=== PATIENT | female | born 1985 | race Caucasian/White ===

== ENCOUNTER 2016-06-15 13:11 | Outpatient (CLI) | payer BC, MEDICAID ==
[2016-06-15 14:52] LABS: ABSOLUTE BASOPHILS # (AUTO) 0.1 10^3/uL (0.0-0.2); ABSOLUTE EOSINOPHILS # (AUTO) 0.1 10^3/uL (0.0-0.6); ABSOLUTE LYMPHOCYTES (AUTO) 2.1 10^3/uL (0.5-4.7); ABSOLUTE MONOCYTES (AUTO) 1.2 10^3/uL (0.1-1.4); ABSOLUTE NEUT (AUTO) 9.4 10^3/uL (1.7-8.2); BASOPHILS % (AUTO) 0.4 % (0-2); HEMATOCRIT 30.6 % (36.0-47.0); HEMOGLOBIN 10.4 g/dL (12.0-15.5); HGB HCT DIFFERENCE 0.6; LYMPHOCYTES % (AUTO) 16.2 % (13-45); MEAN CORPUSCULAR HEMOGLOBIN 28.7 pg (27.0-33.4); MEAN CORPUSCULAR HGB CONC 33.8 g/dL (32.0-36.0); MEAN CORPUSCULAR VOLUME 85 fl (80-97); MONOCYTES % (AUTO) 9.2 % (3-13); RED BLOOD COUNT 3.61 10^6/uL (3.72-5.28); RED CELL DISTRIBUTION WIDTH 13.5 % (11.5-14.0); SEGMENTED NEUTROPHILS % (AUTO) 73.2 % (42-78); WHITE BLOOD COUNT 12.9 10^3/uL (4.0-10.5)
[2016-06-15 15:17] LABS: ALANINE AMINOTRANSFERASE 24 U/L (9-52); ALBUMIN 2.8 g/dL (3.5-5.0); ALKALINE PHOSPHATASE 145 U/L (38-126); ANION GAP 9 (5-19); ASPARTATE AMINO TRANSFERASE 16 U/L (14-36); BILIRUBIN,TOTAL 0.2 mg/dL (0.2-1.3); BLOOD UREA NITROGEN 5 mg/dL (7-20); CALCIUM 9.4 mg/dL (8.4-10.2); CARBON DIOXIDE 23 mmol/L (22-30); CHLORIDE 105 mmol/L (98-107); CREATININE RESULT 0.49 mg/dL (0.52-1.25); GLUCOSE 77 mg/dL (75-110); LDH 356 U/L (313-618); POTASSIUM 3.7 mmol/L (3.6-5.0); SODIUM 137.4 mmol/L (137-145); TOTAL PROTEIN 5.6 g/dL (6.3-8.2); URIC ACID 3.5 mg/dL (2.5-6.2)
[2016-06-15 15:32] LABS: APPEARANCE,URINE CLOUDY; BILIRUBIN,URINE NEGATIVE (NEGATIVE); GLUCOSE, URINE NEGATIVE (NEGATIVE); KETONES,URINE NEGATIVE (NEGATIVE); LEUKOCYTE ESTERASE,URINE LARGE (NEGATIVE); NITRITE,URINE NEGATIVE (NEGATIVE); PROTEIN,URINE NEGATIVE (NEGATIVE); URINE SPECIFIC GRAVITY 1.011; UROBILINOGEN,URINE NEGATIVE mg/dL (<2.0)
[2016-06-15 15:48] LABS: URINE BARBITURATES SCREEN NEGATIVE; URINE METHADONE SCREEN NEGATIVE; URINE PHENCYCLIDINE SCREEN NEGATIVE
--- NOTE | 2016-06-15 15:49 | Non Stress Test Report ---
Non Stress Test Datetime Report Generated by CPN: 06/15/2016 15:49 DEMOGRAPHIC EGA NST: 37.0 INDICATION Indication for Study: Ordered by Provider MONITORING Monitor Explained: Monitor Explained; Test Explained; Patient Verbalized Understanding Time on Monitor: 06/15/2016 13:35 Time off Monitor: 06/15/2016 15:28 NST Duration: 113 NST INTERVENTIONS NST Interventions: None Physician Notified NST: Dr Neilsen BABY A Movement : Present Contraction Frequency : denies FHR Baseline : 135 Accelerations : 15X15 Decelerations : None Variability : Moderate 6-25bpm NST Review: Meets Criteria for Reactive NST NST Review and Verified By : Gretchen Baker RN NST Results: Reactive NST REPORT Report Trigger: Send Report
--- NOTE | 2016-06-15 16:00 | L&D Flow Sheet ---
LD Flowsheet Datetime Report Generated by CPN: 06/15/2016 16:00 Datetime: 06/15/2016 15:23 Communication Comments: Dr Neislen notified of pt lab results and orders received for d/c home, f/u in office as scheduled. (Gretchen Perry, RN) Datetime: 06/15/2016 15:21 Communication Comments: Dr Neilsen notified of pt bp while standing. (Gretchen Perry, RN) Datetime: 06/15/2016 15:19 NBP Sys/Lina/Mean (mmHg): 140 (QS system process) : 84 (QS system process) : 106 (QS system process) Pulse: 79 (QS system process) Patient Care Comments: pt wanted to have bp taken standing at bedside. (Gretchen Baker RN) LaborFlag: OB Triage (QS system process) Datetime: 06/15/2016 15:15 NBP Sys/Lina/Mean (mmHg): 109 (QS system process) : 70 (QS system process) : 84 (QS system process) Pulse: 70 (QS system process) LaborFlag: OB Triage (QS system process) Datetime: 06/15/2016 14:59 Monitor Mode: External; Palpation (Serena Baidy, RN) Frequency (min): denies (Serena Baidy, RN) Monitor Mode: External US (Serena Baidy, RN) FHR Baseline Rate : 135 (Serena Baidy, RN) Variability: Moderate 6-25 bpm (Serena Baidy, RN) Accelerations: 15X15 (Serena Baidy, RN) Decelerations: None (Serena Baidy, RN) Datetime: 06/15/2016 14:58 NBP Sys/Lina/Mean (mmHg): 120 (QS system process) : 73 (QS system process) : 89 (QS system process) Pulse: 81 (QS system process) LaborFlag: OB Triage (QS system process) Datetime: 06/15/2016 14:30 Monitor Mode: External; Palpation (Serena Baidy, RN) Frequency (min): denies (Serena Baidy, RN) Monitor Mode: External US (Serena Baidy, RN) FHR Baseline Rate : 140 (Serena Baidy, RN) Variability: Moderate 6-25 bpm (Serena Baidy, RN) Accelerations: 15X15 (Serena Baidy, RN) Decelerations: None (Serena Baidy, RN) Datetime: 06/15/2016 14:29 NBP Sys/Lina/Mean (mmHg): 122 (QS system process) : 71 (QS system process) : 91 (QS system process) Pulse: 81 (QS system process) LaborFlag: OB Triage (QS system process) Datetime: 06/15/2016 14:13 NBP Sys/Lina/Mean (mmHg): 117 (QS system process) : 69 (QS system process) : 88 (QS system process) Pulse: 83 (QS system process) LaborFlag: OB Triage (QS system process) Datetime: 06/15/2016 14:00 Monitor Mode: External; Palpation (Serena Baidy, RN) Frequency (min): denies (Serena Baidy, RN) Monitor Mode: External US (Serena Baidy, RN) FHR Baseline Rate : 140 (Serena Baidy, RN) Variability: Moderate 6-25 bpm (Serena Baidy, RN) Accelerations: 15X15 (Serena Baidy, RN) Decelerations: None (Serena Baidy, RN) Datetime: 06/15/2016 13:58 NBP Sys/Lina/Mean (mmHg): 112 (QS system process) : 65 (QS system process) : 84 (QS system process) Pulse: 75 (QS system process) LaborFlag: OB Triage (QS system process) Datetime: 06/15/2016 13:51 Patient Position/Activity: Right Lateral (Serena Pearson, RN) Datetime: 06/15/2016 13:42 Communication Comments: Dr Guajardo notified of pt complaint of elevated bp's at home while being oob, current bp reported as well as headache and heartburn. Orders received for [facility] labs. (Serena Pearson, RN) Datetime: 06/15/2016 13:38 NBP Sys/Lina/Mean (mmHg): 135 (QS system process) : 85 (QS system process) : 105 (QS system process) Pulse: 71 (QS system process) LaborFlag: OB Triage (QS system process) Datetime: 06/15/2016 13:36 Pain Scale: 4 (Serena Pearson RN) Pain Presence: Constant (Serena Pearson RN) Pain Type: Dull; Ache (Serena Pearson, ALBERT) Pain Location: Head (Serena Pearson, ALBERT) Pain Goal: 1 (Serena Pearson RN) Membrane Status: Intact (Serena Pearson RN) Vaginal Bleeding: None (Serena Pearson RN) Level of Consciousness: Fully Conscious (Serena Pearson, RN) DTR's/Clonus: DTRs 1+; No Clonus (Serena Pearson, ALBERT) Headache: Frontal (Serena Pearson, RN) Nausea/Vomiting: Denies (Serena Pearson, RN) Patient Position/Activity: Right Tilt; Semi-Fowlers (Serena Pearson, RN) Instructional Method: Verbal; Patient Instructed; Verbalized Understanding (Serena Pearson, RN) Plan of Care: Plan of Care Discussed (Serena Pearson, RN) Unit Routine: [place] to Room; [place]; Bed; Monitoring (Serena Pearson, RN) LaborFlag: OB Triage (QS system process)
--- NOTE | 2016-06-17 11:49 | Antepartum Discharge Summary ---
Antepartum DC Datetime Report Generated by CPN: 06/17/2016 11:49 Diet: Regular (06/15/2016 15:49:Serena Pearson RN) Activity: May Be Up to Bathroom; May Be Up for Meals; May Shower (06/15/2016 15:49:Serena Pearson RN) Activity Restrictions: No Exercising (06/15/2016 15:49:Serena Pearson RN) Instructions Given To: pt (06/15/2016 15:49:Serena Pearson RN) Instructions Understood: Patient Verbalized Understanding (06/15/2016 15:49:Serena Pearson RN) Referrals: None (06/15/2016 15:49:Serena Pearson RN) Educational Materials- Other: term labor care notes (06/15/2016 15:49:Serena Pearson RN) Discharged AMA: No (06/15/2016 15:49:Serena Pearson RN) Discharge Date/Time: 06/15/2016 15:40 (06/15/2016 15:49:Serena Pearson RN) Discharged To: Home (06/15/2016 15:49:Serena Pearson RN) Discharge Provider Name: Dr Nava (06/15/2016 15:49:Serena Pearson RN) Accompanied By: (06/15/2016 15:49:Serena Pearson RN) Discharge Method: Ambulatory (06/15/2016 15:49:Serena Pearson RN) Condition: Stable (06/15/2016 15:49:Serena Pearson RN) Follow Up With: [facility] (06/15/2016 15:49:Serena Pearson RN) Follow Up On: As Scheduled (06/15/2016 15:49:Serena Pearson RN) Follow Up Phone Number: [facility] - (06/15/2016 15:49:Serena Pearson RN)
--- NOTE | 2016-06-17 11:50 | L&D Current Admission ---
Current Admit Datetime Report Generated by [facility]: 06/17/2016 11:50 Chief Complaint: Headache (Annotations: pt states that she has had elevated bp at home when up and moving, when she lays down its fine.) (06/15/2016 13:36:Serena Pearson RN)
--- NOTE | 2016-06-17 11:51 | L&D General Admission ---
General Admit Datetime Report Generated by CPN: 06/17/2016 11:51 Para: 0 (06/15/2016 15:49:Serena Pearson RN) Baby, Number in Womb: 1 (06/15/2016 15:49:Serena Pearson RN) Height (in): 68 (06/15/2016 15:00:QS system process) Height (in): 68 (06/15/2016 14:49:QS system process) Height (in): 68 (06/15/2016 13:30:QS system process) Hemoglobin: 10.4 L (06/15/2016 14:37:QS system process) Hematocrit: 30.6 L (06/15/2016 14:37:QS system process) MCV: 85 (06/15/2016 14:37:QS system process)
--- NOTE | 2016-06-17 11:51 | L&D Flow Sheet ---
LD Flowsheet Datetime Report Generated by CPN: 06/17/2016 11:51 Datetime: 06/15/2016 15:23 Communication Comments: Dr Neislen notified of pt lab results and orders received for d/c home, f/u in office as scheduled. (Gretchen Duchesne, RN) Datetime: 06/15/2016 15:21 Communication Comments: Dr Neilsen notified of pt bp while standing. (Gretchen Duchesne, RN) Datetime: 06/15/2016 15:19 NBP Sys/Lina/Mean (mmHg): 140 (QS system process) : 84 (QS system process) : 106 (QS system process) Pulse: 79 (QS system process) Patient Care Comments: pt wanted to have bp taken standing at bedside. (Gretchen Baker RN) LaborFlag: OB Triage (QS system process) Datetime: 06/15/2016 15:15 NBP Sys/Lina/Mean (mmHg): 109 (QS system process) : 70 (QS system process) : 84 (QS system process) Pulse: 70 (QS system process) LaborFlag: OB Triage (QS system process) Datetime: 06/15/2016 14:59 Monitor Mode: External; Palpation (Serena Baidy, RN) Frequency (min): denies (Serena Baidy, RN) Monitor Mode: External US (Serean Baidy, RN) FHR Baseline Rate : 135 (Serena Baidy, RN) Variability: Moderate 6-25 bpm (Serena Baidy, RN) Accelerations: 15X15 (Serena Baidy, RN) Decelerations: None (Serena Baidy, RN) Datetime: 06/15/2016 14:58 NBP Sys/Lina/Mean (mmHg): 120 (QS system process) : 73 (QS system process) : 89 (QS system process) Pulse: 81 (QS system process) LaborFlag: OB Triage (QS system process) Datetime: 06/15/2016 14:30 Monitor Mode: External; Palpation (Serena Baidy, RN) Frequency (min): denies (Serena Baidy, RN) Monitor Mode: External US (Serena Baidy, RN) FHR Baseline Rate : 140 (Serena Baidy, RN) Variability: Moderate 6-25 bpm (Serena Baidy, RN) Accelerations: 15X15 (Serena Baidy, RN) Decelerations: None (Serena Baidy, RN) Datetime: 06/15/2016 14:29 NBP Sys/Lina/Mean (mmHg): 122 (QS system process) : 71 (QS system process) : 91 (QS system process) Pulse: 81 (QS system process) LaborFlag: OB Triage (QS system process) Datetime: 06/15/2016 14:13 NBP Sys/Lina/Mean (mmHg): 117 (QS system process) : 69 (QS system process) : 88 (QS system process) Pulse: 83 (QS system process) LaborFlag: OB Triage (QS system process) Datetime: 06/15/2016 14:00 Monitor Mode: External; Palpation (Serena Baidy, RN) Frequency (min): denies (Serena Baidy, RN) Monitor Mode: External US (Serena Baidy, RN) FHR Baseline Rate : 140 (Serena Baidy, RN) Variability: Moderate 6-25 bpm (Serena Baidy, RN) Accelerations: 15X15 (Serena Baidy, RN) Decelerations: None (Serena Baidy, RN) Datetime: 06/15/2016 13:58 NBP Sys/Lina/Mean (mmHg): 112 (QS system process) : 65 (QS system process) : 84 (QS system process) Pulse: 75 (QS system process) LaborFlag: OB Triage (QS system process) Datetime: 06/15/2016 13:51 Patient Position/Activity: Right Lateral (Serena Pearson, RN) Datetime: 06/15/2016 13:42 Communication Comments: Dr Guajardo notified of pt complaint of elevated bp's at home while being oob, current bp reported as well as headache and heartburn. Orders received for [facility] labs. (Serena Pearson, RN) Datetime: 06/15/2016 13:38 NBP Sys/Lina/Mean (mmHg): 135 (QS system process) : 85 (QS system process) : 105 (QS system process) Pulse: 71 (QS system process) LaborFlag: OB Triage (QS system process) Datetime: 06/15/2016 13:36 Pain Scale: 4 (Serena Pearson RN) Pain Presence: Constant (Serena Pearson RN) Pain Type: Dull; Ache (Serena Pearson, ALBERT) Pain Location: Head (Serena Pearson, ALBERT) Pain Goal: 1 (Serena Pearson RN) Membrane Status: Intact (Serena Pearson RN) Vaginal Bleeding: None (Serena Pearson RN) Level of Consciousness: Fully Conscious (Serena Pearson, RN) DTR's/Clonus: DTRs 1+; No Clonus (Serena Pearson, ALBERT) Headache: Frontal (Serena Pearson, RN) Nausea/Vomiting: Denies (Serena Pearson, RN) Patient Position/Activity: Right Tilt; Semi-Fowlers (Serena Pearson, RN) Instructional Method: Verbal; Patient Instructed; Verbalized Understanding (Serena Pearson, RN) Plan of Care: Plan of Care Discussed (Serena Pearson, RN) Unit Routine: [place] to Room; [place]; Bed; Monitoring (Serena Pearson, RN) LaborFlag: OB Triage (QS system process)
--- NOTE | 2016-06-17 11:52 | L&D Discharge Summary ---
OB Discharge Summary Datetime Report Generated by CPN: 06/17/2016 11:52 DISCHARGE DIAGNOSIS Diagnosis/Symptoms: Hypertension Evaluation Diagnoses/Symptoms Other: History of Elevated BPs in ; Normotensive with Reactive NST Treatment/Procedures Other: Serial BPs Gestation: 37.0 Number of Babies in Womb: 1 Parity: 0 DIET/ACTIVITY/RESTRICTIONS Diet: Regular Activity: May Be Up to Bathroom; May Be Up for Meals; May Shower Activity Restrictions: No Exercising TEACHING/INSTRUCTIONS/REFERRALS Instructions Given To: pt Instructions Understood: Patient Verbalized Understanding Referrals: None Educational Materials- Other: term labor care notes DISCHARGE INFORMATION Discharged AMA: No Discharge Date/Time: 06/15/2016 15:40 Discharged To: Home Discharge Provider Name: Dr Nava Accompanied By: Discharge Method: Ambulatory Condition: Stable FOLLOW UP INFORMATION Follow Up With: [facility] Follow Up On: As Scheduled Follow Up Phone Number: [facility] - Comments: Pt discharged home for wnl vs, reactive nst, + movement, pt understands instructions and when to return to evaluation and to keep scheduled appointment. Instructed to rest and given note from work.
--- NOTE | 2016-06-24 04:45 | L&D Discharge Summary ---
OB Discharge Summary Datetime Report Generated by CPN: 06/24/2016 04:45 DISCHARGE DIAGNOSIS Diagnosis/Symptoms: Hypertension Evaluation Diagnoses/Symptoms Other: History of Elevated BPs in ; Normotensive with Reactive NST Treatment/Procedures Other: Serial BPs Gestation: 38.1 Number of Babies in Womb: 1 Parity: 0 DIET/ACTIVITY/RESTRICTIONS Diet: Regular Activity: May Be Up to Bathroom; May Be Up for Meals; May Shower Activity Restrictions: No Exercising TEACHING/INSTRUCTIONS/REFERRALS Instructions Given To: pt Instructions Understood: Patient Verbalized Understanding Referrals: None Educational Materials- Other: term labor care notes DISCHARGE INFORMATION Discharged AMA: No Discharge Date/Time: 06/15/2016 15:40 Discharged To: Home Discharge Provider Name: Dr Nava Accompanied By: Discharge Method: Ambulatory Condition: Stable FOLLOW UP INFORMATION Follow Up With: [facility] Follow Up On: As Scheduled Follow Up Phone Number: [facility] [employer] - Comments: Pt discharged home for wnl vs, reactive nst, + movement, pt understands instructions and when to return to evaluation and to keep scheduled appointment. Instructed to rest and given note from work.
== END 2016-06-15 15:40 | disposition home or self-care (01) ==
LOC: LC 13:11
PROVIDERS: ATTEND Specialist
PROC: 4A1HXCZ Monitoring of Products of Conception, Cardiac Rate, External Approach (ICD-10-PCS; principal; 2016-06-15)
DX: O16.3 Unspecified maternal hypertension, third trimester (principal); Z3A.37 37 weeks gestation of pregnancy
CPT/HCPCS: 59025; 36415; 83615; 84550; 85025; 80053; 81001; G0479; 80307

== ENCOUNTER 2016-06-23 19:44 | Inpatient (IN) | payer BC, MEDICAID ==
[2016-06-23] MEDS ORDERED: RINGERS SOLUTION,LACTATED 1,000 ML IV ONE (19:48)
[2016-06-23] MEDS ORDERED: ACETAMINOPHEN 325 MG TABLET PO PRN (20:02)
[2016-06-23] MEDS ORDERED: ZOLPIDEM TARTRATE 5 MG TABLET PO PRN (20:02)
[2016-06-23] MEDS ORDERED: OXYTOCIN/NORMAL SALINE 1,000 ML IV PRN (20:02)
[2016-06-23] MEDS ORDERED: DINOPROSTONE 10 MG VAGINAL INSERT.SR PV ONE (20:02)
[2016-06-23] MEDS ORDERED: MAG HYDROX/AL HYDROX/SIMETH SUSP 30 ML UDCUP PO PRN (20:02)
[2016-06-23 20:30] LABS: ABSOLUTE EOSINOPHILS # (AUTO) 0.1 10^3/uL (0.0-0.6); ABSOLUTE LYMPHOCYTES (AUTO) 2.6 10^3/uL (0.5-4.7); ABSOLUTE MONOCYTES (AUTO) 1.3 10^3/uL (0.1-1.4); ABSOLUTE NEUT (AUTO) 9.5 10^3/uL (1.7-8.2); BASOPHILS % (AUTO) 0.3 % (0-2); HEMATOCRIT 30.4 % (36.0-47.0); HEMOGLOBIN 10.3 g/dL (12.0-15.5); HGB HCT DIFFERENCE 0.5; LYMPHOCYTES % (AUTO) 18.9 % (13-45); MEAN CORPUSCULAR HEMOGLOBIN 28.5 pg (27.0-33.4); MEAN CORPUSCULAR HGB CONC 33.9 g/dL (32.0-36.0); MEAN CORPUSCULAR VOLUME 84 fl (80-97); MONOCYTES % (AUTO) 9.4 % (3-13); RED BLOOD COUNT 3.62 10^6/uL (3.72-5.28); SEGMENTED NEUTROPHILS % (AUTO) 70.4 % (42-78); WHITE BLOOD COUNT 13.5 10^3/uL (4.0-10.5)
[2016-06-23 20:34] LABS: ALANINE AMINOTRANSFERASE 14 U/L (9-52); ALBUMIN 3.3 g/dL (3.5-5.0); ALKALINE PHOSPHATASE 157 U/L (38-126); ANION GAP 12 (5-19); ASPARTATE AMINO TRANSFERASE 16 U/L (14-36); BILIRUBIN,TOTAL 0.3 mg/dL (0.2-1.3); BLOOD UREA NITROGEN 6 mg/dL (7-20); CALCIUM 9.3 mg/dL (8.4-10.2); CARBON DIOXIDE 22 mmol/L (22-30); CHLORIDE 104 mmol/L (98-107); CREATININE RESULT 0.55 mg/dL (0.52-1.25); GLUCOSE 104 mg/dL (75-110); LDH 370 U/L (313-618); POTASSIUM 3.6 mmol/L (3.6-5.0); SODIUM 137.6 mmol/L (137-145); TOTAL PROTEIN 5.8 g/dL (6.3-8.2); URIC ACID 3.9 mg/dL (2.5-6.2)
[2016-06-23] MEDS ORDERED: DINOPROSTONE 10 MG VAGINAL INSERT.SR ONE (20:46)
[2016-06-23 20:56] LABS: APPEARANCE,URINE CLOUDY; BILIRUBIN,URINE NEGATIVE (NEGATIVE); GLUCOSE, URINE NEGATIVE (NEGATIVE); KETONES,URINE NEGATIVE (NEGATIVE); LEUKOCYTE ESTERASE,URINE MODERATE (NEGATIVE); NITRITE,URINE NEGATIVE (NEGATIVE); PROTEIN,URINE NEGATIVE (NEGATIVE); URINE SPECIFIC GRAVITY 1.013; UROBILINOGEN,URINE NEGATIVE mg/dL (<2.0)
[2016-06-23] MEDS: RINGERS SOLUTION,LACTATED 1,000 ML IV PRN (21:53)
[2016-06-24] MEDS: RINGERS SOLUTION,LACTATED 1,000 ML IV PRN (02:44)
--- NOTE | 2016-06-24 04:45 | L&D Admission Assessment ---
LD ADM ASMT Datetime Report Generated by CPN: 06/24/2016 04:45 PATIENT ASSESSMENT Assessment Type: Admission Assessment (06/23/2016 20:25:Sashara Ramírez, RN) WEIGHT Weight (lb): 189 (06/23/2016 19:59:QS system process) Weight (kg): 85.9 (06/23/2016 19:59:QS system process) BMI: 28.7 (06/23/2016 19:59:QS system process) PAIN Pain Scale: 0 (06/24/2016 03:03:Shahbaz Elmore RN) Pain Scale: 0 (06/24/2016 01:05:Shahbaz Elmore RN) Pain Scale: 0 (06/23/2016 21:06:Shahbaz Elmore RN) Pain Scale: 0 (06/23/2016 20:25:Shahbaz Elmore RN) Pain Presence: None/Denies (06/24/2016 03:03:Shahbaz Elmore RN) Pain Presence: None/Denies (06/24/2016 01:05:Shahbaz Elmore RN) Pain Presence: None/Denies (06/23/2016 21:06:Shahbaz Elmore RN) Pain Presence: None/Denies (06/23/2016 20:25:Shahbaz Elmore RN) Pain Type: N/A (06/24/2016 03:03:Shahbaz Elmore RN) Pain Type: N/A (06/24/2016 01:05:Shahbaz Elmore RN) Pain Type: N/A (06/23/2016 21:06:Shahbaz Elmore RN) Pain Type: N/A (06/23/2016 20:25:Shahbaz Elmore RN) Pain Comments: pt denies feeling ctx or cramping (06/23/2016 21:06:Shahbaz Elmore RN) CONTRACTIONS Frequency (min): none (06/24/2016 04:00:Rujose enrique Elmore, RN) Frequency (min): none (06/24/2016 03:30:Rucsandra Ramírez, RN) Frequency (min): 2-3 (06/24/2016 03:00:Rucsandra Ramírez, RN) Frequency (min): 1.5-2.5 (06/24/2016 02:30:Rucsandra Ramírez, RN) Frequency (min): 2-4 (06/24/2016 02:00:Rucsandra Elmore, RN) Frequency (min): 2.5-4 (06/24/2016 01:30:Rucsandra Ramírez, RN) Frequency (min): occasional (06/24/2016 01:00:Rucsandra Ramírez, RN) Frequency (min): occasional (06/24/2016 00:30:Rucsandra Ramírez, RN) Frequency (min): occasional (06/24/2016 00:00:Rucsandra Ramírez, RN) Frequency (min): x2 (06/23/2016 23:30:Rucsandra Elmore, RN) Frequency (min): 4.5-7 (06/23/2016 23:00:Rucsandra Ramírez, RN) Frequency (min): 3-6.5 (06/23/2016 22:30:Rucsandra Ramírez, RN) Frequency (min): 5.5-6 (06/23/2016 22:00:Shelby Whitehead RN) Frequency (min): 4.5-6.5 (06/23/2016 21:30:Rucsandra Elmore, RN) Frequency (min): 2-7 (06/23/2016 21:00:Rucsandra Elmore, RN) Frequency (min): x1 (06/23/2016 20:30:Shahbaz Elmore, RN) Duration (sec): 50-60 (06/24/2016 03:00:Shahbaz Elmore, RN) Duration (sec): 40-110 (06/24/2016 02:30:Shahbaz Elmore, RN) Duration (sec): 50-90 (06/24/2016 02:00:Shahbaz Elmore, RN) Duration (sec): 50-90 (06/24/2016 01:30:Shahbaz Elmore RN) Duration (sec): 50-60 (06/24/2016 01:00:Shahbaz Elmore, RN) Duration (sec): 40-60 (06/24/2016 00:30:Shahbaz Elmore RN) Duration (sec): 40-50 (06/24/2016 00:00:Shahbaz Elmore RN) Duration (sec): 40-50 (06/23/2016 23:30:Shahbaz Elmore RN) Duration (sec): 50-70 (06/23/2016 23:00:Shahbaz Elmore RN) Duration (sec): 50-70 (06/23/2016 22:30:Shahbaz Elmore RN) Duration (sec): 50-70 (06/23/2016 22:00:Shelby Whitehead RN) Duration (sec): 50-100 (06/23/2016 21:30:Shahbaz Elmore RN) Duration (sec): 60-120 (06/23/2016 21:00:Shahbaz Elmore RN) Duration (sec): 50 (06/23/2016 20:30:Shahbaz Elmore RN) Quality: Mild (06/24/2016 03:00:Shahbaz Elmore RN) Quality: Mild (06/24/2016 02:30:Shahbaz Elmore RN) Quality: Mild (06/24/2016 02:00:Shahbaz Elmore RN) Quality: Mild (06/24/2016 01:30:Shahbaz Elmore RN) Quality: Mild (06/24/2016 01:00:Shahbaz Elmore RN) Quality: Mild (06/24/2016 00:30:Shahbaz Elmore RN) Quality: Mild (06/24/2016 00:00:Shahbaz Elmore RN) Quality: Mild (06/23/2016 23:30:Shahbaz Elmore RN) Quality: Mild (06/23/2016 23:00:Shahbaz Elmore RN) Quality: Mild (06/23/2016 22:30:Shahbaz Elmore RN) Quality: Mild (06/23/2016 22:00:Shelby Whitehead RN) Quality: Mild (06/23/2016 21:30:Shahbaz Elmore RN) Quality: Mild (06/23/2016 21:00:Shahbaz Elmore RN) Quality: Mild (06/23/2016 20:30:Shahbaz Elmore RN) Resting Tone [place]: Relaxed (06/24/2016 04:00:Shahbaz Elmore RN) Resting Tone [place]: Relaxed (06/24/2016 03:30:Shahbaz Elmore RN) Resting Tone [place]: Relaxed (06/24/2016 03:00:Shahbaz Elmore RN) Resting Tone [place]: Relaxed (06/24/2016 02:30:Shahbaz Elmore RN) Resting Tone [place]: Relaxed (06/24/2016 02:00:Shahbaz Elmore RN) Resting Tone [place]: Relaxed (06/24/2016 01:30:Shahbaz Elmore RN) Resting Tone [place]: Relaxed (06/24/2016 01:00:Shahbaz Elmore RN) Resting Tone [place]: Relaxed (06/24/2016 00:30:Shahbaz Elmore RN) Resting Tone [place]: Relaxed (06/24/2016 00:00:Shahbaz Elmore RN) Resting Tone [place]: Relaxed (06/23/2016 23:30:Shahbaz Elmore RN) Resting Tone [place]: Relaxed (06/23/2016 23:00:Shahbaz Elmore RN) Resting Tone [place]: Relaxed (06/23/2016 22:30:Shahbaz Elmore RN) Resting Tone [place]: Relaxed (06/23/2016 22:00:Shelby Whitehead RN) Resting Tone [place]: Relaxed (06/23/2016 21:30:Shahbaz Elmore RN) Resting Tone [place]: Relaxed (06/23/2016 21:00:Shahbaz Elmore RN) Resting Tone [place]: Relaxed (06/23/2016 20:30:Shahbaz Elmore RN) Contraction Comments: abdomen palpates soft, pt denies feeling ctx. (06/24/2016 04:00:Shahbaz Elmore RN) Contraction Comments: abdomen palpates soft, pt denies feeling ctx. (06/24/2016 03:30:Shahbaz Elmore RN) Contraction Comments: pt denies ctx or cramping (06/24/2016 03:03:Shhabaz Elmore RN) Contraction Comments: pt denies feeling ctx or cramping (06/24/2016 02:30:Shahbaz Elmore RN) Contraction Comments: pt denies feeling ctx or cramping. Irritability noted. (06/23/2016 22:00:Shelby Whitehead RN) Contraction Comments: pt denies feeling ctx or cramping (06/23/2016 21:00:Shahbaz Elmore RN) VAGINAL EXAM Dilatation (cm): 1.0 (06/23/2016 20:59:Shahbaz Elmore RN) Effacement (%): 50 (06/23/2016 20:59:Shahbaz Elmore RN) Station: -2 (06/23/2016 20:59:Rucsandra Ramírez, RN) NEURO Level of Consciousness: Fully Conscious (06/23/2016 20:25:Shahbaz Elmore RN) DTR's/Clonus: DTRs 2+; No Clonus (06/23/2016 20:25:Shahbaz Elmore RN) Headache: Temporal (06/23/2016 20:25:Shahbaz Elmore RN) Dizziness: No (06/23/2016 20:25:Shahbaz Elmore RN) Blurred Vision: No (06/23/2016 20:25:Shahbaz Elmore RN) Extremity Numbness/Tingling : None (06/23/2016 20:25:Shahbaz Elmore RN) Extremity Movement: Full Range of Motion (06/23/2016 20:25:Shahbaz Elmore RN) CARDIOVASCULAR Heart Rhythm: Regular (06/23/2016 20:25:Shahbaz Elmore RN) Nailbeds: [place] (06/23/2016 20:25:Shahbaz Elmore RN) Capillary Refill: Less than 3 Seconds (06/23/2016 20:25:Shahbaz Elmore RN) Lower Extremities Edema: Bilateral Lower Extremities (06/23/2016 20:25:Shahbaz Elmore RN) Lower Extremities Edema Degree: 1+ (06/23/2016 20:25:Shahbaz Elmore RN) Upper Extremities Edema: None (06/23/2016 20:25:Shahbaz Elmore RN) Upper Extremities Edema Degree: None (06/23/2016 20:25:Shahbaz Elmore RN) Facial Edema: None (06/23/2016 20:25:Shahbaz Elmore RN) DVT RISK ASSESSMENT DVT Risk Age: Age less than 41 years (06/23/2016 20:25:Shahbaz Elmore RN) DVT Risk BMI: BMI<31 (06/23/2016 20:25:Shahbaz Elmore RN) DVT Risk Surgery: None Applicable (06/23/2016 20:25:Shahbaz Elmore RN) DVT Risk Other: Women Only- or (<1 month) (06/23/2016 20:25:Shahbaz Elmore RN) DVT Risk Total: 1 (06/23/2016 20:25:QS system process) DVT Risk Text: Low Risk (<10%) No specific measures, early ambulation (06/23/2016 20:25:QS system process) RESPIRATORY Respiratory Effort: Unlabored; Regular Rhythm; Equal Expansion (06/23/2016 20:25:Shahbaz Elmore RN) Breath Sounds, Left: Clear and Equal (06/23/2016 20:25:Shahbaz Elmore RN) Breath Sounds, Right: Clear and Equal (06/23/2016 20:25:Shahbaz Elmore RN) Cough Productivity: None (06/23/2016 20:25:Shahbaz Elmore RN) GASTROINTESTINAL Nausea/Vomiting: Denies (06/23/2016 20:25:Shahbaz Elmore RN) Bowel Sounds: Normoactive (06/23/2016 20:25:Shahbaz Elmore RN) RUQ Epigastric Pain: Denies (06/23/2016 20:25:Shahbaz Elmore RN) Bowel Patterns: Soft, Formed Stool (06/23/2016 20:25:Shahbaz Elmore RN) Hemorrhoids: None (06/23/2016 20:25:Shahbaz Elmore RN) Diet Type: Regular diet (06/23/2016 20:25:Shahbaz Elmore RN) Last Meal: 06/23/2016 18:00 (06/23/2016 20:25:Shahbaz Elmore RN) GENITOURINARY Bladder: Nondistended (Annotations: voiding) (06/23/2016 20:25:Shahbaz Elmore RN) Frequency of Urination: No (06/23/2016 20:25:Shahbaz Elmore RN) Urination Burning: No (06/23/2016 20:25:Shahbaz Elmore RN) CVA Tenderness: No (06/23/2016 20:25:Shahbaz Elmore RN) Vaginal Bleeding: None (06/23/2016 20:25:Shahbaz Elmore RN) Vaginal Discharge Amount: None (06/23/2016 20:25:Shahbaz Elmore RN) Vaginal Discharge Color: N/A (06/23/2016 20:25:Shahbaz Elmore RN) INTEGUMENTARY Skin Color: Normal for Race (06/23/2016 20:25:Shahbaz Elmore RN) Skin Temperature: Warm (06/23/2016 20:25:Shahbaz Elmore RN) Skin Moisture: Dry (06/23/2016 20:25:Shahbaz Elmore RN) Surgical Scars: none (06/23/2016 20:25:Shahbaz Elmore RN) Body Piercings/Tattoos: ears pierced. (06/23/2016 20:25:Shahbaz Elmore RN) DASIA SKIN ASSESSMENT Dasia Scale Sensory Perception: No Impairment- Responds to verbal commands. Has no sensory deficit which would limit ability to feel or voice pain or discomfort (06/23/2016 20:25:Shahbaz Elmore RN) Dasia Scale Moisture: Rarely Moist- Skin is usually dry. Linen only requires changing at routine intervals (06/23/2016 20:25:Shahbaz Elmore RN) Dasia Scale Activity: Walks Frequently- Walks outside the room at least twice a day and inside room at least every 2 hours during the day. (06/23/2016 20:25:Shahbaz Elmore RN) Dasia Scale Mobility: No Limitations- Makes major and frequent changes in position without assistance (06/23/2016 20:25:Shahbaz Elmore RN) Dasia Scale Nutrition: Excellent- Eats most of every meal. Never refuses a meal. Usually eats a total of 4 or more servings of meat and dairy products. Occasionally eats between meals. Does not require supplementation (06/23/2016 20:25:Shahbaz Elmore RN) Dasia Scale Friction and Shear: No Apparent Problem- Moves in bed and in chair independently and has sufficient muscle strength to lift up completely during move. Maintains good position in bed or chair at all times (06/23/2016 20:25:Shahbaz Elmore RN) Dasia Scale Total: 23 (06/23/2016 20:25:QS system process) Dasia Scale Risk: No Risk of Pressure Ulcer Noted at this Time (06/23/2016 20:25:QS system process) SUPPORT Family Support: Significant Other supportive, at bedside frequently (06/23/2016 20:25:Shahbaz Elmore RN) Emotional State: Calm/Relaxed (06/23/2016 20:25:Shahbaz Elmore RN) SAFETY [place] Within Reach: Yes (06/23/2016 20:25:Shahbaz Elmore RN) Side Rails Up: Yes (06/23/2016 20:25:Shahbaz Elmore RN) Bed Wheels Locked: Yes (06/23/2016 20:25:Shahbaz Elmore RN) Arm Bands Present: Yes (06/23/2016 20:25:Shahbaz Elmore RN) Isolation: [place] (06/23/2016 20:25:Shahbaz Elmore RN) RECENT TRAVEL/INFECTIOUS DISEASE Recent Exp Communicable Disease: No (06/23/2016 20:25:Shahbaz Elmore RN) Cough or Fever: No (06/23/2016 20:25:Shahbaz Elmore RN) Foreign Travel Past 10 Days: No (06/23/2016 20:25:Shahbaz Elmore RN) Open Wounds or Sores: No (06/23/2016 20:25:Shahbaz Elmore RN) Prior Antibiotic Resistance Tx: No (06/23/2016 20:25:Shahbaz Elmore RN) Cultures Obtained: Not Applicable (06/23/2016 20:25:Shahbaz Elmore RN) Isolation Initiated: No (06/23/2016 20:25:Shahbaz Elmore RN) Pt/Family Education: Handwashing Hygiene (06/23/2016 20:25:Shahbaz Elmore RN) BABY A FHR Baseline Rate (bpm) Baby A: 125 (06/24/2016 04:00:Shahbaz Elmore RN) FHR Baseline Rate (bpm) Baby A: 120 (06/24/2016 03:30:Shahbaz Elmore RN) FHR Baseline Rate (bpm) Baby A: 130 (06/24/2016 03:00:Shahbaz Elmore RN) FHR Baseline Rate (bpm) Baby A: 135 (06/24/2016 02:30:Shahbaz Elmore RN) FHR Baseline Rate (bpm) Baby A: 120 (06/24/2016 02:00:Shahbaz Elmore RN) FHR Baseline Rate (bpm) Baby A: 130 (06/24/2016 01:30:Shahbaz Elmore RN) FHR Baseline Rate (bpm) Baby A: 125 (06/24/2016 01:00:Shahbaz Elmore RN) FHR Baseline Rate (bpm) Baby A: 120 (06/24/2016 00:30:Shahbaz Elmore RN) FHR Baseline Rate (bpm) Baby A: 125 (06/24/2016 00:00:Shahbaz Elmore RN) FHR Baseline Rate (bpm) Baby A: 135 (06/23/2016 23:30:Shahbaz Elmore RN) FHR Baseline Rate (bpm) Baby A: 125 (06/23/2016 23:00:Shahbaz Elmore RN) FHR Baseline Rate (bpm) Baby A: 120 (06/23/2016 22:30:Shahbaz Elmore RN) FHR Baseline Rate (bpm) Baby A: 125 (06/23/2016 22:00:Shelby Whitehead RN) FHR Baseline Rate (bpm) Baby A: 130 (06/23/2016 21:30:Shahbaz Elmore RN) FHR Baseline Rate (bpm) Baby A: 135 (06/23/2016 21:00:Shahbaz Elmore RN) FHR Baseline Rate (bpm) Baby A: 140 (06/23/2016 20:30:Shahbaz Elmore RN) Variability Baby A: Moderate 6-25 bpm (06/24/2016 04:00:Shahbaz Elmore RN) Variability Baby A: Moderate 6-25 bpm (06/24/2016 03:30:Shahbaz Elmore RN) Variability Baby A: Moderate 6-25 bpm (06/24/2016 03:00:Shahbaz Elmore RN) Variability Baby A: Moderate 6-25 bpm (06/24/2016 02:30:Shahbaz Elmore RN) Variability Baby A: Moderate 6-25 bpm (06/24/2016 02:00:Shahbaz Elmore RN) Variability Baby A: Moderate 6-25 bpm (06/24/2016 01:30:Shahbaz Elmore RN) Variability Baby A: Moderate 6-25 bpm (06/24/2016 01:00:Shahbaz Elmore RN) Variability Baby A: Moderate 6-25 bpm (06/24/2016 00:30:Shahbaz Elmore RN) Variability Baby A: Moderate 6-25 bpm (06/24/2016 00:00:Shahbaz Elmore RN) Variability Baby A: Moderate 6-25 bpm (06/23/2016 23:30:Shahbaz Elmore RN) Variability Baby A: Moderate 6-25 bpm (06/23/2016 23:00:Shahbaz Elmore RN) Variability Baby A: Moderate 6-25 bpm (06/23/2016 22:30:Shahbaz Elmore RN) Variability Baby A: Moderate 6-25 bpm (06/23/2016 22:00:Shelby Whitehead RN) Variability Baby A: Moderate 6-25 bpm (06/23/2016 21:30:Shahbaz Elmore RN) Variability Baby A: Moderate 6-25 bpm (06/23/2016 21:00:Shahbaz Elmore RN) Variability Baby A: Moderate 6-25 bpm (06/23/2016 20:30:Shahbaz Elmore RN) Accelerations Baby A: 15X15 (06/24/2016 04:00:Shahbaz Elmore RN) Accelerations Baby A: 15X15 (06/24/2016 03:30:Shahbaz Elmore RN) Accelerations Baby A: 15X15 (06/24/2016 03:00:Shahbaz Elmore RN) Accelerations Baby A: 15X15 (06/24/2016 02:30:Shahbaz Elmore RN) Accelerations Baby A: 15X15 (06/24/2016 02:00:Shahbaz Elmore RN) Accelerations Baby A: None (06/24/2016 01:30:Shahbaz Elmore RN) Accelerations Baby A: 15X15 (06/24/2016 01:00:Shahbaz Elmore RN) Accelerations Baby A: 15X15 (06/24/2016 00:30:Shahbaz Elmore RN) Accelerations Baby A: 15X15 (06/24/2016 00:00:Shahbaz Elmore RN) Accelerations Baby A: 15X15 (06/23/2016 23:30:Shahbaz Elmore RN) Accelerations Baby A: 15X15 (06/23/2016 23:00:Shahbaz Elmore RN) Accelerations Baby A: 15X15 (06/23/2016 22:30:Shahbaz Elmore RN) Accelerations Baby A: 15X15 (06/23/2016 22:00:Shelby Whitehead RN) Accelerations Baby A: 15X15 (06/23/2016 21:30:Shahbaz Elmore RN) Accelerations Baby A: 15X15 (06/23/2016 21:00:Shahbaz Elmore RN) Accelerations Baby A: 15X15 (06/23/2016 20:30:Shahbaz Elmore RN) Decelerations Baby A: None (06/24/2016 04:00:Shahbaz Elmore RN) Decelerations Baby A: None (06/24/2016 03:30:Shahbaz Elmore RN) Decelerations Baby A: None (06/24/2016 03:00:Shahbaz Elmore RN) Decelerations Baby A: None (06/24/2016 02:30:Shahbaz Elmore RN) Decelerations Baby A: None (06/24/2016 02:00:Shahbaz Elmore RN) Decelerations Baby A: None (06/24/2016 01:30:Shahbaz Elmore RN) Decelerations Baby A: None (06/24/2016 01:00:Shahbaz Elmore RN) Decelerations Baby A: None (06/24/2016 00:30:Shahbaz Elmore RN) Decelerations Baby A: None (06/24/2016 00:00:Shahbaz Elmore RN) Decelerations Baby A: None (06/23/2016 23:30:Shahbaz Elmore RN) Decelerations Baby A: None (06/23/2016 23:00:Shahbaz Elmore RN) Decelerations Baby A: None (06/23/2016 22:30:Shahbaz Elmore RN) Decelerations Baby A: None (06/23/2016 22:00:Shelby Whitehead RN) Decelerations Baby A: None (06/23/2016 21:30:Shahbaz Elmore RN) Decelerations Baby A: None (06/23/2016 21:00:Shahbaz Elmore RN) Decelerations Baby A: None (06/23/2016 20:30:Shahbaz Elmore RN) ADDITIONAL COMMENTS Assessment Flag: Admission Assessment (06/23/2016 20:25:QS system process)
--- NOTE | 2016-06-24 04:45 | L&D Flow Sheet ---
LD Flowsheet Datetime Report Generated by CPN: 06/24/2016 04:45 Datetime: 06/24/2016 04:43 NBP Sys/Lina/Mean (mmHg): 133 (QS system process) : 83 (QS system process) : 103 (QS system process) Pulse: 65 (QS system process) LaborFlag: OB Triage (QS system process) Datetime: 06/24/2016 04:28 NBP Sys/Lina/Mean (mmHg): 147 (QS system process) : 66 (QS system process) : 95 (QS system process) Pulse: 73 (QS system process) LaborFlag: OB Triage (QS system process) Datetime: 06/24/2016 04:13 NBP Sys/Lina/Mean (mmHg): 129 (QS system process) : 61 (QS system process) : 88 (QS system process) Pulse: 76 (QS system process) LaborFlag: OB Triage (QS system process) Datetime: 06/24/2016 04:00 Monitor Mode: External; Palpation (Shahbaz Elmore RN) Frequency (min): none (Shahbaz Elmore RN) Resting Tone (Palpate): Relaxed (Shahbaz Elmore RN) Contraction Comments: abdomen palpates soft, pt denies feeling ctx. (Shahbaz Elmore RN) Monitor Mode: External US (Shahbaz Elmore RN) FHR Baseline Rate : 125 (Shahbaz Elmore RN) Variability: Moderate 6-25 bpm (Shahbaz Elmore RN) Accelerations: 15X15 (Shahbaz Elmore RN) Decelerations: None (Rubetteandra Ramírez, RN) Datetime: 06/24/2016 03:58 NBP Sys/Lina/Mean (mmHg): 122 (QS system process) : 62 (QS system process) : 85 (QS system process) Pulse: 72 (QS system process) LaborFlag: OB Triage (QS system process) Datetime: 06/24/2016 03:43 NBP Sys/Lina/Mean (mmHg): 115 (QS system process) : 60 (QS system process) : 81 (QS system process) Pulse: 78 (QS system process) LaborFlag: OB Triage (QS system process) Datetime: 06/24/2016 03:30 NBP Sys/Lina/Mean (mmHg): 111 (QS system process) : 59 (QS system process) : 80 (QS system process) Pulse: 67 (QS system process) Monitor Mode: External; Palpation (Shahbaz Elmore, RN) Frequency (min): none (Shahbaz Elmore RN) Resting Tone (Palpate): Relaxed (Shahbaz Elmore RN) Contraction Comments: abdomen palpates soft, pt denies feeling ctx. (Shahbaz Elmore, RN) Monitor Mode: External US (Shahbaz Elmore, RN) FHR Baseline Rate : 120 (Shahbaz Elmore, RN) Variability: Moderate 6-25 bpm (Shahbaz Elmore, RN) Accelerations: 15X15 (Shahbaz Elmore, RN) Decelerations: None (Shahbaz Elmore, RN) LaborFlag: OB Triage (QS system process) Datetime: 06/24/2016 03:29 Maternal Comments: pt sleeping but easily arousable (Rucsandra Ramírez, RN) Datetime: 06/24/2016 03:25 Monitor Interventions for UA: Peerless Adjusted (Rucsandra Ramírez, RN) Datetime: 06/24/2016 03:22 Patient Position/Activity: Left Lateral (Rucsandra Ramírez, RN) Datetime: 06/24/2016 03:16 Monitor Interventions for UA: Peerless Adjusted (Rucsandra Ramírez, RN) Patient Care Comments: pt sleeping but easily arousable (Rucsandra Ramírez, RN) Datetime: 06/24/2016 03:13 NBP Sys/Lina/Mean (mmHg): 126 (QS system process) : 76 (QS system process) : 97 (QS system process) Pulse: 68 (QS system process) LaborFlag: OB Triage (QS system process) Datetime: 06/24/2016 03:10 Patient Position/Activity: Right Lateral (Shahbaz Elmore, ALBERT) Datetime: 06/24/2016 03:03 Monitor Interventions for UA: Peerless Adjusted (Shahbaz Elmore RN) Contraction Comments: pt denies ctx or cramping (Shahbaz Elmore RN) Pain Scale: 0 (Shahbaz Elmore RN) Pain Presence: None/Denies (Shahbaz Elmore RN) Pain Type: N/A (Shahbaz Elmore RN) LaborFlag: OB Triage (QS system process) Datetime: 06/24/2016 03:00 Monitor Mode: External; Palpation (Rucsandra Ramírez, RN) Frequency (min): 2-3 (Rucsandra Ramírez, RN) Quality: Mild (Rucsandra Ramírez, RN) Duration (sec): 50-60 (Rucsandra Ramírez, RN) Resting Tone (Palpate): Relaxed (Rucsandra Ramírez, RN) Monitor Mode: External US (Rucsandra Ramírez, RN) FHR Baseline Rate : 130 (Rucsandra Ramírez, RN) Variability: Moderate 6-25 bpm (Rucsandra Ramírez, RN) Accelerations: 15X15 (Rucsandra Ramírez, RN) Decelerations: None (Rucsandra Ramírez, RN) Datetime: 06/24/2016 02:58 NBP Sys/Lina/Mean (mmHg): 131 (QS system process) : 84 (QS system process) : 101 (QS system process) Pulse: 89 (QS system process) LaborFlag: OB Triage (QS system process) Datetime: 06/24/2016 02:56 Maternal Comments: pt moving up in bed (Shahbaz Elmore, RN) Datetime: 06/24/2016 02:45 IV/Blood Work: IV Infusing per Order; New IV Bag Hung (Sashara Ramírez, RN) Datetime: 06/24/2016 02:43 NBP Sys/Lina/Mean (mmHg): 128 (QS system process) : 70 (QS system process) : 92 (QS system process) Pulse: 75 (QS system process) LaborFlag: OB Triage (QS system process) Datetime: 06/24/2016 02:42 Patient Position/Activity: Left Tilt; High Fowlers (Rucsandra Ramírez, RN) Datetime: 06/24/2016 02:41 Maternal Comments: pt back to bed without incident (Rucsandra Ramírez, RN) Datetime: 06/24/2016 02:38 I/O Interventions: Up to BR (Rucsandra Ramírez, RN) Datetime: 06/24/2016 02:30 Monitor Mode: External; Palpation (Shahbaz Elmore, RN) Frequency (min): 1.5-2.5 (Rucsandra Elmore, RN) Quality: Mild (Rucsandra Ramírez, RN) Duration (sec): 40-110 (Rucsandra Ramírez, RN) Resting Tone (Palpate): Relaxed (Rucsandra Ramírez, RN) Contraction Comments: pt denies feeling ctx or cramping (Rucsandra Elmore, RN) Monitor Mode: External US (Rucsandra Elmore, RN) FHR Baseline Rate : 135 (Rucsandra Ramírez, RN) Variability: Moderate 6-25 bpm (Rucsandra Ramírez, RN) Accelerations: 15X15 (Rucsandra Ramírez, RN) Decelerations: None (Rucsandra Ramírez, RN) Datetime: 06/24/2016 02:29 NBP Sys/Lina/Mean (mmHg): 126 (QS system process) : 61 (QS system process) : 85 (QS system process) Pulse: 86 (QS system process) LaborFlag: OB Triage (QS system process) Datetime: 06/24/2016 02:13 NBP Sys/Lina/Mean (mmHg): 117 (QS system process) : 57 (QS system process) : 78 (QS system process) Pulse: 70 (QS system process) LaborFlag: OB Triage (QS system process) Datetime: 06/24/2016 02:00 Monitor Mode: External; Palpation (Rucsandra Ramírez, RN) Frequency (min): 2-4 (Rucsandra Ramírez, RN) Quality: Mild (Rucsandra Ramírez, RN) Duration (sec): 50-90 (Rucsandra Ramírez, RN) Resting Tone (Palpate): Relaxed (Rucsandra Ramírez, RN) Monitor Mode: External US (Rucsandra Ramírez, RN) FHR Baseline Rate : 120 (Rucsandra Ramírez, RN) Variability: Moderate 6-25 bpm (Rucsandra Ramírez, RN) Accelerations: 15X15 (Rucsandra Ramírez, RN) Decelerations: None (Rucsandra Ramírez, RN) Datetime: 06/24/2016 01:58 NBP Sys/Lina/Mean (mmHg): 127 (QS system process) : 60 (QS system process) : 86 (QS system process) Pulse: 72 (QS system process) LaborFlag: OB Triage (QS system process) Datetime: 06/24/2016 01:43 NBP Sys/Lina/Mean (mmHg): 131 (QS system process) : 58 (QS system process) : 84 (QS system process) Pulse: 75 (QS system process) LaborFlag: OB Triage (QS system process) Datetime: 06/24/2016 01:30 NBP Sys/Lina/Mean (mmHg): 134 (QS system process) : 63 (QS system process) : 88 (QS system process) Pulse: 65 (QS system process) Monitor Mode: External; Palpation (Shahbaz Elmore RN) Frequency (min): 2.5-4 (Shahbaz Elmore RN) Quality: Mild (Shahbaz Elmore RN) Duration (sec): 50-90 (Shahbaz Elmore RN) Resting Tone (Palpate): Relaxed (Shahbaz Elmore RN) Monitor Mode: External US (Shahbaz Elmore RN) FHR Baseline Rate : 130 (Shahbaz Elmore RN) Variability: Moderate 6-25 bpm (Shahbaz Elmore RN) Accelerations: None (Shahbaz Elmore, RN) Decelerations: None (Shahbaz Elmore, RN) LaborFlag: OB Triage (QS system process) Datetime: 06/24/2016 01:15 NBP Sys/Lina/Mean (mmHg): 121 (QS system process) : 67 (QS system process) : 88 (QS system process) Pulse: 70 (QS system process) LaborFlag: OB Triage (QS system process) Datetime: 06/24/2016 01:12 Patient Position/Activity: Left Tilt (Rucsandra Ramírez, RN) Datetime: 06/24/2016 01:07 I/O Interventions: Clear Liquids Given (Rucsandra Ramírez, RN) Datetime: 06/24/2016 01:05 Monitor Interventions for UA: Peerless Adjusted (Rucsandra Ramírez, RN) Pain Scale: 0 (Rucsandra Ramírez, RN) Pain Presence: None/Denies (Rucsandra Ramírez, RN) Pain Type: N/A (Rucsandra Ramírez, RN) LaborFlag: OB Triage (QS system process) Datetime: 06/24/2016 01:03 Maternal Comments: pt back to bed without incident (Rucsandra Ramírez, RN) Datetime: 06/24/2016 01:00 Monitor Mode: External; Palpation (Rucsandra Ramírez, RN) Frequency (min): occasional (Rucsandra Ramírez, RN) Quality: Mild (Rucsandra Ramírez, RN) Duration (sec): 50-60 (Rucsandra Ramírez, RN) Resting Tone (Palpate): Relaxed (Rucsandra Ramírez, RN) Monitor Mode: External US (Rucsandra Ramírez, RN) FHR Baseline Rate : 125 (Rucsandra Ramírez, RN) Variability: Moderate 6-25 bpm (Rucsandra Ramírez, RN) Accelerations: 15X15 (Rucsandra Ramírez, RN) Decelerations: None (Rucsandra Ramírez, RN) Datetime: 06/24/2016 00:59 I/O Interventions: Up to BR (Shahbaz Varelaahan, RN) Datetime: 06/24/2016 00:58 NBP Sys/Lina/Mean (mmHg): 125 (QS system process) : 72 (QS system process) : 94 (QS system process) Pulse: 80 (QS system process) LaborFlag: OB Triage (QS system process) Datetime: 06/24/2016 00:43 NBP Sys/Lina/Mean (mmHg): 127 (QS system process) : 88 (QS system process) : 103 (QS system process) Pulse: 81 (QS system process) LaborFlag: OB Triage (QS system process) Datetime: 06/24/2016 00:30 Monitor Mode: External; Palpation (Rucsandra Ramírez, RN) Frequency (min): occasional (Rucsandra Ramírez, RN) Quality: Mild (Rucsandra Ramírez, RN) Duration (sec): 40-60 (Rucsandra Ramírez, RN) Resting Tone (Palpate): Relaxed (Rucsandra Ramírez, RN) Monitor Mode: External US (Rucsandra Ramírez, RN) FHR Baseline Rate : 120 (Rucsandra Ramírez, RN) Variability: Moderate 6-25 bpm (Rucsandra Ramírez, RN) Accelerations: 15X15 (Rucsandra Ramírez, RN) Decelerations: None (Rucsandra Ramírez, RN) Datetime: 06/24/2016 00:28 NBP Sys/Lina/Mean (mmHg): 131 (QS system process) : 78 (QS system process) : 99 (QS system process) Pulse: 78 (QS system process) LaborFlag: OB Triage (QS system process) Datetime: 06/24/2016 00:25 Temperature (F): 98.1 (Shahbaz Elmore RN) Temperature (C): 36.7 (QS system process) Monitor Interventions for UA: Peerless Adjusted (Shahbaz Elmore RN) Monitor Interventions for FHR: Ultrasound Adjusted (Shahbaz Elmore RN) LaborFlag: OB Triage (QS system process) Datetime: 06/24/2016 00:13 NBP Sys/Lina/Mean (mmHg): 138 (QS system process) : 85 (QS system process) : 107 (QS system process) Pulse: 77 (QS system process) LaborFlag: OB Triage (QS system process) Datetime: 06/24/2016 00:01 Maternal Comments: pt watching TV and resting in bed. Support person remains at bedside. Pt denies any needs at this time. (Shahbaz Elmore, RN) Datetime: 06/24/2016 00:00 Monitor Mode: External; Palpation (Shahbaz Elmore RN) Monitor Interventions for UA: Peerless Adjusted (Shahbaz Elmore, RN) Frequency (min): occasional (Shahbaz Elmore, RN) Quality: Mild (Shahbaz Elmore, RN) Duration (sec): 40-50 (Niravandra Elmore, RN) Resting Tone (Palpate): Relaxed (Shahbaz Elmore, RN) Monitor Mode: External US (Shahbaz Elmore, RN) FHR Baseline Rate : 125 (Shahbaz Elmore, RN) Variability: Moderate 6-25 bpm (Rucsandra Ramírez, RN) Accelerations: 15X15 (Rucsandra Ramírez, RN) Decelerations: None (Rucsandra Elmore, RN) Datetime: 06/23/2016 23:58 NBP Sys/Lina/Mean (mmHg): 134 (QS system process) : 84 (QS system process) : 102 (QS system process) Pulse: 75 (QS system process) LaborFlag: OB Triage (QS system process) Datetime: 06/23/2016 23:45 NBP Sys/Lina/Mean (mmHg): 134 (QS system process) : 81 (QS system process) : 103 (QS system process) Pulse: 73 (QS system process) LaborFlag: OB Triage (QS system process) Datetime: 06/23/2016 23:37 I/O Interventions: Clear Liquids Given (Rucsandra Ramírez, RN) Datetime: 06/23/2016 23:34 Patient Care Comments: additional pillows provided. (Rucsandra Ramírez, RN) Datetime: 06/23/2016 23:30 Monitor Mode: External; Palpation (Rucsandra Ramírez, RN) Frequency (min): x2 (Rucsandra Ramírez, RN) Quality: Mild (Rucsandra Ramírez, RN) Duration (sec): 40-50 (Rucsandra Ramírez, RN) Resting Tone (Palpate): Relaxed (Rucsandra Ramírez, RN) Monitor Mode: External US (Rucsandra Ramírez, RN) FHR Baseline Rate : 135 (Rucsandra Ramírez, RN) Variability: Moderate 6-25 bpm (Rucsandra Ramírez, RN) Accelerations: 15X15 (Rucsandra Ramírez, RN) Decelerations: None (Rucsandra Ramírez, RN) Datetime: 06/23/2016 23:28 NBP Sys/Lina/Mean (mmHg): 147 (QS system process) : 86 (QS system process) : 110 (QS system process) Pulse: 86 (QS system process) LaborFlag: OB Triage (QS system process) Datetime: 06/23/2016 23:23 Patient Position/Activity: Right Lateral (Rucsandra Ramírez, RN) Datetime: 06/23/2016 23:13 NBP Sys/Lina/Mean (mmHg): 123 (QS system process) : 81 (QS system process) : 97 (QS system process) Pulse: 75 (QS system process) LaborFlag: OB Triage (QS system process) Datetime: 06/23/2016 23:09 Maternal Comments: pt back to bed without incident (Rucsandra Ramírez, RN) Datetime: 06/23/2016 23:03 I/O Interventions: Up to BR (Rucsandra Ramírez, RN) Datetime: 06/23/2016 23:00 Monitor Mode: External; Palpation (Niravandra Elmore, RN) Frequency (min): 4.5-7 (Rucsandra Ramírez, RN) Quality: Mild (Rucsandra Ramírez, RN) Duration (sec): 50-70 (Rucsandra Elmore, RN) Resting Tone (Palpate): Relaxed (Rucsandra Ramírez, RN) Monitor Mode: External US (Niravandra Elmore, RN) FHR Baseline Rate : 125 (Rucsandra Ramírez, RN) Variability: Moderate 6-25 bpm (Rucsandra Ramírez, RN) Accelerations: 15X15 (Rucsandra Ramírez, RN) Decelerations: None (Rucsandra Ramírez, RN) Datetime: 06/23/2016 22:59 NBP Sys/Lina/Mean (mmHg): 119 (QS system process) : 78 (QS system process) : 94 (QS system process) Pulse: 81 (QS system process) LaborFlag: OB Triage (QS system process) Datetime: 06/23/2016 22:43 NBP Sys/Lina/Mean (mmHg): 125 (QS system process) : 69 (QS system process) : 91 (QS system process) Pulse: 78 (QS system process) LaborFlag: OB Triage (QS system process) Datetime: 06/23/2016 22:30 Monitor Mode: External; Palpation (Rucsandra Ramírez, RN) Frequency (min): 3-6.5 (Rucsandra Ramírez, RN) Quality: Mild (Rucsandra Ramírez, RN) Duration (sec): 50-70 (Rucsandra Ramírez, RN) Resting Tone (Palpate): Relaxed (Rucsandra Ramírez, RN) Monitor Mode: External US (Rucsandra Ramírez, RN) FHR Baseline Rate : 120 (Rucsandra Ramírez, RN) Variability: Moderate 6-25 bpm (Rucsandra Ramírez, RN) Accelerations: 15X15 (Rucsandra Ramírez, RN) Decelerations: None (Rucsandra Ramírez, RN) Datetime: 06/23/2016 22:28 NBP Sys/Lina/Mean (mmHg): 127 (QS system process) : 69 (QS system process) : 91 (QS system process) Pulse: 80 (QS system process) LaborFlag: OB Triage (QS system process) Datetime: 06/23/2016 22:14 NBP Sys/Lina/Mean (mmHg): 133 (QS system process) : 75 (QS system process) : 99 (QS system process) Pulse: 82 (QS system process) LaborFlag: OB Triage (QS system process) Datetime: 06/23/2016 22:00 Monitor Mode: External; Palpation (Shelby Lattibeaudeir, RN) Frequency (min): 5.5-6 (Shelby Lattibeaudeir, RN) Quality: Mild (Shelby Lattibeaudeir, RN) Duration (sec): 50-70 (Shelby Lattibeaudeir, RN) Resting Tone (Palpate): Relaxed (Shelby Lattibeaudeir, RN) Contraction Comments: pt denies feeling ctx or cramping. Irritability noted. (Shelby Lattibeaudeir, RN) Monitor Mode: External US (Shelby Lattibeaudeir, RN) FHR Baseline Rate : 125 (Shelby Lattibeaudeir, RN) Variability: Moderate 6-25 bpm (Shelby Lattibeaudeir, RN) Accelerations: 15X15 (Shelby Lattibeaudeir, RN) Decelerations: None (Shelby Lattibeaudeir, RN) Datetime: 06/23/2016 21:59 Maternal Comments: pt resting in bed, watching TV. Support person at bedside. Denies any needs. (Shelby Lattibeaudeir, RN) Datetime: 06/23/2016 21:58 NBP Sys/Lina/Mean (mmHg): 130 (QS system process) : 81 (QS system process) : 101 (QS system process) Pulse: 82 (QS system process) LaborFlag: OB Triage (QS system process) Datetime: 06/23/2016 21:48 Patient Position/Activity: Right Lateral (Rucsandra Ramírez, RN) Datetime: 06/23/2016 21:43 NBP Sys/Lina/Mean (mmHg): 127 (QS system process) : 77 (QS system process) : 96 (QS system process) Pulse: 71 (QS system process) LaborFlag: OB Triage (QS system process) Datetime: 06/23/2016 21:30 NBP Sys/Lina/Mean (mmHg): 134 (QS system process) : 83 (QS system process) : 104 (QS system process) Pulse: 88 (QS system process) Monitor Mode: External; Palpation (Shahbaz Elmore RN) Frequency (min): 4.5-6.5 (Shahbaz Elmore RN) Quality: Mild (Shahbaz Elmore RN) Duration (sec): 50-100 (Shahbaz Elmore RN) Resting Tone (Palpate): Relaxed (Shahbaz Elmore RN) Monitor Mode: External US (Shahbaz Elmore RN) FHR Baseline Rate : 130 (Shahbaz Elmore RN) Variability: Moderate 6-25 bpm (Shahbaz Elmore RN) Accelerations: 15X15 (Shahbaz Elmore RN) Decelerations: None (Shahbaz Elmore RN) LaborFlag: OB Triage (QS system process) Datetime: 06/23/2016 21:12 NBP Sys/Lina/Mean (mmHg): 138 (QS system process) : 86 (QS system process) : 108 (QS system process) Pulse: 76 (QS system process) LaborFlag: OB Triage (QS system process) Datetime: 06/23/2016 21:06 Pain Scale: 0 (Shahbaz Elmore RN) Pain Presence: None/Denies (Shahbaz Elmore RN) Pain Type: N/A (Shahbaz Elmore RN) Pain Assessment Comments: pt denies feeling ctx or cramping (Shahbaz Elmore RN) Maternal Comments: pt resting in bed watching TV, denies any needs. (Shahbaz Elmore RN) LaborFlag: OB Triage (QS system process) Datetime: 06/23/2016 21:00 Monitor Mode: External; Palpation (Shahbaz Elmore RN) Frequency (min): 2-7 (Shahbaz Elmore RN) Quality: Mild (Shahbaz Elmore RN) Duration (sec): 60-120 (Shahbaz Elmore RN) Resting Tone (Palpate): Relaxed (Shahbaz Elmore RN) Contraction Comments: pt denies feeling ctx or cramping (Shahbaz Elmore RN) Monitor Mode: External US (Shahbaz Elmore RN) FHR Baseline Rate : 135 (Shahbaz Elmore RN) Variability: Moderate 6-25 bpm (Shahbaz Elmore RN) Accelerations: 15X15 (Shahbaz Elmore RN) Decelerations: None (Shahbaz Elmore RN) Patient Position/Activity: Left Tilt (Shahbaz Elmore RN) Datetime: 06/23/2016 20:59 Dilatation (cm): 1.0 (Shahbaz Elmore RN) Effacement (%): 50 (Shahbaz Elmore RN) Station: -2 (Shahbaz Elmore RN) Exam by: Candida Elmore RN (Shahbaz Elmore RN) Cervical Ripening Agents: Cervidil (Rucsandra Ramírez, RN) Medication Comments: Intended effects and possible side effects explained to pt. Pt agrees and V/U. (Rucsandra Ramírez, RN) Datetime: 06/23/2016 20:51 Maternal Comments: pt back to bed without incident. (Rucsandra Ramírez, RN) Datetime: 06/23/2016 20:47 I/O Interventions: Up to BR (Rucsandra Ramírez, RN) Datetime: 06/23/2016 20:30 Monitor Mode: External; Palpation (Rucsandra Ramírez, RN) Frequency (min): x1 (Shahbaz Elmore RN) Quality: Mild (Shahbaz Elmore RN) Duration (sec): 50 (Shahbaz Elmore RN) Resting Tone (Palpate): Relaxed (Shahbaz Elmore RN) Monitor Mode: External US (Shahbaz Elmore RN) FHR Baseline Rate : 140 (Shahbaz Elmore RN) Variability: Moderate 6-25 bpm (Shahbaz Elmore RN) Accelerations: 15X15 (Shahbaz Elmore RN) Decelerations: None (Shahbaz Elmore RN) IV/Blood Work: IV Started; IV Infusing per Order; New IV Bag Hung (Shahbaz Elmore RN) Patient Care Comments: 18G IV started on left FA x1 attempt, pt tolerated well. (Shahbaz Elmore RN) Datetime: 06/23/2016 20:25 Pain Scale: 0 (Shahbaz Elmore RN) Pain Presence: None/Denies (Shahbaz Elmore RN) Pain Type: N/A (Shahbaz Elmore RN) Vaginal Bleeding: None (Shahbaz Elmore RN) Level of Consciousness: Fully Conscious (Shahbaz Elmore RN) DTR's/Clonus: DTRs 2+; No Clonus (Shahbaz Elmore RN) Headache: Temporal (Shahbaz Elmore RN) Breath Sounds, Left: Clear and Equal (Shahbaz Elmore RN) Breath Sounds, Right: Clear and Equal (Shahbaz Elmore RN) Nausea/Vomiting: Denies (Shahbaz Elmore RN) RUQ Epigastric Pain: Denies (Shahbaz Elmore RN) LaborFlag: OB Triage (QS system process) Datetime: 06/23/2016 20:21 Maternal Comments: lab at bedside for admission lab draw. (Shahbaz Elmore RN) Maternal Comments: Consent forms signed. (Shahbaz Elmore RN) Unit Routine: Consents Signed (Shahbaz Elmore RN) Datetime: 06/23/2016 20:18 NBP Sys/Lina/Mean (mmHg): 143 (QS system process) : 93 (QS system process) : 114 (QS system process) Pulse: 86 (QS system process) Temperature (F): 98.1 (Shahbaz Elmore RN) Temperature (C): 36.7 (QS system process) LaborFlag: OB Triage (QS system process) Datetime: 06/23/2016 20:16 Maternal Comments: External monitors applied. (Shahbaz Elmore RN) Instructional Method: Verbal; Patient Instructed; Family/Support Person Instructed; Verbalized Understanding (Shahbaz Elmore RN) Plan of Care: Plan of Care Discussed; Induction (Shahbaz Elmore RN) Unit Routine: [place] to Room; [place]; Bed; Visiting Policy; Infant Security; Phone/Cell Phone Use; Photography; Unit Personnel; Handwashing; Monitoring; IV Pumps; Bathroom Privileges (Shahbaz Elmore RN) Datetime: 06/23/2016 20:15 Maternal Comments: Verbal consent for treatment obtained. (Shahbaz Elmore RN)
--- NOTE | 2016-06-24 04:45 | L&D Current Admission ---
Current Admit Datetime Report Generated by CPN: 06/24/2016 04:45 ADMISSION INFORMATION Person(s) Allowed during Admit: family (06/23/2016 20:25:Shahbaz Elmore RN) Current Admit Date/Time: 06/23/2016 20:25 (06/23/2016 20:25:Shahbaz Elmore RN) Reason for Admission: Induction of Labor (06/23/2016 20:25:Shahbaz Elmore RN) Chief Complaint: Scheduled Induction of Labor (06/23/2016 20:25:Shahbaz Elmore RN) Medications During : Vitamin; Rantidine (Zantac) (06/23/2016 20:25:Shahbaz Elmore RN) EGA per Dates: 38.1 (06/23/2016 20:25:QS system process) Method of Arrival: Ambulatory (06/23/2016 20:25:Shahbaz Elmore RN) Admitted From: Home (06/23/2016 20:25:Shahbaz Elmore RN) Admitted From: Home (06/15/2016 13:36:Shahbaz Elmore RN) Reason for Induction: Gestational Hypertension (06/23/2016 20:25:Shahbaz Elmore RN) Records Available: Yes (06/23/2016 20:25:Shahbaz Elmore RN) General Admission Information: Reviewed (06/23/2016 20:25:Shahbaz Elmore RN) General Admission Reviewed By: Candida Elmore RN (06/23/2016 20:25:Shahbaz Elmore RN) BELONGINGS/ADVANCED DIRECTIVES Disposition of Belongings: Kept with Patient (06/23/2016 20:25:Shahbaz Elmore RN) Comments Regarding Disposition: see valuables consent form (06/23/2016 20:25:Shahbaz Elmore RN) Advance Direct for Healthcare: No, and Wants No Information (06/23/2016 20:25:hSahbaz Elmore RN) Durable Power of Auction Clerk: No (06/23/2016 20:25:Shahbaz Elmore RN) Living Will: No (06/23/2016 20:25:Shahbaz Elmore RN) Organ Donor: Yes (06/23/2016 20:25:Shahbaz Elmore RN) Pt Rights Information Given: Yes (06/23/2016 20:25:Shahbaz Elmore RN) Pt Understands Pt Rights: Yes (06/23/2016 20:25:Shahbaz Elmore RN) LEARNING ASSESSMENT Knowledge Level: Understands L_D Process; Understands Care Activities; Had Pre-Hospital Education; Understands Diagnosis (06/23/2016 20:25:Shahbaz Elmore RN) Barriers to Learning: None (06/23/2016 20:25:Shahbaz Elmore RN) Learning Readiness: Motivated (06/23/2016 20:25:Shahbaz Elmore RN) Learns Best By: 1 to 1 Instruction; Reading; Videos; Group Discussion; Demonstration (06/23/2016 20:25:Shahbaz Elmore RN) Learning Needs: Labor and Delivery Process; Pain Management; Symptoms to Report; Treatment Plan; Medication; Diagnosis; Nutrition; Equipment; Care; Community Resources (06/23/2016 20:25:Shahbaz Elmore RN) DOMESTIC VIOLANCE SCREENING Dom Viol Threatened/Hurt: No (06/23/2016 20:25:Shahbaz Elmore RN) Hx of Abuse/Neglect past 2yrs: No (06/23/2016 20:25:Shahbaz Elmore RN) Feel Unsafe Going Home: No (06/23/2016 20:25:Shahbaz Elmore RN) Addt'l Observ Indicating Abuse: No (06/23/2016 20:25:Shahbaz Elmore RN) Reason Unable to Complete Screen: N/A, Screen Completed (06/23/2016 20:25:Shahbaz Elmore RN) Considered Personal Harm/Suicide: No (06/23/2016 20:25:Shahbaz Elmore RN) NUTRITIONAL/FUNCTIONAL SCREENING Problem with Appetite >5 Days: No (06/23/2016 20:25:Shahbaz Elmore RN) Chew/Swallow Difficulties: No (06/23/2016 20:25:Shahbaz Elmore RN) Inappropriate Wt Gain/Loss: No (06/23/2016 20:25:Shahbaz Elmore RN) Presence Skin Breakdown/Ulcer: No (06/23/2016 20:25:Shahbaz Elmore RN) Special Diet: No (06/23/2016 20:25:Shahbaz Elmore RN) Pt Requests Recreational Sports Director Visit: No (06/23/2016 20:25:Shahbaz Elmore RN) Hx of Any of the Following?: N/A (06/23/2016 20:25:Shahbaz Elmore RN) New Diagnosis of: N/A (06/23/2016 20:25:Shahbaz Elmore RN) Requires Assist w/Ambulation: No (06/23/2016 20:25:Shahbaz Elmore RN) Uses Assist Device to Ambulate: No (06/23/2016 20:25:Shahbaz Elmore RN) Pt Requires Help w/ADL's: No (06/23/2016 20:25:Shahbaz Elmore RN)
--- NOTE | 2016-06-24 04:45 | L&D General Admission ---
General Admit Datetime Report Generated by CPN: 06/24/2016 04:45 INFORMATION Para: 0 (06/15/2016 15:49:Serena Pearson, RN) Baby, Number in Womb: 1 (06/15/2016 15:49:Serena Lili, RN) CARE Height (in): 68 (06/23/2016 19:59:QS system process) Height (in): 68 (06/15/2016 15:00:QS system process) Height (in): 68 (06/15/2016 14:49:QS system process) Height (in): 68 (06/15/2016 13:30:QS system process) LABS Hemoglobin: 10.3 L (06/23/2016 20:11:QS system process) Hemoglobin: 10.4 L (06/15/2016 14:37:QS system process) Hematocrit: 30.4 L (06/23/2016 20:11:QS system process) Hematocrit: 30.6 L (06/15/2016 14:37:QS system process) MCV: 84 (06/23/2016 20:11:QS system process) MCV: 85 (06/15/2016 14:37:QS system process)
--- NOTE | 2016-06-24 06:23 | L&D Current Admission ---
Current Admit Datetime Report Generated by CPN: 06/24/2016 06:00 ADMISSION INFORMATION Person(s) Allowed during Admit: family (06/23/2016 20:25:Shahbaz Elmore RN) Current Admit Date/Time: 06/23/2016 20:25 (06/23/2016 20:25:Shahbaz Elmore RN) Reason for Admission: Induction of Labor (06/23/2016 20:25:Shahbaz Elmore RN) Chief Complaint: Scheduled Induction of Labor (06/23/2016 20:25:Shahbaz Elmore RN) Medications During : Vitamin; Rantidine (Zantac) (06/23/2016 20:25:Shahbaz Elmore RN) EGA per Dates: 38.1 (06/23/2016 20:25:QS system process) Method of Arrival: Ambulatory (06/23/2016 20:25:Shahbaz Elmore RN) Admitted From: Home (06/23/2016 20:25:Shahbaz Elmore RN) Reason for Induction: Gestational Hypertension (06/23/2016 20:25:Shahbaz Elmore RN) Records Available: Yes (06/23/2016 20:25:Shahbaz Elmore RN) General Admission Information: Reviewed (06/23/2016 20:25:Shahbaz Elmore RN) General Admission Reviewed By: Candida Elmore RN (06/23/2016 20:25:Shahbaz Elmore RN) BELONGINGS/ADVANCED DIRECTIVES Disposition of Belongings: Kept with Patient (06/23/2016 20:25:Shahbaz Elmore RN) Comments Regarding Disposition: see valuables consent form (06/23/2016 20:25:Shahbaz Elmore RN) Advance Direct for Healthcare: No, and Wants No Information (06/23/2016 20:25:Shahbaz Elmore RN) Durable Power of Glass Mould Cleaner: No (06/23/2016 20:25:Shahbaz Elmore RN) Living Will: No (06/23/2016 20:25:Shahbaz Elmore RN) Organ Donor: Yes (06/23/2016 20:25:Shahbaz Elmore RN) Pt Rights Information Given: Yes (06/23/2016 20:25:Shahbaz Elmore RN) Pt Understands Pt Rights: Yes (06/23/2016 20:25:Shahbaz Elmore RN) LEARNING ASSESSMENT Knowledge Level: Understands L_D Process; Understands Care Activities; Had Pre-Hospital Education; Understands Diagnosis (06/23/2016 20:25:Shahbaz Elmore RN) Barriers to Learning: None (06/23/2016 20:25:Shahbaz Elmore RN) Learning Readiness: Motivated (06/23/2016 20:25:Shahbaz Elmore RN) Learns Best By: 1 to 1 Instruction; Reading; Videos; Group Discussion; Demonstration (06/23/2016 20:25:Shahbaz Elmore RN) Learning Needs: Labor and Delivery Process; Pain Management; Symptoms to Report; Treatment Plan; Medication; Diagnosis; Nutrition; Equipment; Infant Care; Community Resources (06/23/2016 20:25:Shahbaz Elmore RN) DOMESTIC VIOLANCE SCREENING Dom Viol Threatened/Hurt: No (06/23/2016 20:25:Shahbaz Elmore RN) Hx of Abuse/Neglect past 2yrs: No (06/23/2016 20:25:Shahbaz Elmore RN) Feel Unsafe Going Home: No (06/23/2016 20:25:Shahbaz Elmore RN) Addt'l Observ Indicating Abuse: No (06/23/2016 20:25:Shahbaz Elmore RN) Reason Unable to Complete Screen: N/A, Screen Completed (06/23/2016 20:25:Shahbaz Elmore RN) Considered Personal Harm/Suicide: No (06/23/2016 20:25:Shahbaz Elmore RN) NUTRITIONAL/FUNCTIONAL SCREENING Problem with Appetite >5 Days: No (06/23/2016 20:25:Shahbaz Elmore RN) Chew/Swallow Difficulties: No (06/23/2016 20:25:Shahbaz Elmore RN) Inappropriate Wt Gain/Loss: No (06/23/2016 20:25:Shahbaz Elmore RN) Presence Skin Breakdown/Ulcer: No (06/23/2016 20:25:Shahbaz Elmore RN) Special Diet: No (06/23/2016 20:25:Shahbaz Elmore RN) Pt Requests Trucksmith Visit: No (06/23/2016 20:25:Shahbaz Elmore RN) Hx of Any of the Following?: N/A (06/23/2016 20:25:Shahbaz Elmore RN) New Diagnosis of: N/A (06/23/2016 20:25:Shahbaz Elmore RN) Requires Assist w/Ambulation: No (06/23/2016 20:25:Shahbaz Elmore RN) Uses Assist Device to Ambulate: No (06/23/2016 20:25:Shahbaz Elmore RN) Pt Requires Help w/ADL's: No (06/23/2016 20:25:Shahbaz Elmore RN)
--- NOTE | 2016-06-24 06:23 | L&D General Admission ---
General Admit Datetime Report Generated by CPN: 06/24/2016 06:00 INFORMATION Patient Age: 31 (04/20/2016 02:55:QS system process) EDC: 07/06/2016 00:00 (04/20/2016 01:48:Janae Page RN) : 2 (04/20/2016 01:48:EN Marroquin) Para: 0 (06/15/2016 15:49:Serena Pearson RN) Term: 0 (04/20/2016 01:48:EN Marroquin) : 0 (04/20/2016 01:48:EN Marroquin) Spontaneous Abortions: 1 (04/20/2016 01:48:EN Marroquin) Induced Abortions: 0 (04/20/2016 01:48:EN Marroquin) Livin (04/20/2016 01:48:EN Marroquin) Cesareans: 0 (04/20/2016 01:48:EN Marroquin) VBACs: 0 (04/20/2016 01:48:EN Marroquin) Ectopic: 0 (04/20/2016 01:48:EN Marroquin) Multiple Births: 0 (04/20/2016 01:48:EN Marroquin) Baby, Number in Womb: 1 (06/15/2016 15:49:Serena Pearson RN) CARE Primary Post Doctoral Fellow: [facility] (04/20/2016 01:48:Janae Page RN) Month of 1st Visit: 6 weeks (04/20/2016 01:48:Janae Page RN) Adequate Care: Yes (04/20/2016 01:48:Janae Page RN) Height (in): 68 (06/23/2016 19:59:QS system process) ALLERGIES Medication Allergy: Yes (04/20/2016 01:48:Janae Page RN) Medication Allergies: neomycin (06/10/2016); bacitracin (06/10/2016); metronidazole (06/10/2016); polymyxin B (06/10/2016) (06/10/2016 18:06:QS system process) Latex Allergy: No Latex Allergies (04/20/2016 01:48:Janae Page RN) COMMUNICATION Primary Language: Chilean (04/20/2016 01:48:Janae Page RN) Medical Tx Preferred Language: Chilean (04/20/2016 01:48:Janae Page RN) Communication Barrier(s): None (04/20/2016 01:48:Shahbaz Elmore RN) DEMOGRAPHICS Address: [address] [place] [id number] (04/20/2016 02:55:QS system process) Zipcode: [id number] (04/20/2016 02:55:QS system process) Home (04/20/2016 02:55:QS system process) Work (04/20/2016 02:55:QS system process) SSN: [id number] (04/20/2016 02:55:QS system process) Next of Kin Name: DIVINA CHAUDHRY (05/05/2016 11:35:QS system process) Next of Kin (05/05/2016 11:35:QS system process) Next of Kin Relationship: OR (05/05/2016 11:35:QS system process) Date of : 1985 (04/20/2016 02:55:QS system process) Marital Status: Single (04/20/2016 02:55:QS system process) Sex: Female (04/20/2016 02:55:QS system process) Race: (04/20/2016 02:55:QS system process) Ethnicity: Non- or (04/20/2016 02:55:QS system process) Taoist: None (04/20/2016 02:55:QS system process) DRUG AND ALCOHOL USE Alcohol: No (04/20/2016 01:48:Janae Page RN) Cigarettes: Current Everyday Smoker. [id number] (04/20/2016 01:48:Janae Page RN) Average Cigarettes Smoked: 5 - 10 per day (04/20/2016 01:48:Janae Page RN) Advised to Stop Smoking: Yes (04/20/2016 01:48:Janae Page RN) Marijuana: No (04/20/2016 01:48:Janae Page RN) Cocaine: No (04/20/2016 01:48:Janae Page RN) Other Illicit Drugs: No (04/20/2016 01:48:Janae Page RN) VACCINE HISTORY Influenza Vaccine: No (04/20/2016 01:48:Janae Page RN) Pneumococcal Vaccine: No (04/20/2016 01:48:Janae Page RN) Tetanus Vaccine: Yes (04/20/2016 01:48:Janae Page RN) Tetanus Date: 03/2016 (04/20/2016 01:48:EN Mehta) Tdap Vaccine: Yes (04/20/2016 01:48:EN Mehta) Tdap Date: 03/2016 (04/20/2016 01:48:EN Mehta) Hepatitis B Vaccine: Yes (04/20/2016 01:48:Janae Page RN) Technology Recruiter: [facility] (04/20/2016 01:48:Janae Page RN) Feeding Preference: Both (04/20/2016 01:48:Shahbaz Elmore RN) Benefit of Breast Feed Discussed: Yes (04/20/2016 01:48:Shahbaz Elmore RN) Circumcision: Yes (04/20/2016 01:48:Janae Page RN) Classes Attended: No (04/20/2016 01:48:Janae Page RN) Tubal Ligation: No (04/20/2016 01:48:Janae Page RN) Tubal Authorization Signed: N/A (04/20/2016 01:48:Janae Page RN) Consent: N/A (04/20/2016 01:48:Janae Page RN) Consent Signed: N/A (04/20/2016 01:48:Janae Page RN) Pain Management Plans: Medications; Epidural (04/20/2016 01:48:Janae Page RN) Plans for Labor and Delivery: None (04/20/2016 01:48:Janae Page RN) Support Person: Jignesh Chaudhry (04/20/2016 01:48:Janae Page RN) Support Person Relationship: Significant Other (04/20/2016 01:48:Janae Page RN) Cultural/Spritual Practice: No (04/20/2016 01:48:Janae Page RN) Spir/Cult Dietary Needs: No (04/20/2016 01:48:Janae Page RN) LIVING SITUATION/DISCHARGE PLAN Living Arrangements: House (04/20/2016 01:48:Janae Page RN) Adequate Access to:: Electric; Heat; Refrigeration; Plumbing/Running water; Phone; Transportation (04/20/2016 01:48:Janae Page RN) WIC Program: No (04/20/2016 01:48:Janae Page RN) Discharge Support Director Person: Jignesh (04/20/2016 01:48:Janae Page RN) Person to Help after Discharge: Jignesh (04/20/2016 01:48:Janae Page RN) Currently Using Commun Resources: Yes (04/20/2016 01:48:Shahbaz Elmore RN) Specify Current Resource Used: Medicaid (04/20/2016 01:48:Janae Page RN) Outside Agency/Level Glass Vial Filler: No (04/20/2016 01:48:Janae Page RN) Car Seat for Discharge: Yes (04/20/2016 01:48:Janae Page RN) Adoption Requested: No (04/20/2016 01:48:Janae Page RN) Pt Contact w/ Post : N/A (04/20/2016 01:48:Janae Page RN) LABS Blood Type: O Positive (04/20/2016 01:48:Janae Page RN) Rho(G) this : Not Applicable (04/20/2016 01:48:Shahbaz Elmore RN) Hemoglobin: 10.3 L (06/23/2016 20:11:QS system process) Hematocrit: 30.4 L (06/23/2016 20:11:QS system process) MCV: 84 (06/23/2016 20:11:QS system process) Group Beta Strep: negative (04/20/2016 01:48:Shahbaz Elmore RN) Gonorrhea: Negative (04/20/2016 01:48:Shahbaz Elmore RN) Chlamydia: Negative (04/20/2016 01:48:Shahbaz Elmore RN) RPR/VDRL: Nonreactive (04/20/2016 01:48:Janae Page RN) HIV Exposure Test: Negative (04/20/2016 01:48:Janae Page RN) Hepatitis B: Negative (04/20/2016 01:48:Janae Page RN) Rubella: Immune (04/20/2016 01:48:Janae Page RN) OB/PREVIOUS HISTORY Previous Procedures: Ultrasound (04/20/2016 01:48:EN Mehta) Current Procedures: Ultrasound; NST (04/20/2016 01:48:EN Mehta) History of Previous : No (04/20/2016 01:48:Janae Page RN) History of Gestational Diabetes: No (04/20/2016 01:48:Janae Paeg RN) History of PIH: No (04/20/2016 01:48:Janae Page RN) History of Incompetent Cervix: No (04/20/2016 01:48:Janae Page RN) History of Placenta Previa/Abrup: No (04/20/2016 01:48:Janae Page RN) History of Macrosomia: No (04/20/2016 01:48:Janae Page RN) History of IUGR: No (04/20/2016 01:48:Janae Page RN) History of Hemorrhage: No (04/20/2016 01:48:Janae Page RN) History of Loss/Stillborn: No (04/20/2016 01:48:Janae Page RN) History of : No (04/20/2016 01:48:Janae Page RN) History of D (Rh) Sensitization: No (04/20/2016 01:48:Janae Page RN) History Recurrent Loss/Stillborn: No (04/20/2016 01:48:Janae Page RN) History Depression/PP Depression: No (04/20/2016 01:48:Janae Page RN) History of Uterine Anomaly/KEVIN: No (04/20/2016 01:48:Janae Page RN) History of Infertility: No (04/20/2016 01:48:Janae Page RN) History of ART Treatment: No (04/20/2016 01:48:Janae Page RN) History of KEVIN: No (04/20/2016 01:48:Janae Page RN) Comments Obstetrical History: G1- 2010 5 week SAB G2- current - first trimester spotting, sob and severe GERD (04/20/2016 01:48:EN Mehta) MEDICAL HISTORY Med Hx Diabetes: No (04/20/2016 01:48:Janae Page RN) Med Hx Hypertension: No (04/20/2016 01:48:Janae Page RN) Med Hx Heart Disease: No (04/20/2016 01:48:Jaane Page RN) Med Hx Autoimmune Disorder: No (04/20/2016 01:48:Janae Page RN) Med Hx Kidney Disease/UTI: No (04/20/2016 01:48:Janae Page RN) Med Hx Neurologic/Epilepsy: No (04/20/2016 01:48:Janae Page RN) Med Hx Psychiatric Disorders: No (04/20/2016 01:48:Janae Page RN) Med Hx Hepatitis/Liver Disease: No (04/20/2016 01:48:Janae Page RN) Med Hx Varicosities/Phlebitis: No (04/20/2016 01:48:Janae Page RN) Med Hx Thyroid Dysfunction: No (04/20/2016 01:48:Janae Page RN) Med Hx Trauma/Violence: No (04/20/2016 01:48:Janae Page RN) Med Hx Blood Transfusion: No (04/20/2016 01:48:Janae Page RN) Med Hx Pulmonary (Asthma,TB): No (04/20/2016 01:48:Janae Page RN) Med Hx Breast: No (04/20/2016 01:48:Janae Page RN) Med Hx WINDMILL MECHANIC Surgery: No (04/20/2016 01:48:Janae Page RN) Med Hx Hospitalization/Surgery: No (04/20/2016 01:48:Janae Page RN) Med Hx Anesthetic Complications: No (04/20/2016 01:48:Janae Page RN) Med Hx Abnormal Pap Smear: Yes (04/20/2016 01:48:Janae Page RN) Other Medical Diseases: No (04/20/2016 01:48:Janae Page RN) Med Hx Significant Family Hx: No (04/20/2016 01:48:Janae Page RN) Details of Med/Surg Hx: Abnormal pap 10 years ago with colposcopy (04/20/2016 01:48:Janae Page RN) INFECTIOUS HISTORY Inf Hx Gonorrhea: No (04/20/2016 01:48:Janae Page RN) Inf Hx Chlamydia: No (04/20/2016 01:48:Janae Page RN) Inf Hx Syphilis: No (04/20/2016 01:48:Janae Page RN) Inf Hx HIV/AIDS: No (04/20/2016 01:48:Janae Page RN) Inf Hx Human Papilloma Virus: No (04/20/2016 01:48:Janae Page RN) Inf Hx Pt/Partner Genital Herpes: No (04/20/2016 01:48:Janae Page RN) Inf Hx Tuberculosis/Exposure: No (04/20/2016 01:48:Janae Page RN) Inf Hx Hepatitis B,C: No (04/20/2016 01:48:Janae Page RN) Inf Hx Rash or Viral Illness: No (04/20/2016 01:48:Janae Page RN) GENETIC HISTORY Gen Hx Age >=35 at DEEP: Yes (04/20/2016 01:48:Janae Page RN) Gen Hx Thalassemia: No (04/20/2016 01:48:Janae Page RN) Gen Hx Congenital Heart Defect: No (04/20/2016 01:48:Janae Page RN) Gen Hx Neural Tube Defect: No (04/20/2016 01:48:Janae Page RN) Gen Hx Down's Syndrome: No (04/20/2016 01:48:Janae Page RN) Gen Hx Barney-Sachs: No (04/20/2016 01:48:Janae Page RN) Gen Hx Trupti: No (04/20/2016 01:48:Janae Page RN) Gen Hx Familial Dysautonomia: No (04/20/2016 01:48:Janae Page RN) Gen Hx Sickle Cell Disease/Trait: No (04/20/2016 01:48:Janae Page RN) Gen Hx Hemophilia/Blood Disorder: No (04/20/2016 01:48:Janae Page RN) Gen Hx Muscular Dystrophy: No (04/20/2016 01:48:Janae Page RN) Gen Hx Cystic Fibrosis: No (04/20/2016 01:48:Janae Page RN) Gen Hx Huntingtons Chorea: No (04/20/2016 01:48:Janae Page RN) Gen Hx Mental Retardation/Autism: No (04/20/2016 01:48:Janae Page RN) Gen Hx Tested for Fragile X: No (04/20/2016 01:48:Janae Page RN) Gen Hx Other Inher/Chromosomal: No (04/20/2016 01:48:Janae Page RN) Gen Hx Maternal Metabolic DO: No (04/20/2016 01:48:Janae Page RN) Gen Hx Pt Father or FOB Defect: No (04/20/2016 01:48:Janae Page RN) Gen Hx Other Genetic History: No (04/20/2016 01:48:Janae Page RN) Gen Hx Drugs/Meds since LMP: Yes (04/20/2016 01:48:Janae Page RN) Gen Hx Medications: PNV, and zantac PRN (04/20/2016 01:48:Janae Page RN)
--- NOTE | 2016-06-24 08:00 | L&D Flow Sheet ---
LD Flowsheet Datetime Report Generated by CPN: 06/24/2016 08:00 Datetime: 06/24/2016 07:59 NBP Sys/Lina/Mean (mmHg): 135 (QS system process) : 74 (QS system process) : 100 (QS system process) Pulse: 71 (QS system process) LaborFlag: OB Triage (QS system process) Datetime: 06/24/2016 07:44 NBP Sys/Lina/Mean (mmHg): 144 (QS system process) : 88 (QS system process) : 111 (QS system process) Pulse: 67 (QS system process) LaborFlag: OB Triage (QS system process) Datetime: 06/24/2016 07:30 Patient Care Comments: Sitting up in bed with family at bedside, denies needs (Adelaida Gomez RN) Datetime: 06/24/2016 07:29 NBP Sys/Lina/Mean (mmHg): 137 (QS system process) : 76 (QS system process) : 101 (QS system process) Pulse: 68 (QS system process) Respirations: 15 (Adelaida Patricia, RN) Temperature (F): 97.6 (Adelaida Patricia, RN) Temperature (C): 36.4 (QS system process) Temperature Route: Oral (Adelaidakirk Gomez, RN) Pain Scale: 0 (Adelaidakirk Gomez RN) Pain Presence: None/Denies (Adelaidakirk Gomez, RN) Pain Type: N/A (Adelaidakirk Gomez, RN) Level of Consciousness: Fully Conscious (Adelaidakirk Gomez RN) DTR's/Clonus: DTRs 1+; No Clonus (Adelaida Vitrano, RN) Headache: Denies (Adelaida Vitrano, RN) Breath Sounds, Left: Clear and Equal (Adelaida Vitrano, RN) Breath Sounds, Right: Clear and Equal (Adelaida Vitrano, RN) Nausea/Vomiting: Denies (Adelaida Vitrano, RN) RUQ Epigastric Pain: Denies (Adelaida Vitrano, RN) LaborFlag: OB Triage (QS system process) Datetime: 06/24/2016 07:15 NBP Sys/Lina/Mean (mmHg): 135 (QS system process) : 76 (QS system process) : 101 (QS system process) Pulse: 62 (QS system process) LaborFlag: OB Triage (QS system process) Datetime: 06/24/2016 07:10 Communication: Report Given to @ RAshu Vitrano RN, care relinquished. (Shahbaz Elmore RN) Datetime: 06/24/2016 07:06 Provider Reviewed Strip: Yes (Shahbaz Elmore RN) Strip Reviewed by: Dr Benjamin (Shahbaz Elmore RN) Communication: Provider at Bedside (Shahbaz Elmore RN) Communication Comments: Dr Benjamin at bedside, strip reviewed, POC discussed with pt and family, all agree and V/U. (Shahbaz Elmore RN) Datetime: 06/24/2016 07:00 Monitor Mode: External; Palpation (Shahbaz Elmore, RN) Frequency (min): none (Shahbaz Elmore, RN) Resting Tone (Palpate): Relaxed (Shahbaz Elmore, RN) Monitor Mode: External US (Shahbaz Elmore, RN) FHR Baseline Rate : 130 (Shahbaz Elmore, RN) Variability: Moderate 6-25 bpm (Shahbaz Elmore, RN) Accelerations: 15X15 (Shahbaz Elmore, RN) Decelerations: None (Shahbaz Elmore, RN) Datetime: 06/24/2016 06:58 Patient Position/Activity: Right Tilt; High Fowlers (Shahbaz Elmore, RN) Patient Care Comments: pt back to bed without incident. (Niravandra Elmore, RN) Datetime: 06/24/2016 06:54 I/O Interventions: Up to BR (Shahbaz Elmore, RN) Datetime: 06/24/2016 06:43 NBP Sys/Lina/Mean (mmHg): 112 (QS system process) : 70 (QS system process) : 86 (QS system process) Pulse: 67 (QS system process) LaborFlag: OB Triage (QS system process) Datetime: 06/24/2016 06:30 Monitor Mode: External; Palpation (Rucsandra Ramírez, RN) Frequency (min): none (Rucsandra Ramírez, RN) Resting Tone (Palpate): Relaxed (Rucsandra Ramírez, RN) Monitor Mode: External US (Rucsandra Ramírez, RN) FHR Baseline Rate : 125 (Rucsandra Ramírez, RN) Variability: Moderate 6-25 bpm (Rucsandra Ramírez, RN) Accelerations: 15X15 (Rucsandra Ramírez, RN) Decelerations: None (Rucsandra Ramírez, RN) Datetime: 06/24/2016 06:29 NBP Sys/Lina/Mean (mmHg): 163 (QS system process) : 67 (QS system process) : 94 (QS system process) Pulse: 62 (QS system process) Maternal Comments: pt asleep on BP cuff, will continue to monitor. (Rucsandra Ramírez, RN) LaborFlag: OB Triage (QS system process) Datetime: 06/24/2016 06:13 NBP Sys/Lina/Mean (mmHg): 114 (QS system process) : 58 (QS system process) : 81 (QS system process) Pulse: 68 (QS system process) LaborFlag: OB Triage (QS system process) Datetime: 06/24/2016 06:00 Monitor Mode: External; Palpation (Rucsandra Ramírez, RN) Frequency (min): 2-11 (Rucsandra Ramírez, RN) Quality: Mild (Rucsandra Ramírez, RN) Duration (sec): 40-50 (Rucsandra Ramírez, RN) Resting Tone (Palpate): Relaxed (Rucsandra Ramírez, RN) Monitor Mode: External US (Rucsandra Ramírez, RN) FHR Baseline Rate : 120 (Rucsandra Ramírez, RN) Variability: Moderate 6-25 bpm (Rucsandra Ramírez, RN) Accelerations: 15X15 (Rucsandra Ramírez, RN) Decelerations: None (Rucsandra Ramírez, RN) Datetime: 06/24/2016 05:58 NBP Sys/Lina/Mean (mmHg): 114 (QS system process) : 58 (QS system process) : 81 (QS system process) Pulse: 71 (QS system process) LaborFlag: OB Triage (QS system process) Datetime: 06/24/2016 05:43 NBP Sys/Lina/Mean (mmHg): 108 (QS system process) : 58 (QS system process) : 79 (QS system process) Pulse: 64 (QS system process) LaborFlag: OB Triage (QS system process) Datetime: 06/24/2016 05:32 Patient Position/Activity: Left Lateral (Rucsandra Ramírez, RN) Datetime: 06/24/2016 05:30 Monitor Mode: External; Palpation (Rucsandra Ramírez, RN) Frequency (min): 115 (Rucsandra Ramírez, RN) Frequency (min): 1.5-4.5 (Rucsandra Ramírez, RN) Quality: Mild (Rucsandra Ramírez, RN) Duration (sec): 50-90 (Rucsandra Ramírez, RN) Resting Tone (Palpate): Relaxed (Rucsandra Ramírez, RN) Monitor Mode: External US (Rucsandra Ramírez, RN) FHR Baseline Rate : 120 (Rucsandra Ramírez, RN) Variability: Moderate 6-25 bpm (Rucsandra Ramírez, RN) Accelerations: 15X15 (Rucsandra Ramírez, RN) Decelerations: None (Rucsandra Ramírez, RN) Maternal Comments: pt denies feeling ctx (Rucsandra Ramírez, RN) Datetime: 06/24/2016 05:29 NBP Sys/Lina/Mean (mmHg): 141 (QS system process) : 84 (QS system process) : 107 (QS system process) Pulse: 68 (QS system process) LaborFlag: OB Triage (QS system process) Datetime: 06/24/2016 05:14 NBP Sys/Lina/Mean (mmHg): 142 (QS system process) : 81 (QS system process) : 104 (QS system process) Pulse: 70 (QS system process) LaborFlag: OB Triage (QS system process) Datetime: 06/24/2016 05:00 Monitor Mode: External; Palpation (Shahbaz Elmore RN) Frequency (min): x2 (Shahbaz Elmore RN) Quality: Mild (Shahabz Elmore RN) Duration (sec): 50-80 (Shahbaz Elmore RN) Resting Tone (Palpate): Relaxed (Shahbaz Elmore RN) Monitor Mode: External US (Shahbaz Elmore RN) FHR Baseline Rate : 125 (Shahbaz Elmore RN) Variability: Moderate 6-25 bpm (Shahbaz Elmore RN) Accelerations: 15X15 (Shahbaz Elmore RN) Decelerations: None (Shahbaz Elmore RN) Datetime: 06/24/2016 04:58 NBP Sys/Lina/Mean (mmHg): 138 (QS system process) : 87 (QS system process) : 108 (QS system process) Pulse: 67 (QS system process) LaborFlag: OB Triage (QS system process) Datetime: 06/24/2016 04:49 Temperature (F): 98.1 (Shahbaz Elmore RN) Temperature (C): 36.7 (QS system process) Pain Scale: 0 (Shahbaz Elmore RN) Pain Presence: None/Denies (Shahbaz Elmore RN) Pain Type: N/A (Shahbaz Elmore RN) Patient Position/Activity: Right Lateral (Shahbaz Elmore RN) Patient Care Comments: pt back to bed without incident (Shahbaz Elmore RN) LaborFlag: OB Triage (QS system process) Datetime: 06/24/2016 04:45 I/O Interventions: Up to BR (Rucsandra Ramírez, RN) Datetime: 06/24/2016 04:43 NBP Sys/Lina/Mean (mmHg): 133 (QS system process) : 83 (QS system process) : 103 (QS system process) Pulse: 65 (QS system process) LaborFlag: OB Triage (QS system process) Datetime: 06/24/2016 04:42 Patient Position/Activity: Right Lateral (Rucsandra Ramírez, RN) Datetime: 06/24/2016 04:30 Monitor Mode: External; Palpation (Rucsandra Ramírez, RN) Frequency (min): none (Rucsandra Ramírez, RN) Resting Tone (Palpate): Relaxed (Rucsandra Ramírez, RN) Monitor Mode: External US (Rucsandra Ramírez, RN) FHR Baseline Rate : 125 (Rucsandra Ramírez, RN) Variability: Moderate 6-25 bpm (Rucsandra Ramírez, RN) Accelerations: 15X15 (Rucsandra Ramírez, RN) Decelerations: None (Rucsandra Ramírez, RN) Datetime: 06/24/2016 04:28 NBP Sys/Lina/Mean (mmHg): 147 (QS system process) : 66 (QS system process) : 95 (QS system process) Pulse: 73 (QS system process) LaborFlag: OB Triage (QS system process) Datetime: 06/24/2016 04:13 NBP Sys/Lina/Mean (mmHg): 129 (QS system process) : 61 (QS system process) : 88 (QS system process) Pulse: 76 (QS system process) LaborFlag: OB Triage (QS system process) Datetime: 06/24/2016 04:00 Monitor Mode: External; Palpation (Rucsandra Ramírez, RN) Frequency (min): none (Rucsandra Ramírez, RN) Resting Tone (Palpate): Relaxed (Rucsandra Ramírez, RN) Contraction Comments: abdomen palpates soft, pt denies feeling ctx. (Rucsandra Ramírez, RN) Monitor Mode: External US (Rucsandra Ramírez, RN) FHR Baseline Rate : 125 (Rucsandra Ramírez, RN) Variability: Moderate 6-25 bpm (Rucsandra Ramírez, RN) Accelerations: 15X15 (Rucsandra Ramírez, RN) Decelerations: None (Rucsandra Ramírez, RN) Datetime: 06/24/2016 03:58 NBP Sys/Lina/Mean (mmHg): 122 (QS system process) : 62 (QS system process) : 85 (QS system process) Pulse: 72 (QS system process) LaborFlag: OB Triage (QS system process) Datetime: 06/24/2016 03:43 NBP Sys/Lina/Mean (mmHg): 115 (QS system process) : 60 (QS system process) : 81 (QS system process) Pulse: 78 (QS system process) LaborFlag: OB Triage (QS system process) Datetime: 06/24/2016 03:30 NBP Sys/Lina/Mean (mmHg): 111 (QS system process) : 59 (QS system process) : 80 (QS system process) Pulse: 67 (QS system process) Monitor Mode: External; Palpation (Shahbaz Elmore, ALBERT) Frequency (min): none (Shahbaz Elmore, RN) Resting Tone (Palpate): Relaxed (Shahbaz Elmore, RN) Contraction Comments: abdomen palpates soft, pt denies feeling ctx. (Shahbaz Elmore, RN) Monitor Mode: External US (Shahbaz Elmore, ALBERT) FHR Baseline Rate : 120 (Shahbaz Elmore, RN) Variability: Moderate 6-25 bpm (Shahbaz Elmore, RN) Accelerations: 15X15 (Shahbaz Elmore, RN) Decelerations: None (Shahbaz Elmore, RN) LaborFlag: OB Triage (QS system process) Datetime: 06/24/2016 03:29 Maternal Comments: pt sleeping but easily arousable (Shahbaz Elmore, RN) Datetime: 06/24/2016 03:25 Monitor Interventions for UA: [place] Adjusted (Niravandra Elmore, RN) Datetime: 06/24/2016 03:22 Patient Position/Activity: Left Lateral (Rucsandra Ramírez, RN) Datetime: 06/24/2016 03:16 Monitor Interventions for UA: [place] Adjusted (Rucsandra Ramírez, RN) Patient Care Comments: pt sleeping but easily arousable (Rucsandra Ramírez, RN) Datetime: 06/24/2016 03:13 NBP Sys/Lina/Mean (mmHg): 126 (QS system process) : 76 (QS system process) : 97 (QS system process) Pulse: 68 (QS system process) LaborFlag: OB Triage (QS system process) Datetime: 06/24/2016 03:10 Patient Position/Activity: Right Lateral (Shahbaz Elmore, ALBERT) Datetime: 06/24/2016 03:03 Monitor Interventions for UA: [place] Adjusted (Shahbaz Elmore RN) Contraction Comments: pt denies ctx or cramping (Shahbaz Elmore RN) Pain Scale: 0 (Shahbaz Elmore RN) Pain Presence: None/Denies (Shahbaz Elmore RN) Pain Type: N/A (Shahbaz Elmore RN) LaborFlag: OB Triage (QS system process) Datetime: 06/24/2016 03:00 Monitor Mode: External; Palpation (Rucsandra Ramírez, RN) Frequency (min): 2-3 (Rucsandra Ramírez, RN) Quality: Mild (Rucsandra Ramírez, RN) Duration (sec): 50-60 (Rucsandra Ramírez, RN) Resting Tone (Palpate): Relaxed (Rucsandra Ramírez, RN) Monitor Mode: External US (Rucsandra Ramírez, RN) FHR Baseline Rate : 130 (Rucsandra Ramírez, RN) Variability: Moderate 6-25 bpm (Rucsandra Ramírez, RN) Accelerations: 15X15 (Rucsandra Ramírez, RN) Decelerations: None (Rucsandra Ramírez, RN) Datetime: 06/24/2016 02:58 NBP Sys/Lina/Mean (mmHg): 131 (QS system process) : 84 (QS system process) : 101 (QS system process) Pulse: 89 (QS system process) LaborFlag: OB Triage (QS system process) Datetime: 06/24/2016 02:56 Maternal Comments: pt moving up in bed (Shahbaz Elmore, RN) Datetime: 06/24/2016 02:45 IV/Blood Work: IV Infusing per Order; New IV Bag Hung (Shahbaz Elmore, RN) Datetime: 06/24/2016 02:43 NBP Sys/Lina/Mean (mmHg): 128 (QS system process) : 70 (QS system process) : 92 (QS system process) Pulse: 75 (QS system process) LaborFlag: OB Triage (QS system process) Datetime: 06/24/2016 02:42 Patient Position/Activity: Left Tilt; High Fowlers (Rucsandra Ramírez, RN) Datetime: 06/24/2016 02:41 Maternal Comments: pt back to bed without incident (Rucsandra Ramírez, RN) Datetime: 06/24/2016 02:38 I/O Interventions: Up to BR (Rucsandra Ramírez, RN) Datetime: 06/24/2016 02:30 Monitor Mode: External; Palpation (Rucsandra Ramírez, RN) Frequency (min): 1.5-2.5 (Rucsandra Ramírez, RN) Quality: Mild (Rucsandra Ramírez, RN) Duration (sec): 40-110 (Rucsandra Ramírez, RN) Resting Tone (Palpate): Relaxed (Rucsandra Ramírez, RN) Contraction Comments: pt denies feeling ctx or cramping (Rucsandra Ramírez, RN) Monitor Mode: External US (Rucsandra Ramírez, RN) FHR Baseline Rate : 135 (Rucsandra Ramírez, RN) Variability: Moderate 6-25 bpm (Rucsandra Ramírez, RN) Accelerations: 15X15 (Rucsandra Ramírez, RN) Decelerations: None (Rucsandra Ramírez, RN) Datetime: 06/24/2016 02:29 NBP Sys/Lina/Mean (mmHg): 126 (QS system process) : 61 (QS system process) : 85 (QS system process) Pulse: 86 (QS system process) LaborFlag: OB Triage (QS system process) Datetime: 06/24/2016 02:13 NBP Sys/Lina/Mean (mmHg): 117 (QS system process) : 57 (QS system process) : 78 (QS system process) Pulse: 70 (QS system process) LaborFlag: OB Triage (QS system process) Datetime: 06/24/2016 02:00 Monitor Mode: External; Palpation (Rucsandra Ramírez, RN) Frequency (min): 2-4 (Rucsandra Ramírez, RN) Quality: Mild (Rucsandra Ramírez, RN) Duration (sec): 50-90 (Rucsandra Ramírez, RN) Resting Tone (Palpate): Relaxed (Rucsandra Ramírez, RN) Monitor Mode: External US (Rucsandra Ramírez, RN) FHR Baseline Rate : 120 (Rucsandra Ramírez, RN) Variability: Moderate 6-25 bpm (Rucsandra Ramírez, RN) Accelerations: 15X15 (Rucsandra Ramírez, RN) Decelerations: None (Rucsandra Ramírez, RN) Datetime: 06/24/2016 01:58 NBP Sys/Lina/Mean (mmHg): 127 (QS system process) : 60 (QS system process) : 86 (QS system process) Pulse: 72 (QS system process) LaborFlag: OB Triage (QS system process) Datetime: 06/24/2016 01:43 NBP Sys/Lina/Mean (mmHg): 131 (QS system process) : 58 (QS system process) : 84 (QS system process) Pulse: 75 (QS system process) LaborFlag: OB Triage (QS system process) Datetime: 06/24/2016 01:30 NBP Sys/Lina/Mean (mmHg): 134 (QS system process) : 63 (QS system process) : 88 (QS system process) Pulse: 65 (QS system process) Monitor Mode: External; Palpation (Rucsandra Ramírez, RN) Frequency (min): 2.5-4 (Shahbaz Elmore, RN) Quality: Mild (Rucsandra Elmore, RN) Duration (sec): 50-90 (Rujose enrique Elmore, RN) Resting Tone (Palpate): Relaxed (Shahbaz Elmore, RN) Monitor Mode: External US (Shahbaz Elmore, RN) FHR Baseline Rate : 130 (Shahbaz Elmore, RN) Variability: Moderate 6-25 bpm (Rucsandra Elmore, RN) Accelerations: None (Rucsandra Elmore, RN) Decelerations: None (Rubetteandra Elmore, RN) LaborFlag: OB Triage (QS system process) Datetime: 06/24/2016 01:15 NBP Sys/Lina/Mean (mmHg): 121 (QS system process) : 67 (QS system process) : 88 (QS system process) Pulse: 70 (QS system process) LaborFlag: OB Triage (QS system process) Datetime: 06/24/2016 01:12 Patient Position/Activity: Left Tilt (Rucsandra Ramírez, RN) Datetime: 06/24/2016 01:07 I/O Interventions: Clear Liquids Given (Rucsandra Ramírez, RN) Datetime: 06/24/2016 01:05 Monitor Interventions for UA: [place] Adjusted (Niravandra Elmore, RN) Pain Scale: 0 (Shahbaz Elmore, RN) Pain Presence: None/Denies (Shahbaz Elmore, RN) Pain Type: N/A (Jeffreycsandra Ramírez, RN) LaborFlag: OB Triage (QS system process) Datetime: 06/24/2016 01:03 Maternal Comments: pt back to bed without incident (Rucsandra Ramírez, RN) Datetime: 06/24/2016 01:00 Monitor Mode: External; Palpation (Rucsandra Ramírez, RN) Frequency (min): occasional (Rucsandra Ramírez, RN) Quality: Mild (Rucsandra Ramírez, RN) Duration (sec): 50-60 (Rucsandra Ramírez, RN) Resting Tone (Palpate): Relaxed (Rucsandra Ramírez, RN) Monitor Mode: External US (Rucsandra Ramírez, RN) FHR Baseline Rate : 125 (Rucsandra Ramírez, RN) Variability: Moderate 6-25 bpm (Rucsandra Ramírez, RN) Accelerations: 15X15 (Rucsandra Ramírez, RN) Decelerations: None (Rucsandra Ramírez, RN) Datetime: 06/24/2016 00:59 I/O Interventions: Up to BR (Rucsandra Ramírez, RN) Datetime: 06/24/2016 00:58 NBP Sys/Lina/Mean (mmHg): 125 (QS system process) : 72 (QS system process) : 94 (QS system process) Pulse: 80 (QS system process) LaborFlag: OB Triage (QS system process) Datetime: 06/24/2016 00:43 NBP Sys/Lina/Mean (mmHg): 127 (QS system process) : 88 (QS system process) : 103 (QS system process) Pulse: 81 (QS system process) LaborFlag: OB Triage (QS system process) Datetime: 06/24/2016 00:30 Monitor Mode: External; Palpation (Rucsandra Ramírez, RN) Frequency (min): occasional (Rucsandra Ramírez, RN) Quality: Mild (Rucsandra Ramírez, RN) Duration (sec): 40-60 (Rucsandra Ramírez, RN) Resting Tone (Palpate): Relaxed (Rucsandra Ramírez, RN) Monitor Mode: External US (Rucsandra Ramírez, RN) FHR Baseline Rate : 120 (Rucsandra Ramírez, RN) Variability: Moderate 6-25 bpm (Rucsandra Ramírez, RN) Accelerations: 15X15 (Rucsandra Ramírez, RN) Decelerations: None (Rucsandra Ramírez, RN) Datetime: 06/24/2016 00:28 NBP Sys/Lina/Mean (mmHg): 131 (QS system process) : 78 (QS system process) : 99 (QS system process) Pulse: 78 (QS system process) LaborFlag: OB Triage (QS system process) Datetime: 06/24/2016 00:25 Temperature (F): 98.1 (Shahbaz Elmore RN) Temperature (C): 36.7 (QS system process) Monitor Interventions for UA: [place] Adjusted (Shahbaz Elmore RN) Monitor Interventions for FHR: Ultrasound Adjusted (Shahbaz Elmore RN) LaborFlag: OB Triage (QS system process) Datetime: 06/24/2016 00:13 NBP Sys/Lina/Mean (mmHg): 138 (QS system process) : 85 (QS system process) : 107 (QS system process) Pulse: 77 (QS system process) LaborFlag: OB Triage (QS system process) Datetime: 06/24/2016 00:01 Maternal Comments: pt watching TV and resting in bed. Support person remains at bedside. Pt denies any needs at this time. (Shahbaz Elmore RN) Datetime: 06/24/2016 00:00 Monitor Mode: External; Palpation (Niravandra Elmore, RN) Monitor Interventions for UA: [place] Adjusted (Rucsandra Ramírez, RN) Frequency (min): occasional (Rucsandra Ramírez, RN) Quality: Mild (Rucsandra Ramírez, RN) Duration (sec): 40-50 (Rucsandra Ramírez, RN) Resting Tone (Palpate): Relaxed (Rucsandra Ramírez, RN) Monitor Mode: External US (Rucsandra Ramírez, RN) FHR Baseline Rate : 125 (Rucsandra Ramírez, RN) Variability: Moderate 6-25 bpm (Rucsandra Ramírez, RN) Accelerations: 15X15 (Rucsandra Ramírez, RN) Decelerations: None (Rucsandra Ramírez, RN) Datetime: 06/23/2016 23:58 NBP Sys/Lina/Mean (mmHg): 134 (QS system process) : 84 (QS system process) : 102 (QS system process) Pulse: 75 (QS system process) LaborFlag: OB Triage (QS system process) Datetime: 06/23/2016 23:45 NBP Sys/Lina/Mean (mmHg): 134 (QS system process) : 81 (QS system process) : 103 (QS system process) Pulse: 73 (QS system process) LaborFlag: OB Triage (QS system process) Datetime: 06/23/2016 23:37 I/O Interventions: Clear Liquids Given (Rucsandra Ramírez, RN) Datetime: 06/23/2016 23:34 Patient Care Comments: additional pillows provided. (Rucsandra Ramírez, RN) Datetime: 06/23/2016 23:30 Monitor Mode: External; Palpation (Rucsandra Ramírez, RN) Frequency (min): x2 (Rucsandra Ramírez, RN) Quality: Mild (Rucsandra Ramírez, RN) Duration (sec): 40-50 (Rucsandra Ramírez, RN) Resting Tone (Palpate): Relaxed (Rucsandra Ramírez, RN) Monitor Mode: External US (Rucsandra Ramírez, RN) FHR Baseline Rate : 135 (Rucsandra Ramírez, RN) Variability: Moderate 6-25 bpm (Rucsandra Ramírez, RN) Accelerations: 15X15 (Rucsandra Ramírez, RN) Decelerations: None (Rucsandra Ramírez, RN) Datetime: 06/23/2016 23:28 NBP Sys/Lina/Mean (mmHg): 147 (QS system process) : 86 (QS system process) : 110 (QS system process) Pulse: 86 (QS system process) LaborFlag: OB Triage (QS system process) Datetime: 06/23/2016 23:23 Patient Position/Activity: Right Lateral (Rucsandra Ramírez, RN) Datetime: 06/23/2016 23:13 NBP Sys/Lina/Mean (mmHg): 123 (QS system process) : 81 (QS system process) : 97 (QS system process) Pulse: 75 (QS system process) LaborFlag: OB Triage (QS system process) Datetime: 06/23/2016 23:09 Maternal Comments: pt back to bed without incident (Rucsandra Ramírez, RN) Datetime: 06/23/2016 23:03 I/O Interventions: Up to BR (Rucsandra Ramírez, RN) Datetime: 06/23/2016 23:00 Monitor Mode: External; Palpation (Rucsandra Ramírez, RN) Frequency (min): 4.5-7 (Rucsandra Ramírez, RN) Quality: Mild (Rucsandra Ramírez, RN) Duration (sec): 50-70 (Rucsandra Ramírez, RN) Resting Tone (Palpate): Relaxed (Rucsandra Ramírez, RN) Monitor Mode: External US (Rucsandra Ramírez, RN) FHR Baseline Rate : 125 (Rucsandra Ramírez, RN) Variability: Moderate 6-25 bpm (Rucsandra Ramírez, RN) Accelerations: 15X15 (Rucsandra Ramírez, RN) Decelerations: None (Rucsandra Ramírez, RN) Datetime: 06/23/2016 22:59 NBP Sys/Lina/Mean (mmHg): 119 (QS system process) : 78 (QS system process) : 94 (QS system process) Pulse: 81 (QS system process) LaborFlag: OB Triage (QS system process) Datetime: 06/23/2016 22:43 NBP Sys/Lina/Mean (mmHg): 125 (QS system process) : 69 (QS system process) : 91 (QS system process) Pulse: 78 (QS system process) LaborFlag: OB Triage (QS system process) Datetime: 06/23/2016 22:30 Monitor Mode: External; Palpation (Shahbaz Elmore RN) Frequency (min): 3-6.5 (Rucsandra Ramírez, RN) Quality: Mild (Rucsandra Ramírez, RN) Duration (sec): 50-70 (Rucsandra Ramírez, RN) Resting Tone (Palpate): Relaxed (Rucsandra Ramírez, RN) Monitor Mode: External US (Shahbaz Elmore, RN) FHR Baseline Rate : 120 (Rucsandra Ramírez, RN) Variability: Moderate 6-25 bpm (Rucsandra Ramírez, RN) Accelerations: 15X15 (Rucsandra Ramírez, RN) Decelerations: None (Rucsandra Ramírez, RN) Datetime: 06/23/2016 22:28 NBP Sys/Lina/Mean (mmHg): 127 (QS system process) : 69 (QS system process) : 91 (QS system process) Pulse: 80 (QS system process) LaborFlag: OB Triage (QS system process) Datetime: 06/23/2016 22:14 NBP Sys/Lina/Mean (mmHg): 133 (QS system process) : 75 (QS system process) : 99 (QS system process) Pulse: 82 (QS system process) LaborFlag: OB Triage (QS system process) Datetime: 06/23/2016 22:00 Monitor Mode: External; Palpation (Shelby Lattibeaudeir, RN) Frequency (min): 5.5-6 (Shelby Lattibeaudeir, RN) Quality: Mild (Shelby Lattibeaudeir, RN) Duration (sec): 50-70 (Shelby Lattibeaudeir, RN) Resting Tone (Palpate): Relaxed (Shelby Lattibeaudeir, RN) Contraction Comments: pt denies feeling ctx or cramping. Irritability noted. (Shelby Lattibeaudeir, RN) Monitor Mode: External US (Shelby Lattibeaudeir, RN) FHR Baseline Rate : 125 (Shelby Lattibeaudeir, RN) Variability: Moderate 6-25 bpm (Shelby Lattibeaudeir, RN) Accelerations: 15X15 (Shelby Lattibeaudeir, RN) Decelerations: None (Shelby Lattibeaudeir, RN) Datetime: 06/23/2016 21:59 Maternal Comments: pt resting in bed, watching TV. Support person at bedside. Denies any needs. (Shelby Emmetttibgaryir, RN) Datetime: 06/23/2016 21:58 NBP Sys/Lina/Mean (mmHg): 130 (QS system process) : 81 (QS system process) : 101 (QS system process) Pulse: 82 (QS system process) LaborFlag: OB Triage (QS system process) Datetime: 06/23/2016 21:48 Patient Position/Activity: Right Lateral (Rucsandra Ramírez, RN) Datetime: 06/23/2016 21:43 NBP Sys/Lina/Mean (mmHg): 127 (QS system process) : 77 (QS system process) : 96 (QS system process) Pulse: 71 (QS system process) LaborFlag: OB Triage (QS system process) Datetime: 06/23/2016 21:30 NBP Sys/Lina/Mean (mmHg): 134 (QS system process) : 83 (QS system process) : 104 (QS system process) Pulse: 88 (QS system process) Monitor Mode: External; Palpation (Shahbaz Elmore, RN) Frequency (min): 4.5-6.5 (Shahbaz Elmore, RN) Quality: Mild (Shahbaz Elmore, RN) Duration (sec): 50-100 (Rucsandra Elmore, RN) Resting Tone (Palpate): Relaxed (Shahbaz Elmore, RN) Monitor Mode: External US (Shahbaz Elmore, RN) FHR Baseline Rate : 130 (Shahbaz Elmore, RN) Variability: Moderate 6-25 bpm (Rucsandra Elmore, RN) Accelerations: 15X15 (Rucsandra Elmore, RN) Decelerations: None (Rucsandra Elmore, RN) LaborFlag: OB Triage (QS system process) Datetime: 06/23/2016 21:12 NBP Sys/Lina/Mean (mmHg): 138 (QS system process) : 86 (QS system process) : 108 (QS system process) Pulse: 76 (QS system process) LaborFlag: OB Triage (QS system process) Datetime: 06/23/2016 21:06 Pain Scale: 0 (Shahbaz Elmore RN) Pain Presence: None/Denies (Shahbaz Elmore RN) Pain Type: N/A (Shahbaz Elmore RN) Pain Assessment Comments: pt denies feeling ctx or cramping (Shahbaz Elmore RN) Maternal Comments: pt resting in bed watching TV, denies any needs. (Shahbaz Elmore RN) LaborFlag: OB Triage (QS system process) Datetime: 06/23/2016 21:00 Monitor Mode: External; Palpation (Shahbaz Elmore RN) Frequency (min): 2-7 (Shahbaz Elmore RN) Quality: Mild (Shahbaz Elmore RN) Duration (sec): 60-120 (Shahbaz Elmore RN) Resting Tone (Palpate): Relaxed (Shahbaz Elmore RN) Contraction Comments: pt denies feeling ctx or cramping (Shahbaz Elmore RN) Monitor Mode: External US (Shahbaz Elmore RN) FHR Baseline Rate : 135 (Shahbaz Elmore RN) Variability: Moderate 6-25 bpm (Shahbaz Elmore RN) Accelerations: 15X15 (Shahbaz Elmore RN) Decelerations: None (Shahbaz Elmore RN) Patient Position/Activity: Left Tilt (Shahbaz Elmore RN) Datetime: 06/23/2016 20:59 Dilatation (cm): 1.0 (Shahbaz Elmore RN) Effacement (%): 50 (Shahbaz Elmore RN) Station: -2 (Shahbaz Elmore RN) Exam by: Candida Elmore RN (Shahbaz Elmore, ALBERT) Cervical Ripening Agents: Cervidil (Shahbaz Elmore RN) Medication Comments: Intended effects and possible side effects explained to pt. Pt agrees and V/U. (Shahbaz Elmore RN) Datetime: 06/23/2016 20:51 Maternal Comments: pt back to bed without incident. (Rucsandra Ramírez, RN) Datetime: 06/23/2016 20:47 I/O Interventions: Up to BR (Rucsandra Ramírez, RN) Datetime: 06/23/2016 20:30 Monitor Mode: External; Palpation (Rucsandra Ramírez, RN) Frequency (min): x1 (Rucsandra Ramírez, RN) Quality: Mild (Rucsandra Ramírez, RN) Duration (sec): 50 (Rucsandra Ramírez, RN) Resting Tone (Palpate): Relaxed (Rucsandra Ramírez, RN) Monitor Mode: External US (Shahbaz Elmore RN) FHR Baseline Rate : 140 (Shahbaz Elmore RN) Variability: Moderate 6-25 bpm (Shahbaz Elmore RN) Accelerations: 15X15 (Shahbaz Elmore RN) Decelerations: None (Shahbaz Elmore RN) IV/Blood Work: IV Started; IV Infusing per Order; New IV Bag Hung (Shahbaz Elmore RN) Patient Care Comments: 18G IV started on left FA x1 attempt, pt tolerated well. (Shahbaz Elmore RN) Datetime: 06/23/2016 20:25 Pain Scale: 0 (Shahbaz Elmore RN) Pain Presence: None/Denies (Shahbaz Elmore RN) Pain Type: N/A (Shahbaz Elmore RN) Vaginal Bleeding: None (Shahbaz Elmore RN) Level of Consciousness: Fully Conscious (Shahbaz Elmore RN) DTR's/Clonus: DTRs 2+; No Clonus (Shahbaz Elmore RN) Headache: Temporal (Shahbaz Elmore RN) Breath Sounds, Left: Clear and Equal (Shahbaz Elmore RN) Breath Sounds, Right: Clear and Equal (Shahbaz Elmore RN) Nausea/Vomiting: Denies (Shahbaz Elmore RN) RUQ Epigastric Pain: Denies (Shahbaz Elmore RN) LaborFlag: OB Triage (QS system process) Datetime: 06/23/2016 20:21 Maternal Comments: lab at bedside for admission lab draw. (Shahbaz Elmore RN) Maternal Comments: Consent forms signed. (Shahbaz Elmore RN) Unit Routine: Consents Signed (Shahbaz Elmore RN) Datetime: 06/23/2016 20:18 NBP Sys/Lina/Mean (mmHg): 143 (QS system process) : 93 (QS system process) : 114 (QS system process) Pulse: 86 (QS system process) Temperature (F): 98.1 (Shahbaz Elmore RN) Temperature (C): 36.7 (QS system process) LaborFlag: OB Triage (QS system process) Datetime: 06/23/2016 20:16 Maternal Comments: External monitors applied. (Shahbaz Elmore RN) Instructional Method: Verbal; Patient Instructed; Family/Support Person Instructed; Verbalized Understanding (Shahbaz Elmore RN) Plan of Care: Plan of Care Discussed; Induction (Shahbaz Elmore RN) Unit Routine: [place] to Room; Call [place]; Bed; Visiting Policy; Security; Phone/Cell Phone Use; Photography; Unit Personnel; Handwashing; Monitoring; IV Pumps; Bathroom Privileges (Shahbaz Elmore RN) Datetime: 06/23/2016 20:15 Maternal Comments: Verbal consent for treatment obtained. (Shahbaz Elmore RN)
--- NOTE | 2016-06-24 09:11 | L&D Progress Notes ---
PROGRESS NOTES Datetime Report Generated by CPN: 06/24/2016 09:10 PROGRESS NOTE Impression: Gest. HTN/PreEclampsia/Eclampsia Plan: Continue Present Management; Induction; Cervical Ripening Informed Consent Obtained: Vaginal Delivery; Induction of Labor; Risks, Benefits and Alternatives Discussed Vital Signs : Reviewed Comment: 31 yo admitted for iol gestational hypertension unremarkable care reports headache, denies visual disturbances abdomen nontender FHTs 120s reactive cat 1 gestational hypertension dtrs +1 no clonus cervidil to be removed at 1000 anticipate vaginal delivery r/b/a plan of care reviewed VAGINAL EXAM Dilatation: 1 Effacement: 60 Station: -2 MEMBRANES Pooling: Negative Membranes: Intact FETUS A FHR - Baseline: 120 Monitoring: External US Accelerations: 15X15 Decelerations: None FHR Category: Category I : 38.2 : 38.0 SIGNATURE SIGNATURE: [id number] SIGNATURE: [id number] SIGNATURE: [id number] SIGNATURE: [id number] SIGNATURE: [id number] Assignment: Gabriela Nava MD Signature: with User ID: [email or web address] : with User ID: [email or web address]
[2016-06-24] MEDS ORDERED: OXYTOCIN/NORMAL SALINE 20 UNIT/1,000 ML RTUINJ ONE ×2 (10:54→20:59)
--- NOTE | 2016-06-24 11:11 | L&D Progress Notes ---
PROGRESS NOTES Datetime Report Generated by CPN: 06/24/2016 11:11 PROGRESS NOTE Impression: Normal Progression of Labor; Gest. HTN/PreEclampsia/Eclampsia Procedures: Artificial ROM Plan: Continue Present Management; Augmentation Informed Consent Obtained: Vaginal Delivery; Risks, Benefits and Alternatives Discussed Vital Signs : Reviewed Vital Signs Comments: elevated no visual disturbances no ruq pain dtrs+1 no clonus Comment: r/b/a discussed with pt proceed with induction plan rom - clear pt tolerated very well 2-3/80/-2 start pitocin per protocol questions answered anticipate vaginal delivery VAGINAL EXAM Dilatation: 3 Effacement: 80 Station: -2 MEMBRANES Membranes: Ruptured Amniotic Fluid Color: Clear FETUS A FHR - Baseline: 130 Monitoring: External US Variability: Moderate 6-25bpm Accelerations: 15X15 Decelerations: None FHR Category: Category I : 38.0 Estimated Weight (gm): 3600 FETUS C SIGNATURE: [id number] Assignment: Gabriela Nava MD Signature: with User ID: [email or web address] : with User ID: [email or web address]
--- NOTE | 2016-06-24 12:00 | L&D Flow Sheet ---
LD Flowsheet Datetime Report Generated by CPN: 06/24/2016 12:00 Datetime: 06/24/2016 11:45 Monitor Mode: External (Adelaida Vitrano, RN) Frequency (min): 2-4 (Adelaida Vitrano, RN) Quality: Mild (Adelaida Vitrano, RN) Duration (sec): 60-80 (Adelaida Vitrano, RN) Duration Criteria: Less than Two 120 Second Contractions (Adelaida Vitrano, RN) Pattern: Normal: <= 5 Contractions in 10 Minutes (Adelaida Vitrano, RN) Resting Tone (Palpate): Relaxed (Adelaida Vitrano, RN) Monitor Mode: External US (Adelaida Vitrano, RN) Monitor Interventions for FHR: Ultrasound Adjusted (Adelaida Vitrano, RN) FHR Baseline Rate : 135 (Adelaida Vitrano, RN) Variability: Moderate 6-25 bpm (Aedlaida Vitrano, RN) Accelerations: 10X10 (Adelaida Vitrano, RN) Decelerations: None (Adelaida Vitrano, RN) Pitocin (milliunit): Pitocin Increased to (milliunits) @ 6 (Adelaida Vitrano, RN) Datetime: 06/24/2016 11:42 Monitor Interventions for FHR: Ultrasound Adjusted (Adelaida Vitrano, RN) Datetime: 06/24/2016 11:41 NBP Sys/Lina/Mean (mmHg): 157 (QS system process) : 88 (QS system process) : 115 (QS system process) Pulse: 71 (QS system process) Respirations: 16 (Adelaida Vitrano, RN) LaborFlag: OB Triage (QS system process) Datetime: 06/24/2016 11:40 Hygiene: Underpad Changed; Peripad Changed; Linens Changed (Adelaida Patricia, RN) Patient Care Comments: Up to rocking chair (Adelaida Vitrano, RN) Datetime: 06/24/2016 11:32 I/O Interventions: Up to BR (Adelaida Vitrano, RN) Datetime: 06/24/2016 11:30 Monitor Mode: External (Adelaida Vitrano, RN) Frequency (min): 2-5 (Adelaida Vitrano, RN) Quality: Mild (Adelaida Vitrano, RN) Duration (sec): 40-80 (Adelaida Vitrano, RN) Duration Criteria: Less than Two 120 Second Contractions (Adelaida Vitrano, RN) Pattern: Normal: <= 5 Contractions in 10 Minutes (Adelaida Vitrano, RN) Resting Tone (Palpate): Relaxed (Adelaida Vitrano, RN) Monitor Mode: External US (Adelaida Vitrano, RN) FHR Baseline Rate : 135 (Adelaida Vitrano, RN) Variability: Moderate 6-25 bpm (Adelaida Vitrano, RN) Accelerations: 15X15 (Adelaida Vitrano, RN) Decelerations: None (Adelaida Vitrano, RN) Pitocin (milliunit): Pitocin Increased to (milliunits) @ 4 (Adelaida Vitrano, RN) Datetime: 06/24/2016 11:15 Monitor Mode: External (Adelaida Vitrano, RN) Frequency (min): 2-7 (Adelaida Vitrano, RN) Quality: Mild (Adelaida Vitrano, RN) Duration (sec): 60-80 (Adelaida Vitrano, RN) Duration Criteria: Less than Two 120 Second Contractions (Adelaida Vitrano, RN) Pattern: Normal: <= 5 Contractions in 10 Minutes (Adelaida Vitrano, RN) Resting Tone (Palpate): Relaxed (Adelaida Vitrano, RN) Monitor Mode: External US (Adelaida Vitrano, RN) FHR Baseline Rate : 135 (Adelaida Vitrano, RN) Variability: Moderate 6-25 bpm (Adelaida Vitrano, RN) Accelerations: 15X15 (Adelaida Vitrano, RN) Decelerations: None (Adelaida Vitrano, RN) Pitocin (milliunit): Pitocin Remains (milliunits) @ 2 (Adelaida Vitrano, RN) Datetime: 06/24/2016 11:09 NBP Sys/Lina/Mean (mmHg): 136 (QS system process) : 91 (QS system process) : 110 (QS system process) Pulse: 76 (QS system process) Respirations: 16 (Adelaida Vitrano, RN) LaborFlag: OB Triage (QS system process) Datetime: 06/24/2016 11:05 Pitocin (milliunit): Pitocin Started (milliunits) @ 2; Pitocin 20 Units in 1000ml NS (Adelaida Vitrano, RN) Datetime: 06/24/2016 11:00 Monitor Mode: External; Palpation (Adelaida Vitrano, RN) Frequency (min): 2-4 (Adelaida Vitrano, RN) Quality: Mild (Adelaida Vitrano, RN) Duration (sec): 50-90 (Adelaida Vitrano, RN) Duration Criteria: Less than Two 120 Second Contractions (Adelaida Vitrano, RN) Pattern: Normal: <= 5 Contractions in 10 Minutes (Adelaida Vitrano, RN) Resting Tone (Palpate): Relaxed (Adelaida Vitrano, RN) Monitor Mode: External US (Adelaida Vitrano, RN) FHR Baseline Rate : 135 (Adelaida Vitrano, RN) Variability: Moderate 6-25 bpm (Adelaida Vitrano, RN) Accelerations: 15X15 (Adelaida Vitrano, RN) Decelerations: None (Adelaida Vitrano, RN) Datetime: 06/24/2016 10:55 Communication Comments: Orders to start Pitocin 20 units in 1000 mL NS at 2 mU/min increasing q 15 by 2 mU/min to a max of 20 mU/min or until an adequate pattern of labor is established. (Adleaida Vitrano, RN) Datetime: 06/24/2016 10:52 Temperature (F): 98.1 (Adelaida Vitrano, RN) Temperature (C): 36.7 (QS system process) Temperature Route: Oral (Adelaida Vitrano, RN) LaborFlag: OB Triage (QS system process) Datetime: 06/24/2016 10:50 Monitor Interventions for FHR: Ultrasound Adjusted (Adelaida Vitrano, RN) Patient Position/Activity: Tailors (Adelaida Vitrano, RN) Hygiene: Underpad Changed (Adelaida Vitrano, RN) Datetime: 06/24/2016 10:46 Dilatation (cm): 2.5 (Adelaida Vitrano, RN) Exam by: Matthieu Shea CNM (Adelaida Vitrano, RN) Datetime: 06/24/2016 10:45 Membrane Status: Ruptured (Adelaida Vitrano, RN) Membranes Rupture Method: Artificial (Adelaida Vitrano, RN) Amniotic Fluid Color: Clear (Adelaida Vitrano, RN) Amniotic Fluid Amount: Moderate (Adelaida Vitrano, RN) Datetime: 06/24/2016 10:43 Dilatation (cm): 1.5 (Adelaida Vitrano, RN) Effacement (%): 70 (Adelaida Vitrano, RN) Station: -1 (Adelaida Patricia, RN) Exam by: Matthieu Shea CNM (Adelaida Vitrano, RN) Datetime: 06/24/2016 10:42 Provider Reviewed Strip: Yes (Adelaida Patricia, RN) Communication: RN at Bedside; RN Reviewed Strip; Provider at Bedside (Adelaida Gomez RN) Datetime: 06/24/2016 10:41 Monitor Interventions for FHR: Ultrasound Adjusted (Adelaida Vitrano, RN) Datetime: 06/24/2016 10:40 NBP Sys/Lina/Mean (mmHg): 154 (QS system process) : 90 (QS system process) : 116 (QS system process) Pulse: 77 (QS system process) Respirations: 16 (Adelaida Vitrano, RN) LaborFlag: OB Triage (QS system process) Datetime: 06/24/2016 10:31 I/O Interventions: Up to BR (Adelaida Vitrano, RN) Datetime: 06/24/2016 10:30 Monitor Mode: External; Palpation (Adelaida Vitrano, RN) Frequency (min): 2-4 (Adelaida Vitrano, RN) Quality: Mild (Adelaida Vitrano, RN) Duration (sec): 50-80 (Adelaida Vitrano, RN) Duration Criteria: Less than Two 120 Second Contractions (Adelaida Vitrano, RN) Pattern: Normal: <= 5 Contractions in 10 Minutes (Adelaida Vitrano, RN) Resting Tone (Palpate): Relaxed (Adelaida Vitrano, RN) Monitor Mode: External US (Adelaida Vitrano, RN) FHR Baseline Rate : 125 (Adelaida Vitrano, RN) Variability: Moderate 6-25 bpm (Adelaida Vitrano, RN) Accelerations: 15X15 (Adelaida Vitrano, RN) Decelerations: None (Adelaida Vitrano, RN) Datetime: 06/24/2016 10:10 Patient Care Comments: Pt denies needs (Adelaida Vitrano, RN) Datetime: 06/24/2016 10:09 NBP Sys/Lina/Mean (mmHg): 137 (QS system process) : 89 (QS system process) : 109 (QS system process) Pulse: 76 (QS system process) Respirations: 16 (Adelaida Vitrano, RN) LaborFlag: OB Triage (QS system process) Datetime: 06/24/2016 10:08 Monitor Interventions for FHR: Ultrasound Adjusted (Adelaida Vitrano, RN) Datetime: 06/24/2016 10:07 Communication Comments: A. Emmel, CNM notified pt showered, breakfast finished. Provider wishes to complete SVE, will be to pt bedside soon. (Adelaida Gomez, RN) Datetime: 06/24/2016 10:06 IV/Blood Work: IV Infusing per Order (Adelaida Gomez, RN) Patient Position/Activity: Left Tilt; Semi-Fowlers (Adelaida Patricia, RN) Datetime: 06/24/2016 09:04 Medication Comments: Cervidil d/c (Adelaidakirk Gomez, RN) Patient Care Comments: Pt up to shower, eat breakfast; may d/c monitors per Matthieu Shea CNM (Adelaida Patricia, RN) Datetime: 06/24/2016 09:03 I/O Interventions: Up to BR (Adelaida Vitrano, RN) Datetime: 06/24/2016 09:01 Patient Care Comments: IV saline locked; breakfast provided (Adelaida Vitrano, RN) Datetime: 06/24/2016 09:00 NBP Sys/Lina/Mean (mmHg): 143 (QS system process) : 88 (QS system process) : 111 (QS system process) Pulse: 71 (QS system process) Respirations: 16 (Adelaida Vitrano, RN) Monitor Mode: External; Palpation (Adelaida Vitrano, RN) Frequency (min): 1-4 (Adelaida Vitrano, RN) Quality: Mild (Adelaida Vitrano, RN) Duration (sec): 50-80 (Adelaida Vitrano, RN) Duration Criteria: Less than Two 120 Second Contractions (Adelaida Vitrano, RN) Pattern: Normal: <= 5 Contractions in 10 Minutes (Adelaida Vitrano, RN) Resting Tone (Palpate): Relaxed (Adelaida Vitrano, RN) Monitor Mode: External US (Adelaida Vitrano, RN) FHR Baseline Rate : 125 (Adelaida Vitrano, RN) Variability: Moderate 6-25 bpm (Adelaida Vitrano, RN) Accelerations: 15X15 (Adelaida Vitrano, RN) Decelerations: None (Adelaida Vitrano, RN) LaborFlag: OB Triage (QS system process) Datetime: 06/24/2016 08:44 NBP Sys/Lina/Mean (mmHg): 148 (QS system process) : 96 (QS system process) : 115 (QS system process) Pulse: 80 (QS system process) Respirations: 16 (Adelaida Vitrano, RN) LaborFlag: OB Triage (QS system process) Datetime: 06/24/2016 08:43 Communication Comments: Matthieu Shea CNM at bedside, reviewed strip, reviewing POC with pt and answering pt questions. (Adelaida Vitrano, RN) Datetime: 06/24/2016 08:42 Monitor Interventions for FHR: Ultrasound Adjusted (Adelaida Vitrano, RN) Comments: Tracing maternal HR d/t pt movement, US adjusted (Adelaida Vitrano, RN) Datetime: 06/24/2016 08:30 Monitor Mode: External (Adelaida Vitrano, RN) Frequency (min): 1.5-4 (Adelaida Vitrano, RN) Quality: Mild (Adelaida Vitrano, RN) Duration (sec): 60-90 (Adelaida Vitrano, RN) Duration Criteria: Less than Two 120 Second Contractions (Adelaida Vitrano, RN) Pattern: Normal: <= 5 Contractions in 10 Minutes (Adelaida Vitrano, RN) Resting Tone (Palpate): Relaxed (Adelaida Vitrano, RN) Monitor Mode: External US (Adelaida Vitrano, RN) FHR Baseline Rate : 125 (Adelaida Vitrano, RN) Variability: Moderate 6-25 bpm (Adelaida Vitrano, RN) Accelerations: 15X15 (Adelaida Vitrano, RN) Decelerations: None (Adelaida Vitrano, RN) Datetime: 06/24/2016 08:27 I/O Interventions: Up to BR (Adelaida Vitrano, RN) Datetime: 06/24/2016 08:23 Pain Coping: Sleeping (Adelaida Vitrano, RN) Datetime: 06/24/2016 08:22 Communication Comments: Pt may have breakfast (Adelaida Vitrano, RN) Datetime: 06/24/2016 08:14 NBP Sys/Lina/Mean (mmHg): 133 (QS system process) : 72 (QS system process) : 96 (QS system process) Pulse: 67 (QS system process) Respirations: 16 (Adelaida Vitrano, RN) LaborFlag: OB Triage (QS system process) Datetime: 06/24/2016 08:00 Monitor Mode: External (Adelaida Vitrano, RN) Frequency (min): 1.5-4 (Adelaida Vitrano, RN) Quality: Mild (Adelaida Vitrano, RN) Duration (sec): 60-80 (Adelaida Vitrano, RN) Duration Criteria: Less than Two 120 Second Contractions (Adelaida Vitrano, RN) Pattern: Normal: <= 5 Contractions in 10 Minutes (Adelaida Vitrano, RN) Resting Tone (Palpate): Relaxed (Adelaida Vitrano, RN) Monitor Mode: External US (Adelaida Vitrano, RN) FHR Baseline Rate : 125 (Adelaida Vitrano, RN) Variability: Moderate 6-25 bpm (Adelaida Vitrano, RN) Accelerations: 15X15 (Adelaida Vitrano, RN) Decelerations: None (Adelaida Gomez RN)
[2016-06-24] MEDS ORDERED: FENTANYL CITRATE INJ/PF 100 MCG/2 ML AMPUL ONE (15:56)
--- NOTE | 2016-06-24 15:56 | L&D Progress Notes ---
PROGRESS NOTES Datetime Report Generated by CPN: 06/24/2016 15:56 PROGRESS NOTE Comment: iol at 38 weeks 2 days for ghtn EDC // vss- no complaints no abdominal tenderness pitocin increased to 14 milliunits/min pt breathing through contractions desires epidural now r/b/a reviewed questions answered family members at bedside anticipate VAGINAL EXAM Dilatation: 3 Effacement: 80 Station: -1 Contractions: 3- 5 minutes apart FETUS A FHR - Baseline: 130 Monitoring: External US Accelerations: 15X15 Decelerations: None FHR Category: Category I FETUS C SIGNATURE: [id number] Assignment: Gabriela Nava MD Signature: with User ID: Sulma : with User ID: Sulma
[2016-06-24] MEDS ORDERED: PHENYLEPHRINE HCL INJ/PF 10 MG/1 ML SDV ONE (15:57)
[2016-06-24] MEDS ORDERED: BUPIVACAINE HCL 0.25 % INJ/PF (2.5 MG/1 ML) 30 ML VIAL ONE (15:57)
[2016-06-24] MEDS ORDERED: FENTANYL/BUPIVACAINE/NS/PF 200 MCG/100 ML RTUINJ EPI ONE (15:57)
[2016-06-24] MEDS ORDERED: EPHEDRINE SULFATE INJ 50 MG/1 ML AMPULE ONE (15:57)
--- NOTE | 2016-06-24 16:00 | L&D Flow Sheet ---
LD Flowsheet Datetime Report Generated by CPN: 06/24/2016 16:00 Datetime: 06/24/2016 15:51 IV/Blood Work: New IV Bag Hung (Adelaida Vitrano, RN) Datetime: 06/24/2016 15:49 IV/Blood Work: IV Bolus Started (Adelaida Vitrano, RN) Datetime: 06/24/2016 15:48 Temperature (F): 97.6 (Adelaida Gomez RN) Temperature (C): 36.4 (QS system process) Temperature Route: Oral (Adelaida Gomez RN) LaborFlag: OB Triage (QS system process) Datetime: 06/24/2016 15:47 Dilatation (cm): 3.0 (Adelaida Gomez RN) Effacement (%): 80 (Adelaida Gomez RN) Station: -1 (Adelaida Gomez RN) Exam by: Matthieu Shea CNM (Adelaida Gomez RN) Patient Position/Activity: Left Tilt; Semi-Fowlers (Adelaida Gomez RN) Procedure Verify: Correct Patient Identity; Correct Side and Site are Marked; Accurate Procedure Consent Form; Agreement on Procedure to be Done; Relevant Images and Results are Properly Labeled and Displayed; Addressed Need to Administer Antibiotics or Fluids for Irrigation; Safety Precautions Based on Patient History or Medication Use (Adelaida Gomez RN) Anesthesia Plans: Epidural (Adelaida Gomez RN) Communication Comments: Orders from Matthieu Shea CNM to bolus pt for epidural (Adelaida Gomez RN) Datetime: 06/24/2016 15:46 Pain Coping: Breathing Through Contractions; Requesting Pain Medication or Epidural (Adelaida Gomez RN) Provider Reviewed Strip: Yes (Adelaida Gomez RN) Communication: RN at Bedside; RN Reviewed Strip; Provider at Bedside (Adelaida Gomez RN) Communication Comments: Matthieu Shea CNM at bedside to assess pt (Adelaida Patricia, ALBERT) Datetime: 06/24/2016 15:41 I/O Interventions: Up to BR (Adelaida Vitrano, RN) Datetime: 06/24/2016 15:39 NBP Sys/Lina/Mean (mmHg): 145 (QS system process) : 89 (QS system process) : 112 (QS system process) Pulse: 71 (QS system process) Respirations: 15 (Adelaida Vitrano, RN) LaborFlag: OB Triage (QS system process) Datetime: 06/24/2016 15:30 Monitor Mode: External (Adelaida Vitrano, RN) Frequency (min): 1.5-3 (Adelaida Vitrano, RN) Quality: Moderate (Adelaida Vitrano, RN) Duration (sec): 50-80 (Adelaida Vitrano, RN) Duration Criteria: Less than Two 120 Second Contractions (Adelaida Vitrano, RN) Pattern: Normal: <= 5 Contractions in 10 Minutes (Adelaida Vitrano, RN) Resting Tone (Palpate): Relaxed (Adelaida Vitrano, RN) Monitor Mode: External US (Adelaida Vitrano, RN) FHR Baseline Rate : 130 (Adelaida Vitrano, RN) Variability: Moderate 6-25 bpm (Adelaida Vitrano, RN) Accelerations: 15X15 (Adelaida Vitrano, RN) Decelerations: None (Adelaida Vitrano, RN) Pitocin (milliunit): Pitocin Remains (milliunits) @ 14 (Adelaida Vitrano, RN) Datetime: 06/24/2016 15:15 Monitor Mode: External; Palpation (Adelaida Vitrano, RN) Frequency (min): 2-3 (Adelaida Vitrano, RN) Quality: Moderate (Adelaida Vitrano, RN) Duration (sec): 50-80 (Adelaida Vitrano, RN) Duration Criteria: Less than Two 120 Second Contractions (Adelaida Vitrano, RN) Pattern: Normal: <= 5 Contractions in 10 Minutes (Adelaida Vitrano, RN) Resting Tone (Palpate): Relaxed (Adelaida Vitrano, RN) Monitor Mode: External US (Adelaida Vitrano, RN) FHR Baseline Rate : 130 (Adelaida Vitrano, RN) Variability: Moderate 6-25 bpm (Adelaida Vitrano, RN) Accelerations: None (Adelaida Vitrano, RN) Decelerations: None (Adelaida Vitrano, RN) Pitocin (milliunit): Pitocin Remains (milliunits) @ 14 (Adelaida Vitrano, RN) Datetime: 06/24/2016 15:09 NBP Sys/Lina/Mean (mmHg): 143 (QS system process) : 87 (QS system process) : 111 (QS system process) Pulse: 71 (QS system process) Respirations: 15 (Adelaida Vitrano, RN) LaborFlag: OB Triage (QS system process) Datetime: 06/24/2016 15:01 Monitor Interventions for FHR: Ultrasound Adjusted (Adelaida Vitrano, RN) Datetime: 06/24/2016 15:00 Monitor Mode: External; Palpation (Adelaida Vitrano, RN) Frequency (min): 2-3 (Adelaida Vitrano, RN) Quality: Mild/Moderate (Adelaida Vitrano, RN) Duration (sec): 50-70 (Adelaida Vitrano, RN) Duration Criteria: Less than Two 120 Second Contractions (Adelaida Vitrano, RN) Pattern: Normal: <= 5 Contractions in 10 Minutes (Adelaida Vitrano, RN) Resting Tone (Palpate): Relaxed (Adelaida Vitrano, RN) Monitor Mode: External US (Adelaida Vitrano, RN) FHR Baseline Rate : 130 (Adelaida Vitrano, RN) Variability: Moderate 6-25 bpm (Adelaida Vitrano, RN) Accelerations: 15X15 (Adelaida Vitrano, RN) Decelerations: None (Adelaida Vitrano, RN) Pitocin (milliunit): Pitocin Remains (milliunits) @ 14 (Adelaida Gomez RN) Datetime: 06/24/2016 14:59 Pain Assessment Comments: Pt complaining of back pain; warm pack provided for back (Adelaida Gomez RN) Comfort Measures: Hot/Cold Pack; Rocking Chair; Family Support (Adelaida Gomez RN) Patient Care Comments: Up to rocking chair (Adelaida Gomez RN) LaborFlag: OB Triage (QS system process) Datetime: 06/24/2016 14:45 Monitor Mode: External (Adelaida Gomez RN) Monitor Interventions for UA: [place] Adjusted (Adelaida Gomez, ALBERT) Frequency (min): 2-4 (Adelaida Gomez RN) Quality: Mild/Moderate (Adelaida Gomez RN) Duration (sec): 60-80 (Adelaida Gomez, RN) Duration Criteria: Less than Two 120 Second Contractions (Adelaida Gomez, RN) Pattern: Normal: <= 5 Contractions in 10 Minutes (Adelaida Gomez RN) Resting Tone (Palpate): Relaxed (Adelaida Vitrano, RN) Monitor Mode: External US (Adelaida Vitrano, RN) FHR Baseline Rate : 125 (Adelaida Vitrano, RN) Variability: Moderate 6-25 bpm (Adelaida Vitrano, RN) Accelerations: 15X15 (Adelaida Vitrano, RN) Decelerations: None (Adelaida Vitrano, RN) Pitocin (milliunit): Pitocin Remains (milliunits) @ 14 (Adelaida Vitrano, RN) Datetime: 06/24/2016 14:40 NBP Sys/Lina/Mean (mmHg): 143 (QS system process) : 92 (QS system process) : 113 (QS system process) Pulse: 71 (QS system process) Respirations: 15 (Adelaida Vitrano, RN) LaborFlag: OB Triage (QS system process) Datetime: 06/24/2016 14:30 Monitor Mode: External (Adelaida Vitrano, RN) Frequency (min): 2-3 (Adelaida Vitrano, RN) Quality: Mild/Moderate (Adelaida Vitrano, RN) Duration (sec): 50-80 (Adelaida Vitrano, RN) Duration Criteria: Less than Two 120 Second Contractions (Adelaida Vitrano, RN) Pattern: Normal: <= 5 Contractions in 10 Minutes (Adelaida Vitrano, RN) Resting Tone (Palpate): Relaxed (Adelaida Vitrano, RN) Monitor Mode: External US (Adelaida Vitrano, RN) FHR Baseline Rate : 130 (Adelaida Vitrano, RN) Variability: Moderate 6-25 bpm (Adelaida Vitrano, RN) Accelerations: None (Adelaida Vitrano, RN) Decelerations: None (Adelaida Vitrano, RN) Pitocin (milliunit): Pitocin Remains (milliunits) @ 14 (Adelaida Vitrano, RN) Datetime: 06/24/2016 14:21 I/O Interventions: Clear Liquids Given (Adelaida Vitrano, RN) Datetime: 06/24/2016 14:18 Patient Position/Activity: Right Tilt; Tailors (Adelaida Vitrano, RN) Datetime: 06/24/2016 14:15 Monitor Mode: External (Adelaida Vitrano, RN) Frequency (min): 2-6 (Adelaida Vitrano, RN) Quality: Mild/Moderate (Adelaida Vitrano, RN) Duration (sec): 50-70 (Adelaida Vitrano, RN) Duration Criteria: Less than Two 120 Second Contractions (Adelaida Vitrano, RN) Pattern: Normal: <= 5 Contractions in 10 Minutes (Adelaida Vitrano, RN) Resting Tone (Palpate): Relaxed (Adelaida Vitrano, RN) Monitor Mode: External US (Adelaida Vitrano, RN) FHR Baseline Rate : 130 (Adelaida Vitrano, RN) Variability: Moderate 6-25 bpm (Adelaida Vitrano, RN) Accelerations: None (Adelaida Vitrano, RN) Decelerations: None (Adelaida Vitrano, RN) Pitocin (milliunit): Pitocin Increased to (milliunits) @ 14 (Adelaida Vitrano, RN) Datetime: 06/24/2016 14:14 I/O Interventions: Up to BR (Adelaida Vitrano, RN) Datetime: 06/24/2016 14:10 NBP Sys/Lina/Mean (mmHg): 149 (QS system process) : 84 (QS system process) : 111 (QS system process) Pulse: 70 (QS system process) Respirations: 15 (Adelaida Vitrano, RN) LaborFlag: OB Triage (QS system process) Datetime: 06/24/2016 14:00 Monitor Mode: External; Palpation (Adelaida Vitrano, RN) Frequency (min): 2-4 (Adelaida Vitrano, RN) Quality: Mild/Moderate (Adelaida Vitrano, RN) Duration (sec): 60-80 (Adelaida Vitrano, RN) Duration Criteria: Less than Two 120 Second Contractions (Adelaida Vitrano, RN) Pattern: Normal: <= 5 Contractions in 10 Minutes (Adelaida Vitrano, RN) Resting Tone (Palpate): Relaxed (Adelaida Vitrano, RN) Monitor Mode: External US (Adelaida Vitrano, RN) FHR Baseline Rate : 135 (Adelaida Vitrano, RN) Variability: Moderate 6-25 bpm (Adelaida Vitrano, RN) Accelerations: 15X15 (Adelaida Vitrano, RN) Decelerations: None (Adelaida Vitrano, RN) Pitocin (milliunit): Pitocin Increased to (milliunits) @ 12 (Adelaida Vitrano, RN) Patient Care Comments: Pt denies needs, wishes to remain in bed at this time. Call penaloza w/in reach (Adelaida Vitrano, RN) Datetime: 06/24/2016 13:45 Monitor Mode: External (Adelaida Vitrano, RN) Frequency (min): 2-4 (Adelaida Vitrano, RN) Quality: Mild/Moderate (Adelaida Vitrano, RN) Duration (sec): 50-80 (Adelaida Vitrano, RN) Duration Criteria: Less than Two 120 Second Contractions (Adelaida Vitrano, RN) Pattern: Normal: <= 5 Contractions in 10 Minutes (Adelaida Vitrano, RN) Resting Tone (Palpate): Relaxed (Adelaida Vitrano, RN) Monitor Mode: External US (Adelaida Vitrano, RN) FHR Baseline Rate : 135 (Adelaida Vitrano, RN) Variability: Moderate 6-25 bpm (Adelaida Vitrano, RN) Accelerations: 15X15 (Adelaida Vitrano, RN) Decelerations: None (Adelaida Vitrano, RN) Pitocin (milliunit): Pitocin Remains (milliunits) @ 10 (Adelaida Vitrano, RN) Datetime: 06/24/2016 13:39 NBP Sys/Lina/Mean (mmHg): 142 (QS system process) : 88 (QS system process) : 110 (QS system process) Pulse: 68 (QS system process) Respirations: 16 (Adelaida Vitrano, RN) LaborFlag: OB Triage (QS system process) Datetime: 06/24/2016 13:30 Monitor Mode: External (Adelaida Vitrano, RN) Frequency (min): 2-3.5 (Adelaida Vitrano, RN) Quality: Mild/Moderate (Adelaida Vitrano, RN) Duration (sec): 50-70 (Adelaida Vitrano, RN) Duration Criteria: Less than Two 120 Second Contractions (Adelaida Vitrano, RN) Pattern: Normal: <= 5 Contractions in 10 Minutes (Adelaida Vitrano, RN) Resting Tone (Palpate): Relaxed (Adelaida Vitrano, RN) Monitor Mode: External US (Adelaida Vitrano, RN) FHR Baseline Rate : 125 (Adelaida Vitrano, RN) Variability: Moderate 6-25 bpm (Adelaida Vitrano, RN) Accelerations: 15X15 (Adelaida Vitrano, RN) Decelerations: None (Adelaida Vitrano, RN) Pain Presence: Intermittent (Adelaida Gomez RN) Pain Type: Cramping (Adelaida Gomez RN) Pain Coping: Declines Medication or Epidural (Adelaida Gomez RN) Pitocin (milliunit): Pitocin Increased to (milliunits) @ 10 (Adelaida Gomez RN) LaborFlag: OB Triage (QS system process) Datetime: 06/24/2016 13:18 NBP Sys/Lina/Mean (mmHg): 162 (QS system process) : 99 (QS system process) : 124 (QS system process) Pulse: 65 (QS system process) Respirations: 16 (Adelaida Gomez RN) LaborFlag: OB Triage (QS system process) Datetime: 06/24/2016 13:17 Monitor Interventions for UA: [place] Adjusted (Adelaida Gomez RN) Monitor Interventions for FHR: Ultrasound Adjusted (Adelaida Gomez RN) Patient Position/Activity: Right Tilt; Semi-Fowlers (Adelaida Gomez RN) Patient Care Comments: Pt returned to bed (Adelaida Vitrano, RN) Datetime: 06/24/2016 13:13 Temperature (F): 97.9 (Adelaida Vitrano, RN) Temperature (C): 36.6 (QS system process) Temperature Route: Oral (Adelaida Vitrano, RN) LaborFlag: OB Triage (QS system process) Datetime: 06/24/2016 13:12 I/O Interventions: Up to BR (Adelaida Vitrano, RN) Datetime: 06/24/2016 13:09 NBP Sys/Lina/Mean (mmHg): 165 (QS system process) : 99 (QS system process) : 124 (QS system process) Pulse: 74 (QS system process) Respirations: 16 (Adelaida Vitrano, RN) LaborFlag: OB Triage (QS system process) Datetime: 06/24/2016 13:00 Monitor Mode: External; Palpation (Adelaida Vitrano, RN) Frequency (min): 2-3 (Adelaida Vitrano, RN) Quality: Mild/Moderate (Adelaida Vitrano, RN) Duration (sec): 60-80 (Adelaida Vitrano, RN) Duration Criteria: Less than Two 120 Second Contractions (Adelaida Vitrano, RN) Pattern: Normal: <= 5 Contractions in 10 Minutes (Adelaida Vitrano, RN) Resting Tone (Palpate): Relaxed (Adelaida Vitrano, RN) Monitor Mode: External US (Adelaida Vitrano, RN) FHR Baseline Rate : 130 (Adelaida Vitrano, RN) Variability: Moderate 6-25 bpm (Adelaida Vitrano, RN) Accelerations: None (Adelaida Vitrano, RN) Decelerations: None (Adelaida Vitrano, RN) Pitocin (milliunit): Pitocin Remains (milliunits) @ 8 (Adelaida Vitrano, RN) Datetime: 06/24/2016 12:45 Monitor Mode: External (Adelaida Vitrano, RN) Frequency (min): 3-3.5 (Adelaida Vitrano, RN) Quality: Mild/Moderate (Adelaida Vitrano, RN) Duration (sec): 50-70 (Adelaida Vitrano, RN) Duration Criteria: Less than Two 120 Second Contractions (Adelaida Vitrano, RN) Pattern: Normal: <= 5 Contractions in 10 Minutes (Adelaida Vitrano, RN) Resting Tone (Palpate): Relaxed (Adelaida Vitrano, RN) Monitor Mode: External US (Adelaida Vitrano, RN) FHR Baseline Rate : 130 (Adelaida Vitrano, RN) Variability: Moderate 6-25 bpm (Adelaida Vitrano, RN) Accelerations: 15X15 (Adelaida Vitrano, RN) Decelerations: None (Adelaida Vitrano, RN) Pitocin (milliunit): Pitocin Remains (milliunits) @ 8 (Adelaida Vitrano, RN) Datetime: 06/24/2016 12:44 Communication Comments: Matthieu Shea CNM on unit, reviewed strip. No new orders; continue current POC. (Adelaida Vitrano, RN) Datetime: 06/24/2016 12:40 NBP Sys/Lina/Mean (mmHg): 129 (QS system process) : 74 (QS system process) : 93 (QS system process) Pulse: 73 (QS system process) Respirations: 16 (Adelaida Vitrano, RN) LaborFlag: OB Triage (QS system process) Datetime: 06/24/2016 12:38 Patient Care Comments: Up to birthing ball (Adelaida Vitrano, RN) Datetime: 06/24/2016 12:36 Hygiene: Underpad Changed (Adelaida Vitrano, RN) Datetime: 06/24/2016 12:33 I/O Interventions: Up to BR (Adelaida Vitrano, RN) Datetime: 06/24/2016 12:30 Monitor Mode: External (Adelaida Vitrano, RN) Frequency (min): 2-3 (Adelaida Vitrano, RN) Quality: Mild/Moderate (Adelaida Vitrano, RN) Duration (sec): 50-70 (Adelaida Vitrano, RN) Duration Criteria: Less than Two 120 Second Contractions (Adelaida Vitrano, RN) Pattern: Normal: <= 5 Contractions in 10 Minutes (Adelaida Vitrano, RN) Resting Tone (Palpate): Relaxed (Adelaida Vitrano, RN) Monitor Mode: External US (Adelaida Vitrano, RN) FHR Baseline Rate : 130 (Adelaida Vitrano, RN) Variability: Moderate 6-25 bpm (Adelaida Vitrano, RN) Accelerations: 15X15 (Adelaida Vitrano, RN) Decelerations: None (Adelaida Vitrano, RN) Pitocin (milliunit): Pitocin Remains (milliunits) @ 8 (Adelaida Vitrano, RN) Datetime: 06/24/2016 12:21 Monitor Interventions for FHR: Ultrasound Adjusted (Adelaida Vitrano, RN) Datetime: 06/24/2016 12:15 Monitor Mode: External; Palpation (Adelaida Vitrano, RN) Frequency (min): 2-3 (Adelaida Vitrano, RN) Quality: Mild/Moderate (Adelaida Vitrano, RN) Duration (sec): 60-80 (Adelaida Vitrano, RN) Duration Criteria: Less than Two 120 Second Contractions (Adelaida Vitrano, RN) Pattern: Normal: <= 5 Contractions in 10 Minutes (Adelaida Vitrano, RN) Resting Tone (Palpate): Relaxed (Adelaida Vitrano, RN) Monitor Mode: External US (Adelaida Vitrano, RN) FHR Baseline Rate : 130 (Adelaida Vitrano, RN) Variability: Moderate 6-25 bpm (Adelaida Vitrano, RN) Pitocin (milliunit): Pitocin Remains (milliunits) @ 8 (Adelaida Vitrano, RN) Datetime: 06/24/2016 12:10 NBP Sys/Lina/Mean (mmHg): 154 (QS system process) : 91 (QS system process) : 116 (QS system process) Pulse: 64 (QS system process) Respirations: 16 (Adelaida Vitrano, RN) Monitor Interventions for UA: [place] Adjusted (Adelaida Vitrano, RN) Monitor Interventions for FHR: Ultrasound Adjusted (Adelaida Vitrano, RN) LaborFlag: OB Triage (QS system process) Datetime: 06/24/2016 12:08 Monitor Interventions for FHR: Ultrasound Adjusted (Adelaida Vitrano, RN) Datetime: 06/24/2016 12:00 Monitor Mode: External; Palpation (Adelaida Gomez RN) Frequency (min): 2-5 (Adelaida Gomez RN) Quality: Mild/Moderate (Adelaida Gomez, RN) Duration (sec): 50-70 (Adelaida Gomez, RN) Duration Criteria: Less than Two 120 Second Contractions (Adelaida Gomez RN) Pattern: Normal: <= 5 Contractions in 10 Minutes (Adelaida Gomez RN) Resting Tone (Palpate): Relaxed (Adelaida Gomez RN) Monitor Mode: External US (Adelaida Gomez RN) FHR Baseline Rate : 135 (Adelaida Gomez RN) Variability: Moderate 6-25 bpm (Adelaida Gomez, RN) Accelerations: None (Adelaida Gomez, RN) Decelerations: None (Adelaida Gomez RN) Pain Presence: Intermittent (Adelaida Gomez RN) Pain Type: Cramping (Adelaida Gomez RN) Pain Coping: Declines Medication or Epidural (Adelaida Gomez RN) Pitocin (milliunit): Pitocin Increased to (milliunits) @ 8 (Adelaida Gomez RN) Comfort Measures: Rocking Chair; Family Support (Adelaida Gomez RN) LaborFlag: OB Triage (QS system process)
[2016-06-24 17:04] LABS: URINE BARBITURATES SCREEN NEGATIVE; URINE METHADONE SCREEN NEGATIVE; URINE PHENCYCLIDINE SCREEN NEGATIVE
--- NOTE | 2016-06-24 18:52 | L&D Progress Notes ---
PROGRESS NOTES Datetime Report Generated by CPN: 06/24/2016 18:52 PROGRESS NOTE Impression: Gest. HTN/PreEclampsia/Eclampsia Procedures: Intrauterine Pressure Catheter Plan: Induction Comment: some ,molding noted...iupc placed-will monitor mvus and adjust pit as needed ...recheck preeclampsia labs VAGINAL EXAM Dilatation: 4 Effacement: 90 Station: 0 FETUS C SIGNATURE: [id number] Signature: with User ID: [email or web address] Signature: with User ID: [email or web address] : with User ID: [email or web address]
[2016-06-24 19:41] LABS: ABSOLUTE LYMPHOCYTES (AUTO) 1.9 10^3/uL (0.5-4.7); ABSOLUTE MONOCYTES (AUTO) 1.5 10^3/uL (0.1-1.4); ABSOLUTE NEUT (AUTO) 15.4 10^3/uL (1.7-8.2); BASOPHILS % (AUTO) 0.2 % (0-2); EOSINOPHILS % (AUTO) 0.2 % (0-6); HEMATOCRIT 29.3 % (36.0-47.0); HEMOGLOBIN 9.7 g/dL (12.0-15.5); HGB HCT DIFFERENCE -0.2; LYMPHOCYTES % (AUTO) 9.9 % (13-45); MEAN CORPUSCULAR HEMOGLOBIN 27.9 pg (27.0-33.4); MEAN CORPUSCULAR VOLUME 85 fl (80-97); MONOCYTES % (AUTO) 7.8 % (3-13); RED BLOOD COUNT 3.47 10^6/uL (3.72-5.28); RED CELL DISTRIBUTION WIDTH 14.1 % (11.5-14.0); SEGMENTED NEUTROPHILS % (AUTO) 81.9 % (42-78); WHITE BLOOD COUNT 18.8 10^3/uL (4.0-10.5)
[2016-06-24 19:59] LABS: ALANINE AMINOTRANSFERASE 12 U/L (9-52); ALBUMIN 2.6 g/dL (3.5-5.0); ALKALINE PHOSPHATASE 141 U/L (38-126); ANION GAP 10 (5-19); ASPARTATE AMINO TRANSFERASE 18 U/L (14-36); BILIRUBIN,TOTAL 0.2 mg/dL (0.2-1.3); BLOOD UREA NITROGEN 5 mg/dL (7-20); CALCIUM 9.3 mg/dL (8.4-10.2); CARBON DIOXIDE 23 mmol/L (22-30); CHLORIDE 103 mmol/L (98-107); CREATININE RESULT 0.51 mg/dL (0.52-1.25); GLUCOSE 106 mg/dL (75-110); POTASSIUM 3.8 mmol/L (3.6-5.0); SODIUM 135.5 mmol/L (137-145); TOTAL PROTEIN 5.1 g/dL (6.3-8.2)
--- NOTE | 2016-06-24 20:00 | L&D Flow Sheet ---
LD Flowsheet Datetime Report Generated by CPN: 06/24/2016 20:00 Datetime: 06/24/2016 19:50 NBP Sys/Lina/Mean (mmHg): 148 (QS system process) : 87 (QS system process) : 110 (QS system process) Pulse: 82 (QS system process) LaborFlag: OB Triage (QS system process) Datetime: 06/24/2016 19:45 Monitor Mode: External; Palpation (Maria A Amrita RN) Frequency (min): 2-2.5 (Maria A Ledgerwood, RN) Quality: Mild (Maria A Ledgerwood, RN) Duration (sec): 60-70 (Maria A Ledgerwood, RN) Duration Criteria: Less than Two 120 Second Contractions (Maria A Ledgerwood, RN) Pattern: Normal: <= 5 Contractions in 10 Minutes (Maria A Ledgerwood, RN) Resting Tone (Palpate): Relaxed (Maria A Ledgerwood, RN) Monitor Mode: External US (Maria A Ledgerwood, RN) FHR Baseline Rate : 130 (Maria A Ledgerwood, RN) FHR Baseline Changes: No Baseline Change (Maria A Ledgerwood, RN) Variability: Moderate 6-25 bpm (Maria A Ledgerwood, RN) Accelerations: 15X15 (Maria A Ledgerwood, RN) Decelerations: None (Maria A Ledgerwood, RN) Pitocin (milliunit): Pitocin Remains (milliunits) @ 18 (Maira A Ledgerwood, RN) Datetime: 06/24/2016 19:33 NBP Sys/Lina/Mean (mmHg): 144 (QS system process) : 86 (QS system process) : 111 (QS system process) Pulse: 82 (QS system process) Respirations: 14 (Maria A Ledgerwood, RN) LaborFlag: OB Triage (QS system process) Datetime: 06/24/2016 19:30 Monitor Mode: Internal (Maria A Ledgerwood, RN) Frequency (min): 2.5-3.5 (Maria A Ledgerwood, RN) Quality: Mild (Maria A Ledgerwood, RN) Duration (sec): 60-70 (Maria A Ledgerwood, RN) Duration Criteria: Less than Two 120 Second Contractions (Maria A Ledgerwood, RN) Pattern: Normal: <= 5 Contractions in 10 Minutes (Maria A Ledgerwood, RN) Resting Tone (Palpate): Relaxed (Marai A Ledgerwood, RN) Monitor Mode: External US (Maria A Ledgerwood, RN) FHR Baseline Rate : 130 (Maria A Ledgerwood, RN) FHR Baseline Changes: No Baseline Change (Maria A Ledgerwood, RN) Variability: Moderate 6-25 bpm (Maria A Ledgerwood, RN) Accelerations: 15X15 (Maria A Ledgerwood, RN) Decelerations: None (Maria A Ledgerwood, RN) Pitocin (milliunit): Pitocin Remains (milliunits) @ 18 (Maria A Ledgerwood, RN) Datetime: 06/24/2016 19:17 Pain Scale: 1 (Maria A Ledgerwood, RN) Pain Presence: Intermittent (Maria A Ledgerwood, RN) Pain Type: Dull (Maria A Ledgerwood, RN) Pain Location: Perineum (Maria A Ledgerwood, RN) Pain Relief Measures: Comfort Measures (Maria A Ledgerwood, RN) Pain Coping: Other (Maria A Crowe RN) Level of Consciousness: Fully Conscious (Maria A Crowe RN) DTR's/Clonus: DTRs 2+; No Clonus (Maria A Crowe RN) Headache: Frontal (Maria A Crowe RN) Breath Sounds, Left: Clear and Equal (Maria A Crowe RN) Breath Sounds, Right: Clear and Equal (Maria A Crowe RN) Nausea/Vomiting: pt has feeling of nausea at the moment (Maria A Crowe RN) RUQ Epigastric Pain: Denies (Maria A Crowe RN) Instructional Method: Demo; Verbal; Patient Instructed (Maria A Crowe RN) Plan of Care: Plan of Care Discussed; Induction (Maria A Crowe RN) Unit Routine: Handwashing; Monitoring; Safety/Fall Risk Prevention (Maria A Crowe RN) LaborFlag: OB Triage (QS system process) Datetime: 06/24/2016 19:15 Monitor Mode: Internal (Maria A Crowe RN) Frequency (min): 2-4.5 (Maria A Crowe RN) Quality: Mild (Maria A Crowe RN) Duration (sec): 50-70 (Maria A Crowe RN) Duration Criteria: Less than Two 120 Second Contractions (Maria A Crowe RN) Pattern: Normal: <= 5 Contractions in 10 Minutes (Maria A Crowe RN) Resting Tone (Palpate): Relaxed (Maria A Crowe RN) Monitor Mode: External US (Maria A Crowe RN) FHR Baseline Rate : 130 (Maria A Crowe RN) FHR Baseline Changes: No Baseline Change (Maria A Crowe RN) Variability: Moderate 6-25 bpm (Maria A Crwoe RN) Accelerations: None (Maria A Crowe RN) Decelerations: None (Maria A Crowe RN) Pitocin (milliunit): Pitocin Remains (milliunits) @ 18 (Maria A Crowe RN) Communication Comments: Report received from Ez Gomez RN at bedside. (Maria A Crowe RN) Datetime: 06/24/2016 19:10 Communication Comments: Report to Yuliet Crowe RN, care relinquished (Adelaida Gomez RN) Datetime: 06/24/2016 19:04 NBP Sys/Lina/Mean (mmHg): 127 (QS system process) : 84 (QS system process) : 102 (QS system process) Pulse: 78 (QS system process) Respirations: 16 (Adelaida Gomez RN) LaborFlag: OB Triage (QS system process) Datetime: 06/24/2016 19:00 Monitor Mode: External; Palpation (Adelaida Vitrano, RN) Frequency (min): 2-3.5 (Adelaida Vitrano, RN) Quality: Moderate to Strong (Adelaida Vitrano, RN) Duration (sec): 60-80 (Adelaida Vitrano, RN) Duration Criteria: Less than Two 120 Second Contractions (Adelaida Vitrano, RN) Pattern: Normal: <= 5 Contractions in 10 Minutes (Adelaida Vitrano, RN) Resting Tone (Palpate): Relaxed (Adelaida Vitrano, RN) Contraction Comments: Intensity 60-80 mmHg, Resting Tone 5-15 mmHg, 240 MVUs (Adelaida Vitrano, RN) Monitor Mode: External US (Adelaida Vitrano, RN) FHR Baseline Rate : 130 (Adelaida Vitrano, RN) Variability: Moderate 6-25 bpm (Adelaida Vitrano, RN) Accelerations: 15X15 (Adelaida Vitrano, RN) Decelerations: None (Adelaida Vitrano, RN) Pitocin (milliunit): Pitocin Remains (milliunits) @ 18 (Adelaida Vitrano, RN) Datetime: 06/24/2016 18:50 Monitor Interventions for FHR: Ultrasound Adjusted (Adelaida Vitrano, RN) Datetime: 06/24/2016 18:49 NBP Sys/Lina/Mean (mmHg): 144 (QS system process) : 100 (QS system process) : 117 (QS system process) Pulse: 90 (QS system process) Respirations: 16 (Adelaida Vitrano, RN) LaborFlag: OB Triage (QS system process) Datetime: 06/24/2016 18:48 Communication Comments: Orders from DrAshu Nava for repeat CMP and CBC (Adelaida Vitrano, RN) Datetime: 06/24/2016 18:47 Patient Position/Activity: Right Lateral; Peanut Ball (Adelaida Vitrano, RN) Datetime: 06/24/2016 18:46 Monitor Interventions for UA: IUPC Inserted (Adelaida Vitrano, RN) Datetime: 06/24/2016 18:45 Monitor Mode: External (Adelaida Vitrano, RN) Frequency (min): 2-4 (Adelaida Vitrano, RN) Quality: Moderate (Adelaida Vitrano, RN) Duration (sec): 60-80 (Adelaida Vitrano, RN) Duration Criteria: Less than Two 120 Second Contractions (Adelaida Vitrano, RN) Pattern: Normal: <= 5 Contractions in 10 Minutes (Adelaida Vitrano, RN) Resting Tone (Palpate): Relaxed (Adelaida Vitrano, RN) Monitor Mode: External US (Adelaida Vitrano, RN) FHR Baseline Rate : 135 (Adelaida Vitrano, RN) Variability: Moderate 6-25 bpm (Adelaida Vitrano, RN) Accelerations: 15X15 (Adelaida Vitrano, RN) Decelerations: None (Adealida Vitrano, RN) Pitocin (milliunit): Pitocin Remains (milliunits) @ 18 (Adelaida Vitrano, RN) Datetime: 06/24/2016 18:44 Dilatation (cm): 4.0 (Adelaida Vitrano, RN) Effacement (%): 90 (Adelaida Vitrano, RN) Station: 0 (Adelaida Vitrano, RN) Exam by: Dr. Nava (Adelaida Vitrano, RN) Communication Comments: Dr. Nava at bedside to assess pt (Adelaida Vitrano, RN) Datetime: 06/24/2016 18:36 Patient Position/Activity: Right Lateral; Peanut Ball (Adelaida Vitrano, RN) Datetime: 06/24/2016 18:34 I/O Interventions: Popsicle (Adelaida Vitrano, RN) Patient Care Comments: States shortness of breath is relieved with position change (Adelaida Vitrano, RN) Datetime: 06/24/2016 18:33 NBP Sys/Lina/Mean (mmHg): 147 (QS system process) : 87 (QS system process) : 110 (QS system process) Pulse: 81 (QS system process) Respirations: 16 (Adelaida Vitrano, RN) Monitor Interventions for UA: [place] Adjusted (Adelaida Vitrano, RN) LaborFlag: OB Triage (QS system process) Datetime: 06/24/2016 18:32 Monitor Interventions for FHR: Ultrasound Adjusted (Adelaida Vitrano, RN) Datetime: 06/24/2016 18:30 Monitor Mode: External (Adelaida Vitrano, RN) Frequency (min): 1.5-2.5 (Adelaida Vitrano, RN) Quality: Moderate (Adelaida Vitrano, RN) Duration (sec): 50-70 (Adelaida Vitrano, RN) Duration Criteria: Less than Two 120 Second Contractions (Adelaida Vitrano, RN) Pattern: Normal: <= 5 Contractions in 10 Minutes (Adelaida Vitrano, RN) Resting Tone (Palpate): Relaxed (Adelaida Vitrano, RN) Monitor Mode: External US (Adelaida Vitrano, RN) FHR Baseline Rate : 130 (Adelaida Vitrano, RN) Variability: Moderate 6-25 bpm (Adelaida Vitrano, RN) Accelerations: None (Adelaida Vitrano, RN) Decelerations: None (Adelaida Vitrano, RN) Pitocin (milliunit): Pitocin Remains (milliunits) @ 18 (Adelaida Vitrano, RN) Patient Position/Activity: Right Lateral (Adelaida Vitrano, RN) Patient Care Comments: Pt complaining of light headedness and mild shortness of breath (Adelaida Vitrano, RN) Datetime: 06/24/2016 18:29 NBP Sys/Lina/Mean (mmHg): 143 (QS system process) : 86 (QS system process) : 110 (QS system process) Pulse: 78 (QS system process) Pulse: 69 (QS system process) Pulse: 83 (QS system process) Respirations: 16 (Adelaida Vitrano, RN) SpO2 (%): 97 (QS system process) SpO2 (%): 91 (QS system process) LaborFlag: OB Triage (QS system process) Datetime: 06/24/2016 18:20 NBP Sys/Lina/Mean (mmHg): 141 (QS system process) : 82 (QS system process) : 106 (QS system process) Pulse: 76 (QS system process) Respirations: 16 (Adelaida Vitrano, RN) LaborFlag: OB Triage (QS system process) Datetime: 06/24/2016 18:15 Monitor Mode: External (Adelaida Vitrano, RN) Frequency (min): 2-3 (Adelaida Vitrano, RN) Quality: Moderate (Adelaida Vitrano, RN) Duration (sec): 60-100 (Adelaida Vitrano, RN) Duration Criteria: Less than Two 120 Second Contractions (Adelaida Vitrano, RN) Pattern: Normal: <= 5 Contractions in 10 Minutes (Adelaida Vitrano, RN) Resting Tone (Palpate): Relaxed (Adelaida Vitrano, RN) Monitor Mode: External US (Adelaida Vitrano, RN) FHR Baseline Rate : 130 (Adelaida Vitrano, RN) Variability: Moderate 6-25 bpm (Adelaida Vitrano, RN) Accelerations: 10X10 (Adelaida Vitrano, RN) Decelerations: None (Adelaida Vitrano, RN) Pitocin (milliunit): Pitocin Remains (milliunits) @ 18 (Adelaida Vitrano, RN) Datetime: 06/24/2016 18:06 Monitor Interventions for UA: [place] Adjusted (Adelaida Vitrano, RN) Monitor Interventions for FHR: Ultrasound Adjusted (Adelaida Vitrano, RN) Patient Position/Activity: Left Tilt; Semi-Fowlers (Adelaida Vitrano, RN) Patient Care Comments: Pt reporting nausea w position change, pt moved to semi fowlers (Adelaida Vitrano, RN) Datetime: 06/24/2016 18:04 NBP Sys/Lina/Mean (mmHg): 157 (QS system process) : 83 (QS system process) : 109 (QS system process) Pulse: 90 (QS system process) Respirations: 16 (Adelaida Vitrano, RN) LaborFlag: OB Triage (QS system process) Datetime: 06/24/2016 18:03 Patient Position/Activity: Tailors (Adelaida Vitrano, RN) Datetime: 06/24/2016 18:00 Monitor Mode: External; Palpation (Adelaida Vitrano, RN) Frequency (min): 2-3 (Adelaida Vitrano, RN) Quality: Moderate (Adelaida Vitrano, RN) Duration (sec): 60-80 (Adelaida Vitrano, RN) Duration Criteria: Less than Two 120 Second Contractions (Adelaida Vitrano, RN) Pattern: Normal: <= 5 Contractions in 10 Minutes (Adelaida Vitrano, RN) Resting Tone (Palpate): Relaxed (Adelaida Vitrano, RN) Monitor Mode: External US (Adelaida Vitrano, RN) FHR Baseline Rate : 125 (Adelaida Vitrano, RN) Variability: Moderate 6-25 bpm (Adelaida Vitrano, RN) Accelerations: 15X15 (Adelaida Vitrano, RN) Decelerations: None (Adelaida Vitrano, RN) Pitocin (milliunit): Pitocin Remains (milliunits) @ 18 (Adelaida Vitrano, RN) Datetime: 06/24/2016 17:49 NBP Sys/Lina/Mean (mmHg): 135 (QS system process) : 72 (QS system process) : 98 (QS system process) Pulse: 85 (QS system process) Respirations: 16 (Adelaida Vitrano, RN) LaborFlag: OB Triage (QS system process) Datetime: 06/24/2016 17:45 Monitor Mode: External; Palpation (Adelaida Vitrano, RN) Frequency (min): 2-3 (Adelaida Vitrano, RN) Quality: Moderate (Adelaida Vitrano, RN) Duration (sec): 60-90 (Adelaida Vitrano, RN) Duration Criteria: Less than Two 120 Second Contractions (Adelaida Vitrano, RN) Pattern: Normal: <= 5 Contractions in 10 Minutes (Adelaida Vitrano, RN) Resting Tone (Palpate): Relaxed (Adelaida Vitrano, RN) Monitor Mode: External US (Adelaida Vitrano, RN) FHR Baseline Rate : 125 (Adelaida Vitrano, RN) Variability: Moderate 6-25 bpm (Adelaida Vitrano, RN) Accelerations: 15X15 (Adelaida Vitrano, RN) Decelerations: None (Adelaida Vitrano, RN) Pitocin (milliunit): Pitocin Remains (milliunits) @ 18 (Adelaida Vitrano, RN) Datetime: 06/24/2016 17:33 NBP Sys/Lina/Mean (mmHg): 138 (QS system process) : 78 (QS system process) : 101 (QS system process) Pulse: 83 (QS system process) Respirations: 16 (Adelaida Vitrano, RN) LaborFlag: OB Triage (QS system process) Datetime: 06/24/2016 17:30 Monitor Mode: External; Palpation (Adelaida Vitrano, RN) Frequency (min): 1-5 (Adelaida Vitrano, RN) Quality: Mild/Moderate (Adelaida Vitrano, RN) Duration (sec): 60-90 (Adelaida Vitrano, RN) Duration Criteria: Less than Two 120 Second Contractions (Adelaida Vitrano, RN) Pattern: Normal: <= 5 Contractions in 10 Minutes (Adelaida Vitrano, RN) Resting Tone (Palpate): Relaxed (Adelaida Vitrano, RN) Monitor Mode: External US (Adelaida Vitrano, RN) FHR Baseline Rate : 130 (Adelaida Vitrano, RN) Variability: Moderate 6-25 bpm (Adelaida Vitrano, RN) Accelerations: 15X15 (Adelaida Vitrano, RN) Decelerations: None (Adelaida Vitrano, RN) Pitocin (milliunit): Pitocin Increased to (milliunits) @ 18 (Adelaida Vitrano, RN) Datetime: 06/24/2016 17:20 NBP Sys/Lina/Mean (mmHg): 127 (QS system process) : 74 (QS system process) : 96 (QS system process) Pulse: 86 (QS system process) Respirations: 16 (Adelaida Vitrano, RN) LaborFlag: OB Triage (QS system process) Datetime: 06/24/2016 17:15 Monitor Mode: External; Palpation (Adelaida Gomez, RN) Frequency (min): 1.5-4 (Adelaida Patricia, RN) Quality: Moderate (Adelaida Vitrano, RN) Duration (sec): 50-90 (Adelaida Trinidadano, RN) Duration Criteria: Less than Two 120 Second Contractions (Adelaida Trinidadano, RN) Pattern: Normal: <= 5 Contractions in 10 Minutes (Adelaida Vitrano, RN) Resting Tone (Palpate): Relaxed (Adelaida Trinidadano, RN) Monitor Mode: External US (Adelaida Patricia, RN) FHR Baseline Rate : 130 (Adelaida Vitrano, RN) Variability: Moderate 6-25 bpm (Adelaida Vitrano, RN) Accelerations: 15X15 (Adelaida Vitrano, RN) Decelerations: None (Adelaida Trinidadano, RN) Pitocin (milliunit): Pitocin Increased to (milliunits) @ 16 (Adelaidakirk Gomez, RN) Patient Care Comments: Denies needs, call penaloza w/in reach, family at bedside (Adelaida Gomez, RN) Datetime: 06/24/2016 17:05 Monitor Interventions for UA: [place] Adjusted (Adelaida Vitrano, RN) Monitor Interventions for FHR: Ultrasound Adjusted (Adelaida Vitrano, RN) IV/Blood Work: IV Infusing per Order (Adelaida Vitrano, RN) Patient Care Comments: 125 mL/hour (Adelaida Vitrano, RN) Datetime: 06/24/2016 17:04 Monitor Interventions for FHR: Ultrasound Adjusted (Adelaida Vitrano, RN) Patient Position/Activity: Left Lateral (Adelaida Vitrano, RN) Datetime: 06/24/2016 17:03 NBP Sys/Lina/Mean (mmHg): 141 (QS system process) : 83 (QS system process) : 107 (QS system process) Pulse: 78 (QS system process) Respirations: 16 (Adelaida Vitrano, RN) LaborFlag: OB Triage (QS system process) Datetime: 06/24/2016 17:02 NBP Sys/Lina/Mean (mmHg): 151 (QS system process) : 91 (QS system process) : 116 (QS system process) Pulse: 80 (QS system process) Respirations: 16 (Adelaidakirk Gomez RN) Anesthesia Level Check: T9 (Adelaida Gomez RN) LaborFlag: OB Triage (QS system process) Datetime: 06/24/2016 17:01 Pain Presence: None/Denies (Adelaida Gomez RN) Pain Type: N/A (Adelaida Gomez, RN) I/O Interventions: Edwards Cath Inserted (Adelaida Gomez, RN) Patient Care Comments: Clear urine draining (Adelaida Gomez RN) LaborFlag: OB Triage (QS system process) Datetime: 06/24/2016 17:00 NBP Sys/Lina/Mean (mmHg): 152 (QS system process) : 94 (QS system process) : 117 (QS system process) Pulse: 83 (QS system process) Respirations: 16 (Adelaida Vitrano, RN) Monitor Mode: External; Palpation (Adelaida Vitrano, RN) Monitor Interventions for UA: [place] Adjusted (Adelaida Vitrano, RN) Frequency (min): 3-4 (Adelaida Vitrano, RN) Quality: Mild/Moderate (Adelaida Vitrano, RN) Duration (sec): 50-70 (Adelaida Vitrano, RN) Duration Criteria: Less than Two 120 Second Contractions (Adelaida Vitrano, RN) Pattern: Normal: <= 5 Contractions in 10 Minutes (Adelaida Vitrano, RN) Resting Tone (Palpate): Relaxed (Adelaida Vitrano, RN) Monitor Mode: External US (Adelaida Vitrano, RN) FHR Baseline Rate : 130 (Adelaida Vitrano, RN) Variability: Moderate 6-25 bpm (Adelaida Vitrano, RN) Accelerations: 15X15 (Adelaida Vitrano, RN) Decelerations: None (Adelaida Vitrano, RN) Pitocin (milliunit): Pitocin Remains (milliunits) @ 14 (Adelaida Vitrano, RN) LaborFlag: OB Triage (QS system process) Datetime: 06/24/2016 16:59 NBP Sys/Lina/Mean (mmHg): 149 (QS system process) NBP Sys/Lina/Mean (mmHg): 143 (QS system process) : 91 (QS system process) : 82 (QS system process) : 114 (QS system process) : 106 (QS system process) Pulse: 83 (QS system process) Pulse: 78 (QS system process) Temperature (F): 98.5 (Adelaida Vitrano, RN) Temperature (C): 36.9 (QS system process) Temperature Route: Oral (Adelaida Vitrano, RN) LaborFlag: OB Triage (QS system process) Datetime: 06/24/2016 16:58 NBP Sys/Lina/Mean (mmHg): 152 (QS system process) : 88 (QS system process) : 114 (QS system process) Pulse: 77 (QS system process) LaborFlag: OB Triage (QS system process) Datetime: 06/24/2016 16:57 NBP Sys/Lina/Mean (mmHg): 159 (QS system process) : 95 (QS system process) : 121 (QS system process) Pulse: 73 (QS system process) LaborFlag: OB Triage (QS system process) Datetime: 06/24/2016 16:56 NBP Sys/Lina/Mean (mmHg): 156 (QS system process) : 87 (QS system process) : 113 (QS system process) Pulse: 85 (QS system process) Anesthesia Plans: Epidural (Adelaida Vitrano RN) Epidural Procedure Other: Pump Started (Adelaida Vitrano RN) LaborFlag: OB Triage (QS system process) Datetime: 06/24/2016 16:55 NBP Sys/Lina/Mean (mmHg): 152 (QS system process) : 83 (QS system process) : 111 (QS system process) Pulse: 83 (QS system process) LaborFlag: OB Triage (QS system process) Datetime: 06/24/2016 16:54 NBP Sys/Lina/Mean (mmHg): 147 (QS system process) : 81 (QS system process) : 108 (QS system process) Pulse: 78 (QS system process) LaborFlag: OB Triage (QS system process) Datetime: 06/24/2016 16:53 NBP Sys/Lina/Mean (mmHg): 156 (QS system process) : 83 (QS system process) : 114 (QS system process) Pulse: 82 (QS system process) IV/Blood Work: IV Infusing per Order; New IV Bag Hung (Adelaida Gomez RN) Patient Care Comments: LR continues to bolus for epidural procedure (Adelaida Gomez RN) Anesthesia Plans: Epidural (Adelaida Gomez RN) Epidural Procedure: Loading Dose (Adelaida Gomez RN) LaborFlag: OB Triage (QS system process) Datetime: 06/24/2016 16:52 NBP Sys/Lina/Mean (mmHg): 169 (QS system process) : 84 (QS system process) : 122 (QS system process) Pulse: 84 (QS system process) Pulse: 76 (QS system process) SpO2 (%): 100 (QS system process) Anesthesia Plans: Epidural (Adelaida Vitrano, RN) Epidural Procedure: Cath Placed (Adelaida Vitrano, RN) LaborFlag: OB Triage (QS system process) Datetime: 06/24/2016 16:51 Anesthesia Plans: Epidural (Adelaida Vitrano, RN) Epidural Procedure: Test Dose (Adelaida Vitrano, RN) Datetime: 06/24/2016 16:49 NBP Sys/Lina/Mean (mmHg): 173 (QS system process) : 88 (QS system process) : 121 (QS system process) Pulse: 88 (QS system process) LaborFlag: OB Triage (QS system process) Datetime: 06/24/2016 16:47 Pulse: 88 (QS system process) SpO2 (%): 100 (QS system process) LaborFlag: OB Triage (QS system process) Datetime: 06/24/2016 16:45 Monitor Mode: External (Adelaida Vitrano, RN) Frequency (min): 2-4 (Adelaida Vitrano, RN) Quality: Mild/Moderate (Adelaida Vitrano, RN) Duration (sec): 60-70 (Adelaida Vitrano, RN) Duration Criteria: Less than Two 120 Second Contractions (Adelaida Vitrano, RN) Pattern: Normal: <= 5 Contractions in 10 Minutes (Adelaida Vitrano, RN) Resting Tone (Palpate): Relaxed (Adelaida Vitrano, RN) Monitor Mode: External US (Adelaida Vitrano, RN) FHR Baseline Rate : 125 (Adelaida Vitrano, RN) Variability: Moderate 6-25 bpm (Adelaida Vitrano, RN) Accelerations: 15X15 (Adelaida Vitrano, RN) Decelerations: None (Adelaida Vitrano, RN) Pitocin (milliunit): Pitocin Remains (milliunits) @ 14 (Adelaida Gomez RN) Procedure Verify: Correct Patient Identity; Correct Side and Site are Marked; Accurate Procedure Consent Form; Agreement on Procedure to be Done; Correct Patient Position; Relevant Images and Results are Properly Labeled and Displayed; Addressed Need to Administer Antibiotics or Fluids for Irrigation; Safety Precautions Based on Patient History or Medication Use (Adelaida Gomez RN) Anesthesia Plans: Epidural (Adelaida Gomez RN) Anesthesia Comments: Dr. Flower at bedside for epidural (Adelaida Patricia, RN) Datetime: 06/24/2016 16:43 Comments: Tracing maternal HR d/t pt position for epidural, RN remains at bedside (Adelaida Patricia, RN) Datetime: 06/24/2016 16:42 Pulse: 61 (QS system process) SpO2 (%): 100 (QS system process) Anesthesia Plans: Epidural (Adelaida Gomez RN) Epidural Positioning: Sitting (Adelaida Gomez RN) LaborFlag: OB Triage (QS system process) Datetime: 06/24/2016 16:37 Procedure Verify: Correct Patient Identity; Correct Side and Site are Marked; Accurate Procedure Consent Form; Agreement on Procedure to be Done; Relevant Images and Results are Properly Labeled and Displayed; Addressed Need to Administer Antibiotics or Fluids for Irrigation; Safety Precautions Based on Patient History or Medication Use (Adelaida Patricia, RN) Anesthesia Plans: Epidural (Adelaida Patricia, RN) Anesthesia Comments: Dr. Flower coming for epidural (Adelaida Vitrano, RN) Datetime: 06/24/2016 16:30 Monitor Mode: External (Adelaida Vitrano, RN) Frequency (min): 1.5-3 (Adelaida Vitrano, RN) Quality: Mild/Moderate (Adelaida Vitrano, RN) Duration (sec): 50-90 (Adelaida Vitrano, RN) Duration Criteria: Less than Two 120 Second Contractions (Adelaida Vitrano, RN) Pattern: Normal: <= 5 Contractions in 10 Minutes (Adelaida Vitrano, RN) Resting Tone (Palpate): Relaxed (Adelaida Vitrano, RN) Monitor Mode: External US (Adelaida Vitrano, RN) FHR Baseline Rate : 135 (Adelaida Vitrano, RN) Variability: Moderate 6-25 bpm (Adelaida Vitrano, RN) Accelerations: 15X15 (Adelaida Vitrano, RN) Decelerations: None (Adelaida Vitrano, RN) Pitocin (milliunit): Pitocin Remains (milliunits) @ 14 (Adelaida Vitrano, RN) Datetime: 06/24/2016 16:29 Hygiene: Underpad Changed (Adelaida Vitrano, RN) Datetime: 06/24/2016 16:28 I/O Interventions: Up to BR (Adelaida Vitrano, RN) Datetime: 06/24/2016 16:27 Pain Coping: Talking Through Contractions (Adelaida Gomez RN) Pain Assessment Comments: Pt notified of anesthesiologist unavailable at this time, pt verbalizes understanding. Coping with pain appropriately. Talking through contractions, warm pack available, family at bedside. (Adelaida Gomez RN) Comfort Measures: Hot/Cold Pack (Adelaida Gomez RN) Anesthesia Comments: Dr. Flower called for epidural; provider states she is unable to come at this time but will return call when available. (Adelaida Gomez RN) LaborFlag: OB Triage (QS system process) Datetime: 06/24/2016 16:15 Monitor Mode: External (Adelaida Gomez, RN) Frequency (min): 2-3 (Adelaida Gomez, RN) Quality: Mild/Moderate (Adelaida Gomez, RN) Duration (sec): 50-70 (Adelaida Gomez, RN) Duration Criteria: Less than Two 120 Second Contractions (Adelaida Gomez, RN) Pattern: Normal: <= 5 Contractions in 10 Minutes (Adelaida Gomez, RN) Resting Tone (Palpate): Relaxed (Adelaida Gomez, RN) Monitor Mode: External US (Adelaida Gomez RN) FHR Baseline Rate : 130 (Adelaida Gomez, RN) Variability: Moderate 6-25 bpm (Adelaida Gomez, RN) Accelerations: None (Adelaida Gomez, RN) Decelerations: None (Adelaida Gomez RN) Pain Assessment Comments: New warm pack provided (Adelaida Vitrano, RN) Pitocin (milliunit): Pitocin Remains (milliunits) @ 14 (Adelaida Vitrano, RN) LaborFlag: OB Triage (QS system process) Datetime: 06/24/2016 16:09 NBP Sys/Lina/Mean (mmHg): 161 (QS system process) : 93 (QS system process) : 120 (QS system process) Pulse: 77 (QS system process) Respirations: 16 (Adelaida Vitrano, RN) LaborFlag: OB Triage (QS system process) Datetime: 06/24/2016 16:00 Monitor Mode: External; Palpation (Adelaida Vitrano, RN) Frequency (min): 2-3 (Adelaida Vitrano, RN) Quality: Mild/Moderate (Adelaida Vitrano, RN) Duration (sec): 50-70 (Adelaida Vitrano, RN) Duration Criteria: Less than Two 120 Second Contractions (Adelaida Vitrano, RN) Pattern: Normal: <= 5 Contractions in 10 Minutes (Adelaida Vitrano, RN) Resting Tone (Palpate): Relaxed (Adelaida Vitrano, RN) Monitor Mode: External US (Adelaida Gomez RN) FHR Baseline Rate : 135 (Adelaida Gomez RN) Variability: Moderate 6-25 bpm (Adelaida Gomez RN) Accelerations: 15X15 (Adelaida Gomez RN) Decelerations: None (Adelaida Gomez RN) Pitocin (milliunit): Pitocin Remains (milliunits) @ 14 (Adelaida Gomez RN)
[2016-06-24] MEDS ORDERED: LIDOCAINE 1% INJ-PF (10 MG/ML) 30 ML SDV ONE (20:59)
[2016-06-24] MEDS ORDERED: MISOPROSTOL 0.2 MG TABLET ONE (20:59)
[2016-06-24] MEDS ORDERED: DIBUCAINE 1% OINTMENT 28 GM TP PRN (23:49)
[2016-06-24] MEDS ORDERED: MEASLES,MUMPS&RUBELLA VACC/PF 0.5 ML VIAL SUBCUT PRN (23:49)
[2016-06-24] MEDS ORDERED: DIPH/PERTUSS(ACELL)/TETANUS VAC/PF 0.5 ML SYR (>=10YO) IM PRN (23:49)
[2016-06-24] MEDS ORDERED: ACETAMINOPHEN WITH CODEINE #3 TABLET PO PRN ×2 (23:49)
[2016-06-24] MEDS ORDERED: ZOLPIDEM TARTRATE 5 MG TABLET PO PRN (23:49)
[2016-06-24] MEDS ORDERED: BENZOCAINE/MENTHOL AEROSOL SPRAY 56 ML TOP PRN (23:49)
[2016-06-24] MEDS ORDERED: OXYTOCIN/NORMAL SALINE 1,000 ML IV PRN (23:49)
--- NOTE | 2016-06-25 02:03 | Admission Physical ---
Datetime Report Generated by CPN: 06/25/2016 02:03 CURRENT ADMISSION Chief Complaint: Scheduled Induction of Labor Indication for Induction: Gest. HTN/PreEclampsia/Eclampsia Admit Plan: Admit to Unit; Initiate Labor Induction Protocol ALLERGIES Medication Allergies: Yes Medication Allergies: neomycin (06/10/2016); bacitracin (06/10/2016); metronidazole (06/10/2016); polymyxin B (06/10/2016) Latex: No Latex Allergies OBSTETRICAL HISTORY EDC: 07/06/2016 00:00 : 2 Para: 0 Term: 0 : 0 SAB: 1 IAB: 0 Ectopic: 0 Livin Cesareans: 0 VBACs: 0 Multiple Births: 0 Gestational Diabetes: No Rh Sensitization: No Incompetent Cervix: No KEVIN: No Infertility: No ART Treatment: No Uterine Anomaly: No IUGR: No Hx Previous C/S: No Macrosomia: No Hx Loss/Stillborn: No PIH: No Hx : No Placenta Previa/Abruption: No Depression/PP Depression: No PTL/PROM: No Post Hemorrhage: No Current Procedures: Ultrasound; NST Obstetrical History Comments: - 2009 5 week SAB G2- current - first trimester spotting, sob and severe GERD SEE RECORDS Alcohol: No Marijuana : No Cocaine: No Other Illicit Drugs: No Cigarettes: Current Everyday Smoker. [id number] Cigarette Frequency: 5 - 10 per day Advised to Stop: Yes MEDICAL HISTORY Diabetes: No Blood Transfusion: No Pulmonary Disease (Asthma, TB): No Breast Disease: No Hypertension: No Uke Operator Surgery: No Heart Disease: No Hosp/Surgery: No Autoimmune Disorder: No Anesthetic Complications: No Kidney Disease: No Abnormal Pap Smear: Yes Neuro/Epilepsy: No Psychiatric Disorders: No Other Medical Diseases: No Hepatitis/Liver Disease: No Significant Family History: No Varicosities/Phlebitis: No Trauma/Violence : No Thyroid Dysfunction: No Medical History Comments: Abnormal pap 10 years ago with colposcopy INFECTIOUS HISTORY Gonorrhea: No Genital Herpes: No Chlamydia: No Tuberculosis: No Syphilis: No Hepatitis: No HIV/AIDS Exposure: No Rash or Viral Illness: No HPV: No PHYSICAL EXAM General: Normal HEENT: Normal Neurologic: Normal Thyroid: Normal Heart: Normal Lungs: Normal Breast: Deferred Back: Normal Abdomen: Normal Genitourinary Exam: Normal Extremities: Normal DTRs: Normal Pelvic Type: Adequate Vital Signs: Reviewed VAGINAL EXAM Dilatation: 4 Effacement: 90 Station: 0 Contraction Comments: 3- 5 minutes apart MEMBRANES Pooling: Negative Membranes: Ruptured Amniotic Fluid Color: Clear FETUS A EGA: 38.2 Monitoring: External US FHR- Baseline: 120 Variability: Moderate 6-25bpm Accelerations: 10X10 Decelerations: None FHR Category: Category I Estimated Weight (gm): 3600 Admit Comment: efw 7-8 lbs PLANS FOR LABOR AND DELIVERY Labor and Delivery: None Pain Management: Medications; Epidural Feeding Preference: Breast Benefit of Breast Feed Discussed: Yes Circumcision: Yes INFORMED CONSENT Informed Consent Obtained: Vaginal Delivery; Risks, Benefits and Alternatives Discussed Signature: with User ID: [email or web address]
[2016-06-25] MEDS ORDERED: IBUPROFEN 800 MG TABLET ONE (02:20)
--- NOTE | 2016-06-25 02:33 | Delivery Summary ---
Del Sum A-C Datetime Report Generated by CPN: 06/25/2016 02:32 ADMISSION DATA Chief Complaint: Scheduled Induction of Labor Indication for Induction: Gest. HTN/PreEclampsia/Eclampsia Admission Impression: Term, Intrauterine ; Active Labor; Induction of Labor Admit Provider Comments: efw 7-8 lbs DELIVERY PERSONNEL Delivery Doctor:: Gabriela Nava MD Labor and Delivery Nurse:: Maria A Crowe RNcut out stitcher Nurse:: Sofia Costa RN Drilling Field Specialist/CREATIVE DESIGNER: Amanda Green, ST MATERNAL INFORMATION Delivery Anesthesia: Epidural Medications After Delivery: Pitocin Drip 20 Units/1000ml NSS Estimated Blood Loss (ml): 150 Maternal Complications: None Provider Comments: When pt complete and pushing with bony vtx at +2, rising baseline with intermittent lates noted refractory to oxygen and positioning. Kiwi offered and applied to vtx. Pulled over 2 ctxs with no pop offs and max pressure of 550. Head delivered MICHAEL. Shoulders and body delivered easily thereafter. COrd clamped and cut. Male with apgars 8 and 9. Placenta spont and intact. LABOR SUMMARY EDC: 07/06/2016 00:00 No. Babies in Womb: 1 Attempted: No Labor Anesthesia: Epidural LABOR INFORMATION Reason for Induction: Chronic Hypertension; Gestational Hypertension Onset of Labor: 06/24/2016 18:44 Complete Dilatation: 06/24/2016 22:11 Cervical Ripening Agents: Cervidil Oxytocin: Induction Group B Beta Strep: negative Antibiotics # of Doses: N/A Antibiotics Time of Last Dose: N/A Name of Antibiotic Given: N/A Steroids Given: None Reason Steroids Not Administered: Not Applicable MEMBRANES Membranes Rupture Method: Artificial Rupture of Membranes: 06/24/2016 10:45 Length of Rupture (hr): 12.67 Amniotic Fluid Color: Clear Amniotic Fluid Amount: Moderate Amniotic Fluid Odor: Normal STAGES OF LABOR Stage 1 hr: 3 Stage 1 min: 27 Stage 2 hr: 1 Stage 2 min: 14 Stage 3 hr: 0 Stage 3 min: 5 Total Time in Labor hr: 4 Total Time in Labor min: 46 VAGINAL DELIVERY Episiotomy: None Laceration Type: None Sponge Count Correct: N/A Sharps Count Correct: Yes CSECTION DELIVERY Primary Indication: N/A Secondary Indication: N/A CSection Incidence: N/A Labor: N/A Elective: N/A CSection Incision: N/A BABY A INFORMATION Infant Delivery Date/Time: 06/24/2016 23:25 Method of Delivery: Vaginal Born in Route : No : N/A Forceps: N/A Vacuum Extraction: N/A Shoulder Dystocia : No PRESENTATION/POSITION BABY A Presentation: Cephalic Cephalic Presentation: Vertex Vertex Position: Right Occipital Anterior Breech Presentation: N/A PLACENTA INFORMATION BABY A Placenta Delivery Time : 06/24/2016 23:30 Placenta Method of Delivery: Spontaneous Placenta Status: Delivered SCORES BABY A Heart Rate 1 min: >100 bpm Resp Effort 1 min: Good Cry Reflex Irritability 1 min: Cough or Sneeze or Pulls Away Muscle Tone 1 min: Active Motion Color 1 min: Blue/Pale Resuscitation Effort 1 min: Tactile Stimulation SCORE 1 MIN: 8 Heart Rate 5 min: >100 bpm Resp Effort 5 min: Good Cry Reflex Irritability 5 min: Cough or Sneeze or Pulls Away Muscle Tone 5 min: Active Motion Color 5 min: Body [place], Extremities Blue Resuscitation Effort 5 min: Tactile Stimulation SCORE 5 MIN: 9 INFORMATION BABY A Gestational Age at Delivery: 38.2 Gestational Status: Early Term- 37- 38.6 Weeks Infant Outcome : Liveborn Infant Condition : Stable Sex: Male IDENTIFICATION BABY A Infant Verification Date/Time: 06/24/2016 23:35 ID Band Number: [id number] Mother's Name Verified: Yes Infant RN Verifying Infant: Serena mendoza rn/ r grzegorz rnc WEIGHT/LENGTH BABY A Infant Birthweight (gm): 3380 Infant Weight (lb): 7 Infant Weight (oz): 7 Infant Length (in): 20.00 Infant Length (cm): 50.80 CORD INFORMATION BABY A No. Cord Vessels: 3 Nuchal Cord : N/A Cord Blood Taken: Yes-For Storage (Mom's Blood type +) Infant Suction: None ASSESSMENT BABY A Complications: Extended Tachycardia Physical Findings at Delivery: Within Normal Limits Respirations: Appears Normal Skin to Skin: Yes Skin to Skin Time (min): 60 SIGNATURES Signature: with User ID: [email or web address]
[2016-06-25] MEDS: IBUPROFEN 800 MG TABLET PO SCH ×3 (06:00→21:05)
--- NOTE | 2016-06-25 06:06 | L&D General Admission ---
General Admit Datetime Report Generated by [facility]: 06/25/2016 04:45 Height (in): 68 (06/25/2016 02:03:QS system process) Hemoglobin: 9.7 L (06/24/2016 19:20:QS system process) Hematocrit: 29.3 L (06/24/2016 19:20:QS system process) MCV: 85 (06/24/2016 19:20:QS system process)
--- NOTE | 2016-06-25 06:06 | L&D Current Admission ---
Current Admit Datetime Report Generated by [facility]: 06/25/2016 04:45 Chief Complaint: Scheduled Induction of Labor (06/24/2016 19:17:Maria A Crowe RN)
--- NOTE | 2016-06-25 06:06 | L&D Admission Assessment ---
LD ADM ASMT Datetime Report Generated by CPN: 06/25/2016 04:45 Assessment Type: Ongoing Assessment (06/24/2016 19:17:Maria A Crowe RN) Assessment Type: Ongoing Assessment (06/24/2016 07:29:Adelaida Gomez RN) Weight (lb): 189 (06/25/2016 02:03:QS system process) Weight (kg): 85.9 (06/25/2016 02:03:QS system process) BMI: 28.7 (06/25/2016 02:03:QS system process) Pain Scale: 2 (06/24/2016 23:40:Maria A Crowe RN) Pain Scale: 1 (06/24/2016 19:17:Maria A Crowe RN) Pain Scale: 0 (06/24/2016 07:29:Adelaida Gomez RN) Pain Scale: 0 (06/24/2016 04:49:Shahbaz Elmore RN) Pain Presence: Constant (06/24/2016 23:40:Maria A Crowe RN) Pain Presence: Intermittent (06/24/2016 19:17:Maria A Crowe RN) Pain Presence: None/Denies (06/24/2016 17:01:Adelaida Gomez RN) Pain Presence: Intermittent (06/24/2016 13:30:Adelaida Gomez RN) Pain Presence: Intermittent (06/24/2016 12:00:Adelaiad Gomez RN) Pain Presence: None/Denies (06/24/2016 07:29:Adelaida Gomez RN) Pain Presence: None/Denies (06/24/2016 04:49:Shahbaz Elmore RN) Pain Type: Burning (06/24/2016 23:40:Maria A Crowe RN) Pain Type: Dull (06/24/2016 19:17:Maria A Crowe RN) Pain Type: N/A (06/24/2016 17:01:Adelaida Gomez RN) Pain Type: Cramping (06/24/2016 13:30:Adelaida Gomez RN) Pain Type: Cramping (06/24/2016 12:00:Adelaida Gomez RN) Pain Type: N/A (06/24/2016 07:29:Adelaida Gomez RN) Pain Type: N/A (06/24/2016 04:49:Shahbaz Elmore RN) Pain Location: Perineum (06/24/2016 23:40:Maria A Crowe RN) Pain Location: Perineum (06/24/2016 19:17:Maria A Crowe RN) Pain Related to Contraction: No (06/24/2016 19:17:Maria A Crowe RN) Pain Comments: Pt notified of anesthesiologist unavailable at this time, pt verbalizes understanding. Coping with pain appropriately. Talking through contractions, warm pack available, family at bedside. (06/24/2016 16:27:Adelaida Gomez RN) Pain Comments: New warm pack provided (06/24/2016 16:15:Adelaida Gomez RN) Pain Comments: Pt complaining of back pain; warm pack provided for back (06/24/2016 14:59:Adelaida Gomez RN) Frequency (min): 1.5-3.5 (06/24/2016 23:15:Maria A Crowe RN) Frequency (min): 1.5-3 (06/24/2016 23:00:Maria A Crowe RN) Frequency (min): 2-3.5 (06/24/2016 22:45:Maria A Crowe RN) Frequency (min): 2-3 (06/24/2016 22:30:Maria A Crowe RN) Frequency (min): 1.5-3.5 (06/24/2016 22:15:Maria A Crowe RN) Frequency (min): 2.5-3.5 (06/24/2016 22:00:Maria A Ledgerwood, RN) Frequency (min): 1.5-3.5 (06/24/2016 21:45:Maria A Ledgerwood, RN) Frequency (min): 1.5-3.5 (06/24/2016 21:30:Maria A Ledgerwood, RN) Frequency (min): 1.5-3.5 (06/24/2016 21:15:Maria A Ledgerwood, RN) Frequency (min): 2-4 (06/24/2016 21:00:Maria A Ledgerwood, RN) Frequency (min): 1.5-3.5 (06/24/2016 20:45:Maria A Ledgerwood, RN) Frequency (min): 2.5-3.5 (06/24/2016 20:30:Maria A Ledgerwood, RN) Frequency (min): 1.5-3.5 (06/24/2016 20:15:Maria A Ledgerwood, RN) Frequency (min): 2.5-3 (06/24/2016 20:00:Maria A Ledgerwood, RN) Frequency (min): 2-2.5 (06/24/2016 19:45:Maria A Ledgerwood, RN) Frequency (min): 2.5-3.5 (06/24/2016 19:30:Maria A Ledgerwood, RN) Frequency (min): 2-4.5 (06/24/2016 19:15:Maria A Ledgerwood, RN) Frequency (min): 2-3.5 (06/24/2016 19:00:Adelaida Vitrano, RN) Frequency (min): 2-4 (06/24/2016 18:45:Adelaida Vitrano, RN) Frequency (min): 1.5-2.5 (06/24/2016 18:30:Adelaida Vitrano, RN) Frequency (min): 2-3 (06/24/2016 18:15:Adelaida Vitrano, RN) Frequency (min): 2-3 (06/24/2016 18:00:Adelaida Vitrano, RN) Frequency (min): 2-3 (06/24/2016 17:45:Adelaida Vitrano, RN) Frequency (min): 1-5 (06/24/2016 17:30:Adelaida Vitrano, RN) Frequency (min): 1.5-4 (06/24/2016 17:15:Adelaida Vitrano, RN) Frequency (min): 3-4 (06/24/2016 17:00:Adelaida Vitrano, RN) Frequency (min): 2-4 (06/24/2016 16:45:Adelaida Vitrano, RN) Frequency (min): 1.5-3 (06/24/2016 16:30:Adelaida Vitrano, RN) Frequency (min): 2-3 (06/24/2016 16:15:Adelaida Vitrano, RN) Frequency (min): 2-3 (06/24/2016 16:00:Adelaida Vitrano, RN) Frequency (min): 2-3 (06/24/2016 15:45:Adelaida Vitrano, RN) Frequency (min): 1.5-3 (06/24/2016 15:30:Adelaida Vitrano, RN) Frequency (min): 2-3 (06/24/2016 15:15:Adelaida Vitrano, RN) Frequency (min): 2-3 (06/24/2016 15:00:Adelaida Vitrano, RN) Frequency (min): 2-4 (06/24/2016 14:45:Adelaida Vitrano, RN) Frequency (min): 2-3 (06/24/2016 14:30:Adelaida Vitrano, RN) Frequency (min): 2-6 (06/24/2016 14:15:Adelaida Vitrano, RN) Frequency (min): 2-4 (06/24/2016 14:00:Adelaida Vitrano, RN) Frequency (min): 2-4 (06/24/2016 13:45:Adelaida Vitrano, RN) Frequency (min): 2-3.5 (06/24/2016 13:30:Adelaida Vitrano, RN) Frequency (min): 2-3 (06/24/2016 13:00:Adelaida Vitrano, RN) Frequency (min): 3-3.5 (06/24/2016 12:45:Adelaida Vitrano, RN) Frequency (min): 2-3 (06/24/2016 12:30:Adelaida Vitrano, RN) Frequency (min): 2-3 (06/24/2016 12:15:Adelaida Vitrano, RN) Frequency (min): 2-5 (06/24/2016 12:00:Adelaida Vitrano, RN) Frequency (min): 2-4 (06/24/2016 11:45:Adelaida Vitrano, RN) Frequency (min): 2-5 (06/24/2016 11:30:Adelaida Vitrano, RN) Frequency (min): 2-7 (06/24/2016 11:15:Adelaida Vitrano, RN) Frequency (min): 2-4 (06/24/2016 11:00:Adelaida Vitrano, RN) Frequency (min): 2-4 (06/24/2016 10:30:Adelaida Vitrano, RN) Frequency (min): 1-4 (06/24/2016 09:00:Adelaida Vitrano, RN) Frequency (min): 1.5-4 (06/24/2016 08:30:Adelaida Vitrano, RN) Frequency (min): 1.5-4 (06/24/2016 08:00:Adelaida Vitrano, RN) Frequency (min): 2-4 (06/24/2016 07:30:Adelaida Vitrano, RN) Frequency (min): none (06/24/2016 07:00:Rucsandra Ramírez, RN) Frequency (min): none (06/24/2016 06:30:Rucsandra Ramírez, RN) Frequency (min): 2-11 (06/24/2016 06:00:Rucsandra Ramírez, RN) Frequency (min): 115 (06/24/2016 05:30:Rucsandra Ramírez, RN) Frequency (min): 1.5-4.5 (06/24/2016 05:30:Rucsandra Ramírez, RN) Frequency (min): x2 (06/24/2016 05:00:Rucsandra Ramírez, RN) Duration (sec): 60-70 (06/24/2016 23:15:Maria A Ledgerwood, RN) Duration (sec): 60-70 (06/24/2016 23:00:Maria A Ledgerwood, RN) Duration (sec): 60-70 (06/24/2016 22:45:Maria A Ledgerwood, RN) Duration (sec): 50-60 (06/24/2016 22:30:Maria A Ledgerwood, RN) Duration (sec): 60-70 (06/24/2016 22:15:Maria A Ledgerwood, RN) Duration (sec): 6-70 (06/24/2016 22:00:Maria A Ledgerwood, RN) Duration (sec): 60-70 (06/24/2016 21:45:Maria A Ledgerwood, RN) Duration (sec): 60-70 (06/24/2016 21:30:Maria A Ledgerwood, RN) Duration (sec): 60-70 (06/24/2016 21:15:Maria A Ledgerwood, RN) Duration (sec): 60-70 (06/24/2016 21:00:Maria A Ledgerwood, RN) Duration (sec): 60-70 (06/24/2016 20:45:Maria A Ledgerwood, RN) Duration (sec): 50-70 (06/24/2016 20:30:Maria A Ledgerwood, RN) Duration (sec): 60-70 (06/24/2016 20:15:Maria A Ledgerwood, RN) Duration (sec): 60-70 (06/24/2016 20:00:Maria A Ledgerwood, RN) Duration (sec): 60-70 (06/24/2016 19:45:Maria A Ledgerwood, RN) Duration (sec): 60-70 (06/24/2016 19:30:Maria A Ledgerwood, RN) Duration (sec): 50-70 (06/24/2016 19:15:Maria A Ledgerwood, RN) Duration (sec): 60-80 (06/24/2016 19:00:Adelaida Vitrano, RN) Duration (sec): 60-80 (06/24/2016 18:45:Adelaida Vitrano, RN) Duration (sec): 50-70 (06/24/2016 18:30:Adelaida Vitrano, RN) Duration (sec): 60-100 (06/24/2016 18:15:Adelaida Vitrano, RN) Duration (sec): 60-80 (06/24/2016 18:00:Adelaida Vitrano, RN) Duration (sec): 60-90 (06/24/2016 17:45:Adelaida Vitrano, RN) Duration (sec): 60-90 (06/24/2016 17:30:Adelaida Vitrano, RN) Duration (sec): 50-90 (06/24/2016 17:15:Adelaida Vitrano, RN) Duration (sec): 50-70 (06/24/2016 17:00:Adelaida Vitrano, RN) Duration (sec): 60-70 (06/24/2016 16:45:Adelaida Vitrano, RN) Duration (sec): 50-90 (06/24/2016 16:30:Adelaida Vitrano, RN) Duration (sec): 50-70 (06/24/2016 16:15:Adelaida Vitrano, RN) Duration (sec): 50-70 (06/24/2016 16:00:Adelaida Vitrano, RN) Duration (sec): 60-70 (06/24/2016 15:45:Adelaida Vitrano, RN) Duration (sec): 50-80 (06/24/2016 15:30:Adelaida Vitrano, RN) Duration (sec): 50-80 (06/24/2016 15:15:Adelaida Vitrano, RN) Duration (sec): 50-70 (06/24/2016 15:00:Adelaida Vitrano, RN) Duration (sec): 60-80 (06/24/2016 14:45:Adelaida Vitrano, RN) Duration (sec): 50-80 (06/24/2016 14:30:Adelaida Vitrano, RN) Duration (sec): 50-70 (06/24/2016 14:15:Adelaida Vitrano, RN) Duration (sec): 60-80 (06/24/2016 14:00:Adelaida Vitrano, RN) Duration (sec): 50-80 (06/24/2016 13:45:Adelaida Vitrano, RN) Duration (sec): 50-70 (06/24/2016 13:30:Adelaida Vitrano, RN) Duration (sec): 60-80 (06/24/2016 13:00:Adelaida Vitrano, RN) Duration (sec): 50-70 (06/24/2016 12:45:Adelaida Vitrano, RN) Duration (sec): 50-70 (06/24/2016 12:30:Adelaida Vitrano, RN) Duration (sec): 60-80 (06/24/2016 12:15:Adelaida Vitrano, RN) Duration (sec): 50-70 (06/24/2016 12:00:Adelaida Vitrano, RN) Duration (sec): 60-80 (06/24/2016 11:45:Adelaida Vitrano, RN) Duration (sec): 40-80 (06/24/2016 11:30:Adelaida Vitrano, RN) Duration (sec): 60-80 (06/24/2016 11:15:Adelaida Vitrano, RN) Duration (sec): 50-90 (06/24/2016 11:00:Adelaida Vitrano, RN) Duration (sec): 50-80 (06/24/2016 10:30:Adelaida Vitrano, RN) Duration (sec): 50-80 (06/24/2016 09:00:Adelaida Vitrano, RN) Duration (sec): 60-90 (06/24/2016 08:30:Adelaida Vitrano, RN) Duration (sec): 60-80 (06/24/2016 08:00:Adelaida Vitrano, RN) Duration (sec): 50-80 (06/24/2016 07:30:Adelaida Vitrano, RN) Duration (sec): 40-50 (06/24/2016 06:00:Shahbaz Elmore RN) Duration (sec): 50-90 (06/24/2016 05:30:Shahbaz Elmore RN) Duration (sec): 50-80 (06/24/2016 05:00:Shahbaz Elmore RN) Quality: Moderate to Strong (06/24/2016 23:15:Maria A Crowe RN) Quality: Moderate to Strong (06/24/2016 23:00:Maria A Ledgerwood, RN) Quality: Moderate to Strong (06/24/2016 22:45:Maria A Ledgerwood, RN) Quality: Moderate to Strong (06/24/2016 22:30:Maria A Ledgerwood, RN) Quality: Moderate to Strong (06/24/2016 22:15:Maria A Ledgerwood, RN) Quality: Moderate (06/24/2016 22:00:Maria A Ledgerwood, RN) Quality: Moderate (06/24/2016 21:45:Maria A Ledgerwood, RN) Quality: Moderate (06/24/2016 21:30:Maria A Ledgerwood, RN) Quality: Moderate (06/24/2016 21:15:Maria A Ledgerwood, RN) Quality: Mild/Moderate (06/24/2016 21:00:Maria A Ledgerwood, RN) Quality: Mild/Moderate (06/24/2016 20:45:Maria A Ledgerwood, RN) Quality: Mild/Moderate (06/24/2016 20:30:Maria A Ledgerwood, RN) Quality: Mild/Moderate (06/24/2016 20:15:Maria A Ledgerwood, RN) Quality: Mild/Moderate (06/24/2016 20:00:Maria A Ledgerwood, RN) Quality: Mild (06/24/2016 19:45:Maria A Ledgerwood, RN) Quality: Mild (06/24/2016 19:30:Maria A Ledgerwood, RN) Quality: Mild (06/24/2016 19:15:Maria A Ledgerwood, RN) Quality: Moderate to Strong (06/24/2016 19:00:Adelaida Vitrano, RN) Quality: Moderate (06/24/2016 18:45:Adelaida Vitrano, RN) Quality: Moderate (06/24/2016 18:30:Adelaida Vitrano, RN) Quality: Moderate (06/24/2016 18:15:Adelaida Vitrano, RN) Quality: Moderate (06/24/2016 18:00:Adelaida Vitrano, RN) Quality: Moderate (06/24/2016 17:45:Adelaida Vitrano, RN) Quality: Mild/Moderate (06/24/2016 17:30:Adelaida Vitrano, RN) Quality: Moderate (06/24/2016 17:15:Adelaida Vitrano, RN) Quality: Mild/Moderate (06/24/2016 17:00:Adelaida Vitrano, RN) Quality: Mild/Moderate (06/24/2016 16:45:Adelaida Vitrano, RN) Quality: Mild/Moderate (06/24/2016 16:30:Adelaida Vitrano, RN) Quality: Mild/Moderate (06/24/2016 16:15:Adelaida Vitrano, RN) Quality: Mild/Moderate (06/24/2016 16:00:Adelaida Vitrano, RN) Quality: Mild/Moderate (06/24/2016 15:45:Adelaida Vitrano, RN) Quality: Moderate (06/24/2016 15:30:Adelaida Vitrano, RN) Quality: Moderate (06/24/2016 15:15:Adelaida Vitrano, RN) Quality: Mild/Moderate (06/24/2016 15:00:Adelaida Vitrano, RN) Quality: Mild/Moderate (06/24/2016 14:45:Adelaida Vitrano, RN) Quality: Mild/Moderate (06/24/2016 14:30:Adelaida Vitrano, RN) Quality: Mild/Moderate (06/24/2016 14:15:Adelaida Vitrano, RN) Quality: Mild/Moderate (06/24/2016 14:00:Adelaida Vitrano, RN) Quality: Mild/Moderate (06/24/2016 13:45:Adelaida Vitrano, RN) Quality: Mild/Moderate (06/24/2016 13:30:Adelaida Vitrano, RN) Quality: Mild/Moderate (06/24/2016 13:00:Adelaida Vitrano, RN) Quality: Mild/Moderate (06/24/2016 12:45:Adelaida Vitrano, RN) Quality: Mild/Moderate (06/24/2016 12:30:Daelaida Vitrano, RN) Quality: Mild/Moderate (06/24/2016 12:15:Adelaida Vitrano, RN) Quality: Mild/Moderate (06/24/2016 12:00:Adelaida Vitrano, RN) Quality: Mild (06/24/2016 11:45:Adelaida Vitrano, RN) Quality: Mild (06/24/2016 11:30:Adelaida Vitrano, RN) Quality: Mild (06/24/2016 11:15:Adelaida Vitrano, RN) Quality: Mild (06/24/2016 11:00:Adelaida Vitrano, RN) Quality: Mild (06/24/2016 10:30:Adelaida Trinidadano, RN) Quality: Mild (06/24/2016 09:00:Adelaida Trinidadano, RN) Quality: Mild (06/24/2016 08:30:Adelaida Vitrano, RN) Quality: Mild (06/24/2016 08:00:Adelaida Trinidadano, RN) Quality: Mild (06/24/2016 07:30:Adelaida Vitrano, RN) Quality: Mild (06/24/2016 06:00:Shahbaz Elmore RN) Quality: Mild (06/24/2016 05:30:Shahbaz Elmore RN) Quality: Mild (06/24/2016 05:00:Shahbaz Elmore RN) Pattern: Normal: <= 5 Contractions in 10 Minutes (06/24/2016 23:15:Maria A Amrita, RN) Pattern: Normal: <= 5 Contractions in 10 Minutes (06/24/2016 23:00:Maria A Leddonna, RN) Pattern: Normal: <= 5 Contractions in 10 Minutes (06/24/2016 22:45:Maria A Amrita, RN) Pattern: Normal: <= 5 Contractions in 10 Minutes (06/24/2016 22:30:Maria A Leddonna, RN) Pattern: Normal: <= 5 Contractions in 10 Minutes (06/24/2016 22:15:Maria A Ledgerwood, RN) Pattern: Normal: <= 5 Contractions in 10 Minutes (06/24/2016 22:00:Maria A Ledgerwood, RN) Pattern: Normal: <= 5 Contractions in 10 Minutes (06/24/2016 21:45:Maria A Ledgerwood, RN) Pattern: Normal: <= 5 Contractions in 10 Minutes (06/24/2016 21:30:Maria A Ledgerwood, RN) Pattern: Normal: <= 5 Contractions in 10 Minutes (06/24/2016 21:15:Maria A Ledgerwood, RN) Pattern: Normal: <= 5 Contractions in 10 Minutes (06/24/2016 21:00:Maria A Ledgerwood, RN) Pattern: Normal: <= 5 Contractions in 10 Minutes (06/24/2016 20:45:Marai A Ledgerwood, RN) Pattern: Normal: <= 5 Contractions in 10 Minutes (06/24/2016 20:30:Maria A Ledgerwood, RN) Pattern: Normal: <= 5 Contractions in 10 Minutes (06/24/2016 20:15:Maria A Ledgerwood, RN) Pattern: Normal: <= 5 Contractions in 10 Minutes (06/24/2016 20:00:Maria A Ledgerwood, RN) Pattern: Normal: <= 5 Contractions in 10 Minutes (06/24/2016 19:45:Maria A Ledgerwood, RN) Pattern: Normal: <= 5 Contractions in 10 Minutes (06/24/2016 19:30:Maria A Ledgerwood, RN) Pattern: Normal: <= 5 Contractions in 10 Minutes (06/24/2016 19:15:Maria A Ledgerwood, RN) Pattern: Normal: <= 5 Contractions in 10 Minutes (06/24/2016 19:00:Adelaida Vitrano, RN) Pattern: Normal: <= 5 Contractions in 10 Minutes (06/24/2016 18:45:Adelaida Vitrano, RN) Pattern: Normal: <= 5 Contractions in 10 Minutes (06/24/2016 18:30:Adelaida Vitrano, RN) Pattern: Normal: <= 5 Contractions in 10 Minutes (06/24/2016 18:15:Adelaida Vitrano, RN) Pattern: Normal: <= 5 Contractions in 10 Minutes (06/24/2016 18:00:Adelaida Vitrano, RN) Pattern: Normal: <= 5 Contractions in 10 Minutes (06/24/2016 17:45:Adelaida Vitrano, RN) Pattern: Normal: <= 5 Contractions in 10 Minutes (06/24/2016 17:30:Adelaida Vitrano, RN) Pattern: Normal: <= 5 Contractions in 10 Minutes (06/24/2016 17:15:Adelaida Vitrano, RN) Pattern: Normal: <= 5 Contractions in 10 Minutes (06/24/2016 17:00:Adelaida Vitrano, RN) Pattern: Normal: <= 5 Contractions in 10 Minutes (06/24/2016 16:45:Adelaida Vitrano, RN) Pattern: Normal: <= 5 Contractions in 10 Minutes (06/24/2016 16:30:Adelaida Vitrano, RN) Pattern: Normal: <= 5 Contractions in 10 Minutes (06/24/2016 16:15:Adelaida Vitrano, RN) Pattern: Normal: <= 5 Contractions in 10 Minutes (06/24/2016 16:00:Adelaida Vitrano, RN) Pattern: Normal: <= 5 Contractions in 10 Minutes (06/24/2016 15:45:Adelaida Vitrano, RN) Pattern: Normal: <= 5 Contractions in 10 Minutes (06/24/2016 15:30:Adelaida Vitrano, RN) Pattern: Normal: <= 5 Contractions in 10 Minutes (06/24/2016 15:15:Adelaida Vitrano, RN) Pattern: Normal: <= 5 Contractions in 10 Minutes (06/24/2016 15:00:Adelaida Vitrano, RN) Pattern: Normal: <= 5 Contractions in 10 Minutes (06/24/2016 14:45:Adelaida Vitrano, RN) Pattern: Normal: <= 5 Contractions in 10 Minutes (06/24/2016 14:30:Adelaida Vitrano, RN) Pattern: Normal: <= 5 Contractions in 10 Minutes (06/24/2016 14:15:Adelaida Vitrano, RN) Pattern: Normal: <= 5 Contractions in 10 Minutes (06/24/2016 14:00:Adelaida Vitrano, RN) Pattern: Normal: <= 5 Contractions in 10 Minutes (06/24/2016 13:45:Adelaida Vitrano, RN) Pattern: Normal: <= 5 Contractions in 10 Minutes (06/24/2016 13:30:Adelaida Vitrano, RN) Pattern: Normal: <= 5 Contractions in 10 Minutes (06/24/2016 13:00:Adelaida Vitrano, RN) Pattern: Normal: <= 5 Contractions in 10 Minutes (06/24/2016 12:45:Adelaida Vitrano, RN) Pattern: Normal: <= 5 Contractions in 10 Minutes (06/24/2016 12:30:Adelaida Vitrano, RN) Pattern: Normal: <= 5 Contractions in 10 Minutes (06/24/2016 12:15:Adelaida Vitrano, RN) Pattern: Normal: <= 5 Contractions in 10 Minutes (06/24/2016 12:00:Adelaida Vitrano, RN) Pattern: Normal: <= 5 Contractions in 10 Minutes (06/24/2016 11:45:Adelaida Vitrano, RN) Pattern: Normal: <= 5 Contractions in 10 Minutes (06/24/2016 11:30:Adelaida Vitrano, RN) Pattern: Normal: <= 5 Contractions in 10 Minutes (06/24/2016 11:15:Adelaida Vitrano, RN) Pattern: Normal: <= 5 Contractions in 10 Minutes (06/24/2016 11:00:Adelaida Vitrano, RN) Pattern: Normal: <= 5 Contractions in 10 Minutes (06/24/2016 10:30:Adelaida Vitrano, RN) Pattern: Normal: <= 5 Contractions in 10 Minutes (06/24/2016 09:00:Adelaida Vitrano, RN) Pattern: Normal: <= 5 Contractions in 10 Minutes (06/24/2016 08:30:Adelaida Vitrano, RN) Pattern: Normal: <= 5 Contractions in 10 Minutes (06/24/2016 08:00:Adelaida Vitrano, RN) Pattern: Normal: <= 5 Contractions in 10 Minutes (06/24/2016 07:30:Adelaida Vitrano, RN) Resting Tone [place]: Relaxed (06/24/2016 23:15:Maria A Amrita, RN) Resting Tone [place]: Relaxed (06/24/2016 23:00:Maria A Amrita, RN) Resting Tone [place]: Relaxed (06/24/2016 22:45:Maria A Amrita, RN) Resting Tone [place]: Relaxed (06/24/2016 22:30:Maria A Amrita, RN) Resting Tone [place]: Relaxed (06/24/2016 22:15:Maria A Amrita, RN) Resting Tone [place]: Relaxed (06/24/2016 22:00:Maria A Amrita, RN) Resting Tone [place]: Relaxed (06/24/2016 21:45:Maria A Amrita, RN) Resting Tone [place]: Relaxed (06/24/2016 21:30:Maria A Amrita, RN) Resting Tone [place]: Relaxed (06/24/2016 21:15:Maria A Amrita, RN) Resting Tone [place]: Relaxed (06/24/2016 21:00:Maria A Amrita, RN) Resting Tone [place]: Relaxed (06/24/2016 20:45:Maria A Amrita, RN) Resting Tone [place]: Relaxed (06/24/2016 20:30:Maria A Darlenewood, RN) Resting Tone [place]: Relaxed (06/24/2016 20:15:Maria A Amrita, RN) Resting Tone [place]: Relaxed (06/24/2016 20:00:Maria A Darlenewood, RN) Resting Tone [place]: Relaxed (06/24/2016 19:45:Maria A Amrita, RN) Resting Tone [place]: Relaxed (06/24/2016 19:30:Maria A Crowe, RN) Resting Tone [place]: Relaxed (06/24/2016 19:15:Maria A Crowe, RN) Resting Tone [place]: Relaxed (06/24/2016 19:00:Adelaidasouth Gomez RN) Resting Tone [place]: Relaxed (06/24/2016 18:45:Adelaidasouth Gomez RN) Resting Tone [place]: Relaxed (06/24/2016 18:30:Adelaida Patricia, RN) Resting Tone [place]: Relaxed (06/24/2016 18:15:Adelaidasouth Gomez, RN) Resting Tone [place]: Relaxed (06/24/2016 18:00:Adelaidasouth Gomez, RN) Resting Tone [place]: Relaxed (06/24/2016 17:45:Adelaidasouth Gomez RN) Resting Tone [place]: Relaxed (06/24/2016 17:30:Adelaida Patricia, RN) Resting Tone [place]: Relaxed (06/24/2016 17:15:Adelaida Patricia, RN) Resting Tone [place]: Relaxed (06/24/2016 17:00:Adelaidasouth Gomez, RN) Resting Tone [place]: Relaxed (06/24/2016 16:45:Adelaida Patricia, RN) Resting Tone [place]: Relaxed (06/24/2016 16:30:Adelaida Patricia, RN) Resting Tone [place]: Relaxed (06/24/2016 16:15:Adelaidasouth Gomez RN) Resting Tone [place]: Relaxed (06/24/2016 16:00:Adelaida Vitrano, RN) Resting Tone [place]: Relaxed (06/24/2016 15:45:Adelaida Vitrano, RN) Resting Tone [place]: Relaxed (06/24/2016 15:30:Adelaida Vitrano, RN) Resting Tone [place]: Relaxed (06/24/2016 15:15:Adelaida Vitrano, RN) Resting Tone [place]: Relaxed (06/24/2016 15:00:Adelaida Vitrano, RN) Resting Tone [place]: Relaxed (06/24/2016 14:45:Adelaida Vitrano, RN) Resting Tone [place]: Relaxed (06/24/2016 14:30:Adelaida Vitrano, RN) Resting Tone [place]: Relaxed (06/24/2016 14:15:Adelaida Vitrano, RN) Resting Tone [place]: Relaxed (06/24/2016 14:00:Adelaida Vitrano, RN) Resting Tone [place]: Relaxed (06/24/2016 13:45:Adelaida Vitrano, RN) Resting Tone [place]: Relaxed (06/24/2016 13:30:Adelaida Vitrano, RN) Resting Tone [place]: Relaxed (06/24/2016 13:00:Adelaida Vitrano, RN) Resting Tone [place]: Relaxed (06/24/2016 12:45:Adelaida Vitrano, RN) Resting Tone [place]: Relaxed (06/24/2016 12:30:Adelaida Vitrano, RN) Resting Tone [place]: Relaxed (06/24/2016 12:15:Adelaida Vitrano, RN) Resting Tone [place]: Relaxed (06/24/2016 12:00:Adelaida Vitrano, RN) Resting Tone [place]: Relaxed (06/24/2016 11:45:Adelaida Vitrano, RN) Resting Tone [place]: Relaxed (06/24/2016 11:30:Adelaida Vitrano, RN) Resting Tone [place]: Relaxed (06/24/2016 11:15:Adelaida Vitrano, RN) Resting Tone [place]: Relaxed (06/24/2016 11:00:Adelaida Vitrano, RN) Resting Tone [place]: Relaxed (06/24/2016 10:30:Adelaida Vitrano, RN) Resting Tone [place]: Relaxed (06/24/2016 09:00:Adelaida Gomez RN) Resting Tone [place]: Relaxed (06/24/2016 08:30:Adelaida Gomez RN) Resting Tone [place]: Relaxed (06/24/2016 08:00:Adelaida Gomez RN) Resting Tone [place]: Relaxed (06/24/2016 07:30:Adelaida Gomez RN) Resting Tone [place]: Relaxed (06/24/2016 07:00:Shahbaz Elmore RN) Resting Tone [place]: Relaxed (06/24/2016 06:30:Shahbaz Elmore RN) Resting Tone [place]: Relaxed (06/24/2016 06:00:Shahbaz Elmore RN) Resting Tone [place]: Relaxed (06/24/2016 05:30:Shahbaz Elmore RN) Resting Tone [place]: Relaxed (06/24/2016 05:00:Shahbaz Elmore RN) Contraction Comments: pt is pushing (06/24/2016 22:30:Maria A Crowe RN) Contraction Comments: MVUs 220 (06/24/2016 22:00:Maria A Crowe RN) Contraction Comments: MVUs 230 (06/24/2016 21:00:Maria A Crowe RN) Contraction Comments: MVU 250 (06/24/2016 20:00:Maria A Crowe RN) Contraction Comments: Intensity 60-80 mmHg, Resting Tone 5-15 mmHg, 240 MVUs (06/24/2016 19:00:Adelaida Gomez RN) Dilatation (cm): 10.0 (06/24/2016 22:11:Maria A Crowe RN) Dilatation (cm): 9.0 (06/24/2016 21:08:Maria A Crowe RN) Dilatation (cm): 4.0 (06/24/2016 18:44:Adelaida Gomez RN) Dilatation (cm): 3.0 (06/24/2016 15:47:Adelaida Gomez RN) Dilatation (cm): 2.5 (06/24/2016 10:46:Adelaida Gomez RN) Dilatation (cm): 1.5 (06/24/2016 10:43:Adelaida Gomez RN) Effacement (%): 100 (06/24/2016 22:11:Maria A Crowe RN) Effacement (%): 90 (06/24/2016 21:08:Maria A Crowe RN) Effacement (%): 90 (06/24/2016 18:44:Adelaida Gomez RN) Effacement (%): 80 (06/24/2016 15:47:Adelaida Gomez RN) Effacement (%): 70 (06/24/2016 10:43:Adelaida Gomez RN) Station: 1 (06/24/2016 22:11:Maria A Crowe RN) Station: 1 (06/24/2016 21:08:Maria A Crowe RN) Station: 0 (06/24/2016 18:44:Adelaida Gomez RN) Station: -1 (06/24/2016 15:47:Adelaida Gomez RN) Station: -1 (06/24/2016 10:43:Adelaida Gomez RN) Membranes Status: Ruptured (06/24/2016 10:45:Adelaida Gomez RN) ROM Method: Artificial (06/24/2016 10:45:Adelaida Gomez RN) Amniotic Fluid Color: Clear (06/24/2016 10:45:Adelaida Gomez RN) Amniotic Fluid Amount: Moderate (06/24/2016 10:45:Adelaida Gomez RN) Level of Consciousness: Fully Conscious (06/24/2016 19:17:Maria A Crowe RN) Level of Consciousness: Fully Conscious (06/24/2016 07:29:Adelaida Gomez RN) DTR's/Clonus: DTRs 2+; No Clonus (06/24/2016 19:17:Maria A Crowe RN) DTR's/Clonus: DTRs 1+; No Clonus (06/24/2016 07:29:Adelaida Gmoez RN) Headache: Frontal (06/24/2016 19:17:Maria A Crowe RN) Headache: Denies (06/24/2016 07:29:Adelaida Gomez RN) Dizziness: No (06/24/2016 19:17:Maria A Crowe RN) Dizziness: No (06/24/2016 07:29:Adelaida Gomez RN) Blurred Vision: No (06/24/2016 19:17:Maria A Crowe RN) Blurred Vision: No (06/24/2016 07:29:Adelaida Gomez RN) Extremity Numbness/Tingling : None (06/24/2016 19:17:Maria A Crowe RN) Extremity Numbness/Tingling : None (06/24/2016 07:29:Adelaida Gomez RN) Extremity Movement: Full Range of Motion (06/24/2016 19:17:Maria A Crowe RN) Extremity Movement: Full Range of Motion (06/24/2016 07:29:Adelaida Gomez RN) Heart Rhythm: Regular (06/24/2016 07:29:Adelaida Gomez RN) Nailbeds: Peggs (06/24/2016 19:17:Maria A Crowe RN) Nailbeds: Peggs (06/24/2016 07:29:Adelaida Gomez RN) Capillary Refill: Less than 3 Seconds (06/24/2016 19:17:Maria A Crowe RN) Capillary Refill: Less than 3 Seconds (06/24/2016 07:29:Adelaida Gomez RN) Lower Extremities Edema: Bilateral Lower Extremities (06/24/2016 07:29:Adelaida Gomez RN) Lower Extremities Edema Degree: 1+ (06/24/2016 07:29:Adelaida Gomez RN) Upper Extremities Edema: None (06/24/2016 07:29:Adelaida Gomez RN) Upper Extremities Edema Degree: None (06/24/2016 07:29:Adelaida Gomez RN) Facial Edema: None (06/24/2016 19:17:Maria A Crowe RN) Facial Edema: None (06/24/2016 07:29:Adelaida Gomez RN) Hakeem's Sign Left Leg: Negative (06/24/2016 19:17:Maria A Crowe RN) Hakeem's Sign Left Leg: Negative (06/24/2016 07:29:Adelaida Gomez RN) Hakeem's Sign Right Leg: Negative (06/24/2016 19:17:Maria A Crowe RN) Hakeem's Sign Right Leg: Negative (06/24/2016 07:29:Adelaida Gomez RN) DVT Risk Age: Age less than 41 years (06/24/2016 07:29:Adelaida Gomez RN) DVT Risk BMI: BMI<31 (06/24/2016 07:29:Aedlaida Gomez RN) DVT Risk Surgery: None Applicable (06/24/2016 07:29:Adelaida Gomez RN) DVT Risk Other: Women Only- or (<1 month) (06/24/2016 07:29:Adelaida Gomez RN) DVT Risk Total: 1 (06/24/2016 07:29:QS system process) DVT Risk Text: Low Risk (<10%) No specific measures, early ambulation (06/24/2016 07:29:QS system process) Respiratory Effort: Unlabored; Regular Rhythm; Equal Expansion (06/24/2016 19:17:Maria A Crowe RN) Respiratory Effort: Unlabored; Regular Rhythm; Equal Expansion (06/24/2016 07:29:Adelaida Gomez RN) Breath Sounds, Left: Clear and Equal (06/24/2016 19:17:Maria A Crowe RN) Breath Sounds, Left: Clear and Equal (06/24/2016 07:29:Adelaida Gomez RN) Breath Sounds, Right: Clear and Equal (06/24/2016 19:17:Maria A Crowe RN) Breath Sounds, Right: Clear and Equal (06/24/2016 07:29:Adelaida Gomez RN) Cough Productivity: None (06/24/2016 19:17:Maria A Crowe RN) Cough Productivity: None (06/24/2016 07:29:Adelaida Gomez RN) Nausea/Vomiting: pt has feeling of nausea at the moment (06/24/2016 19:17:Maria A Crowe RN) Nausea/Vomiting: Denies (06/24/2016 07:29:Adelaida Gomez RN) Bowel Sounds: Normoactive; All Quadrants (06/24/2016 19:17:Maria A Crowe RN) Bowel Sounds: Normoactive (06/24/2016 07:29:Adelaida Gomez RN) RUQ Epigastric Pain: Denies (06/24/2016 19:17:Maria A Crowe RN) RUQ Epigastric Pain: Denies (06/24/2016 07:29:Adelaida Gomez RN) Bowel Patterns: Soft, Formed Stool (06/24/2016 07:29:Adelaida Gomez RN) Hemorrhoids: None (06/24/2016 07:29:Adelaida Gomez RN) Diet Type: Regular diet (06/24/2016 19:17:Maria A Crowe RN) Diet Type: Regular diet (06/24/2016 07:29:Adelaida Gomez RN) Last Meal: 06/24/2016 08:15 (06/24/2016 19:17:Maria A Crowe RN) Bladder: Nondistended (06/24/2016 19:17:Maria A Crowe RN) Bladder: Nondistended (06/24/2016 07:29:Adelaida Gomez RN) Frequency of Urination: No (06/24/2016 19:17:Maria A Crowe RN) Frequency of Urination: No (06/24/2016 07:29:Adelaida Gomez RN) Urination Burning: No (06/24/2016 19:17:Maria A Crowe RN) Urination Burning: No (06/24/2016 07:29:Adelaida Gomez RN) CVA Tenderness: No (06/24/2016 19:17:Maria A Crowe RN) CVA Tenderness: No (06/24/2016 07:29:Adelaida Gomez RN) Vaginal Bleeding: None (06/24/2016 19:17:Maria A Crowe RN) Vaginal Discharge Amount: None (06/24/2016 07:29:Adelaida Gomez RN) Vaginal Discharge Color: N/A (06/24/2016 19:17:Maria A Crowe RN) Vaginal Discharge Color: N/A (06/24/2016 07:29:Adelaida Gomez RN) Vaginal Discharge Character: None (06/24/2016 07:29:Adelaida Gomez RN) Skin Color: Normal for Race (06/24/2016 19:17:Maria A Crowe RN) Skin Color: Normal for Race (06/24/2016 07:29:Adelaida Gomez RN) Skin Temperature: Warm (06/24/2016 19:17:Maria A Crowe RN) Skin Temperature: Warm (06/24/2016 07:29:Adelaida Gomez RN) Skin Moisture: Dry (06/24/2016 19:17:Maria A Crowe RN) Skin Moisture: Dry (06/24/2016 07:29:Adelaida Gomez RN) Surgical Scars: N/A (06/24/2016 07:29:Adelaida Gomez RN) Body Piercings/Tattoos: Bilateral ear piercings (06/24/2016 07:29:Adelaida Gomez RN) Lei Scale Sensory Perception: No Impairment- Responds to verbal commands. Has no sensory deficit which would limit ability to feel or voice pain or discomfort (06/24/2016 19:17:Maria A Crowe RN) Lei Scale Sensory Perception: No Impairment- Responds to verbal commands. Has no sensory deficit which would limit ability to feel or voice pain or discomfort (06/24/2016 07:29:Adelaida Gomez RN) Lei Scale Moisture: Rarely Moist- Skin is usually dry. Linen only requires changing at routine intervals (06/24/2016 19:17:Maria A Crowe RN) Lei Scale Moisture: Rarely Moist- Skin is usually dry. Linen only requires changing at routine intervals (06/24/2016 07:29:Adelaida Gomez RN) Lei Scale Activity: Walks Frequently- Walks outside the room at least twice a day and inside room at least every 2 hours during the day. (06/24/2016 19:17:Maria A Crowe RN) Lei Scale Activity: Walks Frequently- Walks outside the room at least twice a day and inside room at least every 2 hours during the day. (06/24/2016 07:29:Adelaida Gomez RN) Lei Scale Mobility: No Limitations- Makes major and frequent changes in position without assistance (06/24/2016 19:17:Maria A Crowe RN) Lei Scale Mobility: No Limitations- Makes major and frequent changes in position without assistance (06/24/2016 07:29:Adelaida Gomez RN) Lei Scale Nutrition: Excellent- Eats most of every meal. Never refuses a meal. Usually eats a total of 4 or more servings of meat and dairy products. Occasionally eats between meals. Does not require supplementation (06/24/2016 19:17:Maria A Crowe RN) Lei Scale Nutrition: Excellent- Eats most of every meal. Never refuses a meal. Usually eats a total of 4 or more servings of meat and dairy products. Occasionally eats between meals. Does not require supplementation (06/24/2016 07:29:Adelaida Gomez RN) Lei Scale Friction and Shear: No Apparent Problem- Moves in bed and in chair independently and has sufficient muscle strength to lift up completely during move. Maintains good position in bed or chair at all times (06/24/2016 19:17:Maria A Crowe RN) Lei Scale Friction and Shear: No Apparent Problem- Moves in bed and in chair independently and has sufficient muscle strength to lift up completely during move. Maintains good position in bed or chair at all times (06/24/2016 07:29:Adelaida Gomez RN) Lei Scale Total: 23 (06/24/2016 19:17:QS system process) Lei Scale Total: 23 (06/24/2016 07:29:QS system process) Lei Scale Risk: No Risk of Pressure Ulcer Noted at this Time (06/24/2016 19:17:QS system process) Lei Scale Risk: No Risk of Pressure Ulcer Noted at this Time (06/24/2016 07:29:QS system process) Family Support: Family supportive (06/24/2016 19:17:Maria A Crowe RN) Family Support: Family supportive (06/24/2016 07:29:Adelaida Gomez RN) Emotional State: Calm/Relaxed (06/24/2016 19:17:Maria A Crowe RN) Emotional State: Calm/Relaxed (06/24/2016 07:29:Adelaida Gomez RN) Call Fiore Within Reach: Yes (06/24/2016 19:17:Maria A Crowe RN) Call Fiore Within Reach: Yes (06/24/2016 07:29:Adelaida Gomez RN) Side Rails Up: Yes (06/24/2016 19:17:Maria A Crowe RN) Side Rails Up: Yes (06/24/2016 07:29:Adelaida Gomez RN) Bed Wheels Locked: Yes (06/24/2016 19:17:Maria A Crowe RN) Bed Wheels Locked: Yes (06/24/2016 07:29:Adelaida Gomez RN) Arm Bands Present: Yes (06/24/2016 19:17:Maria A Crowe RN) Arm Bands Present: Yes (06/24/2016 07:29:Adelaida Gomez RN) Isolation: [place] (06/24/2016 07:29:Adelaida Gomez RN) Fall Risk History of Falling: (0) No (06/24/2016 19:17:Maria A Crowe RN) Fall Risk Secondary Diagnosis: (0) No (06/24/2016 19:17:Maria A Crowe RN) Fall Risk Ambulatory Aid: (0) None/Bedrest/Wheelchair/Nurse Assist (06/24/2016 19:17:Maria A Crowe RN) Fall Risk IV Therapy: (0) No (06/24/2016 19:17:Maria A Crowe RN) Fall Risk Gait: (0) Normal/Bedrest/Immobile (06/24/2016 19:17:Maria A Corwe RN) Fall Risk Mental Status: (0) Oriented to Own Ability (06/24/2016 19:17:Maria A Crowe RN) Fall Risk Score: 0 (06/24/2016 19:17:QS system process) Fall Risk Score Definition: No Risk: No action required (06/24/2016 19:17:QS system process) Pt/Family Education: Handwashing Hygiene (06/24/2016 19:17:aMria A Crowe RN) FHR Baseline Rate (bpm) Baby A: 155 (06/24/2016 23:15:Maria A Crowe RN) FHR Baseline Rate (bpm) Baby A: 140 (06/24/2016 23:00:Maria A Crowe RN) FHR Baseline Rate (bpm) Baby A: 130 (06/24/2016 22:45:Maria A Crowe RN) FHR Baseline Rate (bpm) Baby A: 120 (06/24/2016 22:30:Maria A Crowe RN) FHR Baseline Rate (bpm) Baby A: 135 (06/24/2016 22:15:Maria A Crowe RN) FHR Baseline Rate (bpm) Baby A: 140 (06/24/2016 22:00:Maria A Crowe RN) FHR Baseline Rate (bpm) Baby A: 135 (06/24/2016 21:45:Maria A Crowe RN) FHR Baseline Rate (bpm) Baby A: 130 (06/24/2016 21:30:Maria A Crowe RN) FHR Baseline Rate (bpm) Baby A: 135 (06/24/2016 21:15:Maria A Crowe RN) FHR Baseline Rate (bpm) Baby A: 135 (06/24/2016 21:00:Maria A Crowe RN) FHR Baseline Rate (bpm) Baby A: 135 (06/24/2016 20:45:Maria A Crowe RN) FHR Baseline Rate (bpm) Baby A: 130 (06/24/2016 20:30:Maria A Crowe RN) FHR Baseline Rate (bpm) Baby A: 135 (06/24/2016 20:15:Maria A Crowe RN) FHR Baseline Rate (bpm) Baby A: 135 (06/24/2016 20:00:Maria A Crowe RN) FHR Baseline Rate (bpm) Baby A: 130 (06/24/2016 19:45:Maria A Crowe RN) FHR Baseline Rate (bpm) Baby A: 130 (06/24/2016 19:30:Maria A Crowe RN) FHR Baseline Rate (bpm) Baby A: 130 (06/24/2016 19:15:Maria A Crowe RN) FHR Baseline Rate (bpm) Baby A: 130 (06/24/2016 19:00:Adelaida Gomez RN) FHR Baseline Rate (bpm) Baby A: 135 (06/24/2016 18:45:Adelaida Gomez RN) FHR Baseline Rate (bpm) Baby A: 130 (06/24/2016 18:30:Adelaida Gomez RN) FHR Baseline Rate (bpm) Baby A: 130 (06/24/2016 18:15:Adelaida Gomez RN) FHR Baseline Rate (bpm) Baby A: 125 (06/24/2016 18:00:Adelaida Gomez RN) FHR Baseline Rate (bpm) Baby A: 125 (06/24/2016 17:45:Adelaida Gomez RN) FHR Baseline Rate (bpm) Baby A: 130 (06/24/2016 17:30:Adelaida Gomez RN) FHR Baseline Rate (bpm) Baby A: 130 (06/24/2016 17:15:Adelaida Gomez RN) FHR Baseline Rate (bpm) Baby A: 130 (06/24/2016 17:00:Adelaida Gomez RN) FHR Baseline Rate (bpm) Baby A: 125 (06/24/2016 16:45:Adelaida Gomez RN) FHR Baseline Rate (bpm) Baby A: 135 (06/24/2016 16:30:Adelaida Gomez RN) FHR Baseline Rate (bpm) Baby A: 130 (06/24/2016 16:15:Adelaida Gomez RN) FHR Baseline Rate (bpm) Baby A: 135 (06/24/2016 16:00:Adelaida Gomez RN) FHR Baseline Rate (bpm) Baby A: 130 (06/24/2016 15:45:Adelaida Gomez RN) FHR Baseline Rate (bpm) Baby A: 130 (06/24/2016 15:30:Adelaida Gomez RN) FHR Baseline Rate (bpm) Baby A: 130 (06/24/2016 15:15:Adelaida Gomez RN) FHR Baseline Rate (bpm) Baby A: 130 (06/24/2016 15:00:Adelaida Gomez RN) FHR Baseline Rate (bpm) Baby A: 125 (06/24/2016 14:45:Adelaida Gomez RN) FHR Baseline Rate (bpm) Baby A: 130 (06/24/2016 14:30:Adelaida Gomez RN) FHR Baseline Rate (bpm) Baby A: 130 (06/24/2016 14:15:Adelaida Gomez RN) FHR Baseline Rate (bpm) Baby A: 135 (06/24/2016 14:00:Adelaida Gomez RN) FHR Baseline Rate (bpm) Baby A: 135 (06/24/2016 13:45:Adelaida Gomez RN) FHR Baseline Rate (bpm) Baby A: 125 (06/24/2016 13:30:Adelaida Gomez RN) FHR Baseline Rate (bpm) Baby A: 130 (06/24/2016 13:00:Adelaida Gomez RN) FHR Baseline Rate (bpm) Baby A: 130 (06/24/2016 12:45:Adelaida Gomez RN) FHR Baseline Rate (bpm) Baby A: 130 (06/24/2016 12:30:Adelaida Gomez RN) FHR Baseline Rate (bpm) Baby A: 130 (06/24/2016 12:15:Adelaida Gomez RN) FHR Baseline Rate (bpm) Baby A: 135 (06/24/2016 12:00:Adelaida Gomez RN) FHR Baseline Rate (bpm) Baby A: 135 (06/24/2016 11:45:Adelaida Gomez RN) FHR Baseline Rate (bpm) Baby A: 135 (06/24/2016 11:30:Adelaida Gomez RN) FHR Baseline Rate (bpm) Baby A: 135 (06/24/2016 11:15:Adelaida Gomez RN) FHR Baseline Rate (bpm) Baby A: 135 (06/24/2016 11:00:Adelaida Gomez RN) FHR Baseline Rate (bpm) Baby A: 125 (06/24/2016 10:30:Adelaida Gomez RN) FHR Baseline Rate (bpm) Baby A: 125 (06/24/2016 09:00:Adelaida Gomez RN) FHR Baseline Rate (bpm) Baby A: 125 (06/24/2016 08:30:Adelaida Gomez RN) FHR Baseline Rate (bpm) Baby A: 125 (06/24/2016 08:00:Adelaida Gomez RN) FHR Baseline Rate (bpm) Baby A: 120 (06/24/2016 07:30:Adelaida Gomez RN) FHR Baseline Rate (bpm) Baby A: 130 (06/24/2016 07:00:Shahbaz Elmore RN) FHR Baseline Rate (bpm) Baby A: 125 (06/24/2016 06:30:Shahbaz Elmore RN) FHR Baseline Rate (bpm) Baby A: 120 (06/24/2016 06:00:Shahbaz Elmore RN) FHR Baseline Rate (bpm) Baby A: 120 (06/24/2016 05:30:Shahbaz Elmore RN) FHR Baseline Rate (bpm) Baby A: 125 (06/24/2016 05:00:Shahbaz Elmore RN) Variability Baby A: Moderate 6-25 bpm (06/24/2016 23:15:Maria A Crowe RN) Variability Baby A: Moderate 6-25 bpm (06/24/2016 23:00:Maria A Crowe RN) Variability Baby A: Moderate 6-25 bpm (06/24/2016 22:45:Maria A Crowe RN) Variability Baby A: Moderate 6-25 bpm (06/24/2016 22:30:Maria A Crowe RN) Variability Baby A: Moderate 6-25 bpm (06/24/2016 22:15:Maria A Crowe RN) Variability Baby A: Moderate 6-25 bpm (06/24/2016 22:00:Maria A Crowe RN) Variability Baby A: Moderate 6-25 bpm (06/24/2016 21:45:Maria A Crowe RN) Variability Baby A: Moderate 6-25 bpm (06/24/2016 21:30:Maria A Crowe RN) Variability Baby A: Moderate 6-25 bpm (06/24/2016 21:15:Maria A Crowe RN) Variability Baby A: Moderate 6-25 bpm (06/24/2016 21:00:Maria A Crowe RN) Variability Baby A: Moderate 6-25 bpm (06/24/2016 20:45:Maria A Crowe RN) Variability Baby A: Moderate 6-25 bpm (06/24/2016 20:30:Maria A Crowe RN) Variability Baby A: Moderate 6-25 bpm (06/24/2016 20:15:Maria A Ledgerwood, RN) Variability Baby A: Moderate 6-25 bpm (06/24/2016 20:00:Maria A Crowe RN) Variability Baby A: Moderate 6-25 bpm (06/24/2016 19:45:Maria A Crowe RN) Variability Baby A: Moderate 6-25 bpm (06/24/2016 19:30:Maria A Crowe, RN) Variability Baby A: Moderate 6-25 bpm (06/24/2016 19:15:Maria A Crowe RN) Variability Baby A: Moderate 6-25 bpm (06/24/2016 19:00:Adelaida Patricia RN) Variability Baby A: Moderate 6-25 bpm (06/24/2016 18:45:Adelaida Patricia RN) Variability Baby A: Moderate 6-25 bpm (06/24/2016 18:30:Adelaida Patricia, RN) Variability Baby A: Moderate 6-25 bpm (06/24/2016 18:15:Adelaida Patricia RN) Variability Baby A: Moderate 6-25 bpm (06/24/2016 18:00:Adelaida Patricia, RN) Variability Baby A: Moderate 6-25 bpm (06/24/2016 17:45:Adelaida Patricia, RN) Variability Baby A: Moderate 6-25 bpm (06/24/2016 17:30:Adelaida Patricia, RN) Variability Baby A: Moderate 6-25 bpm (06/24/2016 17:15:Adelaida Patricia, RN) Variability Baby A: Moderate 6-25 bpm (06/24/2016 17:00:Adelaida Patricia, RN) Variability Baby A: Moderate 6-25 bpm (06/24/2016 16:45:Adelaida Vitrfermin, RN) Variability Baby A: Moderate 6-25 bpm (06/24/2016 16:30:Adelaida Patricia, RN) Variability Baby A: Moderate 6-25 bpm (06/24/2016 16:15:Adelaida Patricia, RN) Variability Baby A: Moderate 6-25 bpm (06/24/2016 16:00:Adelaida Patricia, RN) Variability Baby A: Moderate 6-25 bpm (06/24/2016 15:45:Adelaida Patricia, RN) Variability Baby A: Moderate 6-25 bpm (06/24/2016 15:30:Adelaida Vitrano, RN) Variability Baby A: Moderate 6-25 bpm (06/24/2016 15:15:Adelaida Vitrano, RN) Variability Baby A: Moderate 6-25 bpm (06/24/2016 15:00:Adelaida Vitrano, RN) Variability Baby A: Moderate 6-25 bpm (06/24/2016 14:45:Adelaida Vitrano, RN) Variability Baby A: Moderate 6-25 bpm (06/24/2016 14:30:Adelaida Vitrano, RN) Variability Baby A: Moderate 6-25 bpm (06/24/2016 14:15:Adelaida Vitrano, RN) Variability Baby A: Moderate 6-25 bpm (06/24/2016 14:00:Adelaida Vitrano, RN) Variability Baby A: Moderate 6-25 bpm (06/24/2016 13:45:Adelaida Vitrano, RN) Variability Baby A: Moderate 6-25 bpm (06/24/2016 13:30:Adelaida Vitrano, RN) Variability Baby A: Moderate 6-25 bpm (06/24/2016 13:00:Adelaida Vitrano, RN) Variability Baby A: Moderate 6-25 bpm (06/24/2016 12:45:Adelaida Vitrano, RN) Variability Baby A: Moderate 6-25 bpm (06/24/2016 12:30:Adelaida Vitrano, RN) Variability Baby A: Moderate 6-25 bpm (06/24/2016 12:15:Adelaida Vitrano, RN) Variability Baby A: Moderate 6-25 bpm (06/24/2016 12:00:Adelaida Vitrano, RN) Variability Baby A: Moderate 6-25 bpm (06/24/2016 11:45:Adelaida Vitrano, RN) Variability Baby A: Moderate 6-25 bpm (06/24/2016 11:30:Adelaida Vitrano, RN) Variability Baby A: Moderate 6-25 bpm (06/24/2016 11:15:Adelaida Vitrano, RN) Variability Baby A: Moderate 6-25 bpm (06/24/2016 11:00:Adelaida Vitrano, RN) Variability Baby A: Moderate 6-25 bpm (06/24/2016 10:30:Adelaida Vitrano, RN) Variability Baby A: Moderate 6-25 bpm (06/24/2016 09:00:Adelaida Gomez RN) Variability Baby A: Moderate 6-25 bpm (06/24/2016 08:30:Adelaida Gomez RN) Variability Baby A: Moderate 6-25 bpm (06/24/2016 08:00:Adelaida Gomez RN) Variability Baby A: Moderate 6-25 bpm (06/24/2016 07:30:Adelaida Gomez RN) Variability Baby A: Moderate 6-25 bpm (06/24/2016 07:00:Shahbaz Elmore RN) Variability Baby A: Moderate 6-25 bpm (06/24/2016 06:30:Shahbaz Elmore RN) Variability Baby A: Moderate 6-25 bpm (06/24/2016 06:00:Shahbaz Elmore RN) Variability Baby A: Moderate 6-25 bpm (06/24/2016 05:30:Shahbaz Elmore RN) Variability Baby A: Moderate 6-25 bpm (06/24/2016 05:00:Shahbaz Elmore RN) Accelerations Baby A: 10X10 (06/24/2016 23:15:Maria A Crowe RN) Accelerations Baby A: 15X15 (06/24/2016 23:00:Maria A Crowe RN) Accelerations Baby A: 10X10 (06/24/2016 22:45:Maria A Crowe RN) Accelerations Baby A: 15X15 (06/24/2016 22:30:Maria A Crowe RN) Accelerations Baby A: 15X15 (06/24/2016 22:15:Maria A Crowe RN) Accelerations Baby A: 10X10 (06/24/2016 22:00:Maria A Crowe RN) Accelerations Baby A: 15X15 (06/24/2016 21:45:Maria A rCowe RN) Accelerations Baby A: 15X15 (06/24/2016 21:30:Maria A Crowe RN) Accelerations Baby A: 15X15 (06/24/2016 21:15:Maria A Crowe RN) Accelerations Baby A: 10X10 (06/24/2016 21:00:Maria A Crowe RN) Accelerations Baby A: 15X15 (06/24/2016 20:45:Maria A Crowe RN) Accelerations Baby A: 15X15 (06/24/2016 20:30:Maria A Crowe RN) Accelerations Baby A: 10X10 (06/24/2016 20:15:Maria A Crowe RN) Accelerations Baby A: 10X10 (06/24/2016 20:00:Maria A Crowe RN) Accelerations Baby A: 15X15 (06/24/2016 19:45:Maria A Crowe RN) Accelerations Baby A: 15X15 (06/24/2016 19:30:Maria A Crowe RN) Accelerations Baby A: None (06/24/2016 19:15:Maria A Crowe RN) Accelerations Baby A: 15X15 (06/24/2016 19:00:Adelaida Gomez RN) Accelerations Baby A: 15X15 (06/24/2016 18:45:Adelaida Gomez RN) Accelerations Baby A: None (06/24/2016 18:30:Adelaidasouth Gomez RN) Accelerations Baby A: 10X10 (06/24/2016 18:15:Adelaida Gomez RN) Accelerations Baby A: 15X15 (06/24/2016 18:00:Adelaida Gomez RN) Accelerations Baby A: 15X15 (06/24/2016 17:45:Adelaidasouth Gomez RN) Accelerations Baby A: 15X15 (06/24/2016 17:30:Adelaidasouth Gomez RN) Accelerations Baby A: 15X15 (06/24/2016 17:15:Adelaidasouth Gomez RN) Accelerations Baby A: 15X15 (06/24/2016 17:00:Adelaidasouth Gomez RN) Accelerations Baby A: 15X15 (06/24/2016 16:45:Adelaidasouth Gomez RN) Accelerations Baby A: 15X15 (06/24/2016 16:30:Adelaidakirk Gomez RN) Accelerations Baby A: None (06/24/2016 16:15:Adelaidasouth Gomez RN) Accelerations Baby A: 15X15 (06/24/2016 16:00:Adelaida Vitrano, RN) Accelerations Baby A: 15X15 (06/24/2016 15:45:Adelaida Vitrano, RN) Accelerations Baby A: 15X15 (06/24/2016 15:30:Adelaida Vitrano, RN) Accelerations Baby A: None (06/24/2016 15:15:Adelaida Vitrano, RN) Accelerations Baby A: 15X15 (06/24/2016 15:00:Adelaida Vitrano, RN) Accelerations Baby A: 15X15 (06/24/2016 14:45:Adelaida Vitrano, RN) Accelerations Baby A: None (06/24/2016 14:30:Adelaida Vitrano, RN) Accelerations Baby A: None (06/24/2016 14:15:Adelaida Vitrano, RN) Accelerations Baby A: 15X15 (06/24/2016 14:00:Adelaida Vitrano, RN) Accelerations Baby A: 15X15 (06/24/2016 13:45:Adelaida Vitrano, RN) Accelerations Baby A: 15X15 (06/24/2016 13:30:Adelaida Vitrano, RN) Accelerations Baby A: None (06/24/2016 13:00:Adelaida Vitrano, RN) Accelerations Baby A: 15X15 (06/24/2016 12:45:Adelaida Vitrano, RN) Accelerations Baby A: 15X15 (06/24/2016 12:30:Adelaida Vitrano, RN) Accelerations Baby A: None (06/24/2016 12:00:Adelaida Vitrano, RN) Accelerations Baby A: 10X10 (06/24/2016 11:45:Adelaida Vitrano, RN) Accelerations Baby A: 15X15 (06/24/2016 11:30:Adelaida Vitrano, RN) Accelerations Baby A: 15X15 (06/24/2016 11:15:Adelaida Vitrano, RN) Accelerations Baby A: 15X15 (06/24/2016 11:00:Adelaida Vitrano, RN) Accelerations Baby A: 15X15 (06/24/2016 10:30:Adelaida Vitrano, RN) Accelerations Baby A: 15X15 (06/24/2016 09:00:Adelaida Gomez RN) Accelerations Baby A: 15X15 (06/24/2016 08:30:Adelaida Gomez RN) Accelerations Baby A: 15X15 (06/24/2016 08:00:Adelaida Gomez RN) Accelerations Baby A: 15X15 (06/24/2016 07:30:Adelaida Gomez RN) Accelerations Baby A: 15X15 (06/24/2016 07:00:Shahbaz Elmore RN) Accelerations Baby A: 15X15 (06/24/2016 06:30:Shahbaz Elmore RN) Accelerations Baby A: 15X15 (06/24/2016 06:00:Shahbaz Elmore RN) Accelerations Baby A: 15X15 (06/24/2016 05:30:Shahbaz Elmore RN) Accelerations Baby A: 15X15 (06/24/2016 05:00:Shahbaz Elmore RN) Decelerations Baby A: Early (06/24/2016 23:15:Maria A Crowe RN) Decelerations Baby A: Early (06/24/2016 23:00:Maria A Crowe RN) Decelerations Baby A: Early (06/24/2016 22:45:Maria A Crowe RN) Decelerations Baby A: Early (06/24/2016 22:15:Maria A Crowe RN) Decelerations Baby A: Early (06/24/2016 22:00:Maria A Crowe RN) Decelerations Baby A: Early (06/24/2016 21:45:Maria A Crowe RN) Decelerations Baby A: Early (06/24/2016 21:30:Maria A Crowe RN) Decelerations Baby A: Early (06/24/2016 21:15:Maria A Crowe RN) Decelerations Baby A: Early (06/24/2016 21:00:Maria A Crowe RN) Decelerations Baby A: Early (06/24/2016 20:45:Maria A Crowe RN) Decelerations Baby A: None (06/24/2016 20:30:Maria A Crowe RN) Decelerations Baby A: None (06/24/2016 20:15:Maria A Crowe RN) Decelerations Baby A: None (06/24/2016 20:00:Maria A Crowe RN) Decelerations Baby A: None (06/24/2016 19:45:Maria A Crowe RN) Decelerations Baby A: None (06/24/2016 19:30:Maria A Crowe RN) Decelerations Baby A: None (06/24/2016 19:15:Maria A Crowe RN) Decelerations Baby A: None (06/24/2016 19:00:Adelaida Gomez RN) Decelerations Baby A: None (06/24/2016 18:45:Adelaida Gomez RN) Decelerations Baby A: None (06/24/2016 18:30:Adelaida Gomez RN) Decelerations Baby A: None (06/24/2016 18:15:Adelaida Gomez RN) Decelerations Baby A: None (06/24/2016 18:00:Adelaida Gomez RN) Decelerations Baby A: None (06/24/2016 17:45:Adelaida Gomez RN) Decelerations Baby A: None (06/24/2016 17:30:Adelaida Gomez RN) Decelerations Baby A: None (06/24/2016 17:15:Adelaida Gomez RN) Decelerations Baby A: None (06/24/2016 17:00:Adelaida Gomez RN) Decelerations Baby A: None (06/24/2016 16:45:Adelaida Gomez RN) Decelerations Baby A: None (06/24/2016 16:30:Adelaida Gomez RN) Decelerations Baby A: None (06/24/2016 16:15:Adelaida Gomez RN) Decelerations Baby A: None (06/24/2016 16:00:Adelaida Gomez RN) Decelerations Baby A: None (06/24/2016 15:45:Adelaida Gomez RN) Decelerations Baby A: None (06/24/2016 15:30:Adelaida Patricia, RN) Decelerations Baby A: None (06/24/2016 15:15:Adelaida Patricia, RN) Decelerations Baby A: None (06/24/2016 15:00:Adelaida Patricia, RN) Decelerations Baby A: None (06/24/2016 14:45:Adelaida Patricia, RN) Decelerations Baby A: None (06/24/2016 14:30:Adelaida Patricia, RN) Decelerations Baby A: None (06/24/2016 14:15:Adelaida Patricia, RN) Decelerations Baby A: None (06/24/2016 14:00:Adelaida Patricia RN) Decelerations Baby A: None (06/24/2016 13:45:Adelaida Patricia RN) Decelerations Baby A: None (06/24/2016 13:30:Adelaida Patricia RN) Decelerations Baby A: None (06/24/2016 13:00:Adelaida Patricia RN) Decelerations Baby A: None (06/24/2016 12:45:Adelaida Patricia RN) Decelerations Baby A: None (06/24/2016 12:30:Adelaida Patricia RN) Decelerations Baby A: None (06/24/2016 12:00:Adelaida Patricia RN) Decelerations Baby A: None (06/24/2016 11:45:Adelaida Patricia RN) Decelerations Baby A: None (06/24/2016 11:30:Adelaida Patricia RN) Decelerations Baby A: None (06/24/2016 11:15:Adelaida Patricia RN) Decelerations Baby A: None (06/24/2016 11:00:Adelaida Patricia RN) Decelerations Baby A: None (06/24/2016 10:30:Adelaida Patricia RN) Decelerations Baby A: None (06/24/2016 09:00:Adelaida Patricia RN) Decelerations Baby A: None (06/24/2016 08:30:Adelaida Patricia RN) Decelerations Baby A: None (06/24/2016 08:00:Adelaida Gomez RN) Decelerations Baby A: None (06/24/2016 07:30:Adelaida Gomez RN) Decelerations Baby A: None (06/24/2016 07:00:Shahbaz Elmore RN) Decelerations Baby A: None (06/24/2016 06:30:Shahbaz Elmore RN) Decelerations Baby A: None (06/24/2016 06:00:Shahbaz Elmore RN) Decelerations Baby A: None (06/24/2016 05:30:Shahbaz Elmore RN) Decelerations Baby A: None (06/24/2016 05:00:Shahbaz Elmore RN)
--- NOTE | 2016-06-25 06:06 | L&D Flow Sheet ---
LD Flowsheet Datetime Report Generated by CPN: 06/25/2016 04:45 Datetime: 06/25/2016 01:33 NBP Sys/Lina/Mean (mmHg): 136 (QS system process) : 78 (QS system process) : 100 (QS system process) Pulse: 79 (QS system process) Datetime: 06/25/2016 01:18 NBP Sys/Lina/Mean (mmHg): 144 (QS system process) : 81 (QS system process) : 107 (QS system process) Pulse: 82 (QS system process) Datetime: 06/25/2016 01:03 NBP Sys/Lina/Mean (mmHg): 120 (QS system process) : 69 (QS system process) : 90 (QS system process) Pulse: 86 (QS system process) Datetime: 06/25/2016 00:48 NBP Sys/Lina/Mean (mmHg): 140 (QS system process) : 74 (QS system process) : 101 (QS system process) Pulse: 82 (QS system process) Datetime: 06/25/2016 00:33 NBP Sys/Lina/Mean (mmHg): 143 (QS system process) : 74 (QS system process) : 102 (QS system process) Pulse: 85 (QS system process) Datetime: 06/25/2016 00:18 NBP Sys/Lina/Mean (mmHg): 134 (QS system process) : 72 (QS system process) : 96 (QS system process) Pulse: 82 (QS system process) Datetime: 06/25/2016 00:03 NBP Sys/Lina/Mean (mmHg): 132 (QS system process) : 63 (QS system process) : 90 (QS system process) Pulse: 90 (QS system process) Datetime: 06/24/2016 23:48 NBP Sys/Lina/Mean (mmHg): 131 (QS system process) : 61 (QS system process) : 88 (QS system process) Pulse: 95 (QS system process) Respirations: 14 (Maria A Ledgerwood, RN) Datetime: 06/24/2016 23:40 Stage of : Recovery [facility] Temperature (F): 98.1 (Maria A Ledgerwood, RN) Temperature (C): 36.7 (QS system process) Temperature Route: Oral ([facility]) Pain Scale: 2 (Maria A Ledgerwood, RN) Pain Presence: Constant (Maria A Ledgerwood, RN) Pain Type: Burning (Maria A Ledgerwood, RN) Pain Location: Perineum (Maria A Ledgerwood, RN) Datetime: 06/24/2016 23:33 NBP Sys/Lina/Mean (mmHg): 138 (QS system process) : 59 (QS system process) : 85 (QS system process) Pulse: 102 (QS system process) LaborFlag: Labor (QS system process) Datetime: 06/24/2016 23:25 Stage 2 Comments: of vital male baby. (Maria A Ledgerwood, RN) Datetime: 06/24/2016 23:24 Communication Comments: head out (Sofia Igor, RN) Datetime: 06/24/2016 23:21 Preparation for Delivery: IUPC Removed Intact (Maria A Ledgerwood, RN) Communication Comments: kiwi applied (Sofia Costa, RN) Datetime: 06/24/2016 23:15 Monitor Mode: Internal (Maria A Ledgerwood, RN) Frequency (min): 1.5-3.5 (Maria A Ledgerwood, RN) Quality: Moderate to Strong (Maria A Ledgerwood, RN) Duration (sec): 60-70 (Maria A Ledgerwood, RN) Duration Criteria: Less than Two 120 Second Contractions (Maria A Ledgerwood, RN) Pattern: Normal: <= 5 Contractions in 10 Minutes (Maria A Ledgerwood, RN) Resting Tone (Palpate): Relaxed (Maria A Ledgerwood, RN) Monitor Mode: External US (Maria A Ledgerwood, RN) FHR Baseline Rate : 155 (Maria A Ledgerwood, RN) FHR Baseline Changes: No Baseline Change (Maria A Ledgerwood, RN) Variability: Moderate 6-25 bpm (Maria A Ledgerwood, RN) Accelerations: 10X10 (Maria A Ledgerwood, RN) Decelerations: Early (Maria A Ledgerwood, RN) Pitocin (milliunit): Pitocin Remains (milliunits) @ 18 (Maria A Ledgerwood, RN) Datetime: 06/24/2016 23:13 Pushing Progress: Pushing Effectively with Contractions (Maria A Ledgerwood, RN) Datetime: 06/24/2016 23:04 Pushing Position: Pushing Lithotomy (Maria A Ledgerwood, RN) Pushing Progress: Caput Noted; Pushing Effectively with Contractions (Maria A Ledgerwood, RN) Datetime: 06/24/2016 23:03 NBP Sys/Lina/Mean (mmHg): 138 (QS system process) : 65 (QS system process) : 94 (QS system process) Pulse: 73 (QS system process) LaborFlag: Labor (QS system process) Datetime: 06/24/2016 23:00 Monitor Mode: Internal (Maria A Ledgerwood, RN) Frequency (min): 1.5-3 (Maria A Ledgerwood, RN) Quality: Moderate to Strong (Maria A Ledgerwood, RN) Duration (sec): 60-70 (Maria A Ledgerwood, RN) Duration Criteria: Less than Two 120 Second Contractions (Amria A Ledgerwood, RN) Pattern: Normal: <= 5 Contractions in 10 Minutes (Maria A Ledgerwood, RN) Resting Tone (Palpate): Relaxed (Maria A Ledgerwood, RN) Monitor Mode: External US (Maria A Ledgerwood, RN) FHR Baseline Rate : 140 (Maria A Ledgerwood, RN) FHR Baseline Changes: No Baseline Change (Maria A Ledgerwood, RN) Variability: Moderate 6-25 bpm (Maria A Ledgerwood, RN) Accelerations: 15X15 (Maria A Ledgerwood, RN) Decelerations: Early (Maria A Ledgerwood, RN) Pitocin (milliunit): Pitocin Remains (milliunits) @ 18 (Maria A Ledgerwood, RN) Datetime: 06/24/2016 22:57 Temperature (F): 99.0 (Maria A Ledgerwood, RN) Temperature (C): 37.2 (QS system process) Pushing Position: Pushing with Contractions (Maria A Ledgerwood, RN) Pushing Progress: Pushing Effectively with Contractions (Maria A Crowe RN) Stage 2 Comments: RN and provider at bedside continuously assessing FHRs while pt. pushing with contractions. (Maria A Crowe RN) LaborFlag: Labor (QS system process) Datetime: 06/24/2016 22:50 NBP Sys/Lina/Mean (mmHg): 109 (QS system process) : 59 (QS system process) : 81 (QS system process) Pulse: 81 (QS system process) LaborFlag: Labor (QS system process) Datetime: 06/24/2016 22:49 NBP Sys/Lina/Mean (mmHg): 180 (QS system process) : 112 (QS system process) : 138 (QS system process) Pulse: 133 (QS system process) LaborFlag: Labor (QS system process) Datetime: 06/24/2016 22:45 Monitor Mode: Internal (Maria A Ledgerwood, RN) Frequency (min): 2-3.5 (Maria A Ledgerwood, RN) Quality: Moderate to Strong (Maria A Ledgerwood, RN) Duration (sec): 60-70 (Maria A Ledgerwood, RN) Duration Criteria: Less than Two 120 Second Contractions (Maria A Ledgerwood, RN) Pattern: Normal: <= 5 Contractions in 10 Minutes (Maria A Ledgerwood, RN) Resting Tone (Palpate): Relaxed (Maria A Ledgerwood, RN) Monitor Mode: External US (Maria A Ledgerwood, RN) FHR Baseline Rate : 130 (Maria A Ledgerwood, RN) FHR Baseline Changes: No Baseline Change (Maria A Ledgerwood, RN) Variability: Moderate 6-25 bpm (Maria A Ledgerwood, RN) Accelerations: 10X10 (Maria A Ledgerwood, RN) Decelerations: Early (Maria A Ledgerwood, RN) Pitocin (milliunit): Pitocin Remains (milliunits) @ 18 (Maria A Ledgerwood, RN) Datetime: 06/24/2016 22:44 Patient Care Comments: Oxygen mask on (Maria A Ledgerwood, RN) Datetime: 06/24/2016 22:33 NBP Sys/Lina/Mean (mmHg): 145 (QS system process) : 68 (QS system process) : 98 (QS system process) Pulse: 74 (QS system process) LaborFlag: Labor (QS system process) Datetime: 06/24/2016 22:30 Monitor Mode: Internal (Maria A Crowe, RN) Frequency (min): 2-3 (Maria A Leddonna, RN) Quality: Moderate to Strong (Maria A Ledgerwood, RN) Duration (sec): 50-60 (Maria A Ledgerwood, RN) Duration Criteria: Less than Two 120 Second Contractions (Maria A Ledgerwood, RN) Pattern: Normal: <= 5 Contractions in 10 Minutes (Maria A Ledgerwood, RN) Resting Tone (Palpate): Relaxed (Maria A Ledgerwood, RN) Contraction Comments: pt is pushing (Maria A Crowe, RN) Monitor Mode: External US (Maria A Crowe, RN) FHR Baseline Rate : 120 (Maria A Ashleygernathalie, RN) FHR Baseline Changes: No Baseline Change (Maria A Ledgerwood, RN) Variability: Moderate 6-25 bpm (Maria A Ledgerwood, RN) Accelerations: 15X15 (Maria A Ashleygerwood, RN) Pitocin (milliunit): Pitocin Remains (milliunits) @ 18 (Maria A Ashleygerwood, RN) Datetime: 06/24/2016 22:23 Pushing: Urge to Push (Maria A Colonwood, RN) Pushing Position: Pushing with Contractions (Maria A Colonwood, RN) Datetime: 06/24/2016 22:18 NBP Sys/Lina/Mean (mmHg): 144 (QS system process) : 89 (QS system process) : 111 (QS system process) Pulse: 85 (QS system process) LaborFlag: Labor (QS system process) Datetime: 06/24/2016 22:16 Pushing: Coached on Pushing; Urge to Push (Maria A Crowe, RN) Datetime: 06/24/2016 22:15 Monitor Mode: External; Palpation (Maria A Crowe, ALBERT) Frequency (min): 1.5-3.5 (Maria A Crowe, RN) Quality: Moderate to Strong (Maria A Crowe, RN) Duration (sec): 60-70 (Maria A Crowe, RN) Duration Criteria: Less than Two 120 Second Contractions (Maria A Crowe, RN) Pattern: Normal: <= 5 Contractions in 10 Minutes (Maria A Crowe, RN) Resting Tone (Palpate): Relaxed (Maria A Crowe, RN) Monitor Mode: External US (Maria A Crowe, RN) FHR Baseline Rate : 135 (Maria A Crowe, RN) FHR Baseline Changes: No Baseline Change (Maria A Ramirezgernathalie, RN) Variability: Moderate 6-25 bpm (Maria A Ramirezgernathalie, RN) Accelerations: 15X15 (Maria A Ramirezgernathalie, RN) Decelerations: Early (Maria A Crowe, RN) Pitocin (milliunit): Pitocin Remains (milliunits) @ 18 (Maria A Crowe, RN) Communication: Provider at Bedside (Maria A Crowe, RN) Communication Comments: Dr Nava at bedside (Maria A Crowe, ALBERT) Datetime: 06/24/2016 22:11 Dilatation (cm): 10.0 (Maria A Ledgerwood, RN) Effacement (%): 100 (Maria A Ledgerwood, RN) Station: 1 (Maria A Ledgerwood, RN) Exam by: O Ledgerwood RN (Maria A Ledgerwood, RN) Datetime: 06/24/2016 22:03 NBP Sys/Lina/Mean (mmHg): 139 (QS system process) : 79 (QS system process) : 102 (QS system process) Pulse: 82 (QS system process) LaborFlag: Labor (QS system process) Datetime: 06/24/2016 22:00 Monitor Mode: Internal (Maria A Ledgerwood, RN) Frequency (min): 2.5-3.5 (Maria A Ledgerwood, RN) Quality: Moderate (Maria A Ledgerwood, RN) Duration (sec): 6-70 (Maria A Ledgerwood, RN) Duration Criteria: Less than Two 120 Second Contractions (Maria A Ledgerwood, RN) Pattern: Normal: <= 5 Contractions in 10 Minutes (Maria A Ledgerwood, RN) Resting Tone (Palpate): Relaxed (Maria A Ledgerwood, RN) Resting Tone IUP (mmHg): 25 (Maria A Ledgerwood, RN) Intensity IUP (mmHg): 80 (Maria A Ledgerwood, RN) Contraction Comments: MVUs 220 (Maria A Ledgerwood, RN) Monitor Mode: External US (Maria A Ledgerwood, RN) FHR Baseline Rate : 140 (Maria A Ledgerwood, RN) FHR Baseline Changes: No Baseline Change (Maria A Ledgerwood, RN) Variability: Moderate 6-25 bpm (Maria A Ledgerwood, RN) Accelerations: 10X10 (Maria A Ledgerwood, RN) Decelerations: Early (Maria A Ledgerwood, RN) Pitocin (milliunit): Pitocin Remains (milliunits) @ 18 (Maria A Ledgerwood, RN) Datetime: 06/24/2016 21:48 NBP Sys/Lina/Mean (mmHg): 139 (QS system process) : 77 (QS system process) : 102 (QS system process) Pulse: 86 (QS system process) LaborFlag: Labor (QS system process) Datetime: 06/24/2016 21:45 Monitor Mode: Internal (Maria A Ledgerwood, RN) Frequency (min): 1.5-3.5 (Maria A Ledgerwood, RN) Quality: Moderate (Maria A Ledgerwood, RN) Duration (sec): 60-70 (Maria A Ledgerwood, RN) Duration Criteria: Less than Two 120 Second Contractions (Maria A Ledgerwood, RN) Pattern: Normal: <= 5 Contractions in 10 Minutes (Maria A Ledgerwood, RN) Resting Tone (Palpate): Relaxed (Maria A Ledgerwood, RN) Monitor Mode: External US (Maria A Ledgerwood, RN) FHR Baseline Rate : 135 (Maria A Ledgerwood, RN) FHR Baseline Changes: No Baseline Change (Maria A Ledgerwood, RN) Variability: Moderate 6-25 bpm (Maria A Ledgerwood, RN) Accelerations: 15X15 (Maria A Ledgerwood, RN) Decelerations: Early (Maria A Ledgerwood, RN) Pitocin (milliunit): Pitocin Remains (milliunits) @ 18 (Maria A Ledgerwood, RN) Datetime: 06/24/2016 21:33 NBP Sys/Lina/Mean (mmHg): 131 (QS system process) : 76 (QS system process) : 100 (QS system process) Pulse: 81 (QS system process) LaborFlag: Labor (QS system process) Datetime: 06/24/2016 21:30 Monitor Mode: Internal (Maria A Ledgerwood, RN) Frequency (min): 1.5-3.5 (Maria A Ledgerwood, RN) Quality: Moderate (Maria A Ledgerwood, RN) Duration (sec): 60-70 (Maria A Ledgerwood, RN) Duration Criteria: Less than Two 120 Second Contractions (Maria A Ledgerwood, RN) Pattern: Normal: <= 5 Contractions in 10 Minutes (Maria A Ledgerwood, RN) Resting Tone (Palpate): Relaxed (Maria A Ledgerwood, RN) Monitor Mode: External US (Maria A Ledgerwood, RN) FHR Baseline Rate : 130 (Maria A Ledgerwood, RN) FHR Baseline Changes: No Baseline Change (Maria A Ledgerwood, RN) Variability: Moderate 6-25 bpm (Maria A Ledgerwood, RN) Accelerations: 15X15 (Maria A Ledgerwood, RN) Decelerations: Early (Maria A Ledgerwood, RN) Pitocin (milliunit): Pitocin Remains (milliunits) @ 18 (Maria A Ledgerwood, RN) Datetime: 06/24/2016 21:18 NBP Sys/Lina/Mean (mmHg): 146 (QS system process) : 84 (QS system process) : 110 (QS system process) Pulse: 80 (QS system process) Respirations: 15 (Maria A Ledgerwood, RN) LaborFlag: Labor (QS system process) Datetime: 06/24/2016 21:15 Monitor Mode: Internal (Maria A Ledgerwood, RN) Frequency (min): 1.5-3.5 (Maria A Ledgerwood, RN) Quality: Moderate (Maria A Ledgerwood, RN) Duration (sec): 60-70 (Maria A Ledgerwood, RN) Duration Criteria: Less than Two 120 Second Contractions (Maria A Ledgerwood, RN) Pattern: Normal: <= 5 Contractions in 10 Minutes (Maria A Ledgerwood, RN) Resting Tone (Palpate): Relaxed (Maria A Ledgerwood, RN) Monitor Mode: External US (Maria A Ledgerwood, RN) FHR Baseline Rate : 135 (Maria A Ledgerwood, RN) FHR Baseline Changes: No Baseline Change (Maria A Ledgerwood, RN) Variability: Moderate 6-25 bpm (Maria A Ledgerwood, RN) Accelerations: 15X15 (Maria A Ledgerwood, RN) Decelerations: Early (Maria A Ledgerwood, RN) Pitocin (milliunit): Pitocin Remains (milliunits) @ 18 (Maria A Ramirezgerwood, RN) Datetime: 06/24/2016 21:08 Dilatation (cm): 9.0 (Maria A Ramirezgerwood, RN) Effacement (%): 90 (Maria A Crowe, RN) Station: 1 (Maria A Crowe, RN) Exam by: Dante Crowe RN (Maria A Colonwood, RN) Datetime: 06/24/2016 21:05 Patient Care Comments: pt notified nurse of some pressure and bleeding. (Maria A Ramirezgerwood, RN) Datetime: 06/24/2016 21:03 NBP Sys/Lina/Mean (mmHg): 142 (QS system process) : 76 (QS system process) : 103 (QS system process) Pulse: 75 (QS system process) LaborFlag: Labor (QS system process) Datetime: 06/24/2016 21:00 Monitor Mode: Internal (Maria A Ashleygernathalie, RN) Frequency (min): 2-4 (Maria A Ledgerwood, RN) Quality: Mild/Moderate (Maria A Ledgerwood, RN) Duration (sec): 60-70 (Maria A Ledgerwood, RN) Duration Criteria: Less than Two 120 Second Contractions (Maria A Ledgerwood, RN) Pattern: Normal: <= 5 Contractions in 10 Minutes (Maria A Ledgerwood, RN) Resting Tone (Palpate): Relaxed (Maria A Ledgerwood, RN) Resting Tone IUP (mmHg): 30 (Maria A Ledgerwood, RN) Intensity IUP (mmHg): 90 (Maria A Ledgerwood, RN) Contraction Comments: MVUs 230 (Maria A Ledgerwood, RN) Monitor Mode: External US (Maria A Ledgerwood, RN) FHR Baseline Rate : 135 (Maria A Ledgerwood, RN) FHR Baseline Changes: No Baseline Change (Maria A Ledgerwood, RN) Variability: Moderate 6-25 bpm (Maria A Ledgerwood, RN) Accelerations: 10X10 (Maria A Ledgerwood, RN) Decelerations: Early (Maria A Ledgerwood, RN) Pitocin (milliunit): Pitocin Remains (milliunits) @ 18 (Maria A Ledgerwood, RN) Datetime: 06/24/2016 20:48 NBP Sys/Lina/Mean (mmHg): 133 (QS system process) : 79 (QS system process) : 101 (QS system process) Pulse: 81 (QS system process) LaborFlag: Labor (QS system process) Datetime: 06/24/2016 20:45 Monitor Mode: Internal (Maria A Crowe, RN) Frequency (min): 1.5-3.5 (Maria A Ledgernathalie, RN) Quality: Mild/Moderate (Maria A Ledgerwood, RN) Duration (sec): 60-70 (Maria A Ledgerwood, RN) Duration Criteria: Less than Two 120 Second Contractions (Maria A Ledgerwood, RN) Pattern: Normal: <= 5 Contractions in 10 Minutes (Maria A Ledgerwood, RN) Resting Tone (Palpate): Relaxed (Maria A Ashleygerwood, RN) Monitor Mode: External US (Maria A Crowe, RN) FHR Baseline Rate : 135 (Maria A Crowe, RN) FHR Baseline Changes: No Baseline Change (Maria A Ledgerwood, RN) Variability: Moderate 6-25 bpm (Maria A Ledgerwood, RN) Accelerations: 15X15 (Maria A Ledgerwood, RN) Decelerations: Early (Maria A Ledgerwood, RN) Pitocin (milliunit): Pitocin Remains (milliunits) @ 18 (Maria A Ledgerwood, RN) Datetime: 06/24/2016 20:34 NBP Sys/Lina/Mean (mmHg): 132 (QS system process) : 70 (QS system process) : 94 (QS system process) Pulse: 77 (QS system process) LaborFlag: Labor (QS system process) Datetime: 06/24/2016 20:30 Monitor Mode: Internal (Maria A Ledgerwood, RN) Frequency (min): 2.5-3.5 (Maria A Ledgerwood, RN) Quality: Mild/Moderate (Maria A Ledgerwood, RN) Duration (sec): 50-70 (Maria A Ledgerwood, RN) Duration Criteria: Less than Two 120 Second Contractions (Maria A Ledgerwood, RN) Pattern: Normal: <= 5 Contractions in 10 Minutes (Maria A Ledgerwood, RN) Resting Tone (Palpate): Relaxed (Maria A Ledgerwood, RN) Monitor Mode: External US (Maria A Ledgerwood, RN) FHR Baseline Rate : 130 (Maria A Ledgerwood, RN) FHR Baseline Changes: No Baseline Change (Maria A Ledgerwood, RN) Variability: Moderate 6-25 bpm (Maria A Ledgerwood, RN) Accelerations: 15X15 (Maria A Ledgerwood, RN) Decelerations: None (Maria A Ledgerwood, RN) Pitocin (milliunit): Pitocin Remains (milliunits) @ 18 (Maria A Ledgerwood, RN) Datetime: 06/24/2016 20:18 NBP Sys/Lina/Mean (mmHg): 134 (QS system process) : 73 (QS system process) : 98 (QS system process) Pulse: 82 (QS system process) LaborFlag: Labor (QS system process) Datetime: 06/24/2016 20:15 Monitor Mode: External; Palpation (Maria A Ledgerwood, RN) Frequency (min): 1.5-3.5 (Maria A Ledgerwood, RN) Quality: Mild/Moderate (Maria A Ledgerwood, RN) Duration (sec): 60-70 (Maria A Ledgerwood, RN) Duration Criteria: Less than Two 120 Second Contractions (Maria A Ledgerwood, RN) Pattern: Normal: <= 5 Contractions in 10 Minutes (Maria A Ledgerwood, RN) Resting Tone (Palpate): Relaxed (Maria A Ledgerwood, RN) Monitor Mode: External US (Maria A Ledgerwood, RN) FHR Baseline Rate : 135 (Maria A Ledgerwood, RN) FHR Baseline Changes: No Baseline Change (Maria A Ledgerwood, RN) Variability: Moderate 6-25 bpm (Maria A Ledgerwood, RN) Accelerations: 10X10 (Maria A Ledgerwood, RN) Decelerations: None (Maria A Ledgerwood, RN) Pitocin (milliunit): Pitocin Remains (milliunits) @ 18 (Maria A Ledgerwood, RN) Datetime: 06/24/2016 20:12 Patient Position/Activity: Left Extreme (Maria A Ledgerwood, RN) Datetime: 06/24/2016 20:03 NBP Sys/Lina/Mean (mmHg): 132 (QS system process) : 84 (QS system process) : 102 (QS system process) Pulse: 74 (QS system process) LaborFlag: Labor (QS system process) Datetime: 06/24/2016 20:00 Monitor Mode: Internal (Maria A Ledgerwood, RN) Frequency (min): 2.5-3 (Maria A Ledgerwood, RN) Quality: Mild/Moderate (Maria A Ledgerwood, RN) Duration (sec): 60-70 (Maria A Ledgerwood, RN) Duration Criteria: Less than Two 120 Second Contractions (Maria A Ledgerwood, RN) Pattern: Normal: <= 5 Contractions in 10 Minutes (Maria A Ledgerwood, RN) Resting Tone (Palpate): Relaxed (Maria A Ledgerwood, RN) Resting Tone IUP (mmHg): 20 (Maria A Ledgerwood, RN) Intensity IUP (mmHg): 75 (Maria A Ledgerwood, RN) Contraction Comments: MVU 250 (Maria A Ledgerwood, RN) Monitor Mode: External US (Maria A Ledgerwood, RN) FHR Baseline Rate : 135 (Maria A Ledgerwood, RN) FHR Baseline Changes: No Baseline Change (Maria A Ledgerwood, RN) Variability: Moderate 6-25 bpm (Maria A Ledgerwood, RN) Accelerations: 10X10 (Maria A Ledgerwood, RN) Decelerations: None (Maria A Ledgerwood, RN) Datetime: 06/24/2016 19:50 NBP Sys/Lina/Mean (mmHg): 148 (QS system process) : 87 (QS system process) : 110 (QS system process) Pulse: 82 (QS system process) LaborFlag: Labor (QS system process) Datetime: 06/24/2016 19:45 Monitor Mode: External; Palpation (Maria A Ledgerwood, RN) Frequency (min): 2-2.5 (Maria A Ledgerwood, RN) Quality: Mild (Maria A Ledgerwood, RN) Duration (sec): 60-70 (Maria A Ledgerwood, RN) Duration Criteria: Less than Two 120 Second Contractions (Maria A Ledgerwood, RN) Pattern: Normal: <= 5 Contractions in 10 Minutes (Maria A Ledgerwood, RN) Resting Tone (Palpate): Relaxed (Maria A Ledgerwood, RN) Monitor Mode: External US (Maria A Ledgerwood, RN) FHR Baseline Rate : 130 (Maria A Ledgerwood, RN) FHR Baseline Changes: No Baseline Change (Maria A Ledgerwood, RN) Variability: Moderate 6-25 bpm (Maria A Ledgerwood, RN) Accelerations: 15X15 (Maria A Ledgerwood, RN) Decelerations: None (Maria Aimani Ramirezgerwood, RN) Pitocin (milliunit): Pitocin Remains (milliunits) @ 18 (Maria A Ledgerwood, RN) Datetime: 06/24/2016 19:33 NBP Sys/Lina/Mean (mmHg): 144 (QS system process) : 86 (QS system process) : 111 (QS system process) Pulse: 82 (QS system process) Respirations: 14 (Maria A Crowe, RN) LaborFlag: Labor (QS system process) Datetime: 06/24/2016 19:30 Monitor Mode: Internal (Maria Aimani Ramirezgerwood, RN) Frequency (min): 2.5-3.5 (Maria A Ledgerwood, RN) Quality: Mild (Maria A Ledgerwood, RN) Duration (sec): 60-70 (Maria A Ledgerwood, RN) Duration Criteria: Less than Two 120 Second Contractions (Maria A Ledgerwood, RN) Pattern: Normal: <= 5 Contractions in 10 Minutes (Maria A Ashleygerwood, RN) Resting Tone (Palpate): Relaxed (Maria A Ledgerwood, ALBERT) Monitor Mode: External US (Maria A Crowe, ALBERT) FHR Baseline Rate : 130 (Maria A Crowe, ALBERT) FHR Baseline Changes: No Baseline Change (Maria A Crowe RN) Variability: Moderate 6-25 bpm (Maria A Crowe, RN) Accelerations: 15X15 (Maria A Crowe, RN) Decelerations: None (Maria A Crowe, ALBERT) Pitocin (milliunit): Pitocin Remains (milliunits) @ 18 (Maria A Crowe, ALBERT) Datetime: 06/24/2016 19:17 Pain Scale: 1 (Maria A Crowe RN) Pain Presence: Intermittent (Maria A Crowe RN) Pain Type: Dull (Maria A Crowe RN) Pain Location: Perineum (Maria A Crowe RN) Pain Relief Measures: Comfort Measures (Maria A Crowe RN) Pain Coping: Other (Maria A Crowe RN) Level of Consciousness: Fully Conscious (Maria A Crowe RN) DTR's/Clonus: DTRs 2+; No Clonus (Maria A Crowe, ALBERT) Headache: Frontal (Maria A Crowe RN) Breath Sounds, Left: Clear and Equal (Maria A Crowe RN) Breath Sounds, Right: Clear and Equal (Maria A Crowe RN) Nausea/Vomiting: pt has feeling of nausea at the moment (Maria A Crowe RN) RUQ Epigastric Pain: Denies (Maria A Crowe RN) Instructional Method: Demo; Verbal; Patient Instructed (Maria A Crowe RN) Plan of Care: Plan of Care Discussed; Induction (Maria A Crowe RN) Unit Routine: Handwashing; Monitoring; Safety/Fall Risk Prevention (Maria A Crowe RN) LaborFlag: Labor (QS system process) Datetime: 06/24/2016 19:15 Monitor Mode: Internal (Maria A Crowe RN) Frequency (min): 2-4.5 (Maria A Crowe, ALBERT) Quality: Mild (Maria A Crowe RN) Duration (sec): 50-70 (Maria A Crowe, RN) Duration Criteria: Less than Two 120 Second Contractions (Maria A Crowe, RN) Pattern: Normal: <= 5 Contractions in 10 Minutes (Maria A Crowe, RN) Resting Tone (Palpate): Relaxed (Maria A Crowe, RN) Monitor Mode: External US (Maria A Crowe, RN) FHR Baseline Rate : 130 (Maria A Crowe, RN) FHR Baseline Changes: No Baseline Change (Maria A Crowe, RN) Variability: Moderate 6-25 bpm (Maria A Crowe, RN) Accelerations: None (Maria A Crowe, RN) Decelerations: None (Maria A Crowe, RN) Pitocin (milliunit): Pitocin Remains (milliunits) @ 18 (Maria A Crowe, ALBERT) Communication Comments: Report received from Ez Gomez RN at bedside. (Maria A Crowe RN) Datetime: 06/24/2016 19:10 Communication Comments: [facility], care relinquished (Adelaida Vitrano, RN) Datetime: 06/24/2016 19:04 NBP Sys/Lina/Mean (mmHg): 127 (QS system process) : 84 (QS system process) : 102 (QS system process) Pulse: 78 (QS system process) Respirations: 16 (Adelaida Vitrano, RN) LaborFlag: Labor (QS system process) Datetime: 06/24/2016 19:00 Monitor Mode: External; Palpation (Adelaida Vitrano, RN) Frequency (min): 2-3.5 (Adelaida Vitrano, RN) Quality: Moderate to Strong (Adelaida Vitrano, RN) Duration (sec): 60-80 (Adelaida Vitrano, RN) Duration Criteria: Less than Two 120 Second Contractions (Adelaida Vitrano, RN) Pattern: Normal: <= 5 Contractions in 10 Minutes (Adelaida Vitrano, RN) Resting Tone (Palpate): Relaxed (Adelaida Vitrano, RN) Contraction Comments: Intensity 60-80 mmHg, Resting Tone 5-15 mmHg, 240 MVUs (Adelaida Vitrano, RN) Monitor Mode: External US (Adelaida Vitrano, RN) FHR Baseline Rate : 130 (Adelaida Vitrano, RN) Variability: Moderate 6-25 bpm (Adelaida Vitrano, RN) Accelerations: 15X15 (Adelaida Vitrano, RN) Decelerations: None (Adelaida Vitrano, RN) Pitocin (milliunit): Pitocin Remains (milliunits) @ 18 (Adelaida Vitrano, RN) Datetime: 06/24/2016 18:50 Monitor Interventions for FHR: Ultrasound Adjusted (Adelaida Vitrano, RN) Datetime: 06/24/2016 18:49 NBP Sys/Lina/Mean (mmHg): 144 (QS system process) : 100 (QS system process) : 117 (QS system process) Pulse: 90 (QS system process) Respirations: 16 (Adelaida Vitrano, RN) LaborFlag: Labor (QS system process) Datetime: 06/24/2016 18:48 Communication Comments: Orders from DrAshu Nava for repeat CMP and CBC (Adelaida Vitrano, RN) Datetime: 06/24/2016 18:47 Patient Position/Activity: Right Lateral; Peanut Ball (Adelaida Vitrano, RN) Datetime: 06/24/2016 18:46 Monitor Interventions for UA: IUPC Inserted (Adelaida Vitrano, RN) Datetime: 06/24/2016 18:45 Monitor Mode: External (Adelaida Vitrano, RN) Frequency (min): 2-4 (Adelaida Vitrano, RN) Quality: Moderate (Adelaida Vitrano, RN) Duration (sec): 60-80 (Adelaida Vitrano, RN) Duration Criteria: Less than Two 120 Second Contractions (Adelaida Vitrano, RN) Pattern: Normal: <= 5 Contractions in 10 Minutes (Adelaida Vitrano, RN) Resting Tone (Palpate): Relaxed (Adelaida Vitrano, RN) Monitor Mode: External US (Adelaida Vitrano, RN) FHR Baseline Rate : 135 (Adelaida Vitrano, RN) Variability: Moderate 6-25 bpm (Adeladia Vitrano, RN) Accelerations: 15X15 (Adelaida Vitrano, RN) Decelerations: None (Adelaida Vitrano, RN) Pitocin (milliunit): Pitocin Remains (milliunits) @ 18 (Adelaida Vitrano, RN) Datetime: 06/24/2016 18:44 Dilatation (cm): 4.0 (Adelaida Vitrano, RN) Effacement (%): 90 (Adelaida Vitrano, RN) Station: 0 (Adelaida Vitrano, RN) Exam by: Dr. Nava (Adelaida Vitrano, RN) Communication Comments: Dr. Nava at bedside to assess pt (Adelaida Vitrano, RN) Datetime: 06/24/2016 18:36 Patient Position/Activity: Right Lateral; Peanut Ball (Adelaida Vitrano, RN) Datetime: 06/24/2016 18:34 I/O Interventions: Popsicle (Adelaida Vitrano, RN) Patient Care Comments: States shortness of breath is relieved with position change (Adelaida Vitrano, RN) Datetime: 06/24/2016 18:33 NBP Sys/Lina/Mean (mmHg): 147 (QS system process) : 87 (QS system process) : 110 (QS system process) Pulse: 81 (QS system process) Respirations: 16 (Adelaida Vitrano, RN) Monitor Interventions for UA: [place] Adjusted (Adelaida Vitrano, RN) LaborFlag: Labor (QS system process) Datetime: 06/24/2016 18:32 Monitor Interventions for FHR: Ultrasound Adjusted (Adelaida Vitrano, RN) Datetime: 06/24/2016 18:30 Monitor Mode: External (Adelaida Vitrano, RN) Frequency (min): 1.5-2.5 (Adelaida Vitrano, RN) Quality: Moderate (Adelaida Vitrano, RN) Duration (sec): 50-70 (Adelaida Vitrano, RN) Duration Criteria: Less than Two 120 Second Contractions (Adelaida Vitrano, RN) Pattern: Normal: <= 5 Contractions in 10 Minutes (Adelaida Vitrano, RN) Resting Tone (Palpate): Relaxed (Adelaida Vitrano, RN) Monitor Mode: External US (Adelaida Vitrano, RN) FHR Baseline Rate : 130 (Adelaida Vitrano, RN) Variability: Moderate 6-25 bpm (Adelaida Vitrano, RN) Accelerations: None (Adelaida Vitrano, RN) Decelerations: None (Adelaida Vitrano, RN) Pitocin (milliunit): Pitocin Remains (milliunits) @ 18 (Adelaida Vitrano, RN) Patient Position/Activity: Right Lateral (Adelaida Vitrano, RN) Patient Care Comments: Pt complaining of light headedness and mild shortness of breath (Adelaida Vitrano, RN) Datetime: 06/24/2016 18:29 NBP Sys/Lina/Mean (mmHg): 143 (QS system process) : 86 (QS system process) : 110 (QS system process) Pulse: 78 (QS system process) Pulse: 69 (QS system process) Pulse: 83 (QS system process) Respirations: 16 (Adelaida Vitrano, RN) SpO2 (%): 97 (QS system process) SpO2 (%): 91 (QS system process) LaborFlag: Labor (QS system process) Datetime: 06/24/2016 18:20 NBP Sys/Lina/Mean (mmHg): 141 (QS system process) : 82 (QS system process) : 106 (QS system process) Pulse: 76 (QS system process) Respirations: 16 (Adelaida Vitrano, RN) LaborFlag: Labor (QS system process) Datetime: 06/24/2016 18:15 Monitor Mode: External (Adelaida Vitrano, RN) Frequency (min): 2-3 (Adelaida Vitrano, RN) Quality: Moderate (Adelaida Vitrano, RN) Duration (sec): 60-100 (Adelaida Vitrano, RN) Duration Criteria: Less than Two 120 Second Contractions (Adelaida Vitrano, RN) Pattern: Normal: <= 5 Contractions in 10 Minutes (Adelaida Vitrano, RN) Resting Tone (Palpate): Relaxed (Adelaida Vitrano, RN) Monitor Mode: External US (Adelaida Vitrano, RN) FHR Baseline Rate : 130 (Adelaida Vitrano, RN) Variability: Moderate 6-25 bpm (Adelaida Vitrano, RN) Accelerations: 10X10 (Adelaida Vitrano, RN) Decelerations: None (Adelaida Vitrano, RN) Pitocin (milliunit): Pitocin Remains (milliunits) @ 18 (Adelaida Vitrano, RN) Datetime: 06/24/2016 18:06 Monitor Interventions for UA: [place] Adjusted (Adelaida Gomez RN) Monitor Interventions for FHR: Ultrasound Adjusted (Adeliada Gomez RN) Patient Position/Activity: Left Tilt; Semi-Fowlers (Adelaida Gomez, RN) Patient Care Comments: Pt reporting nausea w position change, pt moved to semi fowlers (Adelaida Gomez, RN) Datetime: 06/24/2016 18:04 NBP Sys/Lina/Mean (mmHg): 157 (QS system process) : 83 (QS system process) : 109 (QS system process) Pulse: 90 (QS system process) Respirations: 16 (Adelaida Patricia, RN) LaborFlag: Labor (QS system process) Datetime: 06/24/2016 18:03 Patient Position/Activity: Tailors (Adelaida Vitrano, RN) Datetime: 06/24/2016 18:00 Monitor Mode: External; Palpation (Adelaida Vitrano, RN) Frequency (min): 2-3 (Adelaida Vitrano, RN) Quality: Moderate (Adelaida Vitrano, RN) Duration (sec): 60-80 (Adelaida Vitrano, RN) Duration Criteria: Less than Two 120 Second Contractions (Adelaida Vitrano, RN) Pattern: Normal: <= 5 Contractions in 10 Minutes (Adelaida Vitrano, RN) Resting Tone (Palpate): Relaxed (Adelaida Vitrano, RN) Monitor Mode: External US (Adelaida Vitrano, RN) FHR Baseline Rate : 125 (Adelaida Vitrano, RN) Variability: Moderate 6-25 bpm (Adelaida Vitrano, RN) Accelerations: 15X15 (Adelaida Vitrano, RN) Decelerations: None (Adelaida Vitrano, RN) Pitocin (milliunit): Pitocin Remains (milliunits) @ 18 (Adelaida Vitrano, RN) Datetime: 06/24/2016 17:49 NBP Sys/Lina/Mean (mmHg): 135 (QS system process) : 72 (QS system process) : 98 (QS system process) Pulse: 85 (QS system process) Respirations: 16 (Adelaida Vitrano, RN) LaborFlag: Labor (QS system process) Datetime: 06/24/2016 17:45 Monitor Mode: External; Palpation (Adelaida Vitrano, RN) Frequency (min): 2-3 (Adelaida Vitrano, RN) Quality: Moderate (Adelaida Vitrano, RN) Duration (sec): 60-90 (Adelaida Vitrano, RN) Duration Criteria: Less than Two 120 Second Contractions (Adelaida Vitrano, RN) Pattern: Normal: <= 5 Contractions in 10 Minutes (Adelaida Vitrano, RN) Resting Tone (Palpate): Relaxed (Adelaida Vitrano, RN) Monitor Mode: External US (Adelaida Vitrano, RN) FHR Baseline Rate : 125 (Adelaida Vitrano, RN) Variability: Moderate 6-25 bpm (Adelaida Vitrano, RN) Accelerations: 15X15 (Adelaida Vitrano, RN) Decelerations: None (Adelaida Vitrano, RN) Pitocin (milliunit): Pitocin Remains (milliunits) @ 18 (Adelaida Vitrano, RN) Datetime: 06/24/2016 17:33 NBP Sys/Lina/Mean (mmHg): 138 (QS system process) : 78 (QS system process) : 101 (QS system process) Pulse: 83 (QS system process) Respirations: 16 (Adelaida Vitrano, RN) LaborFlag: Labor (QS system process) Datetime: 06/24/2016 17:30 Monitor Mode: External; Palpation (Adelaida Vitrano, RN) Frequency (min): 1-5 (Adelaida Vitrano, RN) Quality: Mild/Moderate (Adelaida Vitrano, RN) Duration (sec): 60-90 (Adelaida Vitrano, RN) Duration Criteria: Less than Two 120 Second Contractions (Adelaida Vitrano, RN) Pattern: Normal: <= 5 Contractions in 10 Minutes (Adelaida Vitrano, RN) Resting Tone (Palpate): Relaxed (Adelaida Vitrano, RN) Monitor Mode: External US (Adelaida Vitrano, RN) FHR Baseline Rate : 130 (Adelaida Vitrano, RN) Variability: Moderate 6-25 bpm (Adelaida Vitrano, RN) Accelerations: 15X15 (Adelaida Vitrano, RN) Decelerations: None (Adelaida Vitrano, RN) Pitocin (milliunit): Pitocin Increased to (milliunits) @ 18 (Adelaida Vitrano, RN) Datetime: 06/24/2016 17:20 NBP Sys/Lina/Mean (mmHg): 127 (QS system process) : 74 (QS system process) : 96 (QS system process) Pulse: 86 (QS system process) Respirations: 16 (Adelaida Vitrano, RN) LaborFlag: Labor (QS system process) Datetime: 06/24/2016 17:15 Monitor Mode: External; Palpation (Adelaida Vitrano, RN) Frequency (min): 1.5-4 (Adelaidakirk Gomez, RN) Quality: Moderate (Adelaidakirk Gomez, RN) Duration (sec): 50-90 (Adelaida Patricia, RN) Duration Criteria: Less than Two 120 Second Contractions (Adelaidakirk Gomez, RN) Pattern: Normal: <= 5 Contractions in 10 Minutes (Adelaida Patricia, RN) Resting Tone (Palpate): Relaxed (Adelaida Gomez, RN) Monitor Mode: External US (Adelaida Gomez, RN) FHR Baseline Rate : 130 (Adelaidakirk Gomez, RN) Variability: Moderate 6-25 bpm (Adelaida Patricia, RN) Accelerations: 15X15 (Adelaida Patricia, RN) Decelerations: None (Adelaidakirk Gomez, RN) Pitocin (milliunit): Pitocin Increased to (milliunits) @ 16 (Adelaida Gomez, RN) Patient Care Comments: Denies needs, call penaloza w/in reach, family at bedside (Adelaida Gomez, ALBERT) Datetime: 06/24/2016 17:05 Monitor Interventions for UA: [place] Adjusted (Adelaida Gomez, RN) Monitor Interventions for FHR: Ultrasound Adjusted (Adelaida Gomez, RN) IV/Blood Work: IV Infusing per Order (Adelaida Gomez, RN) Patient Care Comments: 125 mL/hour (Adelaida Gomez, RN) Datetime: 06/24/2016 17:04 Monitor Interventions for FHR: Ultrasound Adjusted (Adelaida Vitrano, RN) Patient Position/Activity: Left Lateral (Adelaida Vitrano, RN) Datetime: 06/24/2016 17:03 NBP Sys/Lina/Mean (mmHg): 141 (QS system process) : 83 (QS system process) : 107 (QS system process) Pulse: 78 (QS system process) Respirations: 16 (Adelaida Vitrano, RN) LaborFlag: Labor (QS system process) Datetime: 06/24/2016 17:02 NBP Sys/Lina/Mean (mmHg): 151 (QS system process) : 91 (QS system process) : 116 (QS system process) Pulse: 80 (QS system process) Respirations: 16 (Adelaida Vitrano, RN) Anesthesia Level Check: T9 (Adelaida Gomez RN) LaborFlag: Labor (QS system process) Datetime: 06/24/2016 17:01 Pain Presence: None/Denies (Adelaida Gomez RN) Pain Type: N/A (Adelaida Gomez RN) I/O Interventions: Edwards Cath Inserted (Adelaida Gomez RN) Patient Care Comments: Clear urine draining (Adelaida Gomez RN) LaborFlag: Labor (QS system process) Datetime: 06/24/2016 17:00 NBP Sys/Lina/Mean (mmHg): 152 (QS system process) : 94 (QS system process) : 117 (QS system process) Pulse: 83 (QS system process) Respirations: 16 (Adelaida Gomez, RN) Monitor Mode: External; Palpation (Adelaida Gomez RN) Monitor Interventions for UA: [place] Adjusted (Adelaida Gomez, RN) Frequency (min): 3-4 (Adelaida Gomez RN) Quality: Mild/Moderate (Adelaida Vitrano, RN) Duration (sec): 50-70 (Adelaida Vitrano, RN) Duration Criteria: Less than Two 120 Second Contractions (Adelaida Vitrano, RN) Pattern: Normal: <= 5 Contractions in 10 Minutes (Adelaida Vitrano, RN) Resting Tone (Palpate): Relaxed (Adelaida Vitrano, RN) Monitor Mode: External US (Adelaida Vitrano, RN) FHR Baseline Rate : 130 (Adelaida Vitrano, RN) Variability: Moderate 6-25 bpm (Adelaida Vitrano, RN) Accelerations: 15X15 (Adelaida Vitrano, RN) Decelerations: None (Adelaida Vitrano, RN) Pitocin (milliunit): Pitocin Remains (milliunits) @ 14 (Adelaida Vitrano, RN) LaborFlag: Labor (QS system process) Datetime: 06/24/2016 16:59 NBP Sys/Lina/Mean (mmHg): 149 (QS system process) NBP Sys/Lina/Mean (mmHg): 143 (QS system process) : 91 (QS system process) : 82 (QS system process) : 114 (QS system process) : 106 (QS system process) Pulse: 83 (QS system process) Pulse: 78 (QS system process) Temperature (F): 98.5 (Adelaida Vitrano, RN) Temperature (C): 36.9 (QS system process) Temperature Route: Oral (Adelaida Vitrano, RN) LaborFlag: Labor (QS system process) Datetime: 06/24/2016 16:58 NBP Sys/Lina/Mean (mmHg): 152 (QS system process) : 88 (QS system process) : 114 (QS system process) Pulse: 77 (QS system process) LaborFlag: Labor (QS system process) Datetime: 06/24/2016 16:57 NBP Sys/Lina/Mean (mmHg): 159 (QS system process) : 95 (QS system process) : 121 (QS system process) Pulse: 73 (QS system process) LaborFlag: Labor (QS system process) Datetime: 06/24/2016 16:56 NBP Sys/Lina/Mean (mmHg): 156 (QS system process) : 87 (QS system process) : 113 (QS system process) Pulse: 85 (QS system process) Anesthesia Plans: Epidural (Adelaida Vitrano, RN) Epidural Procedure Other: Pump Started (Adelaida Vitrano, RN) LaborFlag: Labor (QS system process) Datetime: 06/24/2016 16:55 NBP Sys/Lina/Mean (mmHg): 152 (QS system process) : 83 (QS system process) : 111 (QS system process) Pulse: 83 (QS system process) LaborFlag: Labor (QS system process) Datetime: 06/24/2016 16:54 NBP Sys/Lina/Mean (mmHg): 147 (QS system process) : 81 (QS system process) : 108 (QS system process) Pulse: 78 (QS system process) LaborFlag: Labor (QS system process) Datetime: 06/24/2016 16:53 NBP Sys/Lina/Mean (mmHg): 156 (QS system process) : 83 (QS system process) : 114 (QS system process) Pulse: 82 (QS system process) IV/Blood Work: IV Infusing per Order; New IV Bag Hung (Adelaidakirk Gomez RN) Patient Care Comments: LR continues to bolus for epidural procedure (Adelaida Patricia, RN) Anesthesia Plans: Epidural (Adelaida Vitrano, RN) Epidural Procedure: Loading Dose (Adelaida Vitrano, RN) LaborFlag: Labor (QS system process) Datetime: 06/24/2016 16:52 NBP Sys/Lina/Mean (mmHg): 169 (QS system process) : 84 (QS system process) : 122 (QS system process) Pulse: 84 (QS system process) Pulse: 76 (QS system process) SpO2 (%): 100 (QS system process) Anesthesia Plans: Epidural (Adelaida Vitrano, RN) Epidural Procedure: Cath Placed (Adelaida Vitrano, RN) LaborFlag: Labor (QS system process) Datetime: 06/24/2016 16:51 Anesthesia Plans: Epidural (Adelaida Vitrano, RN) Epidural Procedure: Test Dose (Adelaida Vitrano, RN) Datetime: 06/24/2016 16:49 NBP Sys/Lina/Mean (mmHg): 173 (QS system process) : 88 (QS system process) : 121 (QS system process) Pulse: 88 (QS system process) LaborFlag: Labor (QS system process) Datetime: 06/24/2016 16:47 Pulse: 88 (QS system process) SpO2 (%): 100 (QS system process) LaborFlag: Labor (QS system process) Datetime: 06/24/2016 16:45 Monitor Mode: External (Adelaida Patricia, RN) Frequency (min): 2-4 (Adelaida Trinidadano, RN) Quality: Mild/Moderate (Adelaida Vitrano, RN) Duration (sec): 60-70 (Adelaida Vitrano, RN) Duration Criteria: Less than Two 120 Second Contractions (Adelaida Vitrano, RN) Pattern: Normal: <= 5 Contractions in 10 Minutes (Adelaida Vitrano, RN) Resting Tone (Palpate): Relaxed (Adelaida Trinidadano, RN) Monitor Mode: External US (Adelaida Patricia, RN) FHR Baseline Rate : 125 (Adelaida Vitrano, RN) Variability: Moderate 6-25 bpm (Adelaida Vitrano, RN) Accelerations: 15X15 (Adelaida Vitrano, RN) Decelerations: None (Adelaida Vitrano, RN) Pitocin (milliunit): Pitocin Remains (milliunits) @ 14 (Adelaidakirk Gomez, RN) Procedure Verify: Correct Patient Identity; Correct Side and Site are Marked; Accurate Procedure Consent Form; Agreement on Procedure to be Done; Correct Patient Position; Relevant Images and Results are Properly Labeled and Displayed; Addressed Need to Administer Antibiotics or Fluids for Irrigation; Safety Precautions Based on Patient History or Medication Use (Adelaida Gomez RN) Anesthesia Plans: Epidural (Adelaida Gomez RN) Anesthesia Comments: Dr. Flower at bedside for epidural (Adelaida Gomez RN)
--- NOTE | 2016-06-25 06:06 | L&D Discharge Summary ---
OB Discharge Summary Datetime Report Generated by CPN: 06/25/2016 04:45 DISCHARGE DIAGNOSIS Diagnosis/Symptoms: Hypertension Evaluation Diagnoses/Symptoms Other: History of Elevated BPs in ; Normotensive with Reactive NST Treatment/Procedures Other: Serial BPs Gestation: 38.2 Number of Babies in Womb: 1 Parity: 0 DIET/ACTIVITY/RESTRICTIONS Diet: Regular Activity: May Be Up to Bathroom; May Be Up for Meals; May Shower Activity Restrictions: No Exercising TEACHING/INSTRUCTIONS/REFERRALS Instructions Given To: pt Instructions Understood: Patient Verbalized Understanding Referrals: None Educational Materials- Other: term labor care notes DISCHARGE INFORMATION Discharged AMA: No Discharge Date/Time: 06/15/2016 15:40 Discharged To: Home Discharge Provider Name: Dr Nava Accompanied By: Discharge Method: Ambulatory Condition: Stable FOLLOW UP INFORMATION Follow Up With: [facility] Follow Up On: As Scheduled Follow Up Phone Number: [facility] - Comments: Pt discharged home for wnl vs, reactive nst, + movement, pt understands instructions and when to return to evaluation and to keep scheduled appointment. Instructed to rest and given note from work.
--- NOTE | 2016-06-25 06:24 | L&D Current Admission ---
Current Admit Datetime Report Generated by CPN: 06/25/2016 06:00 ADMISSION INFORMATION Person(s) Allowed during Admit: family (06/23/2016 20:25:Shahbaz Elmore RN) Current Admit Date/Time: 06/23/2016 20:25 (06/23/2016 20:25:Shahbaz Elmore RN) Reason for Admission: Induction of Labor (06/23/2016 20:25:Shahbaz Elmore RN) Chief Complaint: Scheduled Induction of Labor (06/24/2016 19:17:Maria A Crowe RN) Medications During : Vitamin; Rantidine (Zantac) (06/23/2016 20:25:Shahbaz Elmore RN) EGA per Dates: 38.1 (06/23/2016 20:25:QS system process) Method of Arrival: Ambulatory (06/23/2016 20:25:Shahbaz Elmore RN) Admitted From: Home (06/23/2016 20:25:Shahbaz Elmore RN) Reason for Induction: Gestational Hypertension (06/23/2016 20:25:Shahbaz Elmore RN) Records Available: Yes (06/23/2016 20:25:Shahbaz Elmore RN) General Admission Information: Reviewed (06/23/2016 20:25:Shahbaz Elmore RN) General Admission Reviewed By: Candida Elmore RN (06/23/2016 20:25:Shahbaz Elmore RN) BELONGINGS/ADVANCED DIRECTIVES Disposition of Belongings: Kept with Patient (06/23/2016 20:25:Shahbaz Elmore RN) Comments Regarding Disposition: see valuables consent form (06/23/2016 20:25:Shahbaz Elmore RN) Advance Direct for Healthcare: No, and Wants No Information (06/23/2016 20:25:Shahbaz Elmore RN) Durable Power of Front Office Director: No (06/23/2016 20:25:Shahbaz Elmore RN) Living Will: No (06/23/2016 20:25:Shahbaz Elmore RN) Organ Donor: Yes (06/23/2016 20:25:Shahbaz Elmore RN) Pt Rights Information Given: Yes (06/23/2016 20:25:Shahbaz Elmore RN) Pt Understands Pt Rights: Yes (06/23/2016 20:25:Shahbaz Elmore RN) LEARNING ASSESSMENT Knowledge Level: Understands L_D Process; Understands Care Activities; Had Pre-Hospital Education; Understands Diagnosis (06/23/2016 20:25:Shahbaz Elmore RN) Barriers to Learning: None (06/23/2016 20:25:Shahbaz Elmore RN) Learning Readiness: Motivated (06/23/2016 20:25:Shahbaz Elmore RN) Learns Best By: 1 to 1 Instruction; Reading; Videos; Group Discussion; Demonstration (06/23/2016 20:25:Shahbaz Elmore RN) Learning Needs: Labor and Delivery Process; Pain Management; Symptoms to Report; Treatment Plan; Medication; Diagnosis; Nutrition; Equipment; Care; Community Resources (06/23/2016 20:25:Shahbaz Elmore RN) DOMESTIC VIOLANCE SCREENING Dom Viol Threatened/Hurt: No (06/23/2016 20:25:Shahbaz Elmore RN) Hx of Abuse/Neglect past 2yrs: No (06/23/2016 20:25:Shahbaz Elmore RN) Feel Unsafe Going Home: No (06/23/2016 20:25:Shahbaz Elmore RN) Addt'l Observ Indicating Abuse: No (06/23/2016 20:25:Shahbaz Elomre RN) Reason Unable to Complete Screen: N/A, Screen Completed (06/23/2016 20:25:Shahbaz Elmore RN) Considered Personal Harm/Suicide: No (06/23/2016 20:25:Shahbaz Elmore RN) NUTRITIONAL/FUNCTIONAL SCREENING Problem with Appetite >5 Days: No (06/23/2016 20:25:Shahbaz Elmore RN) Chew/Swallow Difficulties: No (06/23/2016 20:25:Shahbaz Elmore RN) Inappropriate Wt Gain/Loss: No (06/23/2016 20:25:Shahbaz Elmore RN) Presence Skin Breakdown/Ulcer: No (06/23/2016 20:25:Shahbaz Elmore RN) Special Diet: No (06/23/2016 20:25:Shahbaz Elmore RN) Pt Requests Epic [facility] Visit: No (06/23/2016 20:25:Shahbaz Elmore RN) Hx of Any of the Following?: N/A (06/23/2016 20:25:Shahbaz Elmore RN) New Diagnosis of: N/A (06/23/2016 20:25:Shahbaz Elmore RN) Requires Assist w/Ambulation: No (06/23/2016 20:25:Shahbaz Elmore RN) Uses Assist Device to Ambulate: No (06/23/2016 20:25:Shahbaz Elmore RN) Pt Requires Help w/ADL's: No (06/23/2016 20:25:Shahbaz Elmore RN)
--- NOTE | 2016-06-25 06:24 | L&D General Admission ---
General Admit Datetime Report Generated by CPN: 06/25/2016 06:00 INFORMATION Patient Age: 31 (04/20/2016 02:55:QS system process) EDC: 07/06/2016 00:00 (04/20/2016 01:48:Janae Page RN) : 2 (04/20/2016 01:48:EN Marroquin) Para: 0 (06/15/2016 15:49:Serena Pearson RN) Term: 0 (04/20/2016 01:48:EN Marroquin) : 0 (04/20/2016 01:48:EN Marroquin) Spontaneous Abortions: 1 (04/20/2016 01:48:EN Marroquin) Induced Abortions: 0 (04/20/2016 01:48:EN Marroquin) Livin (04/20/2016 01:48:EN Marroquin) Cesareans: 0 (04/20/2016 01:48:EN Marroquin) VBACs: 0 (04/20/2016 01:48:EN Marroquin) Ectopic: 0 (04/20/2016 01:48:EN Marroquin) Multiple Births: 0 (04/20/2016 01:48:EN Marroquin) Baby, Number in Womb: 1 (06/15/2016 15:49:Serena Pearson RN) CARE Primary Aws Developer: [facility] (04/20/2016 01:48:Janae Page RN) Month of 1st Visit: 6 weeks (04/20/2016 01:48:Janae Page RN) Adequate Care: Yes (04/20/2016 01:48:Janae Page RN) Height (in): 68 (06/25/2016 02:03:QS system process) ALLERGIES Medication Allergy: Yes (04/20/2016 01:48:Janae Page RN) Medication Allergies: neomycin (06/10/2016); bacitracin (06/10/2016); metronidazole (06/10/2016); polymyxin B (06/10/2016) (06/10/2016 18:06:QS system process) Latex Allergy: No Latex Allergies (04/20/2016 01:48:Janae Page RN) COMMUNICATION Primary Language: Faroese (04/20/2016 01:48:Janae Page RN) Medical Tx Preferred Language: Faroese (04/20/2016 01:48:Janae Page RN) Communication Barrier(s): None (04/20/2016 01:48:Shahbaz Elmore RN) DEMOGRAPHICS Address: [address] [place] [id number] (04/20/2016 02:55:QS system process) Zipcode: [address] (04/20/2016 02:55:QS system process) Home (04/20/2016 02:55:QS system process) Work (04/20/2016 02:55:QS system process) SSN: [id number] (04/20/2016 02:55:QS system process) Next of Kin Name: DIVINA CHAUDHRY (05/05/2016 11:35:QS system process) Next of Kin (05/05/2016 11:35:QS system process) Next of Kin Relationship: OR (05/05/2016 11:35:QS system process) Date of : 1985 (04/20/2016 02:55:QS system process) Marital Status: Single (04/20/2016 02:55:QS system process) Sex: Female (04/20/2016 02:55:QS system process) Race: (04/20/2016 02:55:QS system process) Ethnicity: Non- or (04/20/2016 02:55:QS system process) Yazidism: None (04/20/2016 02:55:QS system process) DRUG AND ALCOHOL USE Alcohol: No (04/20/2016 01:48:Janae Page RN) Cigarettes: Current Everyday Smoker. [id number] (04/20/2016 01:48:Janae Page RN) Average Cigarettes Smoked: 5 - 10 per day (04/20/2016 01:48:Janae Page RN) Advised to Stop Smoking: Yes (04/20/2016 01:48:Janae Page RN) Marijuana: No (04/20/2016 01:48:Janae Page RN) Cocaine: No (04/20/2016 01:48:Janae Page RN) Other Illicit Drugs: No (04/20/2016 01:48:Janae Page RN) VACCINE HISTORY Influenza Vaccine: No (04/20/2016 01:48:Janae Page RN) Pneumococcal Vaccine: No (04/20/2016 01:48:Janae Page RN) Tetanus Vaccine: Yes (04/20/2016 01:48:Janae Page RN) Tetanus Date: 03/2016 (04/20/2016 01:48:EN Mehta) Tdap Vaccine: Yes (04/20/2016 01:48:EN Mehta) Tdap Date: 03/2016 (04/20/2016 01:48:EN Mehta) Hepatitis B Vaccine: Yes (04/20/2016 01:48:Janae Page RN) Director Health: [facility] (04/20/2016 01:48:Janae Page RN) Feeding Preference: Breast (04/20/2016 01:48:Maria A Crowe RN) Benefit of Breast Feed Discussed: Yes (04/20/2016 01:48:Shahbaz Elmore RN) Circumcision: Yes (04/20/2016 01:48:Janae Page RN) Classes Attended: No (04/20/2016 01:48:Janae Page RN) Tubal Ligation: No (04/20/2016 01:48:Janae Page RN) Tubal Authorization Signed: N/A (04/20/2016 01:48:Janae Page RN) Consent: N/A (04/20/2016 01:48:Janae Page RN) Consent Signed: N/A (04/20/2016 01:48:Janae Page RN) Pain Management Plans: Medications; Epidural (04/20/2016 01:48:Janae Page RN) Plans for Labor and Delivery: None (04/20/2016 01:48:Janae Page RN) Support Person: Jignesh Chaudhry (04/20/2016 01:48:Janae Page RN) Support Person Relationship: Significant Other (04/20/2016 01:48:Janae Page RN) Cultural/Spritual Practice: No (04/20/2016 01:48:Janae Page RN) Spir/Cult Dietary Needs: No (04/20/2016 01:48:Janae Page RN) LIVING SITUATION/DISCHARGE PLAN Living Arrangements: House (04/20/2016 01:48:Janae Page RN) Adequate Access to:: Electric; Heat; Refrigeration; Plumbing/Running water; Phone; Transportation (04/20/2016 01:48:Janae Page RN) WIC Program: No (04/20/2016 01:48:Janae Page RN) Discharge Photographic Laboratory Supervisor Person: Jignesh (04/20/2016 01:48:Janae Page RN) Person to Help after Discharge: Jignesh (04/20/2016 01:48:Janae Page RN) Currently Using Commun Resources: Yes (04/20/2016 01:48:Shahbaz Elmore RN) Specify Current Resource Used: Medicaid (04/20/2016 01:48:Janae Page RN) Outside Agency/Loading Unit Tool Setter: No (04/20/2016 01:48:Janae Page RN) Car Seat for Discharge: Yes (04/20/2016 01:48:Janae Page RN) Adoption Requested: No (04/20/2016 01:48:Janae Page RN) Pt Contact w/infant Post : N/A (04/20/2016 01:48:Janae Page RN) LABS Blood Type: O Positive (04/20/2016 01:48:Janae Page RN) Rho(G) this : Not Applicable (04/20/2016 01:48:Shahbaz Elmore RN) Hemoglobin: 9.7 L (06/24/2016 19:20:QS system process) Hematocrit: 29.3 L (06/24/2016 19:20:QS system process) MCV: 85 (06/24/2016 19:20:QS system process) Group Beta Strep: negative (04/20/2016 01:48:Shahbaz Elmore RN) Gonorrhea: Negative (04/20/2016 01:48:Shahbaz Elmore RN) Chlamydia: Negative (04/20/2016 01:48:Shahbaz Elmore RN) RPR/VDRL: Nonreactive (04/20/2016 01:48:Janae Page RN) HIV Exposure Test: Negative (04/20/2016 01:48:Janae Page RN) Hepatitis B: Negative (04/20/2016 01:48:Janae Page RN) Rubella: Immune (04/20/2016 01:48:Janae Page RN) OB/PREVIOUS HISTORY Previous Procedures: Ultrasound (04/20/2016 01:48:EN Mehta) Current Procedures: Ultrasound; NST (04/20/2016 01:48:EN Mehta) History of Previous : No (04/20/2016 01:48:Janae Page RN) History of Gestational Diabetes: No (04/20/2016 01:48:Janae Page RN) History of PIH: No (04/20/2016 01:48:Janae Page RN) History of Incompetent Cervix: No (04/20/2016 01:48:Janae Page RN) History of Placenta Previa/Abrup: No (04/20/2016 01:48:Janae Page RN) History of Macrosomia: No (04/20/2016 01:48:Janae Page RN) History of IUGR: No (04/20/2016 01:48:Janae Page RN) History of Hemorrhage: No (04/20/2016 01:48:Janae Page RN) History of Loss/Stillborn: No (04/20/2016 01:48:Janae Page RN) History of : No (04/20/2016 01:48:Janae Page RN) History of D (Rh) Sensitization: No (04/20/2016 01:48:Janae Page RN) History Recurrent Loss/Stillborn: No (04/20/2016 01:48:Janae Page RN) History Depression/PP Depression: No (04/20/2016 01:48:Janae Page RN) History of Uterine Anomaly/KEVIN: No (04/20/2016 01:48:Janae Page RN) History of Infertility: No (04/20/2016 01:48:Janae Page RN) History of ART Treatment: No (04/20/2016 01:48:Janae Page RN) History of KEVIN: No (04/20/2016 01:48:Janae Page RN) Comments Obstetrical History: G1- 2010 5 week SAB G2- current - first trimester spotting, sob and severe GERD (04/20/2016 01:48:EN Mehta) MEDICAL HISTORY Med Hx Diabetes: No (04/20/2016 01:48:Janae Page RN) Med Hx Hypertension: No (04/20/2016 01:48:Janae Page RN) Med Hx Heart Disease: No (04/20/2016 01:48:Janae Page RN) Med Hx Autoimmune Disorder: No (04/20/2016 01:48:Janae Page RN) Med Hx Kidney Disease/UTI: No (04/20/2016 01:48:Janae Page RN) Med Hx Neurologic/Epilepsy: No (04/20/2016 01:48:Janae aPge RN) Med Hx Psychiatric Disorders: No (04/20/2016 01:48:Janae Page RN) Med Hx Hepatitis/Liver Disease: No (04/20/2016 01:48:Janae Page RN) Med Hx Varicosities/Phlebitis: No (04/20/2016 01:48:Janae Page RN) Med Hx Thyroid Dysfunction: No (04/20/2016 01:48:Janae Page RN) Med Hx Trauma/Violence: No (04/20/2016 01:48:Janae Page RN) Med Hx Blood Transfusion: No (04/20/2016 01:48:Janae Page RN) Med Hx Pulmonary (Asthma,TB): No (04/20/2016 01:48:Janae Page RN) Med Hx Breast: No (04/20/2016 01:48:Janae Page RN) Med Hx BACKUP SAWYER Surgery: No (04/20/2016 01:48:Janae Page RN) Med Hx Hospitalization/Surgery: No (04/20/2016 01:48:Janae Page RN) Med Hx Anesthetic Complications: No (04/20/2016 01:48:Janae Page RN) Med Hx Abnormal Pap Smear: Yes (04/20/2016 01:48:Janae Page RN) Other Medical Diseases: No (04/20/2016 01:48:Janae Page RN) Med Hx Significant Family Hx: No (04/20/2016 01:48:Janae Page RN) Details of Med/Surg Hx: Abnormal pap 10 years ago with colposcopy (04/20/2016 01:48:Janae Page RN) INFECTIOUS HISTORY Inf Hx Gonorrhea: No (04/20/2016 01:48:Janae Page RN) Inf Hx Chlamydia: No (04/20/2016 01:48:Janae Page RN) Inf Hx Syphilis: No (04/20/2016 01:48:Janae Page RN) Inf Hx HIV/AIDS: No (04/20/2016 01:48:Janae Page RN) Inf Hx Human Papilloma Virus: No (04/20/2016 01:48:Janae Page RN) Inf Hx Pt/Partner Genital Herpes: No (04/20/2016 01:48:Janae Page RN) Inf Hx Tuberculosis/Exposure: No (04/20/2016 01:48:Janae Page RN) Inf Hx Hepatitis B,C: No (04/20/2016 01:48:Janae Page RN) Inf Hx Rash or Viral Illness: No (04/20/2016 01:48:Janae Page RN) GENETIC HISTORY Gen Hx Age >=35 at DEEP: No (04/20/2016 01:48:Adelaida Gomez RN) Gen Hx Thalassemia: No (04/20/2016 01:48:Janae Page RN) Gen Hx Congenital Heart Defect: No (04/20/2016 01:48:Janae Page RN) Gen Hx Neural Tube Defect: No (04/20/2016 01:48:Janae Page RN) Gen Hx Down's Syndrome: No (04/20/2016 01:48:Janae Page RN) Gen Hx Barney-Sachs: No (04/20/2016 01:48:Janae Page RN) Gen Hx Trupti: No (04/20/2016 01:48:Janae Page RN) Gen Hx Familial Dysautonomia: No (04/20/2016 01:48:Janae Page RN) Gen Hx Sickle Cell Disease/Trait: No (04/20/2016 01:48:Janae Page RN) Gen Hx Hemophilia/Blood Disorder: No (04/20/2016 01:48:Janae Page RN) Gen Hx Muscular Dystrophy: No (04/20/2016 01:48:Janae Page RN) Gen Hx Cystic Fibrosis: No (04/20/2016 01:48:Janae Page RN) Gen Hx Huntingtons Chorea: No (04/20/2016 01:48:Janae Page RN) Gen Hx Mental Retardation/Autism: No (04/20/2016 01:48:Janae Page RN) Gen Hx Tested for Fragile X: No (04/20/2016 01:48:Janae Page RN) Gen Hx Other Inher/Chromosomal: No (04/20/2016 01:48:Janae Page RN) Gen Hx Maternal Metabolic DO: No (04/20/2016 01:48:Janae Page RN) Gen Hx Pt Father or FOB Defect: No (04/20/2016 01:48:Janae Page RN) Gen Hx Other Genetic History: No (04/20/2016 01:48:Janae Page RN) Gen Hx Drugs/Meds since LMP: Yes (04/20/2016 01:48:Janae Page RN) Gen Hx Medications: PNV, and zantac PRN (04/20/2016 01:48:Janae Page RN)
--- NOTE | 2016-06-25 07:01 | L&D Flow Sheet ---
LD Flowsheet Datetime Report Generated by CPN: 06/25/2016 07:00 Datetime: 06/25/2016 01:33 NBP Sys/Lina/Mean (mmHg): 136 (QS system process) : 78 (QS system process) : 100 (QS system process) Pulse: 79 (QS system process) Datetime: 06/25/2016 01:18 NBP Sys/Lina/Mean (mmHg): 144 (QS system process) : 81 (QS system process) : 107 (QS system process) Pulse: 82 (QS system process) Datetime: 06/25/2016 01:03 NBP Sys/Lina/Mean (mmHg): 120 (QS system process) : 69 (QS system process) : 90 (QS system process) Pulse: 86 (QS system process) Datetime: 06/25/2016 00:48 NBP Sys/Lina/Mean (mmHg): 140 (QS system process) : 74 (QS system process) : 101 (QS system process) Pulse: 82 (QS system process) Datetime: 06/25/2016 00:33 NBP Sys/Lina/Mean (mmHg): 143 (QS system process) : 74 (QS system process) : 102 (QS system process) Pulse: 85 (QS system process) Datetime: 06/25/2016 00:18 NBP Sys/Lina/Mean (mmHg): 134 (QS system process) : 72 (QS system process) : 96 (QS system process) Pulse: 82 (QS system process) Datetime: 06/25/2016 00:03 NBP Sys/Lina/Mean (mmHg): 132 (QS system process) : 63 (QS system process) : 90 (QS system process) Pulse: 90 (QS system process) Datetime: 06/24/2016 23:48 NBP Sys/Lina/Mean (mmHg): 131 (QS system process) : 61 (QS system process) : 88 (QS system process) Pulse: 95 (QS system process) Respirations: 14 (Maria A Ledgerwood, RN) Datetime: 06/24/2016 23:40 Stage of : Recovery (Franciscan Healthgerwood, RN) Temperature (F): 98.1 (Maria A Ledgerwood, RN) Temperature (C): 36.7 (QS system process) Temperature Route: Oral (Franciscan Healthgerwood, RN) Pain Scale: 2 (Maria A Ledgerwood, RN) Pain Presence: Constant (Maria A Ledgerwood, RN) Pain Type: Burning (Maria A Ledgerwood, RN) Pain Location: Perineum (Maria A Ledgerwood, RN) Datetime: 06/24/2016 23:33 NBP Sys/Lina/Mean (mmHg): 138 (QS system process) : 59 (QS system process) : 85 (QS system process) Pulse: 102 (QS system process) LaborFlag: Labor (QS system process) Datetime: 06/24/2016 23:25 Stage 2 Comments: of vital male baby. (Maria A Ledgerwood, RN) Datetime: 06/24/2016 23:24 Communication Comments: head out (Sofia Igor, RN) Datetime: 06/24/2016 23:21 Preparation for Delivery: IUPC Removed Intact (Maria A Ledgerwood, RN) Communication Comments: kiwi applied (Sofia Costa, RN) Datetime: 06/24/2016 23:15 Monitor Mode: Internal (Maria A Ledgerwood, RN) Frequency (min): 1.5-3.5 (Maria A Ledgerwood, RN) Quality: Moderate to Strong (Maria A Ledgerwood, RN) Duration (sec): 60-70 (Maria A Ledgerwood, RN) Duration Criteria: Less than Two 120 Second Contractions (Maria A Ledgerwood, RN) Pattern: Normal: <= 5 Contractions in 10 Minutes (Maria A Ledgerwood, RN) Resting Tone (Palpate): Relaxed (Maria A Ledgerwood, RN) Monitor Mode: External US (Maria A Ledgerwood, RN) FHR Baseline Rate : 155 (Maria A Ledgerwood, RN) FHR Baseline Changes: No Baseline Change (Maria A Ledgerwood, RN) Variability: Moderate 6-25 bpm (Maria A Ledgerwood, RN) Accelerations: 10X10 (Maria A Ledgerwood, RN) Decelerations: Early (Maria A Ledgerwood, RN) Pitocin (milliunit): Pitocin Remains (milliunits) @ 18 (Maria A Ledgerwood, RN) Datetime: 06/24/2016 23:13 Pushing Progress: Pushing Effectively with Contractions (Maria A Ledgerwood, RN) Datetime: 06/24/2016 23:04 Pushing Position: Pushing Lithotomy (Maria A Ledgerwood, RN) Pushing Progress: Caput Noted; Pushing Effectively with Contractions (Maria A Ledgerwood, RN) Datetime: 06/24/2016 23:03 NBP Sys/Lina/Mean (mmHg): 138 (QS system process) : 65 (QS system process) : 94 (QS system process) Pulse: 73 (QS system process) LaborFlag: Labor (QS system process) Datetime: 06/24/2016 23:00 Monitor Mode: Internal (Maria A Ledgerwood, RN) Frequency (min): 1.5-3 (Maria A Ledgerwood, RN) Quality: Moderate to Strong (Maria A Ledgerwood, RN) Duration (sec): 60-70 (Maria A Ledgerwood, RN) Duration Criteria: Less than Two 120 Second Contractions (Maria A Ledgerwood, RN) Pattern: Normal: <= 5 Contractions in 10 Minutes (Maria A Ledgerwood, RN) Resting Tone (Palpate): Relaxed (Maria A Ledgerwood, RN) Monitor Mode: External US (Maria A Ledgerwood, RN) FHR Baseline Rate : 140 (Maria A Ledgerwood, RN) FHR Baseline Changes: No Baseline Change (Maria A Ledgerwood, RN) Variability: Moderate 6-25 bpm (Maria A Ledgerwood, RN) Accelerations: 15X15 (Maria A Ledgerwood, RN) Decelerations: Early (Maria A Ledgerwood, RN) Pitocin (milliunit): Pitocin Remains (milliunits) @ 18 (Maria A Ledgerwood, RN) Datetime: 06/24/2016 22:57 Temperature (F): 99.0 (Maria A Ledgerwood, RN) Temperature (C): 37.2 (QS system process) Pushing Position: Pushing with Contractions (Maria A Ledgerwood, RN) Pushing Progress: Pushing Effectively with Contractions (Maria A Crowe RN) Stage 2 Comments: RN and provider at bedside continuously assessing FHRs while pt. pushing with contractions. (Maria A Crowe RN) LaborFlag: Labor (QS system process) Datetime: 06/24/2016 22:50 NBP Sys/Lina/Mean (mmHg): 109 (QS system process) : 59 (QS system process) : 81 (QS system process) Pulse: 81 (QS system process) LaborFlag: Labor (QS system process) Datetime: 06/24/2016 22:49 NBP Sys/Lina/Mean (mmHg): 180 (QS system process) : 112 (QS system process) : 138 (QS system process) Pulse: 133 (QS system process) LaborFlag: Labor (QS system process) Datetime: 06/24/2016 22:45 Monitor Mode: Internal (Maria A Ledgerwood, RN) Frequency (min): 2-3.5 (Maria A Ledgerwood, RN) Quality: Moderate to Strong (Maria A Ledgerwood, RN) Duration (sec): 60-70 (Maria A Ledgerwood, RN) Duration Criteria: Less than Two 120 Second Contractions (Maria A Ledgerwood, RN) Pattern: Normal: <= 5 Contractions in 10 Minutes (Maria A Ledgerwood, RN) Resting Tone (Palpate): Relaxed (Maria A Ledgerwood, RN) Monitor Mode: External US (Maria A Ledgerwood, RN) FHR Baseline Rate : 130 (Maria A Ledgerwood, RN) FHR Baseline Changes: No Baseline Change (Maria A Ledgerwood, RN) Variability: Moderate 6-25 bpm (Maria A Ledgerwood, RN) Accelerations: 10X10 (Maria A Ledgerwood, RN) Decelerations: Early (Maria A Ledgerwood, RN) Pitocin (milliunit): Pitocin Remains (milliunits) @ 18 (Maria A Ledgerwood, RN) Datetime: 06/24/2016 22:44 Patient Care Comments: Oxygen mask on (Maria A Ledgerwood, RN) Datetime: 06/24/2016 22:33 NBP Sys/Lina/Mean (mmHg): 145 (QS system process) : 68 (QS system process) : 98 (QS system process) Pulse: 74 (QS system process) LaborFlag: Labor (QS system process) Datetime: 06/24/2016 22:30 Monitor Mode: Internal (Maria A Crowe, RN) Frequency (min): 2-3 (Maria A Leddonna, RN) Quality: Moderate to Strong (Maria A Ledgerwood, RN) Duration (sec): 50-60 (Maria A Ledgerwood, RN) Duration Criteria: Less than Two 120 Second Contractions (Maria A Ledgerwood, RN) Pattern: Normal: <= 5 Contractions in 10 Minutes (Maria A Ledgerwood, RN) Resting Tone (Palpate): Relaxed (Maria A Ledgerwood, RN) Contraction Comments: pt is pushing (Maria A Crowe, RN) Monitor Mode: External US (Maria A Crowe, RN) FHR Baseline Rate : 120 (Maria A Ashleygernathalie, RN) FHR Baseline Changes: No Baseline Change (Maria A Ledgerwood, RN) Variability: Moderate 6-25 bpm (Maria A Ledgerwood, RN) Accelerations: 15X15 (Maria A Ashleygerwood, RN) Pitocin (milliunit): Pitocin Remains (milliunits) @ 18 (Maria A Ashleygerwood, RN) Datetime: 06/24/2016 22:23 Pushing: Urge to Push (Maria A Colonwood, RN) Pushing Position: Pushing with Contractions (Maria A Colonwood, RN) Datetime: 06/24/2016 22:18 NBP Sys/Lina/Mean (mmHg): 144 (QS system process) : 89 (QS system process) : 111 (QS system process) Pulse: 85 (QS system process) LaborFlag: Labor (QS system process) Datetime: 06/24/2016 22:16 Pushing: Coached on Pushing; Urge to Push (Maria A Crowe, RN) Datetime: 06/24/2016 22:15 Monitor Mode: External; Palpation (Maria A Crowe, ALBERT) Frequency (min): 1.5-3.5 (Maria A Crowe, RN) Quality: Moderate to Strong (Maria A Crowe, RN) Duration (sec): 60-70 (Maria A Crowe, RN) Duration Criteria: Less than Two 120 Second Contractions (Maria A Crowe, RN) Pattern: Normal: <= 5 Contractions in 10 Minutes (Maria A Crowe, RN) Resting Tone (Palpate): Relaxed (Maria A Crowe, RN) Monitor Mode: External US (Maria A Crowe, RN) FHR Baseline Rate : 135 (Maria A Crowe, RN) FHR Baseline Changes: No Baseline Change (Maria A Ramirezgernathalie, RN) Variability: Moderate 6-25 bpm (Maria A Ramirezgernathalie, RN) Accelerations: 15X15 (Maria A Ramirezgernathalie, RN) Decelerations: Early (Maria A Crowe, RN) Pitocin (milliunit): Pitocin Remains (milliunits) @ 18 (Maria A Crowe, RN) Communication: Provider at Bedside (Maria A Crowe, RN) Communication Comments: Dr Nava at bedside (Maria A Crowe, ALBERT) Datetime: 06/24/2016 22:11 Dilatation (cm): 10.0 (Maria A Ledgerwood, RN) Effacement (%): 100 (Maria A Ledgerwood, RN) Station: 1 (Maria A Ledgerwood, RN) Exam by: O Ledgerwood RN (Maria A Ledgerwood, RN) Datetime: 06/24/2016 22:03 NBP Sys/Lina/Mean (mmHg): 139 (QS system process) : 79 (QS system process) : 102 (QS system process) Pulse: 82 (QS system process) LaborFlag: Labor (QS system process) Datetime: 06/24/2016 22:00 Monitor Mode: Internal (Maria A Ledgerwood, RN) Frequency (min): 2.5-3.5 (Maria A Ledgerwood, RN) Quality: Moderate (Maria A Ledgerwood, RN) Duration (sec): 6-70 (Maria A Ledgerwood, RN) Duration Criteria: Less than Two 120 Second Contractions (Maria A Ledgerwood, RN) Pattern: Normal: <= 5 Contractions in 10 Minutes (Maria A Ledgerwood, RN) Resting Tone (Palpate): Relaxed (Maria A Ledgerwood, RN) Resting Tone IUP (mmHg): 25 (Maria A Ledgerwood, RN) Intensity IUP (mmHg): 80 (Maria A Ledgerwood, RN) Contraction Comments: MVUs 220 (Maria A Ledgerwood, RN) Monitor Mode: External US (Maria A Ledgerwood, RN) FHR Baseline Rate : 140 (Maria A Ledgerwood, RN) FHR Baseline Changes: No Baseline Change (Maria A Ledgerwood, RN) Variability: Moderate 6-25 bpm (Maria A Ledgerwood, RN) Accelerations: 10X10 (Maria A Ledgerwood, RN) Decelerations: Early (Maria A Ledgerwood, RN) Pitocin (milliunit): Pitocin Remains (milliunits) @ 18 (Maria A Ledgerwood, RN) Datetime: 06/24/2016 21:48 NBP Sys/Lina/Mean (mmHg): 139 (QS system process) : 77 (QS system process) : 102 (QS system process) Pulse: 86 (QS system process) LaborFlag: Labor (QS system process) Datetime: 06/24/2016 21:45 Monitor Mode: Internal (Maria A Ledgerwood, RN) Frequency (min): 1.5-3.5 (Maria A Ledgerwood, RN) Quality: Moderate (Maria A Ledgerwood, RN) Duration (sec): 60-70 (Maria A Ledgerwood, RN) Duration Criteria: Less than Two 120 Second Contractions (Maria A Ledgerwood, RN) Pattern: Normal: <= 5 Contractions in 10 Minutes (Maria A Ledgerwood, RN) Resting Tone (Palpate): Relaxed (Maria A Ledgerwood, RN) Monitor Mode: External US (Maria A Ledgerwood, RN) FHR Baseline Rate : 135 (Maria A Ledgerwood, RN) FHR Baseline Changes: No Baseline Change (Maria A Ledgerwood, RN) Variability: Moderate 6-25 bpm (Maria A Ledgerwood, RN) Accelerations: 15X15 (Maria A Ledgerwood, RN) Decelerations: Early (Maria A Ledgerwood, RN) Pitocin (milliunit): Pitocin Remains (milliunits) @ 18 (Maria A Ledgerwood, RN) Datetime: 06/24/2016 21:33 NBP Sys/Lina/Mean (mmHg): 131 (QS system process) : 76 (QS system process) : 100 (QS system process) Pulse: 81 (QS system process) LaborFlag: Labor (QS system process) Datetime: 06/24/2016 21:30 Monitor Mode: Internal (Maria A Ledgerwood, RN) Frequency (min): 1.5-3.5 (Maria A Ledgerwood, RN) Quality: Moderate (Maria A Ledgerwood, RN) Duration (sec): 60-70 (Maria A Ledgerwood, RN) Duration Criteria: Less than Two 120 Second Contractions (Maria A Ledgerwood, RN) Pattern: Normal: <= 5 Contractions in 10 Minutes (Maria A Ledgerwood, RN) Resting Tone (Palpate): Relaxed (Maria A Ledgerwood, RN) Monitor Mode: External US (Maria A Ledgerwood, RN) FHR Baseline Rate : 130 (Maria A Ledgerwood, RN) FHR Baseline Changes: No Baseline Change (Maria A Ledgerwood, RN) Variability: Moderate 6-25 bpm (Maria A Ledgerwood, RN) Accelerations: 15X15 (Maria A Ledgerwood, RN) Decelerations: Early (Maria A Ledgerwood, RN) Pitocin (milliunit): Pitocin Remains (milliunits) @ 18 (Maria A Ledgerwood, RN) Datetime: 06/24/2016 21:18 NBP Sys/Lina/Mean (mmHg): 146 (QS system process) : 84 (QS system process) : 110 (QS system process) Pulse: 80 (QS system process) Respirations: 15 (Maria A Ledgerwood, RN) LaborFlag: Labor (QS system process) Datetime: 06/24/2016 21:15 Monitor Mode: Internal (Maria A Ledgerwood, RN) Frequency (min): 1.5-3.5 (Maria A Ledgerwood, RN) Quality: Moderate (Maria A Ledgerwood, RN) Duration (sec): 60-70 (Maria A Ledgerwood, RN) Duration Criteria: Less than Two 120 Second Contractions (Maria A Ledgerwood, RN) Pattern: Normal: <= 5 Contractions in 10 Minutes (Maria A Ledgerwood, RN) Resting Tone (Palpate): Relaxed (Maria A Ledgerwood, RN) Monitor Mode: External US (Maria A Ledgerwood, RN) FHR Baseline Rate : 135 (Maria A Ledgerwood, RN) FHR Baseline Changes: No Baseline Change (Maria A Ledgerwood, RN) Variability: Moderate 6-25 bpm (Maria A Ledgerwood, RN) Accelerations: 15X15 (Maria A Ledgerwood, RN) Decelerations: Early (Maria A Ledgerwood, RN) Pitocin (milliunit): Pitocin Remains (milliunits) @ 18 (Maria A Ramirezgerwood, RN) Datetime: 06/24/2016 21:08 Dilatation (cm): 9.0 (Maria A Ramirezgerwood, RN) Effacement (%): 90 (Maria A Crowe, RN) Station: 1 (Maria A Crowe, RN) Exam by: Dante Crowe RN (Maria A Colonwood, RN) Datetime: 06/24/2016 21:05 Patient Care Comments: pt notified nurse of some pressure and bleeding. (Maria A Ramirezgerwood, RN) Datetime: 06/24/2016 21:03 NBP Sys/Lina/Mean (mmHg): 142 (QS system process) : 76 (QS system process) : 103 (QS system process) Pulse: 75 (QS system process) LaborFlag: Labor (QS system process) Datetime: 06/24/2016 21:00 Monitor Mode: Internal (Maria A Ashleygernathalie, RN) Frequency (min): 2-4 (Maria A Ledgerwood, RN) Quality: Mild/Moderate (Maria A Ledgerwood, RN) Duration (sec): 60-70 (Maria A Ledgerwood, RN) Duration Criteria: Less than Two 120 Second Contractions (Maria A Ledgerwood, RN) Pattern: Normal: <= 5 Contractions in 10 Minutes (Maria A Ledgerwood, RN) Resting Tone (Palpate): Relaxed (Maria A Ledgerwood, RN) Resting Tone IUP (mmHg): 30 (Maria A Ledgerwood, RN) Intensity IUP (mmHg): 90 (Maria A Ledgerwood, RN) Contraction Comments: MVUs 230 (Maria A Ledgerwood, RN) Monitor Mode: External US (Maria A Ledgerwood, RN) FHR Baseline Rate : 135 (Maria A Ledgerwood, RN) FHR Baseline Changes: No Baseline Change (Maria A Ledgerwood, RN) Variability: Moderate 6-25 bpm (Maria A Ledgerwood, RN) Accelerations: 10X10 (Maria A Ledgerwood, RN) Decelerations: Early (Maria A Ledgerwood, RN) Pitocin (milliunit): Pitocin Remains (milliunits) @ 18 (Maria A Ledgerwood, RN) Datetime: 06/24/2016 20:48 NBP Sys/Lina/Mean (mmHg): 133 (QS system process) : 79 (QS system process) : 101 (QS system process) Pulse: 81 (QS system process) LaborFlag: Labor (QS system process) Datetime: 06/24/2016 20:45 Monitor Mode: Internal (Maria A Crowe, RN) Frequency (min): 1.5-3.5 (Maria A Ledgernathalie, RN) Quality: Mild/Moderate (Maria A Ledgerwood, RN) Duration (sec): 60-70 (Maria A Ledgerwood, RN) Duration Criteria: Less than Two 120 Second Contractions (Maria A Ledgerwood, RN) Pattern: Normal: <= 5 Contractions in 10 Minutes (Maria A Ledgerwood, RN) Resting Tone (Palpate): Relaxed (Maria A Ashleygerwood, RN) Monitor Mode: External US (Maria A Crowe, RN) FHR Baseline Rate : 135 (Maria A Crowe, RN) FHR Baseline Changes: No Baseline Change (Maria A Ledgerwood, RN) Variability: Moderate 6-25 bpm (Maria A Ledgerwood, RN) Accelerations: 15X15 (Maria A Ledgerwood, RN) Decelerations: Early (Maria A Ledgerwood, RN) Pitocin (milliunit): Pitocin Remains (milliunits) @ 18 (Maria A Ledgerwood, RN) Datetime: 06/24/2016 20:34 NBP Sys/Lina/Mean (mmHg): 132 (QS system process) : 70 (QS system process) : 94 (QS system process) Pulse: 77 (QS system process) LaborFlag: Labor (QS system process) Datetime: 06/24/2016 20:30 Monitor Mode: Internal (Maria A Ledgerwood, RN) Frequency (min): 2.5-3.5 (Maria A Ledgerwood, RN) Quality: Mild/Moderate (Maria A Ledgerwood, RN) Duration (sec): 50-70 (Maria A Ledgerwood, RN) Duration Criteria: Less than Two 120 Second Contractions (Maria A Ledgerwood, RN) Pattern: Normal: <= 5 Contractions in 10 Minutes (Maria A Ledgerwood, RN) Resting Tone (Palpate): Relaxed (Maria A Ledgerwood, RN) Monitor Mode: External US (Maria A Ledgerwood, RN) FHR Baseline Rate : 130 (Maria A Ledgerwood, RN) FHR Baseline Changes: No Baseline Change (Maria A Ledgerwood, RN) Variability: Moderate 6-25 bpm (Maria A Ledgerwood, RN) Accelerations: 15X15 (Maria A Ledgerwood, RN) Decelerations: None (Maria A Ledgerwood, RN) Pitocin (milliunit): Pitocin Remains (milliunits) @ 18 (Maria A Ledgerwood, RN) Datetime: 06/24/2016 20:18 NBP Sys/Lina/Mean (mmHg): 134 (QS system process) : 73 (QS system process) : 98 (QS system process) Pulse: 82 (QS system process) LaborFlag: Labor (QS system process) Datetime: 06/24/2016 20:15 Monitor Mode: External; Palpation (Maria A Ledgerwood, RN) Frequency (min): 1.5-3.5 (Maria A Ledgerwood, RN) Quality: Mild/Moderate (Maria A Ledgerwood, RN) Duration (sec): 60-70 (Maria A Ledgerwood, RN) Duration Criteria: Less than Two 120 Second Contractions (Maria A Ledgerwood, RN) Pattern: Normal: <= 5 Contractions in 10 Minutes (Maria A Ledgerwood, RN) Resting Tone (Palpate): Relaxed (Maria A Ledgerwood, RN) Monitor Mode: External US (Maria A Ledgerwood, RN) FHR Baseline Rate : 135 (Maria A Ledgerwood, RN) FHR Baseline Changes: No Baseline Change (Maria A Ledgerwood, RN) Variability: Moderate 6-25 bpm (Maria A Ledgerwood, RN) Accelerations: 10X10 (Maria A Ledgerwood, RN) Decelerations: None (Maria A Ledgerwood, RN) Pitocin (milliunit): Pitocin Remains (milliunits) @ 18 (Maria A Ledgerwood, RN) Datetime: 06/24/2016 20:12 Patient Position/Activity: Left Extreme (Maria A Ledgerwood, RN) Datetime: 06/24/2016 20:03 NBP Sys/Lina/Mean (mmHg): 132 (QS system process) : 84 (QS system process) : 102 (QS system process) Pulse: 74 (QS system process) LaborFlag: Labor (QS system process) Datetime: 06/24/2016 20:00 Monitor Mode: Internal (Maria A Ledgerwood, RN) Frequency (min): 2.5-3 (Maria A Ledgerwood, RN) Quality: Mild/Moderate (Maria A Ledgerwood, RN) Duration (sec): 60-70 (Maria A Ledgerwood, RN) Duration Criteria: Less than Two 120 Second Contractions (Maria A Ledgerwood, RN) Pattern: Normal: <= 5 Contractions in 10 Minutes (Maria A Ledgerwood, RN) Resting Tone (Palpate): Relaxed (Maria A Ledgerwood, RN) Resting Tone IUP (mmHg): 20 (Maria A Ledgerwood, RN) Intensity IUP (mmHg): 75 (Maria A Ledgerwood, RN) Contraction Comments: MVU 250 (Maria A Ledgerwood, RN) Monitor Mode: External US (Maria A Ledgerwood, RN) FHR Baseline Rate : 135 (Maria A Ledgerwood, RN) FHR Baseline Changes: No Baseline Change (Maria A Ledgerwood, RN) Variability: Moderate 6-25 bpm (Maria A Ledgerwood, RN) Accelerations: 10X10 (Maria A Ledgerwood, RN) Decelerations: None (Maria A Ledgerwood, RN) Datetime: 06/24/2016 19:50 NBP Sys/Lina/Mean (mmHg): 148 (QS system process) : 87 (QS system process) : 110 (QS system process) Pulse: 82 (QS system process) LaborFlag: Labor (QS system process) Datetime: 06/24/2016 19:45 Monitor Mode: External; Palpation (Maria A Ledgerwood, RN) Frequency (min): 2-2.5 (Maria A Ledgerwood, RN) Quality: Mild (Maria A Ledgerwood, RN) Duration (sec): 60-70 (Maria A Ledgerwood, RN) Duration Criteria: Less than Two 120 Second Contractions (Maria A Ledgerwood, RN) Pattern: Normal: <= 5 Contractions in 10 Minutes (Maria A Ledgerwood, RN) Resting Tone (Palpate): Relaxed (Maria A Ledgerwood, RN) Monitor Mode: External US (Maria A Ledgerwood, RN) FHR Baseline Rate : 130 (Maria A Ledgerwood, RN) FHR Baseline Changes: No Baseline Change (Maria A Ledgerwood, RN) Variability: Moderate 6-25 bpm (Maria A Ledgerwood, RN) Accelerations: 15X15 (Maria A Ledgerwood, RN) Decelerations: None (Maria Aimani Ramirezgerwood, RN) Pitocin (milliunit): Pitocin Remains (milliunits) @ 18 (Maria A Ledgerwood, RN) Datetime: 06/24/2016 19:33 NBP Sys/Lina/Mean (mmHg): 144 (QS system process) : 86 (QS system process) : 111 (QS system process) Pulse: 82 (QS system process) Respirations: 14 (Maria A Crowe, RN) LaborFlag: Labor (QS system process) Datetime: 06/24/2016 19:30 Monitor Mode: Internal (Maria Aimani Ramirezgerwood, RN) Frequency (min): 2.5-3.5 (Maria A Ledgerwood, RN) Quality: Mild (Maria A Ledgerwood, RN) Duration (sec): 60-70 (Maria A Ledgerwood, RN) Duration Criteria: Less than Two 120 Second Contractions (Maria A Ledgerwood, RN) Pattern: Normal: <= 5 Contractions in 10 Minutes (Maria A Ashleygerwood, RN) Resting Tone (Palpate): Relaxed (Maria A Ledgerwood, ALBERT) Monitor Mode: External US (Maria A Crowe, ALBERT) FHR Baseline Rate : 130 (Maria A Crowe, ALBERT) FHR Baseline Changes: No Baseline Change (Maria A Crowe RN) Variability: Moderate 6-25 bpm (Maria A Crowe, RN) Accelerations: 15X15 (Maria A Crowe, RN) Decelerations: None (Maria A Crowe, ALBERT) Pitocin (milliunit): Pitocin Remains (milliunits) @ 18 (Maria A Crowe, ALBERT) Datetime: 06/24/2016 19:17 Pain Scale: 1 (Mari aA Crowe RN) Pain Presence: Intermittent (Maria A Crowe RN) Pain Type: Dull (Maria A Crowe RN) Pain Location: Perineum (Maria A Crowe RN) Pain Relief Measures: Comfort Measures (Maria A Crowe RN) Pain Coping: Other (Maria A Crowe RN) Level of Consciousness: Fully Conscious (Maria A Crowe RN) DTR's/Clonus: DTRs 2+; No Clonus (Maria A Crowe, ALBERT) Headache: Frontal (Maria A Crowe RN) Breath Sounds, Left: Clear and Equal (Maria A Crowe RN) Breath Sounds, Right: Clear and Equal (Maria A Crowe RN) Nausea/Vomiting: pt has feeling of nausea at the moment (Maria A Crowe RN) RUQ Epigastric Pain: Denies (Maria A Crowe RN) Instructional Method: Demo; Verbal; Patient Instructed (Maria A Crowe RN) Plan of Care: Plan of Care Discussed; Induction (Maria A Crowe RN) Unit Routine: Handwashing; Monitoring; Safety/Fall Risk Prevention (Maria A Crowe RN) LaborFlag: Labor (QS system process) Datetime: 06/24/2016 19:15 Monitor Mode: Internal (Maria A Crowe RN) Frequency (min): 2-4.5 (Maria A Crowe, ALBERT) Quality: Mild (Maria A Crowe RN) Duration (sec): 50-70 (Maria A Crowe, RN) Duration Criteria: Less than Two 120 Second Contractions (Maria A Crowe, RN) Pattern: Normal: <= 5 Contractions in 10 Minutes (Maria A Crowe, RN) Resting Tone (Palpate): Relaxed (Maria A Corwe, RN) Monitor Mode: External US (Maria A Crowe, RN) FHR Baseline Rate : 130 (Maria A Crowe, RN) FHR Baseline Changes: No Baseline Change (Maria A Crowe, RN) Variability: Moderate 6-25 bpm (Maria A Crowe, RN) Accelerations: None (Maria A Crowe, RN) Decelerations: None (Maria A Crowe, RN) Pitocin (milliunit): Pitocin Remains (milliunits) @ 18 (Maria A Crowe, ALBERT) Communication Comments: Report received from Ez Gomez RN at bedside. (Maria A Crowe RN) Datetime: 06/24/2016 19:10 Communication Comments: [facility], [facility] relinquished (Adelaida Vitrano, RN) Datetime: 06/24/2016 19:04 NBP Sys/Lina/Mean (mmHg): 127 (QS system process) : 84 (QS system process) : 102 (QS system process) Pulse: 78 (QS system process) Respirations: 16 (Adelaida Vitrano, RN) LaborFlag: Labor (QS system process) Datetime: 06/24/2016 19:00 Monitor Mode: External; Palpation (Adelaida Vitrano, RN) Frequency (min): 2-3.5 (Adelaida Vitrano, RN) Quality: Moderate to Strong (Adelaida Vitrano, RN) Duration (sec): 60-80 (Adelaida Gomez, RN) Duration Criteria: Less than Two 120 Second Contractions (Adelaida Gomez, RN) Pattern: Normal: <= 5 Contractions in 10 Minutes (Adelaida Gomez RN) Resting Tone (Palpate): Relaxed (Adelaida Gomez, RN) Contraction Comments: Intensity 60-80 mmHg, Resting Tone 5-15 mmHg, 240 MVUs (Adelaida Gomez, RN) Monitor Mode: External US (Adelaida Gomez, RN) FHR Baseline Rate : 130 (Adelaida Gomez, RN) Variability: Moderate 6-25 bpm (Adelaida Gomez, RN) Accelerations: 15X15 (Adelaida Gomez, RN) Decelerations: None (Adelaida Gomez, RN) Pitocin (milliunit): Pitocin Remains (milliunits) @ 18 (Adelaida Gomez, RN)
[2016-06-25 08:05] LABS: HEMATOCRIT 28.1 % (36.0-47.0); HEMOGLOBIN 9.4 g/dL (12.0-15.5); HGB HCT DIFFERENCE 0.1; MEAN CORPUSCULAR HEMOGLOBIN 28.4 pg (27.0-33.4); MEAN CORPUSCULAR HGB CONC 33.6 g/dL (32.0-36.0); MEAN CORPUSCULAR VOLUME 85 fl (80-97); RED BLOOD COUNT 3.32 10^6/uL (3.72-5.28); RED CELL DISTRIBUTION WIDTH 13.9 % (11.5-14.0); WHITE BLOOD COUNT 22.6 10^3/uL (4.0-10.5)
[2016-06-25] MEDS ORDERED: ACETAMINOPHEN 325 MG TABLET PO PRN (08:53)
[2016-06-25] MEDS: DOCUSATE SODIUM 100 MG CAPSULE PO SCH ×2 (09:37→17:34)
[2016-06-25] MEDS: FERROUS SULFATE 325 MG TABLET PO SCH ×2 (09:38→17:34)
[2016-06-25] MEDS: SENNOSIDES/DOCUSATE 8.6-50 MG 1 EACH TABLET PO SCH (09:38)
[2016-06-25] MEDS: PRENATAL VITAMIN W-O CA NO5/FE FUMARATE/FA CAPSULE PO SCH (09:38)
--- NOTE | 2016-06-25 11:04 | PDOC PROGRESS REPORT ---
Subjective-OB Subjective: Post Delivery Day: 31 year old. Denies any needs at this time. Pt doing well, no concerns. Reports light bleeding, regular diet and voiding without difficulty. Physical Exam (OB) Vital Signs: Temp Pulse Resp BP Pulse Ox 97.7 F 79 16 118/73 98 06/25/16 08:58 06/25/16 08:58 06/25/16 08:58 06/25/16 07:26 06/25/16 08:58 Intake & Output 06/24/16 06/25/16 06/26/16 06:59 06:59 06:59 Weight 85.8 kg - Lochia Lochia Amount: Scant < 10 ml Lochia Color: Rubra/Red - Abdomen Description: Soft, Round Hernia Present: No Fundal Description: Firm, Midline Fundal Height: u/u - u/2 Objective-Diagnostic Laboratory: 06/25/16 07:42 06/24/16 19:20 06/24/16 06/24/16 06/25/16 19:20 19:20 07:42 WBC 18.8 H 22.6 H RBC 3.47 L 3.32 L Hgb 9.7 L 9.4 L Hct 29.3 L 28.1 L MCV 85 85 MCH 27.9 28.4 MCHC 33.0 33.6 RDW 14.1 H 13.9 Plt Count 223 197 Seg Neutrophils % 81.9 H Lymphocytes % 9.9 L Monocytes % 7.8 Eosinophils % 0.2 Basophils % 0.2 Absolute Neutrophils 15.4 H Absolute Lymphocytes 1.9 Absolute Monocytes 1.5 H Absolute Eosinophils 0.0 Absolute Basophils 0.0 Sodium 135.5 L Potassium 3.8 Chloride 103 Carbon Dioxide 23 Anion Gap 10 BUN 5 L Creatinine 0.51 L Est GFR ( Amer) > 60 Est GFR (Non-Af Amer) > 60 Glucose 106 Calcium 9.3 Total Bilirubin 0.2 AST 18 ALT 12 Alkaline Phosphatase 141 H Total Protein 5.1 L Albumin 2.6 L Assessment and Plan(PN) - Assessment and Plan (1) Vaginal delivery Is this a current diagnosis for this admission?: Yes - Time Spent with Patient Time with patient: Less than 15 minutes Medications reviewed and adjusted accordingly: Yes - Disposition Anticipated Discharge: Home Within: within 24 hours
[2016-06-26] MEDS: IBUPROFEN 800 MG TABLET PO SCH (05:11)
--- NOTE | 2016-06-26 06:08 | L&D General Admission ---
General Admit Datetime Report Generated by CPN: 06/26/2016 06:00 INFORMATION Patient Age: 31 (04/20/2016 02:55:QS system process) EDC: 07/06/2016 00:00 (04/20/2016 01:48:Janae Page RN) : 2 (04/20/2016 01:48:EN Marroquin) Para: 0 (06/15/2016 15:49:Serena Pearson RN) Term: 0 (04/20/2016 01:48:EN Marroquin) : 0 (04/20/2016 01:48:EN Marroquin) Spontaneous Abortions: 1 (04/20/2016 01:48:EN Marroquin) Induced Abortions: 0 (04/20/2016 01:48:EN Marroquin) Livin (04/20/2016 01:48:EN Marroquin) Cesareans: 0 (04/20/2016 01:48:EN Marroquin) VBACs: 0 (04/20/2016 01:48:EN Marroquin) Ectopic: 0 (04/20/2016 01:48:EN Marroquin) Multiple Births: 0 (04/20/2016 01:48:EN Marroquin) Baby, Number in Womb: 1 (06/15/2016 15:49:Serena Pearson RN) CARE Primary Center Director: [facility] (04/20/2016 01:48:Janae Page RN) Month of 1st Visit: 6 weeks (04/20/2016 01:48:Janae Page RN) Adequate Care: Yes (04/20/2016 01:48:Janae Page RN) Height (in): 68 (06/25/2016 11:39:QS system process) ALLERGIES Medication Allergy: Yes (04/20/2016 01:48:Janae Page RN) Medication Allergies: neomycin (06/10/2016); bacitracin (06/10/2016); metronidazole (06/10/2016); polymyxin B (06/10/2016) (06/10/2016 18:06:QS system process) Latex Allergy: No Latex Allergies (04/20/2016 01:48:Janae Page RN) COMMUNICATION Primary Language: Rwandan (04/20/2016 01:48:Janae Page RN) Medical Tx Preferred Language: Rwandan (04/20/2016 01:48:Janae Page RN) Communication Barrier(s): None (04/20/2016 01:48:Shahbaz Elmore RN) DEMOGRAPHICS Address: [address] [place] [id number] (04/20/2016 02:55:QS system process) Zipcode: [address] (04/20/2016 02:55:QS system process) Home (04/20/2016 02:55:QS system process) Work (04/20/2016 02:55:QS system process) SSN: [id number] (04/20/2016 02:55:QS system process) Next of Kin Name: DIVINA CHAUDHRY (05/05/2016 11:35:QS system process) Next of Kin (05/05/2016 11:35:QS system process) Next of Kin Relationship: OR (05/05/2016 11:35:QS system process) Date of : 1985 (04/20/2016 02:55:QS system process) Marital Status: Single (04/20/2016 02:55:QS system process) Sex: Female (04/20/2016 02:55:QS system process) Race: (04/20/2016 02:55:QS system process) Ethnicity: Non- or (04/20/2016 02:55:QS system process) Uatsdin: None (04/20/2016 02:55:QS system process) DRUG AND ALCOHOL USE Alcohol: No (04/20/2016 01:48:Janae Page RN) Cigarettes: Current Everyday Smoker. [id number] (04/20/2016 01:48:Janae Page RN) Average Cigarettes Smoked: 5 - 10 per day (04/20/2016 01:48:Janae Page RN) Advised to Stop Smoking: Yes (04/20/2016 01:48:Janae Page RN) Marijuana: No (04/20/2016 01:48:Janae Page RN) Cocaine: No (04/20/2016 01:48:Janae Page RN) Other Illicit Drugs: No (04/20/2016 01:48:Janae Page RN) VACCINE HISTORY Influenza Vaccine: No (04/20/2016 01:48:Janae Page RN) Pneumococcal Vaccine: No (04/20/2016 01:48:Janae Page RN) Tetanus Vaccine: Yes (04/20/2016 01:48:Janae Page RN) Tetanus Date: 03/2016 (04/20/2016 01:48:EN Mehta) Tdap Vaccine: Yes (04/20/2016 01:48:EN Mehta) Tdap Date: 03/2016 (04/20/2016 01:48:EN Mehta) Hepatitis B Vaccine: Yes (04/20/2016 01:48:Janae Page RN) Lock Master: [facility] (04/20/2016 01:48:Janae Page RN) Feeding Preference: Breast (04/20/2016 01:48:Maria A Crowe RN) Benefit of Breast Feed Discussed: Yes (04/20/2016 01:48:Shahbaz Elmore RN) Circumcision: Yes (04/20/2016 01:48:Janae Page RN) Classes Attended: No (04/20/2016 01:48:Janae Page RN) Tubal Ligation: No (04/20/2016 01:48:Janae Page RN) Tubal Authorization Signed: N/A (04/20/2016 01:48:Janae Page RN) Consent: N/A (04/20/2016 01:48:Janae Page RN) Consent Signed: N/A (04/20/2016 01:48:Janae Page RN) Pain Management Plans: Medications; Epidural (04/20/2016 01:48:Janae Page RN) Plans for Labor and Delivery: None (04/20/2016 01:48:Janae Page RN) Support Person: Jignesh Chaudhry (04/20/2016 01:48:Janae Page RN) Support Person Relationship: Significant Other (04/20/2016 01:48:Janae Page RN) Cultural/Spritual Practice: No (04/20/2016 01:48:Janae Page RN) Spir/Cult Dietary Needs: No (04/20/2016 01:48:Janae Page RN) LIVING SITUATION/DISCHARGE PLAN Living Arrangements: House (04/20/2016 01:48:Janae Page RN) Adequate Access to:: Electric; Heat; Refrigeration; Plumbing/Running water; Phone; Transportation (04/20/2016 01:48:Janae Page RN) WIC Program: No (04/20/2016 01:48:Janae Page RN) Discharge Director Of Quantitative Research Person: Jignesh (04/20/2016 01:48:Janae Page RN) Person to Help after Discharge: Jignesh (04/20/2016 01:48:Janae Page RN) Currently Using Commun Resources: Yes (04/20/2016 01:48:Shahbaz Elmore RN) Specify Current Resource Used: Medicaid (04/20/2016 01:48:Janae Page RN) Outside Agency/Ham Doctor: No (04/20/2016 01:48:Janae Page RN) Car Seat for Discharge: Yes (04/20/2016 01:48:Janae Page RN) Adoption Requested: No (04/20/2016 01:48:Janae Page RN) Pt Contact w/infant Post : N/A (04/20/2016 01:48:Janae Page RN) LABS Blood Type: O Positive (04/20/2016 01:48:Janae Page RN) Rho(G) this : Not Applicable (04/20/2016 01:48:Shahbaz Elmore RN) Hemoglobin: 9.4 L (06/25/2016 07:42:QS system process) Hematocrit: 28.1 L (06/25/2016 07:42:QS system process) MCV: 85 (06/25/2016 07:42:QS system process) Group Beta Strep: negative (04/20/2016 01:48:Shahbaz Elmore RN) Gonorrhea: Negative (04/20/2016 01:48:Shahbaz Elmore RN) Chlamydia: Negative (04/20/2016 01:48:Shahbaz Elmore RN) RPR/VDRL: Nonreactive (04/20/2016 01:48:Janae Page RN) HIV Exposure Test: Negative (04/20/2016 01:48:Janae Page RN) Hepatitis B: Negative (04/20/2016 01:48:Janae Page RN) Rubella: Immune (04/20/2016 01:48:Janae Page RN) OB/PREVIOUS HISTORY Previous Procedures: Ultrasound (04/20/2016 01:48:EN Mehta) Current Procedures: Ultrasound; NST (04/20/2016 01:48:EN Mehta) History of Previous : No (04/20/2016 01:48:Janae Page RN) History of Gestational Diabetes: No (04/20/2016 01:48:Janae Page RN) History of PIH: No (04/20/2016 01:48:Janae Page RN) History of Incompetent Cervix: No (04/20/2016 01:48:Janae Page RN) History of Placenta Previa/Abrup: No (04/20/2016 01:48:Janae Page RN) History of Macrosomia: No (04/20/2016 01:48:Janae Page RN) History of IUGR: No (04/20/2016 01:48:Janae Page RN) History of Hemorrhage: No (04/20/2016 01:48:Janae Page RN) History of Loss/Stillborn: No (04/20/2016 01:48:Janae Page RN) History of : No (04/20/2016 01:48:Janae Page RN) History of D (Rh) Sensitization: No (04/20/2016 01:48:Janae Page RN) History Recurrent Loss/Stillborn: No (04/20/2016 01:48:Janae Page RN) History Depression/PP Depression: No (04/20/2016 01:48:Janae Page RN) History of Uterine Anomaly/KEVIN: No (04/20/2016 01:48:Janae Page RN) History of Infertility: No (04/20/2016 01:48:Janae Page RN) History of ART Treatment: No (04/20/2016 01:48:Janae Page RN) History of KEVIN: No (04/20/2016 01:48:Janae Page RN) Comments Obstetrical History: G1- 2010 5 week SAB G2- current - first trimester spotting, sob and severe GERD (04/20/2016 01:48:EN Mehta) MEDICAL HISTORY Med Hx Diabetes: No (04/20/2016 01:48:Janae Page RN) Med Hx Hypertension: No (04/20/2016 01:48:Janae Page RN) Med Hx Heart Disease: No (04/20/2016 01:48:Janae Page RN) Med Hx Autoimmune Disorder: No (04/20/2016 01:48:Janae Page RN) Med Hx Kidney Disease/UTI: No (04/20/2016 01:48:Janae Page RN) Med Hx Neurologic/Epilepsy: No (04/20/2016 01:48:Janae Page RN) Med Hx Psychiatric Disorders: No (04/20/2016 01:48:Janae Page RN) Med Hx Hepatitis/Liver Disease: No (04/20/2016 01:48:Janae Page RN) Med Hx Varicosities/Phlebitis: No (04/20/2016 01:48:Janae Page RN) Med Hx Thyroid Dysfunction: No (04/20/2016 01:48:Janae Page RN) Med Hx Trauma/Violence: No (04/20/2016 01:48:Janae Page RN) Med Hx Blood Transfusion: No (04/20/2016 01:48:Janae Page RN) Med Hx Pulmonary (Asthma,TB): No (04/20/2016 01:48:Janae Page RN) Med Hx Breast: No (04/20/2016 01:48:Janae Page RN) Med Hx DIRECTOR PRODUCT DEVELOPMENT Surgery: No (04/20/2016 01:48:Janae Page RN) Med Hx Hospitalization/Surgery: No (04/20/2016 01:48:Janae Page RN) Med Hx Anesthetic Complications: No (04/20/2016 01:48:Janae Page RN) Med Hx Abnormal Pap Smear: Yes (04/20/2016 01:48:Janae Page RN) Other Medical Diseases: No (04/20/2016 01:48:Janae Page RN) Med Hx Significant Family Hx: No (04/20/2016 01:48:Janae Page RN) Details of Med/Surg Hx: Abnormal pap 10 years ago with colposcopy (04/20/2016 01:48:Janae Page RN) INFECTIOUS HISTORY Inf Hx Gonorrhea: No (04/20/2016 01:48:Janae Page RN) Inf Hx Chlamydia: No (04/20/2016 01:48:Janae Page RN) Inf Hx Syphilis: No (04/20/2016 01:48:Janae Page RN) Inf Hx HIV/AIDS: No (04/20/2016 01:48:Janae Page RN) Inf Hx Human Papilloma Virus: No (04/20/2016 01:48:Janae Page RN) Inf Hx Pt/Partner Genital Herpes: No (04/20/2016 01:48:Janae Page RN) Inf Hx Tuberculosis/Exposure: No (04/20/2016 01:48:Janae Page RN) Inf Hx Hepatitis B,C: No (04/20/2016 01:48:Janae Page RN) Inf Hx Rash or Viral Illness: No (04/20/2016 01:48:Janae Page RN) GENETIC HISTORY Gen Hx Age >=35 at DEEP: No (04/20/2016 01:48:Adelaida Gomez RN) Gen Hx Thalassemia: No (04/20/2016 01:48:Janae Page RN) Gen Hx Congenital Heart Defect: No (04/20/2016 01:48:Janae Page RN) Gen Hx Neural Tube Defect: No (04/20/2016 01:48:Janae Page RN) Gen Hx Down's Syndrome: No (04/20/2016 01:48:Janae Page RN) Gen Hx Barney-Sachs: No (04/20/2016 01:48:Janae Page RN) Gen Hx Trupti: No (04/20/2016 01:48:Janae Page RN) Gen Hx Familial Dysautonomia: No (04/20/2016 01:48:Janae Page RN) Gen Hx Sickle Cell Disease/Trait: No (04/20/2016 01:48:Janae Page RN) Gen Hx Hemophilia/Blood Disorder: No (04/20/2016 01:48:Janae Page RN) Gen Hx Muscular Dystrophy: No (04/20/2016 01:48:Janae Page RN) Gen Hx Cystic Fibrosis: No (04/20/2016 01:48:Janae Page RN) Gen Hx Huntingtons Chorea: No (04/20/2016 01:48:Janae Page RN) Gen Hx Mental Retardation/Autism: No (04/20/2016 01:48:Janae Page RN) Gen Hx Tested for Fragile X: No (04/20/2016 01:48:Janae Page RN) Gen Hx Other Inher/Chromosomal: No (04/20/2016 01:48:Janae Page RN) Gen Hx Maternal Metabolic DO: No (04/20/2016 01:48:Janae Page RN) Gen Hx Pt Father or FOB Defect: No (04/20/2016 01:48:Janae Page RN) Gen Hx Other Genetic History: No (04/20/2016 01:48:Janae Page RN) Gen Hx Drugs/Meds since LMP: Yes (04/20/2016 01:48:Janae Page RN) Gen Hx Medications: PNV, and zantac PRN (04/20/2016 01:48:Janae Page RN)
--- NOTE | 2016-06-26 06:08 | L&D Current Admission ---
Current Admit Datetime Report Generated by CPN: 06/26/2016 06:00 ADMISSION INFORMATION Person(s) Allowed during Admit: family (06/23/2016 20:25:Shahbaz Elmore RN) Current Admit Date/Time: 06/23/2016 20:25 (06/23/2016 20:25:Shahbaz Elmore RN) Reason for Admission: Induction of Labor (06/23/2016 20:25:Shahbaz Elmore RN) Chief Complaint: Scheduled Induction of Labor (06/24/2016 19:17:Maria A Crowe RN) Medications During : Vitamin; Rantidine (Zantac) (06/23/2016 20:25:Shahbaz Elmore RN) EGA per Dates: 38.1 (06/23/2016 20:25:QS system process) Method of Arrival: Ambulatory (06/23/2016 20:25:Shahbaz Elmore RN) Admitted From: Home (06/23/2016 20:25:Shahbaz Elmore RN) Reason for Induction: Gestational Hypertension (06/23/2016 20:25:Shahbaz Elmore RN) Records Available: Yes (06/23/2016 20:25:Shahbaz Elmore RN) General Admission Information: Reviewed (06/23/2016 20:25:Shahbaz Elmore RN) General Admission Reviewed By: Candida Elmore RN (06/23/2016 20:25:Shahbaz Elmore RN) BELONGINGS/ADVANCED DIRECTIVES Disposition of Belongings: Kept with Patient (06/23/2016 20:25:Shahbaz Elmore RN) Comments Regarding Disposition: see valuables consent form (06/23/2016 20:25:Shahbaz Elmore RN) Advance Direct for Healthcare: No, and Wants No Information (06/23/2016 20:25:Shahbaz Elmore RN) Durable Power of Manager Background: No (06/23/2016 20:25:Shahbaz Elmore RN) Living Will: No (06/23/2016 20:25:Shahbaz Elmore RN) Organ Donor: Yes (06/23/2016 20:25:Shahbaz Elmore RN) Pt Rights Information Given: Yes (06/23/2016 20:25:Shahbaz Elmore RN) Pt Understands Pt Rights: Yes (06/23/2016 20:25:Shahbaz Elmore RN) LEARNING ASSESSMENT Knowledge Level: Understands L_D Process; Understands Care Activities; Had Pre-Hospital Education; Understands Diagnosis (06/23/2016 20:25:Shahbaz Elmore RN) Barriers to Learning: None (06/23/2016 20:25:Shahbaz Elmore RN) Learning Readiness: Motivated (06/23/2016 20:25:Shahbaz Elmore RN) Learns Best By: 1 to 1 Instruction; Reading; Videos; Group Discussion; Demonstration (06/23/2016 20:25:Shahbaz Elmore RN) Learning Needs: Labor and Delivery Process; Pain Management; Symptoms to Report; Treatment Plan; Medication; Diagnosis; Nutrition; Equipment; Care; Community Resources (06/23/2016 20:25:Shahbaz Elmore RN) DOMESTIC VIOLANCE SCREENING Dom Viol Threatened/Hurt: No (06/23/2016 20:25:Shahbaz Elmore RN) Hx of Abuse/Neglect past 2yrs: No (06/23/2016 20:25:Shahbaz Elmore RN) Feel Unsafe Going Home: No (06/23/2016 20:25:Shahbaz Elmore RN) Addt'l Observ Indicating Abuse: No (06/23/2016 20:25:Shahbaz Elmore RN) Reason Unable to Complete Screen: N/A, Screen Completed (06/23/2016 20:25:Shahbaz Elmore RN) Considered Personal Harm/Suicide: No (06/23/2016 20:25:Shahbaz Elmore RN) NUTRITIONAL/FUNCTIONAL SCREENING Problem with Appetite >5 Days: No (06/23/2016 20:25:Shahbaz Elmore RN) Chew/Swallow Difficulties: No (06/23/2016 20:25:Shahbaz Elmore RN) Inappropriate Wt Gain/Loss: No (06/23/2016 20:25:Shahbaz Elmore RN) Presence Skin Breakdown/Ulcer: No (06/23/2016 20:25:Shahbaz Elmore RN) Special Diet: No (06/23/2016 20:25:Shahabz Elmore RN) Pt Requests [employer] Media Program Director Visit: No (06/23/2016 20:25:Shahbaz Elmore RN) Hx of Any of the Following?: N/A (06/23/2016 20:25:Shahbaz Elmore RN) New Diagnosis of: N/A (06/23/2016 20:25:Shahbaz Elmore RN) Requires Assist w/Ambulation: No (06/23/2016 20:25:Shahbaz Elmore RN) Uses Assist Device to Ambulate: No (06/23/2016 20:25:Shahbaz Elmore RN) Pt Requires Help w/ADL's: No (06/23/2016 20:25:Shahbaz Elmore RN)
--- NOTE | 2016-06-26 06:26 | L&D Care Plan ---
LD CARE PLANS Datetime Report Generated by CPN: 06/26/2016 06:15 Datetime: 06/23/2016 20:13 Pain State: Risk For (Shahbaz Elmore RN) Related To: Labor and Delivery Process (Shahbaz Elmore RN) Goal(s): Patients Pain will be Assessed and Managed; Patient will Verbalize Adequate Relief of Pain or the Ability to Elmer with Current Pain (Shahbaz Elmore RN) Interventions: Assess Pain Severity on Scale of 0 (None) to 5 (Severe); Assess Type, Location and Intensity of Pain Each Time Client Reports Discomfort and Notify Provider if Unusal Pain Develops; Encourage Proper Breathing and Relaxation Techniques; Offer Alternatives Such as Repositioning, Calm Environment, Massages, Diversional Activities, Ice Pack, Splinting, and Ambulation; Administer Analgesics as Ordered; Assist with Epidural Placement as Appropriate; Evaluate Therapeutic Effectiveness of Medication and Treatments (Shahbaz Elmore RN) Outcome: Patient will Report Absence or Relief of Pain Consistent with Established Pain Goal (Shahbaz Elmore RN) Status: Ongoing (Shahbaz Elmore RN) Outcome: Patient will have a Decrease in Signs and Symptoms of Discomfort (Shahbaz Elmore RN) Status: Ongoing (Shahbaz Elmore RN) Outcome: Pain will be Controlled During Procedures (Shahbaz Elmore RN) Status: Ongoing (Shahbaz Elmore RN) Anxiety State: Risk For (Shahbaz Elmore RN) Related To: Labor and Delivery Process; Fear of Unknown (Shahbaz Elmore RN) Goal(s): Patient will have Decreased Anxiety and be able to Function at Acceptable Levels (Shahbaz Elmore RN) Interventions: Assess Verbal and Nonverbal Behavioral Indicators of Anxiety; Assist Patient to Identify and Verbalize Symptoms of Anxiety; Identify and Demonstrate Techniques to Control Anxiety; Assist Patient with Coping Mechanisms to Manage Anxiety; Provide Theraputic Touch for the Patient; Explain to Patient, Using a Calm Reassuring Approach and Nonmedical Terms, All Activities, Procedures, and Concerns; Instruct Patient and Family about Post Discharge Care, Limitations, Symptoms to Report and Resources Available (Shahbaz Elmore RN) Outcome: Patient will Identify, Verbalize and Demonstrate Techniques to Control Anxiety (Shahbaz Elmore RN) Status: Ongoing (Shahbaz Elmore RN) Outcome: Patient's Posture, Facial Expressions, Gestures and Activity Level will Reflect Decreased Anxiety (Shahbaz Elmore RN) Status: Ongoing (Shahbaz Elmore RN) Outcome: Patient will Verbalize a Sense of Control and/or Acceptance of the Situation (Shahbaz Elmore RN) Status: Ongoing (Shahbaz Elmore RN) Outcome: Patient will Identify and Utilize Support Person (Shahbaz Elmore RN) Status: Ongoing (Shahbaz Elmore RN) Knowledge Deficit State: Risk For (Shahbaz Elmore RN) Related To: Labor and Delivery Process; Treatment and Procedures; Feeding and Infant Care; Community Resources and Available Support Mechanisms (Shahbaz Elmore RN) Goal(s): Patient will Accurately Verbalize Understanding of Plan of Care and Treatment; Patient and Family will Accurately Verbalize Understanding of the Disease Process (Shahbaz Elmore RN) Interventions: Assess Motivation and Willingness of Patient/Family to Learn; Assess Preferred Learning Mode: One to One Instruction, Reading, Videos, Group Discussion or Demonstration; Assess Barriers to Learning: Pain, Emotional State, Language Barrier, Cognitive Impairment, Visual or Hearing Deficits; Assess Patient and Family Knowledge of Disease Process, Medications and Treatment; Discuss Therapy and/or Treatment Options, Describe Rationale Behind Management, Therapy and Treatment Recommendations; Instruct Patient and Family on Signs and Symptoms to Report; Instruct Patient and Family on Medication Effects and Side Effects; Provide Appropriate and Timely Education Using Multiple Techniques; Provide Patient and Family with Support Group Information and Resources; Give Clear and Thorough Explanations and Demonstrations (Shahbaz Elmore RN) Outcome: Patient and Family will Verbalize Understanding of Condition, Treatment and Signs and Symptoms to Report (Shahbaz Elmore RN) Status: Ongoing (Shahbaz Elmore RN) Outcome: Patient will Identify Perceived Learning Needs and Express Motivation to Learn (Shahbaz Elmore RN) Status: Ongoing (Shahbaz Elmore RN) Outcome: Patient will Verbalize Understanding of Desired Content, and/or Performs Desired Skill Prior to Discharge (Shahbaz Elmore RN) Status: Ongoing (Shahbaz Elmore RN) Infection State: Risk For (Shahbaz Elmore RN) Related To: Prolonged Labor or Induction (Shahbaz Elmore RN) Goal(s): The Patient will be Free of Infection, Vital Signs Stable and Lab Work within Normal Parameters (Shahbaz Elmore RN) Interventions: Instruct and Reinforce Proper Handwashing, Hygiene, and Care Techniques to Patient and Family; Monitor Vital Signs; Monitor Patient for the Following Signs of Infection: Fever, Abdominal Tenderness, Unusual Discharge; Monitor Aminiotic Fluid, Urine and Lochia for Color and Odor; Observe Wounds, Incisions and Invasive Line Sites for Redness, Drainage and Edema; Assess IV Sites per Hospital Policy; Monitor Lab and Test Results and Notify Provider of Abnormal Findings; Assess Nutritional Status and Promote Good Nutrition (Shahbaz Elmore RN) Outcome: Patient will Remain Free of Infection (Shahbaz Elmore RN) Status: Ongoing (Shahbaz Elmore RN) Outcome: Infection will be Recognized Early to Allow for Prompt Treatment (Shahbaz Elmore RN) Status: Ongoing (Shahbaz Elmore RN) Outcome: Patient will have Vital Signs Within Expected Range (Shahbaz Elmore RN) Status: Ongoing (Shahbaz Elmore RN) Fluid Volume State: Risk For (Shahbaz Elmore RN) Related To: Gestational Hypertension; Prolonged Labor or Induction (Shahbaz Elmore RN) Goal(s): Patient will Achieve and Maintain a Balanced Fluid Volume Status; Hemodynamically Stable (Shahbaz Elmore RN) Interventions: Monitor Vital Signs; Auscultate Breath Sounds; Monitor Patient for Skin Turgor, Mucous Membranes, Dry Skin, Weakness, Headaches and Confusion; Provide Oral Fluids as Ordered; Initiate and Maintain Intravenous Fluids as Ordered; Monitor Intake and Output as Indicated Per Patient Status; Accurately Measure Blood Loss; Monitor Lab and Test Results as Obtained and Notify Provider of Abnormal Findings; Monitor Patient's Weight (Shahbaz Elmore RN) Outcome: Patient will have Clear Lung Sounds (Shahbaz Elmore RN) Status: Ongoing (Shahbaz Elmore RN) Outcome: Patient will have Vital Signs within Expected Range (Shahbaz Elmore RN) Status: Ongoing (Shahbaz Elmore RN) Outcome: Urine Output will be within Expected Range (Shahbaz Elmore RN) Status: Ongoing (Shahbaz Elmore RN) Outcome: Patient will have Minimal Generalized or Upper Extremity Edema (Shahbaz Elmore RN) Status: Ongoing (Shahbaz Elmore RN) Injury State: Risk For (Shahbaz Elmore RN) Related To: Labor and Delivery Process; Gestational Hypertension or Eclampsia (Shahbaz Elmore RN) Goal(s): Patient will Remain Free from Injury (Shahbaz Elmore RN) Interventions: Monitoring as per Hospital Protocol; Assess Neurological Status; Perform Risk Assessment of Patients with Induction and ; Perform Fall Risk Assessment and Prevention per Hospital Protocol; Perform DVT Risk Assessment and Prophylaxis per Hospital Protocol; Ensure that Oxygen, Suction, and Resuscitation Medications and Equipment are Readily Available; Confirm Patient ID Prior to Procedure(s) and Medication Administration per Hospital Policy (Shahbaz Elmore RN) Outcome: Successful Fall Risk Prevention (Shahbaz Elmore RN) Status: Ongoing (Sahhbaz Elmore RN) Outcome: Patient will Deliver Infant without Adverse Sequela (Shahbaz Elmore RN) Status: Ongoing (Shahbaz Elmore RN) Outcome: Patient's Neurological Status will Remain Stable (Shahbaz Elmore RN) Status: Ongoing (Shahbaz Elmore RN) Impaired Skin Integrity State: Risk For (Shahbaz Elmore RN) Related To: Vaginal Delivery (Shahbaz Elmore RN) Goal(s): Patient will Maintain Optimal Skin Integrity, Free of Breakdown, Injury or Infection (Shahbaz Elmore RN) Interventions: Complete Screening for Pressure Ulcer Risk and Initiate Protocol per Hospital Policy; Monitor Site of Skin Impairment for Color Changes, Redness, Swelling, Warmth, Pain or Other Signs of Infection; Encourage and Assist with Position Changes; Monitor Patient's Mobility Status; Provide Adequate Nutrition and Fluids; Teach Patient Appropriate Hygienic Care; Teach Patient/Family Skin Care Management (Shahbaz Elmore RN) Outcome: Patient will not have Evidence of Injury Such as Skin Breakdown, Scrapes, Cuts, or Bruising (Shahbaz Elmore RN) Status: Ongoing (Shahbaz Elmore RN) Outcome: Patient will Report Any Altered Sensation or Pain at Site of Skin Impairment (Shahbaz Elmore RN) Status: Ongoing (Shahbaz Elmore RN) Outcome: Patients Incisions and Wounds will be without Signs or Symptoms of Infection (Shahbaz Elmore RN) Status: Ongoing (Shahbaz Elmore RN) Outcome: Patient will Demonstrate Understanding of Plan to Heal Skin and Prevent Reinjury and Verbalize Risk Factors (Shahbaz Elmore RN) Status: Ongoing (Shahbaz Elmore RN) Parenting Impaired State: Not Applicable (Shahbaz Elmore RN) Nutrition State: Not Applicable (Shahbaz Elmore, RN) Grieving State: Not Applicable (Shahbaz Elmore, RN)
[2016-06-26 07:36] VITALS: BP 105/54
[2016-06-26 07:54] LABS: ABSOLUTE BASOPHILS # (AUTO) 0.1 10^3/uL (0.0-0.2); ABSOLUTE EOSINOPHILS # (AUTO) 0.4 10^3/uL (0.0-0.6); ABSOLUTE LYMPHOCYTES (AUTO) 2.9 10^3/uL (0.5-4.7); ABSOLUTE MONOCYTES (AUTO) 1.3 10^3/uL (0.1-1.4); ABSOLUTE NEUT (AUTO) 9.5 10^3/uL (1.7-8.2); BASOPHILS % (AUTO) 0.5 % (0-2); HEMATOCRIT 23.8 % (36.0-47.0); HGB HCT DIFFERENCE 0.2; LYMPHOCYTES % (AUTO) 20.4 % (13-45); MEAN CORPUSCULAR HEMOGLOBIN 28.8 pg (27.0-33.4); MEAN CORPUSCULAR HGB CONC 33.7 g/dL (32.0-36.0); MEAN CORPUSCULAR VOLUME 85 fl (80-97); MONOCYTES % (AUTO) 9.1 % (3-13); RED BLOOD COUNT 2.79 10^6/uL (3.72-5.28); RED CELL DISTRIBUTION WIDTH 14.2 % (11.5-14.0); WHITE BLOOD COUNT 14.2 10^3/uL (4.0-10.5)
--- NOTE | 2016-06-26 08:49 | PDOC DISCHARGE SUMMARY ---
Discharge Summary-OB Discharge Date: 06/26/16 - Final Diagnosis (1) Acute blood loss anemia Is this a current diagnosis for this admission?: Yes (2) Vaginal delivery Is this a current diagnosis for this admission?: Yes - Discharge Medication Home Medications: Vit #76/Iron,Carb/FA [Pnv 29-1 Tablet] 1 tab PO DAILY 04/20/16 Ranitidine HCl [Zantac 150 mg Tablet] 150 mg PO PRN PRN 04/20/16 Docusate Sodium [Colace 100 mg Capsule] 100 mg PO BID #60 capsule 06/26/16 Ferrous Sulfate [Feosol 325 mg Tablet] 325 mg PO BID #60 tablet 06/26/16 Ibuprofen [Motrin 800 mg Tablet] 800 mg PO Q8 #60 tablet 06/26/16 Gestational Age: 38.2 Reason(s) for Admission: Induction of Labor, [facility] Procedures: NST Intrapartum Procedure(s): Spontaneous Vaginal Delivery, Vacuum Extraction - [place] Data Baby 1 Male at 1 minute: 8 at 5 minutes: 9 Weight: 3380 kg Home with Mother: Yes Complications: No - Diagnosis Test Laboratory: Temp Pulse Resp BP Pulse Ox 97.5 F 62 16 105/54 L 100 06/26/16 07:35 06/26/16 07:35 06/26/16 07:35 06/26/16 07:35 06/26/16 07:35 06/23/16 06/23/16 06/24/16 20:10 20:11 19:20 RBC 3.62 L 3.47 L Hgb 10.3 L 9.7 L Hct 30.4 L 29.3 L Urine Opiates Screen NEGATIVE 06/25/16 06/26/16 07:42 07:03 RBC 3.32 L 2.79 L Hgb 9.4 L 8.0 L Hct 28.1 L 23.8 L Urine Opiates Screen - Discharge information/Instructions Discharge Activity: Activity As Tolerated, Pelvic Rest, No tub bath Discharge Diet: Regular Disposition: HOME, SELF-CARE Follow up with: [facility] in: 1, Weeks
[2016-06-26] MEDS: DOCUSATE SODIUM 100 MG CAPSULE PO SCH (09:17)
[2016-06-26] MEDS: SENNOSIDES/DOCUSATE 8.6-50 MG 1 EACH TABLET PO SCH (09:17)
[2016-06-26] MEDS: FERROUS SULFATE 325 MG TABLET PO SCH (09:17)
[2016-06-26] MEDS: PRENATAL VITAMIN W-O CA NO5/FE FUMARATE/FA CAPSULE PO SCH (09:18)
--- NOTE | 2016-06-27 06:08 | L&D General Admission ---
General Admit Datetime Report Generated by CPN: 06/27/2016 06:00 INFORMATION Patient Age: 31 (04/20/2016 02:55:QS system process) EDC: 07/06/2016 00:00 (04/20/2016 01:48:Janae Page RN) : 2 (04/20/2016 01:48:EN Marroquin) Para: 0 (06/15/2016 15:49:Serena Pearson RN) Term: 0 (04/20/2016 01:48:EN Marroquni) : 0 (04/20/2016 01:48:EN Marroquin) Spontaneous Abortions: 1 (04/20/2016 01:48:EN Marroquin) Induced Abortions: 0 (04/20/2016 01:48:EN Marroquin) Livin (04/20/2016 01:48:EN Marroquin) Cesareans: 0 (04/20/2016 01:48:EN Marroquin) VBACs: 0 (04/20/2016 01:48:EN Marroquin) Ectopic: 0 (04/20/2016 01:48:EN Marroquin) Multiple Births: 0 (04/20/2016 01:48:EN Marroquin) Baby, Number in Womb: 1 (06/15/2016 15:49:Serena Pearson RN) CARE Primary Animal Husbandry Manager: [facility] (04/20/2016 01:48:Janae Page RN) Month of 1st Visit: 6 weeks (04/20/2016 01:48:Janae Page RN) Adequate Care: Yes (04/20/2016 01:48:Janae Page RN) Height (in): 68 (06/26/2016 08:49:QS system process) ALLERGIES Medication Allergy: Yes (04/20/2016 01:48:Janae Page RN) Medication Allergies: neomycin (06/10/2016); bacitracin (06/10/2016); metronidazole (06/10/2016); polymyxin B (06/10/2016) (06/10/2016 18:06:QS system process) Latex Allergy: No Latex Allergies (04/20/2016 01:48:Janae Page RN) COMMUNICATION Primary Language: Russian (04/20/2016 01:48:Janae Page RN) Medical Tx Preferred Language: Russian (04/20/2016 01:48:Janae Page RN) Communication Barrier(s): None (04/20/2016 01:48:Shahbaz Elmore RN) DEMOGRAPHICS Address: [address] [place] [id number] (04/20/2016 02:55:QS system process) Zipcode: [address] (04/20/2016 02:55:QS system process) Home (04/20/2016 02:55:QS system process) Work (04/20/2016 02:55:QS system process) SSN: [id number] (04/20/2016 02:55:QS system process) Next of Kin Name: DIVINA CHAUDHRY (05/05/2016 11:35:QS system process) Next of Kin (05/05/2016 11:35:QS system process) Next of Kin Relationship: OR (05/05/2016 11:35:QS system process) Date of : 1985 (04/20/2016 02:55:QS system process) Marital Status: Single (04/20/2016 02:55:QS system process) Sex: Female (04/20/2016 02:55:QS system process) Race: (04/20/2016 02:55:QS system process) Ethnicity: Non- or (04/20/2016 02:55:QS system process) Mu-Ism: None (04/20/2016 02:55:QS system process) DRUG AND ALCOHOL USE Alcohol: No (04/20/2016 01:48:Janae Page RN) Cigarettes: Current Everyday Smoker. [id number] (04/20/2016 01:48:Janae Page RN) Average Cigarettes Smoked: 5 - 10 per day (04/20/2016 01:48:Janae Page RN) Advised to Stop Smoking: Yes (04/20/2016 01:48:Janae Page RN) Marijuana: No (04/20/2016 01:48:Janae Page RN) Cocaine: No (04/20/2016 01:48:Janae Page RN) Other Illicit Drugs: No (04/20/2016 01:48:Janae Page RN) VACCINE HISTORY Influenza Vaccine: No (04/20/2016 01:48:Janae Page RN) Pneumococcal Vaccine: No (04/20/2016 01:48:Janae Page RN) Tetanus Vaccine: Yes (04/20/2016 01:48:Janae Page RN) Tetanus Date: 03/2016 (04/20/2016 01:48:EN Mehta) Tdap Vaccine: Yes (04/20/2016 01:48:EN Mehta) Tdap Date: 03/2016 (04/20/2016 01:48:EN Mehta) Hepatitis B Vaccine: Yes (04/20/2016 01:48:Janae Page RN) Tooling Engineering Tech: [facility] (04/20/2016 01:48:Janae Page RN) Feeding Preference: Breast (04/20/2016 01:48:Maria A Crowe RN) Benefit of Breast Feed Discussed: Yes (04/20/2016 01:48:Shahbaz Elmore RN) Circumcision: Yes (04/20/2016 01:48:Janae Page RN) Classes Attended: No (04/20/2016 01:48:Janae Page RN) Tubal Ligation: No (04/20/2016 01:48:Janae Page RN) Tubal Authorization Signed: N/A (04/20/2016 01:48:Janae Page RN) Consent: N/A (04/20/2016 01:48:Janae Page RN) Consent Signed: N/A (04/20/2016 01:48:Janae Page RN) Pain Management Plans: Medications; Epidural (04/20/2016 01:48:Janae Page RN) Plans for Labor and Delivery: None (04/20/2016 01:48:Janae Page RN) Support Person: Jignesh Chaudhry (04/20/2016 01:48:Janae Page RN) Support Person Relationship: Significant Other (04/20/2016 01:48:Janae Page RN) Cultural/Spritual Practice: No (04/20/2016 01:48:Janae Page RN) Spir/Cult Dietary Needs: No (04/20/2016 01:48:Janae Page RN) LIVING SITUATION/DISCHARGE PLAN Living Arrangements: House (04/20/2016 01:48:Janae Page RN) Adequate Access to:: Electric; Heat; Refrigeration; Plumbing/Running water; Phone; Transportation (04/20/2016 01:48:Janae Page RN) WIC Program: No (04/20/2016 01:48:Janae Page RN) Discharge Driver Lifter Of Sanitation Truck Person: Jignesh (04/20/2016 01:48:Janae Page RN) Person to Help after Discharge: Jignesh (04/20/2016 01:48:Janae Page RN) Currently Using Commun Resources: Yes (04/20/2016 01:48:Shahbaz Elmore RN) Specify Current Resource Used: Medicaid (04/20/2016 01:48:Janae Page RN) Outside Agency/Academic Counselor: No (04/20/2016 01:48:Janae Page RN) Car Seat for Discharge: Yes (04/20/2016 01:48:Janae Page RN) Adoption Requested: No (04/20/2016 01:48:Janae Page RN) Pt Contact w/infant Post : N/A (04/20/2016 01:48:Janae Page RN) LABS Blood Type: O Positive (04/20/2016 01:48:Janae Page RN) Rho(G) this : Not Applicable (04/20/2016 01:48:Shahbaz Elmore RN) Hemoglobin: 8.3 L (06/26/2016 20:40:QS system process) Hematocrit: 24.9 L (06/26/2016 20:40:QS system process) MCV: 86 (06/26/2016 20:40:QS system process) Group Beta Strep: negative (04/20/2016 01:48:Shahbaz Elmore RN) Gonorrhea: Negative (04/20/2016 01:48:Shahbaz Elmore RN) Chlamydia: Negative (04/20/2016 01:48:Shahbaz Elmore RN) RPR/VDRL: Nonreactive (04/20/2016 01:48:Janae Page RN) HIV Exposure Test: Negative (04/20/2016 01:48:Janae Page RN) Hepatitis B: Negative (04/20/2016 01:48:Janae Page RN) Rubella: Immune (04/20/2016 01:48:Janae Page RN) OB/PREVIOUS HISTORY Previous Procedures: Ultrasound (04/20/2016 01:48:EN Mehta) Current Procedures: Ultrasound; NST (04/20/2016 01:48:EN Mehta) History of Previous : No (04/20/2016 01:48:Janae Page RN) History of Gestational Diabetes: No (04/20/2016 01:48:Janae Page RN) History of PIH: No (04/20/2016 01:48:Janae Page RN) History of Incompetent Cervix: No (04/20/2016 01:48:Janae Page RN) History of Placenta Previa/Abrup: No (04/20/2016 01:48:Janae Page RN) History of Macrosomia: No (04/20/2016 01:48:Janae Page RN) History of IUGR: No (04/20/2016 01:48:Janae Page RN) History of Hemorrhage: No (04/20/2016 01:48:Janae Page RN) History of Loss/Stillborn: No (04/20/2016 01:48:Janae Page RN) History of : No (04/20/2016 01:48:Janae Page RN) History of D (Rh) Sensitization: No (04/20/2016 01:48:Janae Page RN) History Recurrent Loss/Stillborn: No (04/20/2016 01:48:Janae Page RN) History Depression/PP Depression: No (04/20/2016 01:48:Janae Page RN) History of Uterine Anomaly/KEVIN: No (04/20/2016 01:48:Janae Page RN) History of Infertility: No (04/20/2016 01:48:Janae Page RN) History of ART Treatment: No (04/20/2016 01:48:Janae Page RN) History of KEVIN: No (04/20/2016 01:48:Janae Page RN) Comments Obstetrical History: G1- 2010 5 week SAB G2- current - first trimester spotting, sob and severe GERD (04/20/2016 01:48:EN Mehta) MEDICAL HISTORY Med Hx Diabetes: No (04/20/2016 01:48:Janae Page RN) Med Hx Hypertension: No (04/20/2016 01:48:Janae Page RN) Med Hx Heart Disease: No (04/20/2016 01:48:Janae Page RN) Med Hx Autoimmune Disorder: No (04/20/2016 01:48:Janae Page RN) Med Hx Kidney Disease/UTI: No (04/20/2016 01:48:Janae Page RN) Med Hx Neurologic/Epilepsy: No (04/20/2016 01:48:Janae Page RN) Med Hx Psychiatric Disorders: No (04/20/2016 01:48:Janae Page RN) Med Hx Hepatitis/Liver Disease: No (04/20/2016 01:48:Janae Page RN) Med Hx Varicosities/Phlebitis: No (04/20/2016 01:48:Janae Page RN) Med Hx Thyroid Dysfunction: No (04/20/2016 01:48:Janae Page RN) Med Hx Trauma/Violence: No (04/20/2016 01:48:Janae Page RN) Med Hx Blood Transfusion: No (04/20/2016 01:48:Janae Page RN) Med Hx Pulmonary (Asthma,TB): No (04/20/2016 01:48:Janae Page RN) Med Hx Breast: No (04/20/2016 01:48:Janae Page RN) Med Hx MARKER MAKER Surgery: No (04/20/2016 01:48:Janae Page RN) Med Hx Hospitalization/Surgery: No (04/20/2016 01:48:Janae Page RN) Med Hx Anesthetic Complications: No (04/20/2016 01:48:Janae Page RN) Med Hx Abnormal Pap Smear: Yes (04/20/2016 01:48:Janae Page RN) Other Medical Diseases: No (04/20/2016 01:48:Janae Page RN) Med Hx Significant Family Hx: No (04/20/2016 01:48:Janae Page RN) Details of Med/Surg Hx: Abnormal pap 10 years ago with colposcopy (04/20/2016 01:48:Jnaae Page RN) INFECTIOUS HISTORY Inf Hx Gonorrhea: No (04/20/2016 01:48:Janae Page RN) Inf Hx Chlamydia: No (04/20/2016 01:48:Janae Page RN) Inf Hx Syphilis: No (04/20/2016 01:48:Janae Page RN) Inf Hx HIV/AIDS: No (04/20/2016 01:48:Janae Page RN) Inf Hx Human Papilloma Virus: No (04/20/2016 01:48:Janae Page RN) Inf Hx Pt/Partner Genital Herpes: No (04/20/2016 01:48:Janae Page RN) Inf Hx Tuberculosis/Exposure: No (04/20/2016 01:48:Janae Page RN) Inf Hx Hepatitis B,C: No (04/20/2016 01:48:Janae Page RN) Inf Hx Rash or Viral Illness: No (04/20/2016 01:48:Janae Page RN) GENETIC HISTORY Gen Hx Age >=35 at DEEP: No (04/20/2016 01:48:Adelaida Gomez RN) Gen Hx Thalassemia: No (04/20/2016 01:48:Janae Page RN) Gen Hx Congenital Heart Defect: No (04/20/2016 01:48:Janae Page RN) Gen Hx Neural Tube Defect: No (04/20/2016 01:48:Janae Page RN) Gen Hx Down's Syndrome: No (04/20/2016 01:48:Janae Page RN) Gen Hx Barney-Sachs: No (04/20/2016 01:48:Janae Page RN) Gen Hx Trupti: No (04/20/2016 01:48:Janae Page RN) Gen Hx Familial Dysautonomia: No (04/20/2016 01:48:Janae Page RN) Gen Hx Sickle Cell Disease/Trait: No (04/20/2016 01:48:Janae Page RN) Gen Hx Hemophilia/Blood Disorder: No (04/20/2016 01:48:Janae Page RN) Gen Hx Muscular Dystrophy: No (04/20/2016 01:48:Janae Page RN) Gen Hx Cystic Fibrosis: No (04/20/2016 01:48:Janae Page RN) Gen Hx Huntingtons Chorea: No (04/20/2016 01:48:Janae Page RN) Gen Hx Mental Retardation/Autism: No (04/20/2016 01:48:Janae Page RN) Gen Hx Tested for Fragile X: No (04/20/2016 01:48:Janae Page RN) Gen Hx Other Inher/Chromosomal: No (04/20/2016 01:48:Janae Page RN) Gen Hx Maternal Metabolic DO: No (04/20/2016 01:48:Janae Page RN) Gen Hx Pt Father or FOB Defect: No (04/20/2016 01:48:Janae Page RN) Gen Hx Other Genetic History: No (04/20/2016 01:48:Janae Page RN) Gen Hx Drugs/Meds since LMP: Yes (04/20/2016 01:48:Janae aPge RN) Gen Hx Medications: PNV, and zantac PRN (04/20/2016 01:48:Janae Page RN)
--- NOTE | 2016-06-28 06:11 | L&D General Admission ---
General Admit Datetime Report Generated by CPN: 06/28/2016 06:00 INFORMATION Patient Age: 31 (04/20/2016 02:55:QS system process) EDC: 07/06/2016 00:00 (04/20/2016 01:48:Janae Page RN) : 2 (04/20/2016 01:48:EN Marroquin) Para: 0 (06/15/2016 15:49:Serena Pearson RN) Term: 0 (04/20/2016 01:48:EN Marroquin) : 0 (04/20/2016 01:48:EN Marroquin) Spontaneous Abortions: 1 (04/20/2016 01:48:EN Marroquin) Induced Abortions: 0 (04/20/2016 01:48:EN Marroquin) Livin (04/20/2016 01:48:EN Marroquin) Cesareans: 0 (04/20/2016 01:48:EN Marroquin) VBACs: 0 (04/20/2016 01:48:EN Marroquin) Ectopic: 0 (04/20/2016 01:48:EN Marroquin) Multiple Births: 0 (04/20/2016 01:48:EN Marroquin) Baby, Number in Womb: 1 (06/15/2016 15:49:Serena Pearson RN) CARE Primary Automotive Exhaust Emissions Technician: [facility] (04/20/2016 01:48:Janae Page RN) Month of 1st Visit: 6 weeks (04/20/2016 01:48:Janae Page RN) Adequate Care: Yes (04/20/2016 01:48:Janae Page RN) Height (in): 68 (06/26/2016 08:49:QS system process) ALLERGIES Medication Allergy: Yes (04/20/2016 01:48:Janae Page RN) Medication Allergies: neomycin (06/10/2016); bacitracin (06/10/2016); metronidazole (06/10/2016); polymyxin B (06/10/2016) (06/10/2016 18:06:QS system process) Latex Allergy: No Latex Allergies (04/20/2016 01:48:Janae Page RN) COMMUNICATION Primary Language: Greek (04/20/2016 01:48:Janae Page RN) Medical Tx Preferred Language: Greek (04/20/2016 01:48:Janae Page RN) Communication Barrier(s): None (04/20/2016 01:48:Shahbaz Elmore RN) DEMOGRAPHICS Address: [address] [place] [id number] (04/20/2016 02:55:QS system process) Zipcode: [address] (04/20/2016 02:55:QS system process) Home (04/20/2016 02:55:QS system process) Work (04/20/2016 02:55:QS system process) SSN: [id number] (04/20/2016 02:55:QS system process) Next of Kin Name: DIVINA CHAUDHRY (05/05/2016 11:35:QS system process) Next of Kin (05/05/2016 11:35:QS system process) Next of Kin Relationship: OR (05/05/2016 11:35:QS system process) Date of : 1985 (04/20/2016 02:55:QS system process) Marital Status: Single (04/20/2016 02:55:QS system process) Sex: Female (04/20/2016 02:55:QS system process) Race: (04/20/2016 02:55:QS system process) Ethnicity: Non- or (04/20/2016 02:55:QS system process) Evangelical: None (04/20/2016 02:55:QS system process) DRUG AND ALCOHOL USE Alcohol: No (04/20/2016 01:48:Janae Page RN) Cigarettes: Current Everyday Smoker. [id number] (04/20/2016 01:48:Janae Page RN) Average Cigarettes Smoked: 5 - 10 per day (04/20/2016 01:48:Janae Page RN) Advised to Stop Smoking: Yes (04/20/2016 01:48:Jnaae Page RN) Marijuana: No (04/20/2016 01:48:Janae Page RN) Cocaine: No (04/20/2016 01:48:Janae Page RN) Other Illicit Drugs: No (04/20/2016 01:48:Janae Page RN) VACCINE HISTORY Influenza Vaccine: No (04/20/2016 01:48:Janae Page RN) Pneumococcal Vaccine: No (04/20/2016 01:48:Janae Page RN) Tetanus Vaccine: Yes (04/20/2016 01:48:Janae Page RN) Tetanus Date: 03/2016 (04/20/2016 01:48:EN Mehta) Tdap Vaccine: Yes (04/20/2016 01:48:EN Mehta) Tdap Date: 03/2016 (04/20/2016 01:48:EN Mehat) Hepatitis B Vaccine: Yes (04/20/2016 01:48:Janae Page RN) Technical Product Manager: [facility] (04/20/2016 01:48:Janae Page RN) Feeding Preference: Breast (04/20/2016 01:48:Maria A Crowe RN) Benefit of Breast Feed Discussed: Yes (04/20/2016 01:48:Shahbaz Elmore RN) Circumcision: Yes (04/20/2016 01:48:Janae Page RN) Classes Attended: No (04/20/2016 01:48:Janae Page RN) Tubal Ligation: No (04/20/2016 01:48:Janae Page RN) Tubal Authorization Signed: N/A (04/20/2016 01:48:Janae Page RN) Consent: N/A (04/20/2016 01:48:Janae Page RN) Consent Signed: N/A (04/20/2016 01:48:Janae Page RN) Pain Management Plans: Medications; Epidural (04/20/2016 01:48:Janae Page RN) Plans for Labor and Delivery: None (04/20/2016 01:48:Janae Page RN) Support Person: Jignesh Chaudhry (04/20/2016 01:48:Janae Page RN) Support Person Relationship: Significant Other (04/20/2016 01:48:Janae Page RN) Cultural/Spritual Practice: No (04/20/2016 01:48:Janae Page RN) Spir/Cult Dietary Needs: No (04/20/2016 01:48:Janae Page RN) LIVING SITUATION/DISCHARGE PLAN Living Arrangements: House (04/20/2016 01:48:Janae Page RN) Adequate Access to:: Electric; Heat; Refrigeration; Plumbing/Running water; Phone; Transportation (04/20/2016 01:48:Janae Page RN) WIC Program: No (04/20/2016 01:48:Janae Page RN) Discharge Tipple Mechanic Person: Jignesh (04/20/2016 01:48:Janae Page RN) Person to Help after Discharge: Jignesh (04/20/2016 01:48:Janae Page RN) Currently Using Commun Resources: Yes (04/20/2016 01:48:Shahbaz Elmore RN) Specify Current Resource Used: Medicaid (04/20/2016 01:48:Janae Page RN) Outside Agency/Harmonic Analyst: No (04/20/2016 01:48:Janae Page RN) Car Seat for Discharge: Yes (04/20/2016 01:48:Janae Page RN) Adoption Requested: No (04/20/2016 01:48:Janae Page RN) Pt Contact w/infant Post : N/A (04/20/2016 01:48:Janae Page RN) LABS Blood Type: O Positive (04/20/2016 01:48:Janae Page RN) Rho(G) this : Not Applicable (04/20/2016 01:48:Shahbaz Elmore RN) Hemoglobin: 8.3 L (06/26/2016 20:40:QS system process) Hematocrit: 24.9 L (06/26/2016 20:40:QS system process) MCV: 86 (06/26/2016 20:40:QS system process) Group Beta Strep: negative (04/20/2016 01:48:Shahbaz Elmore RN) Gonorrhea: Negative (04/20/2016 01:48:Shahbaz Elmore RN) Chlamydia: Negative (04/20/2016 01:48:Shahbaz Elmore RN) RPR/VDRL: Nonreactive (04/20/2016 01:48:Janae Page RN) HIV Exposure Test: Negative (04/20/2016 01:48:Janae Page RN) Hepatitis B: Negative (04/20/2016 01:48:Janae Page RN) Rubella: Immune (04/20/2016 01:48:Janae Page RN) OB/PREVIOUS HISTORY Previous Procedures: Ultrasound (04/20/2016 01:48:EN Mehta) Current Procedures: Ultrasound; NST (04/20/2016 01:48:EN Mehta) History of Previous : No (04/20/2016 01:48:Janae Page RN) History of Gestational Diabetes: No (04/20/2016 01:48:Janae Page RN) History of PIH: No (04/20/2016 01:48:Janae Page RN) History of Incompetent Cervix: No (04/20/2016 01:48:Janae Page RN) History of Placenta Previa/Abrup: No (04/20/2016 01:48:Janae Page RN) History of Macrosomia: No (04/20/2016 01:48:Janae Page RN) History of IUGR: No (04/20/2016 01:48:Janae Page RN) History of Hemorrhage: No (04/20/2016 01:48:Janae Page RN) History of Loss/Stillborn: No (04/20/2016 01:48:Janae Page RN) History of : No (04/20/2016 01:48:Janae Page RN) History of D (Rh) Sensitization: No (04/20/2016 01:48:Janae Page RN) History Recurrent Loss/Stillborn: No (04/20/2016 01:48:Janae Page RN) History Depression/PP Depression: No (04/20/2016 01:48:Janae Page RN) History of Uterine Anomaly/KEVIN: No (04/20/2016 01:48:Janae Page RN) History of Infertility: No (04/20/2016 01:48:Janae Page RN) History of ART Treatment: No (04/20/2016 01:48:Janae Page RN) History of KEVIN: No (04/20/2016 01:48:Janae Page RN) Comments Obstetrical History: G1- 2010 5 week SAB G2- current - first trimester spotting, sob and severe GERD (04/20/2016 01:48:EN Mehta) MEDICAL HISTORY Med Hx Diabetes: No (04/20/2016 01:48:Janae Page RN) Med Hx Hypertension: No (04/20/2016 01:48:Janae Page RN) Med Hx Heart Disease: No (04/20/2016 01:48:Janae Page RN) Med Hx Autoimmune Disorder: No (04/20/2016 01:48:Janae Page RN) Med Hx Kidney Disease/UTI: No (04/20/2016 01:48:Janae Page RN) Med Hx Neurologic/Epilepsy: No (04/20/2016 01:48:Janae Page RN) Med Hx Psychiatric Disorders: No (04/20/2016 01:48:Janae Page RN) Med Hx Hepatitis/Liver Disease: No (04/20/2016 01:48:Janae Page RN) Med Hx Varicosities/Phlebitis: No (04/20/2016 01:48:Janae Page RN) Med Hx Thyroid Dysfunction: No (04/20/2016 01:48:Janae Page RN) Med Hx Trauma/Violence: No (04/20/2016 01:48:Janae Page RN) Med Hx Blood Transfusion: No (04/20/2016 01:48:Janae Page RN) Med Hx Pulmonary (Asthma,TB): No (04/20/2016 01:48:Janae Page RN) Med Hx Breast: No (04/20/2016 01:48:Janae Page RN) Med Hx CLINICAL SAFETY SPECIALIST Surgery: No (04/20/2016 01:48:Janae Page RN) Med Hx Hospitalization/Surgery: No (04/20/2016 01:48:Janae Page RN) Med Hx Anesthetic Complications: No (04/20/2016 01:48:Janae Page RN) Med Hx Abnormal Pap Smear: Yes (04/20/2016 01:48:Janae Page RN) Other Medical Diseases: No (04/20/2016 01:48:Janae Page RN) Med Hx Significant Family Hx: No (04/20/2016 01:48:Janae Page RN) Details of Med/Surg Hx: Abnormal pap 10 years ago with colposcopy (04/20/2016 01:48:Janae Page RN) INFECTIOUS HISTORY Inf Hx Gonorrhea: No (04/20/2016 01:48:Janae Page RN) Inf Hx Chlamydia: No (04/20/2016 01:48:Janae Page RN) Inf Hx Syphilis: No (04/20/2016 01:48:Janae Page RN) Inf Hx HIV/AIDS: No (04/20/2016 01:48:Janae Page RN) Inf Hx Human Papilloma Virus: No (04/20/2016 01:48:Janae Page RN) Inf Hx Pt/Partner Genital Herpes: No (04/20/2016 01:48:Janae Page RN) Inf Hx Tuberculosis/Exposure: No (04/20/2016 01:48:Janae Page RN) Inf Hx Hepatitis B,C: No (04/20/2016 01:48:Janae Page RN) Inf Hx Rash or Viral Illness: No (04/20/2016 01:48:Janae Page RN) GENETIC HISTORY Gen Hx Age >=35 at DEEP: No (04/20/2016 01:48:Adelaida Gomez RN) Gen Hx Thalassemia: No (04/20/2016 01:48:Janae Page RN) Gen Hx Congenital Heart Defect: No (04/20/2016 01:48:Janae Page RN) Gen Hx Neural Tube Defect: No (04/20/2016 01:48:Janae Page RN) Gen Hx Down's Syndrome: No (04/20/2016 01:48:Janae Page RN) Gen Hx Barney-Sachs: No (04/20/2016 01:48:Janae Page RN) Gen Hx Trupti: No (04/20/2016 01:48:Janae Page RN) Gen Hx Familial Dysautonomia: No (04/20/2016 01:48:Janae Page RN) Gen Hx Sickle Cell Disease/Trait: No (04/20/2016 01:48:Janae Page RN) Gen Hx Hemophilia/Blood Disorder: No (04/20/2016 01:48:Janae Page RN) Gen Hx Muscular Dystrophy: No (04/20/2016 01:48:Janae Page RN) Gen Hx Cystic Fibrosis: No (04/20/2016 01:48:Janae Page RN) Gen Hx Huntingtons Chorea: No (04/20/2016 01:48:Janae Page RN) Gen Hx Mental Retardation/Autism: No (04/20/2016 01:48:Janae Page RN) Gen Hx Tested for Fragile X: No (04/20/2016 01:48:Janae Page RN) Gen Hx Other Inher/Chromosomal: No (04/20/2016 01:48:Janae Page RN) Gen Hx Maternal Metabolic DO: No (04/20/2016 01:48:Janae Page RN) Gen Hx Pt Father or FOB Defect: No (04/20/2016 01:48:Janae Page RN) Gen Hx Other Genetic History: No (04/20/2016 01:48:Janae Page RN) Gen Hx Drugs/Meds since LMP: Yes (04/20/2016 01:48:Janae Page RN) Gen Hx Medications: PNV, and zantac PRN (04/20/2016 01:48:Janae Page RN)
--- NOTE | 2016-06-28 06:11 | L&D Current Admission ---
Current Admit Datetime Report Generated by CPN: 06/28/2016 06:00 ADMISSION INFORMATION Person(s) Allowed during Admit: family (06/23/2016 20:25:Shahbaz Elmore RN) Current Admit Date/Time: 06/23/2016 20:25 (06/23/2016 20:25:Shahbaz Elmore RN) Reason for Admission: Induction of Labor (06/23/2016 20:25:Shahbaz Elmore RN) Chief Complaint: Scheduled Induction of Labor (06/24/2016 19:17:Maria A Crowe RN) Medications During : Vitamin; Rantidine (Zantac) (06/23/2016 20:25:Shahbaz Elmore RN) EGA per Dates: 38.1 (06/23/2016 20:25:QS system process) Method of Arrival: Ambulatory (06/23/2016 20:25:Shahbaz Elmore RN) Admitted From: Home (06/23/2016 20:25:Shahbaz Elmore RN) Reason for Induction: Gestational Hypertension (06/23/2016 20:25:Shahbaz Elmore RN) Records Available: Yes (06/23/2016 20:25:Shahbaz Elmore RN) General Admission Information: Reviewed (06/23/2016 20:25:Shahbaz Elmore RN) General Admission Reviewed By: Candida Elmore RN (06/23/2016 20:25:Shahbaz Elmore RN) BELONGINGS/ADVANCED DIRECTIVES Disposition of Belongings: Kept with Patient (06/23/2016 20:25:Shahbaz Elmore RN) Comments Regarding Disposition: see valuables consent form (06/23/2016 20:25:Shahbaz Elmore RN) Advance Direct for Healthcare: No, and Wants No Information (06/23/2016 20:25:Shahbaz Elmore RN) Durable Power of Supplier Manager: No (06/23/2016 20:25:Shahbaz Elmore RN) Living Will: No (06/23/2016 20:25:Shahbaz Elmore RN) Organ Donor: Yes (06/23/2016 20:25:Shahbaz Elmore RN) Pt Rights Information Given: Yes (06/23/2016 20:25:Shahbaz Elmore RN) Pt Understands Pt Rights: Yes (06/23/2016 20:25:Shahbaz Elmore RN) LEARNING ASSESSMENT Knowledge Level: Understands L_D Process; Understands Care Activities; Had Pre-Hospital Education; Understands Diagnosis (06/23/2016 20:25:Shahbaz Elmore RN) Barriers to Learning: None (06/23/2016 20:25:Shahbaz Elmore RN) Learning Readiness: Motivated (06/23/2016 20:25:Shahbaz Elmore RN) Learns Best By: 1 to 1 Instruction; Reading; Videos; Group Discussion; Demonstration (06/23/2016 20:25:Shahbaz Elmore RN) Learning Needs: Labor and Delivery Process; Pain Management; Symptoms to Report; Treatment Plan; Medication; Diagnosis; Nutrition; Equipment; Care; Community Resources (06/23/2016 20:25:Shahbaz Elmore RN) DOMESTIC VIOLANCE SCREENING Dom Viol Threatened/Hurt: No (06/23/2016 20:25:Shahbaz Elmore RN) Hx of Abuse/Neglect past 2yrs: No (06/23/2016 20:25:Shahbaz Elmore RN) Feel Unsafe Going Home: No (06/23/2016 20:25:Shahbaz Elmore RN) Addt'l Observ Indicating Abuse: No (06/23/2016 20:25:Shahbaz Elmore RN) Reason Unable to Complete Screen: N/A, Screen Completed (06/23/2016 20:25:Shahbaz Elmore RN) Considered Personal Harm/Suicide: No (06/23/2016 20:25:Shahbaz Elmore RN) NUTRITIONAL/FUNCTIONAL SCREENING Problem with Appetite >5 Days: No (06/23/2016 20:25:Shahbaz Elmore RN) Chew/Swallow Difficulties: No (06/23/2016 20:25:Shahbaz Elmore RN) Inappropriate Wt Gain/Loss: No (06/23/2016 20:25:Shahabz Elmore RN) Presence Skin Breakdown/Ulcer: No (06/23/2016 20:25:Shahbaz Elmore RN) Special Diet: No (06/23/2016 20:25:Shahbaz Elmore RN) Pt Requests Fagot Heater Visit: No (06/23/2016 20:25:Shahbaz Elmore RN) Hx of Any of the Following?: N/A (06/23/2016 20:25:Shahbaz Elmore RN) New Diagnosis of: N/A (06/23/2016 20:25:Shahbaz Elmore RN) Requires Assist w/Ambulation: No (06/23/2016 20:25:Shahbaz Elmore RN) Uses Assist Device to Ambulate: No (06/23/2016 20:25:Shahbaz Elmore RN) Pt Requires Help w/ADL's: No (06/23/2016 20:25:Shahbaz Elmore RN)
--- NOTE | 2016-06-29 06:08 | L&D General Admission ---
General Admit Datetime Report Generated by CPN: 06/29/2016 06:00 INFORMATION Patient Age: 31 (04/20/2016 02:55:QS system process) EDC: 07/06/2016 00:00 (04/20/2016 01:48:Janae Page RN) : 2 (04/20/2016 01:48:EN Marroquin) Para: 0 (06/15/2016 15:49:Serena Pearson RN) Term: 0 (04/20/2016 01:48:EN Marroquin) : 0 (04/20/2016 01:48:EN Marroquin) Spontaneous Abortions: 1 (04/20/2016 01:48:EN Marroquin) Induced Abortions: 0 (04/20/2016 01:48:EN Marroquin) Livin (04/20/2016 01:48:EN Marroquin) Cesareans: 0 (04/20/2016 01:48:EN Marroquin) VBACs: 0 (04/20/2016 01:48:EN Marroquin) Ectopic: 0 (04/20/2016 01:48:EN Marroquin) Multiple Births: 0 (04/20/2016 01:48:EN Marroquin) Baby, Number in Womb: 1 (06/15/2016 15:49:Serena Pearson RN) CARE Primary Pediatric Geneticist: [facility] (04/20/2016 01:48:Janae Page RN) Month of 1st Visit: 6 weeks (04/20/2016 01:48:Janae Page RN) Adequate Care: Yes (04/20/2016 01:48:Janae Page RN) Height (in): 68 (06/26/2016 08:49:QS system process) ALLERGIES Medication Allergy: Yes (04/20/2016 01:48:Janae Page RN) Medication Allergies: neomycin (06/10/2016); bacitracin (06/10/2016); metronidazole (06/10/2016); polymyxin B (06/10/2016) (06/10/2016 18:06:QS system process) Latex Allergy: No Latex Allergies (04/20/2016 01:48:Janae Page RN) COMMUNICATION Primary Language: [place] Islander (04/20/2016 01:48:Janae Page RN) Medical Tx Preferred Language: [place] Islander (04/20/2016 01:48:Janae Page RN) Communication Barrier(s): None (04/20/2016 01:48:Shahbaz Elmore RN) DEMOGRAPHICS Address: [address] [place] [id number] (04/20/2016 02:55:QS system process) Zipcode: [id number] (04/20/2016 02:55:QS system process) Home (04/20/2016 02:55:QS system process) Work (04/20/2016 02:55:QS system process) SSN: [id number] (04/20/2016 02:55:QS system process) Next of Kin Name: DIVINA CHAUDHRY (05/05/2016 11:35:QS system process) Next of Kin (05/05/2016 11:35:QS system process) Next of Kin Relationship: OR (05/05/2016 11:35:QS system process) Date of : 1985 (04/20/2016 02:55:QS system process) Marital Status: Single (04/20/2016 02:55:QS system process) Sex: Female (04/20/2016 02:55:QS system process) Race: (04/20/2016 02:55:QS system process) Ethnicity: Non- or (04/20/2016 02:55:QS system process) Congregation: None (04/20/2016 02:55:QS system process) DRUG AND ALCOHOL USE Alcohol: No (04/20/2016 01:48:Janae Page RN) Cigarettes: Current Everyday Smoker. [id number] (04/20/2016 01:48:Janae Page RN) Average Cigarettes Smoked: 5 - 10 per day (04/20/2016 01:48:Janae Page RN) Advised to Stop Smoking: Yes (04/20/2016 01:48:Janae Page RN) Marijuana: No (04/20/2016 01:48:Janae Page RN) Cocaine: No (04/20/2016 01:48:Janae Page RN) Other Illicit Drugs: No (04/20/2016 01:48:Janae Page RN) VACCINE HISTORY Influenza Vaccine: No (04/20/2016 01:48:Janae Page RN) Pneumococcal Vaccine: No (04/20/2016 01:48:Janae Page RN) Tetanus Vaccine: Yes (04/20/2016 01:48:Janae Page RN) Tetanus Date: 03/2016 (04/20/2016 01:48:EN Mehta) Tdap Vaccine: Yes (04/20/2016 01:48:EN Mehta) Tdap Date: 03/2016 (04/20/2016 01:48:EN Mehta) Hepatitis B Vaccine: Yes (04/20/2016 01:48:Janae Page RN) Pool Nurse: [facility] (04/20/2016 01:48:Janae Page RN) Feeding Preference: Breast (04/20/2016 01:48:Maria A Crowe RN) Benefit of Breast Feed Discussed: Yes (04/20/2016 01:48:Shahbaz Elmore RN) Circumcision: Yes (04/20/2016 01:48:Janae Page RN) Classes Attended: No (04/20/2016 01:48:Janae Page RN) Tubal Ligation: No (04/20/2016 01:48:Janae Page RN) Tubal Authorization Signed: N/A (04/20/2016 01:48:Janae Page RN) Consent: N/A (04/20/2016 01:48:Janae Page RN) Consent Signed: N/A (04/20/2016 01:48:Janae Page RN) Pain Management Plans: Medications; Epidural (04/20/2016 01:48:Janae Page RN) Plans for Labor and Delivery: None (04/20/2016 01:48:Janae Page RN) Support Person: Jignesh Chaudhry (04/20/2016 01:48:Janae Page RN) Support Person Relationship: Significant Other (04/20/2016 01:48:Janae Page RN) Cultural/Spritual Practice: No (04/20/2016 01:48:Janae Page RN) Spir/Cult Dietary Needs: No (04/20/2016 01:48:Janae Page RN) LIVING SITUATION/DISCHARGE PLAN Living Arrangements: House (04/20/2016 01:48:Janae Page RN) Adequate Access to:: Electric; Heat; Refrigeration; Plumbing/Running water; Phone; Transportation (04/20/2016 01:48:Janae Page RN) WIC Program: No (04/20/2016 01:48:Jaane Page RN) Discharge Systems Applications Programming Lead Person: Jignesh (04/20/2016 01:48:Janae Page RN) Person to Help after Discharge: Jignesh (04/20/2016 01:48:Janae Page RN) Currently Using Commun Resources: Yes (04/20/2016 01:48:Shabhaz Elmore RN) Specify Current Resource Used: Medicaid (04/20/2016 01:48:Janae Page RN) Outside Agency/Cement Conveyor Operator: No (04/20/2016 01:48:Janae Page RN) Car Seat for Discharge: Yes (04/20/2016 01:48:Janae Page RN) Adoption Requested: No (04/20/2016 01:48:Janae Page RN) Pt Contact w/infant Post : N/A (04/20/2016 01:48:Janae Page RN) LABS Blood Type: O Positive (04/20/2016 01:48:Janae Page RN) Rho(G) this : Not Applicable (04/20/2016 01:48:Shahbaz Elmore RN) Hemoglobin: 8.3 L (06/26/2016 20:40:QS system process) Hematocrit: 24.9 L (06/26/2016 20:40:QS system process) MCV: 86 (06/26/2016 20:40:QS system process) Group Beta Strep: negative (04/20/2016 01:48:Shahbaz Elmore RN) Gonorrhea: Negative (04/20/2016 01:48:Shahbaz Elmore RN) Chlamydia: Negative (04/20/2016 01:48:Shahbaz Elmore RN) RPR/VDRL: Nonreactive (04/20/2016 01:48:Janae Page RN) HIV Exposure Test: Negative (04/20/2016 01:48:Janae Page RN) Hepatitis B: Negative (04/20/2016 01:48:Janae Page RN) Rubella: Immune (04/20/2016 01:48:Janae Page RN) OB/PREVIOUS HISTORY Previous Procedures: Ultrasound (04/20/2016 01:48:EN Mehta) Current Procedures: Ultrasound; NST (04/20/2016 01:48:EN Mehta) History of Previous : No (04/20/2016 01:48:Janae Page RN) History of Gestational Diabetes: No (04/20/2016 01:48:Janae Page RN) History of PIH: No (04/20/2016 01:48:Janae Page RN) History of Incompetent Cervix: No (04/20/2016 01:48:Janae Page RN) History of Placenta Previa/Abrup: No (04/20/2016 01:48:Janae Page RN) History of Macrosomia: No (04/20/2016 01:48:Janae Page RN) History of IUGR: No (04/20/2016 01:48:Janae Page RN) History of Hemorrhage: No (04/20/2016 01:48:Janae Page RN) History of Loss/Stillborn: No (04/20/2016 01:48:Janae Page RN) History of : No (04/20/2016 01:48:Janae Page RN) History of D (Rh) Sensitization: No (04/20/2016 01:48:Janae Page RN) History Recurrent Loss/Stillborn: No (04/20/2016 01:48:Janae Page RN) History Depression/PP Depression: No (04/20/2016 01:48:Janae Page RN) History of Uterine Anomaly/KEVIN: No (04/20/2016 01:48:Janae Page RN) History of Infertility: No (04/20/2016 01:48:Janae Page RN) History of ART Treatment: No (04/20/2016 01:48:Janae Page RN) History of KEVIN: No (04/20/2016 01:48:Janae Page RN) Comments Obstetrical History: G1- 2010 5 week SAB G2- current - first trimester spotting, sob and severe GERD (04/20/2016 01:48:EN Mehta) MEDICAL HISTORY Med Hx Diabetes: No (04/20/2016 01:48:Janae Page RN) Med Hx Hypertension: No (04/20/2016 01:48:Janae Page RN) Med Hx Heart Disease: No (04/20/2016 01:48:Janae Page RN) Med Hx Autoimmune Disorder: No (04/20/2016 01:48:Janae Page RN) Med Hx Kidney Disease/UTI: No (04/20/2016 01:48:Janae Page RN) Med Hx Neurologic/Epilepsy: No (04/20/2016 01:48:Janae Page RN) Med Hx Psychiatric Disorders: No (04/20/2016 01:48:Janae Page RN) Med Hx Hepatitis/Liver Disease: No (04/20/2016 01:48:Janae Page RN) Med Hx Varicosities/Phlebitis: No (04/20/2016 01:48:Janae Page RN) Med Hx Thyroid Dysfunction: No (04/20/2016 01:48:Janae Page RN) Med Hx Trauma/Violence: No (04/20/2016 01:48:Janae Page RN) Med Hx Blood Transfusion: No (04/20/2016 01:48:Janae Page RN) Med Hx Pulmonary (Asthma,TB): No (04/20/2016 01:48:Janae Page RN) Med Hx Breast: No (04/20/2016 01:48:Janae Page RN) Med Hx ELECTRIC BATH ATTENDANT Surgery: No (04/20/2016 01:48:Janae Page RN) Med Hx Hospitalization/Surgery: No (04/20/2016 01:48:Janae Page RN) Med Hx Anesthetic Complications: No (04/20/2016 01:48:Janae Page RN) Med Hx Abnormal Pap Smear: Yes (04/20/2016 01:48:Janae Page RN) Other Medical Diseases: No (04/20/2016 01:48:Janae Page RN) Med Hx Significant Family Hx: No (04/20/2016 01:48:Janae Page RN) Details of Med/Surg Hx: Abnormal pap 10 years ago with colposcopy (04/20/2016 01:48:Janae Page RN) INFECTIOUS HISTORY Inf Hx Gonorrhea: No (04/20/2016 01:48:Janae Page RN) Inf Hx Chlamydia: No (04/20/2016 01:48:Janae Page RN) Inf Hx Syphilis: No (04/20/2016 01:48:Janae Page RN) Inf Hx HIV/AIDS: No (04/20/2016 01:48:Janae Page RN) Inf Hx Human Papilloma Virus: No (04/20/2016 01:48:Janae Page RN) Inf Hx Pt/Partner Genital Herpes: No (04/20/2016 01:48:Janae Page RN) Inf Hx Tuberculosis/Exposure: No (04/20/2016 01:48:Janae Page RN) Inf Hx Hepatitis B,C: No (04/20/2016 01:48:Janae Page RN) Inf Hx Rash or Viral Illness: No (04/20/2016 01:48:Janae Page RN) GENETIC HISTORY Gen Hx Age >=35 at DEEP: No (04/20/2016 01:48:Adelaida Gomez RN) Gen Hx Thalassemia: No (04/20/2016 01:48:Janae Page RN) Gen Hx Congenital Heart Defect: No (04/20/2016 01:48:Janae Page RN) Gen Hx Neural Tube Defect: No (04/20/2016 01:48:Janae Page RN) Gen Hx Down's Syndrome: No (04/20/2016 01:48:Janae Page RN) Gen Hx Barney-Sachs: No (04/20/2016 01:48:Janae Page RN) Gen Hx Trupti: No (04/20/2016 01:48:Janae Page RN) Gen Hx Familial Dysautonomia: No (04/20/2016 01:48:Janae Page RN) Gen Hx Sickle Cell Disease/Trait: No (04/20/2016 01:48:Janae Page RN) Gen Hx Hemophilia/Blood Disorder: No (04/20/2016 01:48:Janae Page RN) Gen Hx Muscular Dystrophy: No (04/20/2016 01:48:Janae Page RN) Gen Hx Cystic Fibrosis: No (04/20/2016 01:48:Janae Page RN) Gen Hx Huntingtons Chorea: No (04/20/2016 01:48:Janae Page RN) Gen Hx Mental Retardation/Autism: No (04/20/2016 01:48:Janae Page RN) Gen Hx Tested for Fragile X: No (04/20/2016 01:48:Janae Page RN) Gen Hx Other Inher/Chromosomal: No (04/20/2016 01:48:Janae Page RN) Gen Hx Maternal Metabolic DO: No (04/20/2016 01:48:Janae Page RN) Gen Hx Pt Father or FOB Defect: No (04/20/2016 01:48:Janae Page RN) Gen Hx Other Genetic History: No (04/20/2016 01:48:Janae Page RN) Gen Hx Drugs/Meds since LMP: Yes (04/20/2016 01:48:Janae Page RN) Gen Hx Medications: PNV, and zantac PRN (04/20/2016 01:48:Janae Page RN)
--- NOTE | 2016-06-30 06:08 | L&D General Admission ---
General Admit Datetime Report Generated by CPN: 06/30/2016 06:00 INFORMATION Patient Age: 31 (04/20/2016 02:55:QS system process) EDC: 07/06/2016 00:00 (04/20/2016 01:48:Jaane Page RN) : 2 (04/20/2016 01:48:EN Marroquin) Para: 0 (06/15/2016 15:49:Serena Pearson RN) Term: 0 (04/20/2016 01:48:EN Marroquin) : 0 (04/20/2016 01:48:EN Marroquin) Spontaneous Abortions: 1 (04/20/2016 01:48:EN Marroquin) Induced Abortions: 0 (04/20/2016 01:48:EN Marroquin) Livin (04/20/2016 01:48:EN Marroquin) Cesareans: 0 (04/20/2016 01:48:EN Marroquin) VBACs: 0 (04/20/2016 01:48:EN Marroquin) Ectopic: 0 (04/20/2016 01:48:EN Marroquin) Multiple Births: 0 (04/20/2016 01:48:EN Marroquin) Baby, Number in Womb: 1 (06/15/2016 15:49:Serena Pearson RN) CARE Primary Risk Management Director: [facility] (04/20/2016 01:48:Janae Page RN) Month of 1st Visit: 6 weeks (04/20/2016 01:48:Janae Page RN) Adequate Care: Yes (04/20/2016 01:48:Janae Page RN) Height (in): 68 (06/26/2016 08:49:QS system process) ALLERGIES Medication Allergy: Yes (04/20/2016 01:48:Janae Page RN) Medication Allergies: neomycin (06/10/2016); bacitracin (06/10/2016); metronidazole (06/10/2016); polymyxin B (06/10/2016) (06/10/2016 18:06:QS system process) Latex Allergy: No Latex Allergies (04/20/2016 01:48:Janae Page RN) COMMUNICATION Primary Language: Venezuelan (04/20/2016 01:48:Janae Page RN) Medical Tx Preferred Language: Venezuelan (04/20/2016 01:48:Janae Page RN) Communication Barrier(s): None (04/20/2016 01:48:Shahbaz Elmore RN) DEMOGRAPHICS Address: [address] [place] [id number] (04/20/2016 02:55:QS system process) Zipcode: [address] (04/20/2016 02:55:QS system process) Home (04/20/2016 02:55:QS system process) Work (04/20/2016 02:55:QS system process) SSN: [id number] (04/20/2016 02:55:QS system process) Next of Kin Name: DIVINA CHAUDHRY (05/05/2016 11:35:QS system process) Next of Kin (05/05/2016 11:35:QS system process) Next of Kin Relationship: OR (05/05/2016 11:35:QS system process) Date of : 1985 (04/20/2016 02:55:QS system process) Marital Status: Single (04/20/2016 02:55:QS system process) Sex: Female (04/20/2016 02:55:QS system process) Race: (04/20/2016 02:55:QS system process) Ethnicity: Non- or (04/20/2016 02:55:QS system process) Gnosticist: None (04/20/2016 02:55:QS system process) DRUG AND ALCOHOL USE Alcohol: No (04/20/2016 01:48:Janae Page RN) Cigarettes: Current Everyday Smoker. [id number] (04/20/2016 01:48:Janae Page RN) Average Cigarettes Smoked: 5 - 10 per day (04/20/2016 01:48:Janae Page RN) Advised to Stop Smoking: Yes (04/20/2016 01:48:Janae Page RN) Marijuana: No (04/20/2016 01:48:Janae Page RN) Cocaine: No (04/20/2016 01:48:Janae Page RN) Other Illicit Drugs: No (04/20/2016 01:48:Janae Page RN) VACCINE HISTORY Influenza Vaccine: No (04/20/2016 01:48:Janae Page RN) Pneumococcal Vaccine: No (04/20/2016 01:48:Janae Page RN) Tetanus Vaccine: Yes (04/20/2016 01:48:Janae Page RN) Tetanus Date: 03/2016 (04/20/2016 01:48:EN Mehta) Tdap Vaccine: Yes (04/20/2016 01:48:EN Mehta) Tdap Date: 03/2016 (04/20/2016 01:48:EN Mehta) Hepatitis B Vaccine: Yes (04/20/2016 01:48:Janae Page RN) Lokie Driver: [facility] (04/20/2016 01:48:Janae Page RN) Feeding Preference: Breast (04/20/2016 01:48:Maria A Crowe RN) Benefit of Breast Feed Discussed: Yes (04/20/2016 01:48:Shahbaz Elmore RN) Circumcision: Yes (04/20/2016 01:48:Janae Page RN) Classes Attended: No (04/20/2016 01:48:Janae Page RN) Tubal Ligation: No (04/20/2016 01:48:Janae Page RN) Tubal Authorization Signed: N/A (04/20/2016 01:48:Janae Page RN) Consent: N/A (04/20/2016 01:48:Janae Page RN) Consent Signed: N/A (04/20/2016 01:48:Janae Page RN) Pain Management Plans: Medications; Epidural (04/20/2016 01:48:Janae Page RN) Plans for Labor and Delivery: None (04/20/2016 01:48:Janae Page RN) Support Person: Jignesh Chaudhry (04/20/2016 01:48:Janae Page RN) Support Person Relationship: Significant Other (04/20/2016 01:48:Janae Page RN) Cultural/Spritual Practice: No (04/20/2016 01:48:Janae Page RN) Spir/Cult Dietary Needs: No (04/20/2016 01:48:Janae Page RN) LIVING SITUATION/DISCHARGE PLAN Living Arrangements: House (04/20/2016 01:48:Janae Page RN) Adequate Access to:: Electric; Heat; Refrigeration; Plumbing/Running water; Phone; Transportation (04/20/2016 01:48:Janae Page RN) WIC Program: No (04/20/2016 01:48:Janae Page RN) Discharge Deck Specialist Person: Jignesh (04/20/2016 01:48:Janae Page RN) Person to Help after Discharge: Jignesh (04/20/2016 01:48:Janae Page RN) Currently Using Commun Resources: Yes (04/20/2016 01:48:Shahbaz Elmore RN) Specify Current Resource Used: Medicaid (04/20/2016 01:48:Janae Page RN) Outside Agency/Hand Screen Printer: No (04/20/2016 01:48:Janae Page RN) Car Seat for Discharge: Yes (04/20/2016 01:48:Janae Page RN) Adoption Requested: No (04/20/2016 01:48:Janae Page RN) Pt Contact w/infant Post : N/A (04/20/2016 01:48:Janae Page RN) LABS Blood Type: O Positive (04/20/2016 01:48:Janae Page RN) Rho(G) this : Not Applicable (04/20/2016 01:48:Shahbaz Elmore RN) Hemoglobin: 8.3 L (06/26/2016 20:40:QS system process) Hematocrit: 24.9 L (06/26/2016 20:40:QS system process) MCV: 86 (06/26/2016 20:40:QS system process) Group Beta Strep: negative (04/20/2016 01:48:Shahbaz Elmore RN) Gonorrhea: Negative (04/20/2016 01:48:Shahbaz Elmore RN) Chlamydia: Negative (04/20/2016 01:48:Shahbaz Elmore RN) RPR/VDRL: Nonreactive (04/20/2016 01:48:Janae Page RN) HIV Exposure Test: Negative (04/20/2016 01:48:Janae Page RN) Hepatitis B: Negative (04/20/2016 01:48:Janae Page RN) Rubella: Immune (04/20/2016 01:48:Janae Page RN) OB/PREVIOUS HISTORY Previous Procedures: Ultrasound (04/20/2016 01:48:EN Mehta) Current Procedures: Ultrasound; NST (04/20/2016 01:48:EN Mehta) History of Previous : No (04/20/2016 01:48:Janae Page RN) History of Gestational Diabetes: No (04/20/2016 01:48:Janae Page RN) History of PIH: No (04/20/2016 01:48:Janae Page RN) History of Incompetent Cervix: No (04/20/2016 01:48:Janae Page RN) History of Placenta Previa/Abrup: No (04/20/2016 01:48:Janae Page RN) History of Macrosomia: No (04/20/2016 01:48:Janae Page RN) History of IUGR: No (04/20/2016 01:48:Janae Page RN) History of Hemorrhage: No (04/20/2016 01:48:Janae Page RN) History of Loss/Stillborn: No (04/20/2016 01:48:Janae Page RN) History of : No (04/20/2016 01:48:Janae Page RN) History of D (Rh) Sensitization: No (04/20/2016 01:48:Janae Page RN) History Recurrent Loss/Stillborn: No (04/20/2016 01:48:Janae Page RN) History Depression/PP Depression: No (04/20/2016 01:48:Janae Page RN) History of Uterine Anomaly/KEVIN: No (04/20/2016 01:48:Janae Page RN) History of Infertility: No (04/20/2016 01:48:Janae Page RN) History of ART Treatment: No (04/20/2016 01:48:Janae Page RN) History of KEVIN: No (04/20/2016 01:48:Janae Page RN) Comments Obstetrical History: G1- 2010 5 week SAB G2- current - first trimester spotting, sob and severe GERD (04/20/2016 01:48:EN Mehta) MEDICAL HISTORY Med Hx Diabetes: No (04/20/2016 01:48:Janae Page RN) Med Hx Hypertension: No (04/20/2016 01:48:Janae Page RN) Med Hx Heart Disease: No (04/20/2016 01:48:Janae Page RN) Med Hx Autoimmune Disorder: No (04/20/2016 01:48:Janae Page RN) Med Hx Kidney Disease/UTI: No (04/20/2016 01:48:Janae Page RN) Med Hx Neurologic/Epilepsy: No (04/20/2016 01:48:Janae Page RN) Med Hx Psychiatric Disorders: No (04/20/2016 01:48:Janae Page RN) Med Hx Hepatitis/Liver Disease: No (04/20/2016 01:48:Janae Page RN) Med Hx Varicosities/Phlebitis: No (04/20/2016 01:48:Janae Page RN) Med Hx Thyroid Dysfunction: No (04/20/2016 01:48:Janae Page RN) Med Hx Trauma/Violence: No (04/20/2016 01:48:Janae Page RN) Med Hx Blood Transfusion: No (04/20/2016 01:48:Janae Page RN) Med Hx Pulmonary (Asthma,TB): No (04/20/2016 01:48:Janae Page RN) Med Hx Breast: No (04/20/2016 01:48:Janae Page RN) Med Hx STABLEHAND Surgery: No (04/20/2016 01:48:Janae Page RN) Med Hx Hospitalization/Surgery: No (04/20/2016 01:48:Janae Page RN) Med Hx Anesthetic Complications: No (04/20/2016 01:48:Janae Page RN) Med Hx Abnormal Pap Smear: Yes (04/20/2016 01:48:Janae Page RN) Other Medical Diseases: No (04/20/2016 01:48:Janae Page RN) Med Hx Significant Family Hx: No (04/20/2016 01:48:Janae Page RN) Details of Med/Surg Hx: Abnormal pap 10 years ago with colposcopy (04/20/2016 01:48:Janae Page RN) INFECTIOUS HISTORY Inf Hx Gonorrhea: No (04/20/2016 01:48:Janae Page RN) Inf Hx Chlamydia: No (04/20/2016 01:48:Janae Page RN) Inf Hx Syphilis: No (04/20/2016 01:48:Janae Page RN) Inf Hx HIV/AIDS: No (04/20/2016 01:48:Janae Page RN) Inf Hx Human Papilloma Virus: No (04/20/2016 01:48:Janae Page RN) Inf Hx Pt/Partner Genital Herpes: No (04/20/2016 01:48:Janae Page RN) Inf Hx Tuberculosis/Exposure: No (04/20/2016 01:48:Janae Page RN) Inf Hx Hepatitis B,C: No (04/20/2016 01:48:Janae Page RN) Inf Hx Rash or Viral Illness: No (04/20/2016 01:48:Janae Page RN) GENETIC HISTORY Gen Hx Age >=35 at DEEP: No (04/20/2016 01:48:Adelaida Gomez RN) Gen Hx Thalassemia: No (04/20/2016 01:48:Janae Page RN) Gen Hx Congenital Heart Defect: No (04/20/2016 01:48:Janae Page RN) Gen Hx Neural Tube Defect: No (04/20/2016 01:48:Janae Page RN) Gen Hx Down's Syndrome: No (04/20/2016 01:48:Janae Page RN) Gen Hx Barney-Sachs: No (04/20/2016 01:48:Janae Page RN) Gen Hx Trupti: No (04/20/2016 01:48:Janae Page RN) Gen Hx Familial Dysautonomia: No (04/20/2016 01:48:Janae Page RN) Gen Hx Sickle Cell Disease/Trait: No (04/20/2016 01:48:Janae Page RN) Gen Hx Hemophilia/Blood Disorder: No (04/20/2016 01:48:Janae Page RN) Gen Hx Muscular Dystrophy: No (04/20/2016 01:48:Janae Page RN) Gen Hx Cystic Fibrosis: No (04/20/2016 01:48:Janae Page RN) Gen Hx Huntingtons Chorea: No (04/20/2016 01:48:Janae Page RN) Gen Hx Mental Retardation/Autism: No (04/20/2016 01:48:Janae Page RN) Gen Hx Tested for Fragile X: No (04/20/2016 01:48:Janae Page RN) Gen Hx Other Inher/Chromosomal: No (04/20/2016 01:48:Janae Page RN) Gen Hx Maternal Metabolic DO: No (04/20/2016 01:48:Janae Page RN) Gen Hx Pt Father or FOB Defect: No (04/20/2016 01:48:Janae Page RN) Gen Hx Other Genetic History: No (04/20/2016 01:48:Janae Page RN) Gen Hx Drugs/Meds since LMP: Yes (04/20/2016 01:48:Janae Page RN) Gen Hx Medications: PNV, and zantac PRN (04/20/2016 01:48:Janae Page RN)
--- NOTE | 2016-07-01 06:08 | L&D Current Admission ---
Current Admit Datetime Report Generated by CPN: 07/01/2016 06:00 ADMISSION INFORMATION Person(s) Allowed during Admit: family (06/23/2016 20:25:Shahbaz Elmore RN) Current Admit Date/Time: 06/23/2016 20:25 (06/23/2016 20:25:Shahbaz Elmore RN) Reason for Admission: Induction of Labor (06/23/2016 20:25:Shahbaz Elmore RN) Chief Complaint: Scheduled Induction of Labor (06/24/2016 19:17:Maria A Crowe RN) Medications During : Vitamin; Rantidine (Zantac) (06/23/2016 20:25:Shahbaz Elmore RN) EGA per Dates: 38.1 (06/23/2016 20:25:QS system process) Method of Arrival: Ambulatory (06/23/2016 20:25:Shahbaz Elmore RN) Admitted From: Home (06/23/2016 20:25:Shahbaz Elmore RN) Reason for Induction: Gestational Hypertension (06/23/2016 20:25:Shahbaz Elmore RN) Records Available: Yes (06/23/2016 20:25:Shahbaz Elmore RN) General Admission Information: Reviewed (06/23/2016 20:25:Shahbaz Elmore RN) General Admission Reviewed By: Candida Elmore RN (06/23/2016 20:25:Shahbaz Elmore RN) BELONGINGS/ADVANCED DIRECTIVES Disposition of Belongings: Kept with Patient (06/23/2016 20:25:Shahbaz Elmore RN) Comments Regarding Disposition: see valuables consent form (06/23/2016 20:25:Shahbaz Elmore RN) Advance Direct for Healthcare: No, and Wants No Information (06/23/2016 20:25:Shahbaz Elmore RN) Durable Power of Shift Production Supervisor: No (06/23/2016 20:25:Shahbaz Elmore RN) Living Will: No (06/23/2016 20:25:Shahbaz Elmore RN) Organ Donor: Yes (06/23/2016 20:25:Shahbaz Elmore RN) Pt Rights Information Given: Yes (06/23/2016 20:25:Shahbaz Elmore RN) Pt Understands Pt Rights: Yes (06/23/2016 20:25:Shahbaz Elmore RN) LEARNING ASSESSMENT Knowledge Level: Understands L_D Process; Understands Care Activities; Had Pre-Hospital Education; Understands Diagnosis (06/23/2016 20:25:Shahbaz Elmore RN) Barriers to Learning: None (06/23/2016 20:25:Shahbaz Elmore RN) Learning Readiness: Motivated (06/23/2016 20:25:Shahbaz Elmore RN) Learns Best By: 1 to 1 Instruction; Reading; Videos; Group Discussion; Demonstration (06/23/2016 20:25:Shahbaz Elmore RN) Learning Needs: Labor and Delivery Process; Pain Management; Symptoms to Report; Treatment Plan; Medication; Diagnosis; Nutrition; Equipment; Care; Community Resources (06/23/2016 20:25:Shahbaz Elmore RN) DOMESTIC VIOLANCE SCREENING Dom Viol Threatened/Hurt: No (06/23/2016 20:25:Shabhaz Elmore RN) Hx of Abuse/Neglect past 2yrs: No (06/23/2016 20:25:Shahbaz Elmore RN) Feel Unsafe Going Home: No (06/23/2016 20:25:Shahbaz Elmore RN) Addt'l Observ Indicating Abuse: No (06/23/2016 20:25:Shahbaz Elmore RN) Reason Unable to Complete Screen: N/A, Screen Completed (06/23/2016 20:25:Shahbaz Elmore RN) Considered Personal Harm/Suicide: No (06/23/2016 20:25:Shahbaz Elmore RN) NUTRITIONAL/FUNCTIONAL SCREENING Problem with Appetite >5 Days: No (06/23/2016 20:25:Shahbaz Elmore RN) Chew/Swallow Difficulties: No (06/23/2016 20:25:Shahbaz Elmore RN) Inappropriate Wt Gain/Loss: No (06/23/2016 20:25:Shahbaz Elmore RN) Presence Skin Breakdown/Ulcer: No (06/23/2016 20:25:Shahbaz Elmore RN) Special Diet: No (06/23/2016 20:25:Shahbaz Elmore RN) Pt Requests Set O Type Operator Visit: No (06/23/2016 20:25:Shahbaz Elmore RN) Hx of Any of the Following?: N/A (06/23/2016 20:25:Shahbaz Elmore RN) New Diagnosis of: N/A (06/23/2016 20:25:Shahbaz Elmore RN) Requires Assist w/Ambulation: No (06/23/2016 20:25:Shahbaz Elmore RN) Uses Assist Device to Ambulate: No (06/23/2016 20:25:Shahbaz Elmore RN) Pt Requires Help w/ADL's: No (06/23/2016 20:25:Shahbaz Elmore RN)
--- NOTE | 2016-07-01 06:08 | L&D General Admission ---
General Admit Datetime Report Generated by CPN: 07/01/2016 06:00 INFORMATION Patient Age: 31 (04/20/2016 02:55:QS system process) EDC: 07/06/2016 00:00 (04/20/2016 01:48:Janae Page RN) : 2 (04/20/2016 01:48:EN Marroquin) Para: 0 (06/15/2016 15:49:Serena Pearson RN) Term: 0 (04/20/2016 01:48:EN Marroquin) : 0 (04/20/2016 01:48:EN Marroquin) Spontaneous Abortions: 1 (04/20/2016 01:48:EN Marroquin) Induced Abortions: 0 (04/20/2016 01:48:EN Marroquin) Livin (04/20/2016 01:48:EN Marroquin) Cesareans: 0 (04/20/2016 01:48:EN Marroquin) VBACs: 0 (04/20/2016 01:48:EN Marroquin) Ectopic: 0 (04/20/2016 01:48:EN Marroquin) Multiple Births: 0 (04/20/2016 01:48:EN Marroquin) Baby, Number in Womb: 1 (06/15/2016 15:49:Serena Pearson RN) CARE Primary Store Team Leader: [facility] (04/20/2016 01:48:Janae Page RN) Month of 1st Visit: 6 weeks (04/20/2016 01:48:Janae Page RN) Adequate Care: Yes (04/20/2016 01:48:Janae Page RN) Height (in): 68 (06/26/2016 08:49:QS system process) ALLERGIES Medication Allergy: Yes (04/20/2016 01:48:Janae Page RN) Medication Allergies: neomycin (06/10/2016); bacitracin (06/10/2016); metronidazole (06/10/2016); polymyxin B (06/10/2016) (06/10/2016 18:06:QS system process) Latex Allergy: No Latex Allergies (04/20/2016 01:48:Janae Page RN) COMMUNICATION Primary Language: Greenlandic (04/20/2016 01:48:Janae Page RN) Medical Tx Preferred Language: Greenlandic (04/20/2016 01:48:Janae Page RN) Communication Barrier(s): None (04/20/2016 01:48:Shahbaz Elmore RN) DEMOGRAPHICS Address: [address] [place] [id number] (04/20/2016 02:55:QS system process) Zipcode: [address] (04/20/2016 02:55:QS system process) Home (04/20/2016 02:55:QS system process) Work (04/20/2016 02:55:QS system process) SSN: [id number] (04/20/2016 02:55:QS system process) Next of Kin Name: DIVINA CHAUDHRY (05/05/2016 11:35:QS system process) Next of Kin (05/05/2016 11:35:QS system process) Next of Kin Relationship: OR (05/05/2016 11:35:QS system process) Date of : 1985 (04/20/2016 02:55:QS system process) Marital Status: Single (04/20/2016 02:55:QS system process) Sex: Female (04/20/2016 02:55:QS system process) Race: (04/20/2016 02:55:QS system process) Ethnicity: Non- or (04/20/2016 02:55:QS system process) Orthodoxy: None (04/20/2016 02:55:QS system process) DRUG AND ALCOHOL USE Alcohol: No (04/20/2016 01:48:Janae Page RN) Cigarettes: Current Everyday Smoker. [id number] (04/20/2016 01:48:Janae Page RN) Average Cigarettes Smoked: 5 - 10 per day (04/20/2016 01:48:Janae Page RN) Advised to Stop Smoking: Yes (04/20/2016 01:48:Janae Page RN) Marijuana: No (04/20/2016 01:48:Janae Page RN) Cocaine: No (04/20/2016 01:48:Janae Page RN) Other Illicit Drugs: No (04/20/2016 01:48:Janae Page RN) VACCINE HISTORY Influenza Vaccine: No (04/20/2016 01:48:Janae Page RN) Pneumococcal Vaccine: No (04/20/2016 01:48:Janae Page RN) Tetanus Vaccine: Yes (04/20/2016 01:48:Janae Page RN) Tetanus Date: 03/2016 (04/20/2016 01:48:EN Mehta) Tdap Vaccine: Yes (04/20/2016 01:48:EN Mehta) Tdap Date: 03/2016 (04/20/2016 01:48:EN Mehta) Hepatitis B Vaccine: Yes (04/20/2016 01:48:Janae Page RN) Pediatric Urologist: [facility] (04/20/2016 01:48:Janae Page RN) Feeding Preference: Breast (04/20/2016 01:48:Maria A Crowe RN) Benefit of Breast Feed Discussed: Yes (04/20/2016 01:48:Shahbaz Elmore RN) Circumcision: Yes (04/20/2016 01:48:Janae Page RN) Classes Attended: No (04/20/2016 01:48:Janae Page RN) Tubal Ligation: No (04/20/2016 01:48:Janae Page RN) Tubal Authorization Signed: N/A (04/20/2016 01:48:Janae Page RN) Consent: N/A (04/20/2016 01:48:Janae Page RN) Consent Signed: N/A (04/20/2016 01:48:Janae Page RN) Pain Management Plans: Medications; Epidural (04/20/2016 01:48:Janae Page RN) Plans for Labor and Delivery: None (04/20/2016 01:48:Janae Page RN) Support Person: Jignesh Chaudhry (04/20/2016 01:48:Janae Page RN) Support Person Relationship: Significant Other (04/20/2016 01:48:Janae Page RN) Cultural/Spritual Practice: No (04/20/2016 01:48:Janae Page RN) Spir/Cult Dietary Needs: No (04/20/2016 01:48:Janae Page RN) LIVING SITUATION/DISCHARGE PLAN Living Arrangements: House (04/20/2016 01:48:Janae Page RN) Adequate Access to:: Electric; Heat; Refrigeration; Plumbing/Running water; Phone; Transportation (04/20/2016 01:48:Janae Page RN) WIC Program: No (04/20/2016 01:48:Janae Page RN) Discharge Rn Hematology Person: Jignesh (04/20/2016 01:48:Janae Page RN) Person to Help after Discharge: Jignesh (04/20/2016 01:48:Janae Page RN) Currently Using Commun Resources: Yes (04/20/2016 01:48:Shahbaz Elmore RN) Specify Current Resource Used: Medicaid (04/20/2016 01:48:Janae Page RN) Outside Agency/[employer] Worker: No (04/20/2016 01:48:Janae Page RN) Car Seat for Discharge: Yes (04/20/2016 01:48:Janae Page RN) Adoption Requested: No (04/20/2016 01:48:Janae Page RN) Pt Contact w/infant Post : N/A (04/20/2016 01:48:Janae Page RN) LABS Blood Type: O Positive (04/20/2016 01:48:Janae Page RN) Rho(G) this : Not Applicable (04/20/2016 01:48:Shahbaz Elmore RN) Hemoglobin: 8.3 L (06/26/2016 20:40:QS system process) Hematocrit: 24.9 L (06/26/2016 20:40:QS system process) MCV: 86 (06/26/2016 20:40:QS system process) Group Beta Strep: negative (04/20/2016 01:48:Shahbaz Elmore RN) Gonorrhea: Negative (04/20/2016 01:48:Shahbaz Elmore RN) Chlamydia: Negative (04/20/2016 01:48:Shahbaz Elmore RN) RPR/VDRL: Nonreactive (04/20/2016 01:48:Janae Page RN) HIV Exposure Test: Negative (04/20/2016 01:48:Janae Page RN) Hepatitis B: Negative (04/20/2016 01:48:Janae Page RN) Rubella: Immune (04/20/2016 01:48:Janae Page RN) OB/PREVIOUS HISTORY Previous Procedures: Ultrasound (04/20/2016 01:48:EN Mehta) Current Procedures: Ultrasound; NST (04/20/2016 01:48:EN Mehta) History of Previous : No (04/20/2016 01:48:Janae Page RN) History of Gestational Diabetes: No (04/20/2016 01:48:Janae Page RN) History of PIH: No (04/20/2016 01:48:Janae Page RN) History of Incompetent Cervix: No (04/20/2016 01:48:Janae Paeg RN) History of Placenta Previa/Abrup: No (04/20/2016 01:48:Janae Page RN) History of Macrosomia: No (04/20/2016 01:48:Janae Page RN) History of IUGR: No (04/20/2016 01:48:Janae Page RN) History of Hemorrhage: No (04/20/2016 01:48:Janae Page RN) History of Loss/Stillborn: No (04/20/2016 01:48:Janae Page RN) History of : No (04/20/2016 01:48:Janae Page RN) History of D (Rh) Sensitization: No (04/20/2016 01:48:Janae Page RN) History Recurrent Loss/Stillborn: No (04/20/2016 01:48:Janae Page RN) History Depression/PP Depression: No (04/20/2016 01:48:Janae Page RN) History of Uterine Anomaly/KEVIN: No (04/20/2016 01:48:Janae Page RN) History of Infertility: No (04/20/2016 01:48:Janae Page RN) History of ART Treatment: No (04/20/2016 01:48:Janae Page RN) History of KEVIN: No (04/20/2016 01:48:Janae Page RN) Comments Obstetrical History: G1- 2010 5 week SAB G2- current - first trimester spotting, sob and severe GERD (04/20/2016 01:48:EN Mehta) MEDICAL HISTORY Med Hx Diabetes: No (04/20/2016 01:48:Janae Page RN) Med Hx Hypertension: No (04/20/2016 01:48:Janae Page RN) Med Hx Heart Disease: No (04/20/2016 01:48:Janae Page RN) Med Hx Autoimmune Disorder: No (04/20/2016 01:48:Janae Page RN) Med Hx Kidney Disease/UTI: No (04/20/2016 01:48:Janae Page RN) Med Hx Neurologic/Epilepsy: No (04/20/2016 01:48:Janae Page RN) Med Hx Psychiatric Disorders: No (04/20/2016 01:48:Janae Page RN) Med Hx Hepatitis/Liver Disease: No (04/20/2016 01:48:Janae Page RN) Med Hx Varicosities/Phlebitis: No (04/20/2016 01:48:Janae Page RN) Med Hx Thyroid Dysfunction: No (04/20/2016 01:48:Janae Page RN) Med Hx Trauma/Violence: No (04/20/2016 01:48:Janae Page RN) Med Hx Blood Transfusion: No (04/20/2016 01:48:Janae Page RN) Med Hx Pulmonary (Asthma,TB): No (04/20/2016 01:48:Janae Page RN) Med Hx Breast: No (04/20/2016 01:48:Janae Page RN) Med Hx FARE REGISTER REPAIRER Surgery: No (04/20/2016 01:48:Janae Page RN) Med Hx Hospitalization/Surgery: No (04/20/2016 01:48:Janae Page RN) Med Hx Anesthetic Complications: No (04/20/2016 01:48:Janae Page RN) Med Hx Abnormal Pap Smear: Yes (04/20/2016 01:48:Janae Page RN) Other Medical Diseases: No (04/20/2016 01:48:Janae Page RN) Med Hx Significant Family Hx: No (04/20/2016 01:48:Janae Page RN) Details of Med/Surg Hx: Abnormal pap 10 years ago with colposcopy (04/20/2016 01:48:Janae Page RN) INFECTIOUS HISTORY Inf Hx Gonorrhea: No (04/20/2016 01:48:Janae Page RN) Inf Hx Chlamydia: No (04/20/2016 01:48:Janae Page RN) Inf Hx Syphilis: No (04/20/2016 01:48:Janae Page RN) Inf Hx HIV/AIDS: No (04/20/2016 01:48:Janae Page RN) Inf Hx Human Papilloma Virus: No (04/20/2016 01:48:Janae Page RN) Inf Hx Pt/Partner Genital Herpes: No (04/20/2016 01:48:Janae Page RN) Inf Hx Tuberculosis/Exposure: No (04/20/2016 01:48:Janae Page RN) Inf Hx Hepatitis B,C: No (04/20/2016 01:48:Janae Page RN) Inf Hx Rash or Viral Illness: No (04/20/2016 01:48:Janae Page RN) GENETIC HISTORY Gen Hx Age >=35 at DEEP: No (04/20/2016 01:48:Adelaida Gomez RN) Gen Hx Thalassemia: No (04/20/2016 01:48:Janae Page RN) Gen Hx Congenital Heart Defect: No (04/20/2016 01:48:Janae Page RN) Gen Hx Neural Tube Defect: No (04/20/2016 01:48:Janae Page RN) Gen Hx Down's Syndrome: No (04/20/2016 01:48:Janae Page RN) Gen Hx Barney-Sachs: No (04/20/2016 01:48:Janae Page RN) Gen Hx Trupti: No (04/20/2016 01:48:Janae Page RN) Gen Hx Familial Dysautonomia: No (04/20/2016 01:48:Janae Page RN) Gen Hx Sickle Cell Disease/Trait: No (04/20/2016 01:48:Janae Page RN) Gen Hx Hemophilia/Blood Disorder: No (04/20/2016 01:48:Janae Page RN) Gen Hx Muscular Dystrophy: No (04/20/2016 01:48:Janae Page RN) Gen Hx Cystic Fibrosis: No (04/20/2016 01:48:Janae Page RN) Gen Hx [place] Chorea: No (04/20/2016 01:48:Janae Page RN) Gen Hx Mental Retardation/Autism: No (04/20/2016 01:48:Janae Page RN) Gen Hx Tested for Fragile X: No (04/20/2016 01:48:Janae Page RN) Gen Hx Other Inher/Chromosomal: No (04/20/2016 01:48:Janae Page RN) Gen Hx Maternal Metabolic DO: No (04/20/2016 01:48:Janae Page RN) Gen Hx Pt Father or FOB Defect: No (04/20/2016 01:48:Janae Page RN) Gen Hx Other Genetic History: No (04/20/2016 01:48:Janae Page RN) Gen Hx Drugs/Meds since LMP: Yes (04/20/2016 01:48:Janae Page RN) Gen Hx Medications: PNV, and zantac PRN (04/20/2016 01:48:Janae Page RN)
== END 2016-06-26 13:00 | disposition home or self-care (01) | DRG 775 ==
LOC: LR 19:44 → 2S 06-25 02:03
PROVIDERS: ADMIT Obstetrics & Gynecology; ATTEND Obstetrics & Gynecology
PROC: 3E0P7GC Introduction of Other Therapeutic Substance into Female Reproductive, Via Natural or Artificial Opening (ICD-10-PCS; 2016-06-23)
PROC: 10D07Z6 Extraction of Products of Conception, Vacuum, Via Natural or Artificial Opening (ICD-10-PCS; principal; 2016-06-24)
PROC: 10907ZC Drainage of Amniotic Fluid, Therapeutic from Products of Conception, Via Natural or Artificial Opening (ICD-10-PCS; 2016-06-24)
PROC: 4A1HXCZ Monitoring of Products of Conception, Cardiac Rate, External Approach (ICD-10-PCS; 2016-06-24)
DX: O13.4 Gestational [pregnancy-induced] hypertension without significant proteinuria, complicating childbirth (principal); D62 Acute posthemorrhagic anemia; O99.02 Anemia complicating childbirth; O99.334 Smoking (tobacco) complicating childbirth; F17.210 Nicotine dependence, cigarettes, uncomplicated; O26.893 Other specified pregnancy related conditions, third trimester; K21.9 Gastro-esophageal reflux disease without esophagitis; O76 Abnormality in fetal heart rate and rhythm complicating labor and delivery; Z88.3 Allergy status to other anti-infective agents; Z3A.38 38 weeks gestation of pregnancy; Z37.0 Single live birth
CPT/HCPCS: 36415; 80053; 80307; 81005; 83615; 84550; 85025; 85027; 86592; 86850; 86900; 86901; 88307; J2370; J2590; J3010; J3490

== ENCOUNTER 2016-06-26 19:58 | Emergency (ER) | payer BC, MEDICAID ==
[2016-06-26] MEDS ORDERED: ASPIRIN 81 MG TABLET, CHEWABLE PO ONE (20:34)
--- NOTE | 2016-06-26 20:34 | ER Document Report ---
ED Medical Screen (RME) - General Stated Complaint: CHEST PAIN Notes: discharged today 06/24 patient is a 31 year female who was discharged from L&D floor today after a vaginal delivery of a 38 week gestational of a healthy baby boy on . c/b gestational HTN pt states today that she had new onset chest pain at 9am, substernal with bilateral radiation worse with inspiration and expiration. has gotten worse throughout the day without alleviating factors was told she had heart burn, took xantac without relief this AM, no relief with pepcid or Tums TRAVEL OUTSIDE OF THE [place] IN LAST 30 DAYS: No - Related Data Allergies/Adverse Reactions: bacitracin [From Neosporin ([id number])] Allergy (Unknown, Verified 06/10/16 15:36) metronidazole [From Flagyl] Allergy (Unknown, Verified 06/10/16 15:36) neomycin [From Neosporin ([id number])] Allergy (Unknown, Verified 06/10/16 15 :36) polymyxin B [From Neosporin ([id number])] Allergy (Unknown, Verified 15:36) Past Medical History - Immunizations Hx Diphtheria, Pertussis, Tetanus Vaccination: Yes
[2016-06-26 20:55] LABS: ABSOLUTE BASOPHILS # (AUTO) 0.1 10^3/uL (0.0-0.2); ABSOLUTE EOSINOPHILS # (AUTO) 0.4 10^3/uL (0.0-0.6); ABSOLUTE LYMPHOCYTES (AUTO) 2.5 10^3/uL (0.5-4.7); ABSOLUTE MONOCYTES (AUTO) 1.4 10^3/uL (0.1-1.4); ABSOLUTE NEUT (AUTO) 10.7 10^3/uL (1.7-8.2); BASOPHILS % (AUTO) 0.9 % (0-2); EOSINOPHILS % (AUTO) 2.8 % (0-6); HEMATOCRIT 24.9 % (36.0-47.0); HEMOGLOBIN 8.3 g/dL (12.0-15.5); LYMPHOCYTES % (AUTO) 16.5 % (13-45); MEAN CORPUSCULAR HEMOGLOBIN 28.6 pg (27.0-33.4); MEAN CORPUSCULAR HGB CONC 33.3 g/dL (32.0-36.0); MEAN CORPUSCULAR VOLUME 86 fl (80-97); MONOCYTES % (AUTO) 9.3 % (3-13); RED BLOOD COUNT 2.91 10^6/uL (3.72-5.28); SEGMENTED NEUTROPHILS % (AUTO) 70.5 % (42-78); WHITE BLOOD COUNT 15.2 10^3/uL (4.0-10.5)
[2016-06-26 21:06] LABS: ALANINE AMINOTRANSFERASE 27 U/L (9-52); ALKALINE PHOSPHATASE 116 U/L (38-126); ANION GAP 9 (5-19); ASPARTATE AMINO TRANSFERASE 33 U/L (14-36); BILIRUBIN,TOTAL 0.3 mg/dL (0.2-1.3); BLOOD UREA NITROGEN 9 mg/dL (7-20); CALCIUM 9.8 mg/dL (8.4-10.2); CARBON DIOXIDE 24 mmol/L (22-30); CHLORIDE 104 mmol/L (98-107); CREATINE KINASE 242 U/L (30-135); CREATININE RESULT 0.64 mg/dL (0.52-1.25); GLUCOSE 77 mg/dL (75-110); POTASSIUM 3.9 mmol/L (3.6-5.0); SODIUM 137.3 mmol/L (137-145); TOTAL PROTEIN 5.5 g/dL (6.3-8.2)
--- NOTE | 2016-06-26 21:14 | ER Document Report ---
ED General - General Chief Complaint: Chest Pain Stated Complaint: CHEST PAIN Time seen by provider: 21:10 Notes: Patient is a 31-year-old female with, delivered 2 days ago at this hospital, discharge this morning from the hospital, that comes emergency department for chief complaint of chest pain and shortness of breath, she states the pain is in her mid chest and radiates up to her shoulders and neck, she states the pain is sharp. She states she feels like she cannot take a deep breath. She denies any nausea or vomiting. She states she has known history of heartburn, took Zantac and Tums, states symptoms did not change. She denies any medical history, states she had a normal vaginal delivery, states she was diagnosed with gestational hypertension but was not hypertensive after she delivered. TRAVEL OUTSIDE OF THE [place] IN LAST 30 DAYS: No - Related Data Allergies/Adverse Reactions: bacitracin [From Neosporin ([id number])] Allergy (Unknown, Verified 06/26/16 20:32) metronidazole [From Flagyl] Allergy (Unknown, Verified 06/26/16 20:32) neomycin [From Neosporin ([id number]-[id number])] Allergy (Unknown, Verified 06/26/16 20 :32) polymyxin B [From Neosporin ([id number]-[id number])] Allergy (Unknown, Verified 20:32) Past Medical History - General Information source: Patient - Social History Smoking Status: Never Smoker Chew tobacco use (# tins/day): No Frequency of alcohol use: None Drug Abuse: None Lives with: Family Family History: Reviewed & Not Pertinent Patient has suicidal ideation: No Patient has homicidal ideation: No - Medical History Medical History: Negative Renal/ Medical History: Denies: Hx Peritoneal Dialysis Surgical Hx: Negative - Immunizations Hx Diphtheria, Pertussis, Tetanus Vaccination: Yes Review of Systems - Review of Systems Constitutional: No symptoms reported EENT: No symptoms reported Cardiovascular: See HPI Respiratory: See HPI Gastrointestinal: No symptoms reported Genitourinary: No symptoms reported Female Genitourinary: See HPI Musculoskeletal: No symptoms reported Skin: No symptoms reported Hematologic/Lymphatic: No symptoms reported Neurological/Psychological: No symptoms reported Physical Exam - Vital signs Vitals: Temp Pulse Resp BP Pulse Ox 98.1 F 59 L 18 179/92 H 100 06/26/16 20:24 06/26/16 20:24 06/26/16 20:24 06/26/16 20:24 06/26/16 20:24 Interpretation: Normal - General General appearance: Appears well, Alert In distress: None - HEENT Head: Normocephalic, Atraumatic Eyes: Normal Pupils: PERRL - Respiratory Respiratory status: No respiratory distress Chest status: Nontender. No: Tender Breath sounds: Normal. No: Decreased air movement, Wheezing Chest palpation: Normal - Cardiovascular Rhythm: Regular. No: Tachycardia Heart sounds: Normal auscultation, S1 appreciated, S2 appreciated Murmur: No - Abdominal Inspection: Normal Distension: No distension Bowel sounds: Normal Tenderness: Nontender. No: Tender, Guarding Organomegaly: No organomegaly - Back Back: Normal, Nontender - Extremities General upper extremity: Normal inspection, Nontender, Normal color, Normal ROM , Normal temperature General lower extremity: Normal inspection, Nontender, Normal color, Normal ROM , Normal temperature, Normal weight bearing. No: Hakeem's sign - Neurological Neuro grossly intact: Yes Cognition: Normal Orientation: AAOx4 Sandro Coma Scale Eye Opening: Spontaneous [place] Coma Scale Verbal: Oriented [place] Coma Scale Motor: Obeys Commands Sandro Coma Scale Total: 15 Speech: Normal Motor strength normal: LUE, RUE, LLE, RLE Sensory: Normal - Psychological Associated symptoms: Anxious - Skin Skin Temperature: Warm Skin Moisture: Dry Skin Color: Normal Course - Re-evaluation Re-evalutation: Patient is not tachycardic, not hypotensive, patient does not appear to be in distress on exam but it does appear mildly anxious. Abdominal exam is unremarkable. CBC shows leukocytosis of 15,000, this is improved from prior. Hemoglobin is low at 8.3, this is also improved from prior. Chemistries unremarkable. D-dimer performed in triage was noted to be elevated. Discussed with patient, she states that patient's is using formula supplement already, she wants the CAT scan imaging to be performed. This was performed but shows no pulmonary embolism or acute abnormality. Discussed results with Dr. Downs, recommended uric acid be drawn additionally and consulted CONTRACT ASSOCIATE MANAGER. Uric acid unremarkable, urine does not show protein, shows WBCs and trace bacteria (patient with no abd, flank, or urinary symptoms, urine was cultured). Patient without just pain on reexamination, suspect there is an anxiety component, in addition to this patient has significant reflux disease, patient was given Carafate and Zofran. Spoke with YANI Gorman agricultural extension officer. He recommends prescription of procardia XL 30 mg daily and that patient be seen in their office tomorrow. Patient states agreement and satisfaction with plan. - Vital Signs Vital signs: Temp Pulse Resp BP Pulse Ox 98.1 F 59 L 15 188/103 H 99 06/26/16 20:24 06/26/16 20:24 06/27/16 00:01 06/27/16 00:01 06/27/16 00:01 - Laboratory Result Diagrams: 06/26/16 20:40 06/26/16 20:40 Laboratory results interpreted by me: 06/26/16 06/26/16 06/26/16 20:40 20:40 20:40 WBC 15.2 H RBC 2.91 L Hgb 8.3 L Hct 24.9 L Absolute Neutrophils 10.7 H D-Dimer 2.56 H Creatine Kinase 242 H Total Protein 5.5 L Albumin 3.0 L Urine Blood Ur Leukocyte Esterase 06/26/16 22:30 WBC RBC Hgb Hct Absolute Neutrophils D-Dimer Creatine Kinase Total Protein Albumin Urine Blood LARGE H Ur Leukocyte Esterase LARGE H Discharge - Discharge Clinical Impression: Uncontrolled hypertension Chest pain Qualifiers: Chest pain type: unspecified Qualified Code(s): R07.9 - Chest pain, unspecified Condition: Stable Disposition: HOME, SELF-CARE Additional Instructions: The workup does not show any acute abnormality other than concerns about your blood pressure. Please take the medication as prescribed, follow up with CONTRACT ASSOCIATE MANAGER this afternoon. Return to emergency department for any concerning symptoms. Prescriptions: Nifedipine [Procardia Xl 30 mg Tablet] 30 mg PO DAILY #30 tab.er.24 Referrals: YAYO SONI MD [Primary Care Provider] - Follow up as needed
[2016-06-26 21:18] LABS: CREATINE KINASE MB 2.57 ng/mL (<4.55)
[2016-06-26 21:20] LABS: TROPONIN I < 0.012 ng/mL
[2016-06-26 23:41] LABS: APPEARANCE,URINE SLIGHTLY-CLOUDY; BILIRUBIN,URINE NEGATIVE (NEGATIVE); GLUCOSE, URINE NEGATIVE (NEGATIVE); KETONES,URINE NEGATIVE (NEGATIVE); LEUKOCYTE ESTERASE,URINE LARGE (NEGATIVE); NITRITE,URINE NEGATIVE (NEGATIVE); PROTEIN,URINE NEGATIVE (NEGATIVE); URINE SPECIFIC GRAVITY 1.005; UROBILINOGEN,URINE NEGATIVE mg/dL (<2.0)
[2016-06-27] MEDS ORDERED: SUCRALFATE 1 GM TABLET PO ONE (00:04)
[2016-06-27] MEDS ORDERED: ONDANSETRON 4 MG TAB.RAPDIS PO ONE (00:04)
[2016-06-27 00:11] VITALS: BP 188/103
--- NOTE | 2016-06-27 14:52 | EKG REPORT ---
SEVERITY:- NORMAL ECG - SINUS RHYTHM : Confirmed by: Sundeep Thomson 27-Jun-2016 14:50:34
== END 2016-06-27 00:23 | disposition home or self-care (01) ==
LOC: ER 19:58
DX: I10 Essential (primary) hypertension (principal); R07.9 Chest pain, unspecified; R06.02 Shortness of breath; Z79.899 Other long term (current) drug therapy
CPT/HCPCS: 93005; 99285; 36415; 87086; 82553; 82550; 84550; 85025; 87088; 80053; 81001; 84484; 87186; 85379; 71010; 71275; 93010; S0119

== ENCOUNTER 2017-01-11 17:00 | Emergency (ER) | payer BC, MEDICAID ==
[2017-01-11] MEDS ORDERED: HYDROCODONE/ACETAMINOPHEN 5-325 MG TABLET PO ONE (18:14)
--- NOTE | 2017-01-11 18:16 | ER Document Report ---
ED Medical Screen (RME) - General Chief Complaint: Chest Pain Stated Complaint: CHEST PAIN Time Seen by Provider: 01/11/17 17:54 TRAVEL OUTSIDE OF THE [place] IN LAST 30 DAYS: No - HPI Patient complains to provider of: Chest pain Onset: Just prior to arrival Quality of pain: Sharp, Stabbing Severity: Moderate Pain Level: 4 Notes: 01/11/17 18:15 Patient is a 32-year-old female who presents to the emergency room complaining of sharp stabbing chest pain that radiates up into her back and shoulders been going on for the past few hours, she reports that she feels as though she cannot get a deep breath - Related Data Allergies/Adverse Reactions: bacitracin [From Neosporin ([id number]-[id number])] Allergy (Unknown, Verified 01/11/17 17:29) metronidazole [From Flagyl] Allergy (Unknown, Verified 01/11/17 17:29) neomycin [From Neosporin (vce-ynq-ikirr)] Allergy (Unknown, Verified 01/11/17 17 :29) polymyxin B [From Neosporin (cvj-ver-arviu)] Allergy (Unknown, Verified 17:29) Past Medical History - Social History Chew tobacco use (# tins/day): No Frequency of alcohol use: Social Drug Abuse: None Renal/ Medical History: Denies: Hx Peritoneal Dialysis Surgical Hx: Negative - Immunizations Hx Diphtheria, Pertussis, Tetanus Vaccination: Yes Physical Exam - Vital signs Vitals: Temp Pulse Resp BP Pulse Ox 98.3 F 71 16 118/77 99 01/11/17 17:26 01/11/17 17:26 01/11/17 17:26 01/11/17 17:26 01/11/17 17:26 Course - Vital Signs Vital signs: Temp Pulse Resp BP Pulse Ox 98.3 F 71 16 118/77 99 01/11/17 17:26 01/11/17 17:26 01/11/17 17:26 01/11/17 17:26 01/11/17 17:26
[2017-01-11] MEDS ORDERED: IBUPROFEN 600 MG TABLET PO ONE (18:23)
[2017-01-11 18:47] LABS: ABSOLUTE BASOPHILS # (AUTO) 0.1 10^3/uL (0.0-0.2); ABSOLUTE EOSINOPHILS # (AUTO) 0.4 10^3/uL (0.0-0.6); ABSOLUTE MONOCYTES (AUTO) 0.9 10^3/uL (0.1-1.4); ABSOLUTE NEUT (AUTO) 7.2 10^3/uL (1.7-8.2); BASOPHILS % (AUTO) 0.6 % (0-2); EOSINOPHILS % (AUTO) 3.7 % (0-6); HEMATOCRIT 43.7 % (36.0-47.0); HEMOGLOBIN 14.5 g/dL (12.0-15.5); HGB HCT DIFFERENCE -0.2; LYMPHOCYTES % (AUTO) 25.8 % (13-45); MEAN CORPUSCULAR HEMOGLOBIN 29.2 pg (27.0-33.4); MEAN CORPUSCULAR HGB CONC 33.2 g/dL (32.0-36.0); MEAN CORPUSCULAR VOLUME 88 fl (80-97); MONOCYTES % (AUTO) 7.4 % (3-13); RED BLOOD COUNT 4.98 10^6/uL (3.72-5.28); SEGMENTED NEUTROPHILS % (AUTO) 62.5 % (42-78); WHITE BLOOD COUNT 11.5 10^3/uL (4.0-10.5)
--- NOTE | 2017-01-11 18:47 | RADIOLOGY REPORT (SQ) ---
EXAM DESCRIPTION: CHEST PA/LAT COMPLETED DATE/TIME: 01/11/2017 6:40 pm REASON FOR STUDY: cp COMPARISON: 06/26/2016 EXAM PARAMETERS: NUMBER OF VIEWS: two views TECHNIQUE: Digital Frontal and Lateral radiographic views of the chest acquired. RADIATION DOSE: NA LIMITATIONS: none FINDINGS: LUNGS AND PLEURA: No opacities, masses or pneumothorax. No pleural effusion. MEDIASTINUM AND HILAR STRUCTURES: No masses or contour abnormalities. HEART AND VASCULAR STRUCTURES: Heart normal size. No evidence for failure. BONES: No acute findings. HARDWARE: None in the chest. OTHER: No other significant finding. IMPRESSION: NO SIGNIFICANT RADIOGRAPHIC FINDING IN THE CHEST. TECHNICAL DOCUMENTATION: JOB ID: [id number] [employer]- All Rights Reserved
[2017-01-11 19:01] LABS: ALANINE AMINOTRANSFERASE 40 U/L (9-52); ALKALINE PHOSPHATASE 105 U/L (38-126); ANION GAP 12 (5-19); ASPARTATE AMINO TRANSFERASE 26 U/L (14-36); BILIRUBIN,DIRECT 0.3 mg/dL (0.0-0.4); BILIRUBIN,TOTAL 0.4 mg/dL (0.2-1.3); BLOOD UREA NITROGEN 11 mg/dL (7-20); CALCIUM 10.6 mg/dL (8.4-10.2); CARBON DIOXIDE 25 mmol/L (22-30); CHLORIDE 101 mmol/L (98-107); CREATINE KINASE 277 U/L (30-135); CREATININE RESULT 0.65 mg/dL (0.52-1.25); GLUCOSE 91 mg/dL (75-110); LIPASE 63.4 U/L (23-300); POTASSIUM 5.3 mmol/L (3.6-5.0); SODIUM 138.3 mmol/L (137-145); TOTAL PROTEIN 8.2 g/dL (6.3-8.2)
--- NOTE | 2017-01-11 19:19 | ER Document Report ---
ED General - General Chief Complaint: Chest Pain Stated Complaint: CHEST PAIN Time Seen by Provider: 01/11/17 17:54 Mode of Arrival: Ambulatory Information source: Patient TRAVEL OUTSIDE OF THE [place] IN LAST 30 DAYS: No - HPI Patient complains to provider of: chest pain Onset: This afternoon Onset/Duration: Sudden Quality of pain: Achy, Pressure Severity: Moderate Pain Level: 4 Associated symptoms: Shortness of breath Exacerbated by: Movement, Deep breathing Relieved by: Denies Similar symptoms previously: No Recently seen / treated by doctor: No Notes: Patient is a 32-year-old female who presents to the emergency room complaining of sharp stabbing chest pain that radiates up into her back and shoulders that has been going on for the past few hours, she reports that she feels as though she cannot get a deep breath, patient denies any injury, no cough, cold or congestion, no nausea, vomiting or diarrhea, no fever or chills, no history of similar symptoms previously - Related Data Allergies/Adverse Reactions: bacitracin [From Neosporin (tev-eaq-qsksg)] Allergy (Unknown, Verified 01/11/17 17:29) metronidazole [From Flagyl] Allergy (Unknown, Verified 01/11/17 17:29) neomycin [From Neosporin (spu-siz-lbyae)] Allergy (Unknown, Verified 01/11/17 17 :29) polymyxin B [From Neosporin (aft-xlc-pxzuz)] Allergy (Unknown, Verified 17:29) Past Medical History - General Information source: Patient - Social History Smoking Status: Current Every Day Smoker Chew tobacco use (# tins/day): No Frequency of alcohol use: Social Drug Abuse: None Family History: Reviewed & Not Pertinent Renal/ Medical History: Denies: Hx Peritoneal Dialysis Surgical Hx: Negative - Immunizations Hx Diphtheria, Pertussis, Tetanus Vaccination: Yes Review of Systems - Review of Systems Constitutional: No symptoms reported EENT: No symptoms reported Cardiovascular: See HPI Respiratory: No symptoms reported Gastrointestinal: No symptoms reported Genitourinary: No symptoms reported Female Genitourinary: No symptoms reported Musculoskeletal: No symptoms reported Skin: No symptoms reported Hematologic/Lymphatic: No symptoms reported Neurological/Psychological: No symptoms reported -: Yes All other systems reviewed and negative Physical Exam - Vital signs Vitals: Temp Pulse Resp BP Pulse Ox 98.3 F 71 16 118/77 99 01/11/17 17:26 01/11/17 17:26 01/11/17 17:26 01/11/17 17:26 01/11/17 17:26 Interpretation: Normal - General General appearance: Appears well, Alert - HEENT Head: Normocephalic, Atraumatic Eyes: Normal Pupils: PERRL - Respiratory Respiratory status: No respiratory distress Chest status: Nontender Breath sounds: Normal Chest palpation: Normal - Cardiovascular Rhythm: Regular Heart sounds: Normal auscultation Murmur: No - Abdominal Inspection: Normal Distension: No distension Bowel sounds: Normal Tenderness: Nontender Organomegaly: No organomegaly - Back Back: Normal, Nontender - Extremities General upper extremity: Normal inspection, Nontender, Normal color, Normal ROM , Normal temperature General lower extremity: Normal inspection, Nontender, Normal color, Normal ROM , Normal temperature, Normal weight bearing. No: Hakeem's sign - Neurological Neuro grossly intact: Yes Cognition: Normal Orientation: AAOx4 [place] Coma Scale Eye Opening: Spontaneous [place] Coma Scale Verbal: Oriented [place] Coma Scale Motor: Obeys Commands [place] Coma Scale Total: 15 Speech: Normal Motor strength normal: LUE, RUE, LLE, RLE Sensory: Normal - Psychological Associated symptoms: Normal affect, Normal mood - Skin Skin Temperature: Warm Skin Moisture: Dry Skin Color: Normal Course - Re-evaluation Re-evalutation: 01/11/17 21:35 Lab and imaging finding were discussed with patient at bedside which are unremarkable, she is noted to have a white count of 11.5 with no other changes on the CBC, and a CK of 277, her symptoms are consistent with musculoskeletal pain, she was advised of this and discharged with instructions for follow-up, advised to return if any additional concerns, patient acknowledges understanding and agreement with this plan - Vital Signs Vital signs: Temp Pulse Resp BP Pulse Ox 97.7 F 69 16 129/96 H 100 01/11/17 19:32 01/11/17 19:32 01/11/17 19:32 01/11/17 19:32 01/11/17 19:32 - Laboratory Result Diagrams: 01/11/17 13:25 01/11/17 13:25 Laboratory results interpreted by me: 01/11/17 01/11/17 13:25 13:25 WBC 11.5 H Potassium 5.3 H Calcium 10.6 H Creatine Kinase 277 H - Diagnostic Test Radiology reviewed: Image reviewed, Reports reviewed - EKG Interpretation by Me EKG shows normal: Sinus rhythm Rate: Normal Rhythm: NSR Discharge - Discharge Clinical Impression: Chest pain Qualifiers: Chest pain type: unspecified Qualified Code(s): R07.9 - Chest pain, unspecified Condition: Stable Disposition: HOME, SELF-CARE Instructions: Chest Pain of Unclear Cause ([facility]) Additional Instructions: Follow up with your primary care provider in one to 2 days. Return to the emergency room immediately if symptoms worsen or any additional concerns.
[2017-01-11 19:38] VITALS: BP 129/96
--- NOTE | 2017-01-12 03:36 | EKG REPORT ---
SEVERITY:- NORMAL ECG - SINUS RHYTHM : Confirmed by: Cady Pierre MD 12-Jan-2017 03:35:47
== END 2017-01-11 19:31 | disposition home or self-care (01) ==
LOC: ER 17:00
DX: R07.89 Other chest pain (principal); R06.02 Shortness of breath; Z88.3 Allergy status to other anti-infective agents; F17.200 Nicotine dependence, unspecified, uncomplicated
CPT/HCPCS: 36415; 71020; 80053; 82550; 82553; 83690; 84703; 85025; 93005; 93010; 99285

== ENCOUNTER 2017-04-14 14:47 | Emergency (ER) | payer BC, MEDICAID ==
[2017-04-14 14:56] VITALS: BP 124/67
--- NOTE | 2017-04-14 16:40 | ER Document Report ---
ED Extremity Problem, Lower - General Chief Complaint: Leg Pain Stated Complaint: RIGHT LEG PAIN Time Seen by Provider: 04/14/17 15:33 Mode of Arrival: Ambulatory Information source: Patient Notes: Patient states that she started this morning with right leg pain. She states there is no swelling or redness. It is just a constant dull ache. Nothing makes it better or worse. It does not radiate. She has never had this problem before. She denies any trauma. She is currently . She saw her CAFE SITE ATTENDANT today who referred her here for an ultrasound. She has had no chest pain or shortness of breath. TRAVEL OUTSIDE OF THE [place] IN LAST 30 DAYS: No - Related Data Allergies/Adverse Reactions: bacitracin [From Neosporin (qgz-vqo-iwdla)] Allergy (Unknown, Verified 04/14/17 14:54) metronidazole [From Flagyl] Allergy (Unknown, Verified 04/14/17 14:54) neomycin [From Neosporin (beh-gyn-httip)] Allergy (Unknown, Verified 04/14/17 14 :54) polymyxin B [From Neosporin (hwn-fdl-semry)] Allergy (Unknown, Verified 14:54) Past Medical History - General Information source: Patient - Social History Smoking Status: Current Every Day Smoker Chew tobacco use (# tins/day): No Frequency of alcohol use: None Drug Abuse: None Family History: Reviewed & Not Pertinent Patient has suicidal ideation: No Patient has homicidal ideation: No Renal/ Medical History: Denies: Hx Peritoneal Dialysis - Immunizations Hx Diphtheria, Pertussis, Tetanus Vaccination: Yes Review of Systems - Review of Systems Constitutional: denies: Chills, Fever Cardiovascular: denies: Chest pain, Palpitations Respiratory: denies: Cough -: Yes All other systems reviewed and negative Physical Exam - Vital signs Vitals: Temp Pulse Resp BP Pulse Ox 98.9 F 88 18 124/67 99 04/14/17 14:51 04/14/17 14:51 04/14/17 14:51 04/14/17 14:51 04/14/17 14:51 Interpretation: Normal - General General appearance: Appears well, Alert - HEENT Head: Normocephalic, Atraumatic Eyes: Normal Pupils: PERRL - Respiratory Respiratory status: No respiratory distress Chest status: Nontender Breath sounds: Normal Chest palpation: Normal - Cardiovascular Rhythm: Regular Heart sounds: Normal auscultation Murmur: No - Abdominal Inspection: Normal Distension: No distension Bowel sounds: Normal Tenderness: Nontender Organomegaly: No organomegaly - Back Back: Normal, Nontender - Extremities General upper extremity: Normal inspection, Nontender, Normal color, Normal ROM , Normal temperature General lower extremity: Normal inspection, Nontender, Normal color, Normal ROM , Normal temperature, Normal weight bearing. No: Hakeem's sign - Neurological Neuro grossly intact: Yes Cognition: Normal Orientation: AAOx4 [place] Coma Scale Eye Opening: Spontaneous [place] Coma Scale Verbal: Oriented [place] Coma Scale Motor: Obeys Commands [place] Coma Scale Total: 15 Speech: Normal Motor strength normal: LUE, RUE, LLE, RLE Sensory: Normal - Psychological Associated symptoms: Normal affect, Normal mood - Skin Skin Temperature: Warm Skin Moisture: Dry Skin Color: Normal Course - Vital Signs Vital signs: Temp Pulse Resp BP Pulse Ox 98.9 F 88 18 124/67 99 04/14/17 14:51 04/14/17 14:51 04/14/17 15:31 04/14/17 14:51 04/14/17 14:51 - Diagnostic Test Radiology reviewed: Image reviewed, Reports reviewed - Doppler shows no evidence of DVT. Discharge - Discharge Clinical Impression: Right leg pain Condition: Stable Disposition: HOME, SELF-CARE Instructions: Leg Cramps ([facility]) Additional Instructions: Please follow-up with your CAFE SITE ATTENDANT as instructed
--- NOTE | 2017-04-14 16:50 | RADIOLOGY REPORT (SQ) ---
EXAM DESCRIPTION: VENOUS UNILATERAL LOWER COMPLETED DATE/TIME: 04/14/2017 4:41 pm REASON FOR STUDY: right leg pain COMPARISON: None. TECHNIQUE: Dynamic and static osorio scale and color images acquired of the right leg venous system. S elected spectral images acquired with additional compression and augmentation maneuvers. The contrala teral common femoral vein and saphenofemoral junction were also imaged. Images stored on PACS. LIMITATIONS: None. FINDINGS: COMMON FEMORAL: Normal phasicity, compression and augmentation. No visualized echogenic ma terial on osorio scale. No defects on color images. FEMORAL: Normal compression and augmentation. No visualized echogenic material on osorio scale. No defe cts on color images. POPLITEAL: Normal compression, augmentation. No visualized echogenic material on osorio scale. No defec ts on color images. CALF VESSELS: Normal compression, augmentation. No visualized echogenic material on osorio scale. No de fects on color images. GSV and SSV: Normal compression, augmentation. No visualized echogenic material on osorio scale. No def ects on color images. ANY DEEP VENOUS INSUFFICIENCY: Not evaluated. ANY EVIDENCE OF POPLITEAL CYST: No. OTHER: No other significant finding. CONTRALATERAL COMMON FEMORAL VEIN AND SAPHENOFEMORAL JUNCTION: Normal phasicity, compression and augmentation. No visualized echogenic material on osorio scale. No de fects on color images. IMPRESSION: NO EVIDENCE DVT OR SVT IN THE RIGHT LEG. TECHNICAL DOCUMENTATION: JOB ID: [id number] [employer]- All Rights Reserved
== END 2017-04-14 17:22 | disposition home or self-care (01) ==
LOC: ER 14:47
DX: M79.604 Pain in right leg (principal); F17.200 Nicotine dependence, unspecified, uncomplicated
CPT/HCPCS: 93971; 99283

== ENCOUNTER 2017-05-17 15:26 | Emergency (ER) | payer MEDICAID ==
--- NOTE | 2017-05-17 15:54 | ER Document Report ---
ED Medical Screen (RME) - General Chief Complaint: Headache Stated Complaint: DIZZY,HEADACHE,NAUSEA Time Seen by Provider: 05/17/17 15:51 Mode of Arrival: Ambulatory Information source: Patient TRAVEL OUTSIDE OF THE [place] IN LAST 30 DAYS: No - HPI Patient complains to provider of: dizziness, GONZALEZ, nausea, R leg tingling Onset: Yesterday - pt is approx 19 wks and has been having dizziness, GONZALEZ times 3 days, nausea, and R leg tingling for the past day. Checked her BP ealrier and was elevated - Related Data Allergies/Adverse Reactions: bacitracin [From Neosporin (efh-fjw-chzvb)] Allergy (Unknown, Verified 04/14/17 14:54) metronidazole [From Flagyl] Allergy (Unknown, Verified 04/14/17 14:54) neomycin [From Neosporin (yeu-acs-oiaep)] Allergy (Unknown, Verified 04/14/17 14 :54) polymyxin B [From Neosporin (vms-dcg-gckxe)] Allergy (Unknown, Verified 14:54) Home Medications: Current Home Medications Dexlansoprazole [Dexilant 60 mg Capsule] 60 mg PO DAILY 05/17/17 [History] Past Medical History - Social History Chew tobacco use (# tins/day): No Frequency of alcohol use: None Drug Abuse: None Renal/ Medical History: Denies: Hx Peritoneal Dialysis - Immunizations Hx Diphtheria, Pertussis, Tetanus Vaccination: Yes History of Influenza Vaccine for 03/2017 - 08/2017 Season: No Physical Exam - Vital signs Vitals: Temp Pulse BP Pulse Ox 98.3 F 81 135/75 H 100 05/17/17 15:42 05/17/17 15:42 05/17/17 15:42 05/17/17 15:42 Course - Vital Signs Vital signs: Temp Pulse Resp BP Pulse Ox 98.3 F 81 135/75 H 100 05/17/17 15:42 05/17/17 15:42 05/17/17 15:42 05/17/17 15:42
[2017-05-17 16:12] LABS: ABSOLUTE BASOPHILS # (AUTO) 0.1 10^3/uL (0.0-0.2); ABSOLUTE EOSINOPHILS # (AUTO) 0.1 10^3/uL (0.0-0.6); ABSOLUTE LYMPHOCYTES (AUTO) 2.7 10^3/uL (0.5-4.7); ABSOLUTE MONOCYTES (AUTO) 0.9 10^3/uL (0.1-1.4); BASOPHILS % (AUTO) 0.6 % (0-2); EOSINOPHILS % (AUTO) 1.1 % (0-6); HEMATOCRIT 35.4 % (36.0-47.0); HGB HCT DIFFERENCE 0.6; MEAN CORPUSCULAR HEMOGLOBIN 30.2 pg (27.0-33.4); MEAN CORPUSCULAR HGB CONC 33.7 g/dL (32.0-36.0); MEAN CORPUSCULAR VOLUME 90 fl (80-97); MONOCYTES % (AUTO) 7.3 % (3-13); RED BLOOD COUNT 3.96 10^6/uL (3.72-5.28); RED CELL DISTRIBUTION WIDTH 12.8 % (11.5-14.0); WHITE BLOOD COUNT 11.8 10^3/uL (4.0-10.5)
[2017-05-17 16:21] LABS: APPEARANCE,URINE SLIGHTLY-CLOUDY; BILIRUBIN,URINE NEGATIVE (NEGATIVE); GLUCOSE, URINE NEGATIVE (NEGATIVE); KETONES,URINE NEGATIVE (NEGATIVE); LEUKOCYTE ESTERASE,URINE TRACE (NEGATIVE); NITRITE,URINE NEGATIVE (NEGATIVE); PROTEIN,URINE NEGATIVE (NEGATIVE); URINE SPECIFIC GRAVITY 1.009; UROBILINOGEN,URINE NEGATIVE mg/dL (<2.0)
[2017-05-17 16:27] LABS: WBC,URINE RARE /HPF
[2017-05-17 16:28] LABS: BACTERIA,URINE TRACE /HPF
[2017-05-17 16:37] LABS: ALANINE AMINOTRANSFERASE 19 U/L (9-52); ALBUMIN 3.9 g/dL (3.5-5.0); ALKALINE PHOSPHATASE 84 U/L (38-126); ANION GAP 11 (5-19); ASPARTATE AMINO TRANSFERASE 17 U/L (14-36); BILIRUBIN,DIRECT 0.4 mg/dL (0.0-0.4); BILIRUBIN,TOTAL 0.5 mg/dL (0.2-1.3); BLOOD UREA NITROGEN 6 mg/dL (7-20); CALCIUM 9.5 mg/dL (8.4-10.2); CARBON DIOXIDE 21 mmol/L (22-30); CHLORIDE 106 mmol/L (98-107); CREATININE RESULT 0.53 mg/dL (0.52-1.25); GLUCOSE 96 mg/dL (75-110); POTASSIUM 4.3 mmol/L (3.6-5.0); SODIUM 138.2 mmol/L (137-145); TOTAL PROTEIN 6.6 g/dL (6.3-8.2)
--- NOTE | 2017-05-17 18:57 | ER Document Report ---
ED General - General Chief Complaint: Headache Stated Complaint: DIZZY,HEADACHE,NAUSEA Time Seen by Provider: 05/17/17 15:51 Mode of Arrival: Ambulatory TRAVEL OUTSIDE OF THE [place] IN LAST 30 DAYS: No - HPI Patient complains to provider of: Multiple complaints Notes: Patient states that she was shopping today and her right leg was tingly. She states that for the last few weeks she has had heaviness in both her legs. She states 2 days ago her left leg was more achy than her right. Patient also complains of headache behind her right eye that has improved since it started a few hours ago. Patient is 2 para 1 she is a 41-eaepx-gsw at home she is currently 19 months . With her last she was on Procardia for -induced hypertension and she was taken off it approximately 8 months ago. Patient states she is worried that she has a clot in her right leg and that is causing her to be anxious making her blood pressure elevated. - Related Data Allergies/Adverse Reactions: bacitracin [From Neosporin (pqq-ifl-vkprm)] Allergy (Unknown, Verified 04/14/17 14:54) metronidazole [From Flagyl] Allergy (Unknown, Verified 04/14/17 14:54) neomycin [From Neosporin (xdh-xdy-davlz)] Allergy (Unknown, Verified 04/14/17 14 :54) polymyxin B [From Neosporin (vrq-dvb-cflxv)] Allergy (Unknown, Verified 14:54) Home Medications: Current Home Medications Dexlansoprazole [Dexilant 60 mg Capsule] 60 mg PO DAILY 05/17/17 [History] Past Medical History - General Information source: Patient - Social History Smoking Status: Former Smoker Chew tobacco use (# tins/day): No Frequency of alcohol use: None Drug Abuse: None Family History: Reviewed & Not Pertinent Patient has suicidal ideation: No Patient has homicidal ideation: No - Past Medical History Cardiac Medical History: Reports: Other - PIH Pulmonary Medical History: Reports: None EENT Medical History: Reports: None Neurological Medical History: Reports: None Endocrine Medical History: Reports: None Renal/ Medical History: Reports: None. Denies: Hx Peritoneal Dialysis Malignancy Medical History: Reports: None GI Medical History: Reports: None Musculoskeltal Medical History: Reports None Skin Medical History: Reports None Psychiatric Medical History: Reports: None Traumatic Medical History: Reports: None Infectious Medical History: Reports: None Surgical Hx: Negative - - Immunizations Hx Diphtheria, Pertussis, Tetanus Vaccination: Yes Review of Systems - Review of Systems Constitutional: No symptoms reported EENT: No symptoms reported. denies: Eye pain, Eye discharge, Blurred vision, Double vision Cardiovascular: No symptoms reported Respiratory: No symptoms reported Gastrointestinal: No symptoms reported Genitourinary: No symptoms reported Female Genitourinary: No symptoms reported Musculoskeletal: No symptoms reported Skin: No symptoms reported Hematologic/Lymphatic: No symptoms reported Neurological/Psychological: Headaches Physical Exam - Vital signs Vitals: Temp Pulse BP Pulse Ox 98.3 F 81 135/75 H 100 05/17/17 15:42 05/17/17 15:42 05/17/17 15:42 05/17/17 15:42 - Notes Notes: HYSICAL EXAMINATION: GENERAL: Well-appearing, well-nourished and in no acute distress. HEAD: Atraumatic, normocephalic. EYES: Pupils equal round and reactive to light, extraocular movements intact, conjunctiva are normal. ENT: Nares patent, oropharynx clear without exudates. Moist mucous membranes. NECK: Normal range of motion, supple without lymphadenopathy LUNGS: Breath sounds clear to auscultation bilaterally and equal. No wheezes rales or rhonchi. HEART: Regular rate and rhythm without murmurs ABDOMEN: Soft, nontender, nondistended abdomen. No guarding, no rebound. No masses appreciated. Female : deferred Musculoskeletal: Normal range of motion, no pitting or edema. No cyanosis. NEUROLOGICAL: Cranial nerves grossly intact. Normal speech, normal gait. Normal sensory, motor exams. PSYCH: Normal mood, normal affect. SKIN: Warm, Dry, normal turgor, no rashes or lesions noted. Course - Re-evaluation Re-evalutation: 05/17/17 22:38 When I went into reexamine the patient her headache was gone. I did go over the results of the ultrasound with her. I told the patient to please take her blood pressures a few times a day document them and then call her [facility]ICK[facility] HELPER for follow-up. Patient was on Procardia in the past with her prior and she may have to have that read prescribed. Patient verbalized understanding she was discharged home in stable condition - Vital Signs Vital signs: Temp Pulse Resp BP Pulse Ox 98.3 F 81 135/75 H 100 05/17/17 15:42 05/17/17 15:42 05/17/17 15:42 05/17/17 15:42 - Laboratory Result Diagrams: 05/17/17 16:00 05/17/17 16:00 Laboratory results interpreted by me: 05/17/17 05/17/17 05/17/17 16:00 16:00 16:00 WBC 11.8 H Hct 35.4 L Carbon Dioxide 21 L BUN 6 L Ur Leukocyte Esterase TRACE H - Diagnostic Test Radiology reviewed: Reports reviewed - Right lower extremity Dopplers negative for DVT Discharge - Discharge Clinical Impression: , Headache Condition: Stable Disposition: HOME, SELF-CARE Additional Instructions: Please monitor your blood pressure a few times daily. If it is high call your [facility]ERRICK[facility] HELPER immediately. Referrals: YAYO SONI MD [Primary Care Provider] - Follow up in 3-5 days
--- NOTE | 2017-05-17 19:56 | RADIOLOGY REPORT (SQ) ---
EXAM DESCRIPTION: U/S OB 14+ TA/1 GEST W/DOPPLER COMPLETED DATE/TIME: 05/17/2017 7:18 pm REASON FOR STUDY: dizziness, R leg pain COMPARISON: None. TECHNIQUE: Limited transabdominal grayscale ultrasound for evaluation of specific requested obstetri jillian parameters. LIMITATIONS: None. FINDINGS: CERVICAL LENGTH: 3.2 cm Closed. LVP: 4.9 cm. FHR: 158 beats per minute. PRESENTATION: Breech OTHER: Composite ultrasound age 19 weeks 2 days. DEEP 10/09/2017. EFW 296 g. IMPRESSION: LIMITED OBSTETRICAL ULTRASOUND WITH MEASURED PARAMETERS DELINEATED ABOVE. Trimester of : Second trimester - 13 weeks 1 day to 27 weeks 6 days. TECHNICAL DOCUMENTATION: JOB ID: [id number] [place]-72 2010 [employer]- All Rights Reserved
--- NOTE | 2017-05-17 22:00 | RADIOLOGY REPORT (SQ) ---
EXAM DESCRIPTION: VENOUS UNILATERAL LOWER COMPLETED DATE/TIME: 05/17/2017 9:26 pm REASON FOR STUDY: right lower extremity pain COMPARISON: None. TECHNIQUE: Dynamic and static osorio scale and color images acquired of the right leg venous system. S elected spectral images acquired with additional compression and augmentation maneuvers. The contrala teral common femoral vein and saphenofemoral junction were also imaged. Images stored on PACS. LIMITATIONS: None. FINDINGS: COMMON FEMORAL: Normal phasicity, compression and augmentation. No visualized echogenic ma terial on osorio scale. No defects on color images. FEMORAL: Normal compression and augmentation. No visualized echogenic material on osorio scale. No defe cts on color images. POPLITEAL: Normal compression, augmentation. No visualized echogenic material on osorio scale. No defec ts on color images. CALF VESSELS: Normal compression, augmentation. No visualized echogenic material on osorio scale. No de fects on color images. GSV and SSV: Normal compression, augmentation. No visualized echogenic material on osorio scale. No def ects on color images. ANY DEEP VENOUS INSUFFICIENCY: Not evaluated. ANY EVIDENCE OF POPLITEAL CYST: No. OTHER: No other significant finding. CONTRALATERAL COMMON FEMORAL VEIN AND SAPHENOFEMORAL JUNCTION: Normal phasicity, compression and augmentation. No visualized echogenic material on osorio scale. No de fects on color images. IMPRESSION: No DVT in the right leg. TECHNICAL DOCUMENTATION: JOB ID: [id number] [place]-72 2010 [employer]- All Rights Reserved
[2017-05-17 22:38] VITALS: BP 112/56
== END 2017-05-17 22:38 | disposition home or self-care (01) ==
LOC: ER 15:26
DX: R51 Headache (principal); R11.0 Nausea; R42 Dizziness and giddiness; R20.0 Anesthesia of skin; Z79.899 Other long term (current) drug therapy; Z87.891 Personal history of nicotine dependence; Z3A.19 19 weeks gestation of pregnancy
CPT/HCPCS: 36415; 76805; 80053; 81001; 85025; 93971; 93976; 99284

== ENCOUNTER 2017-07-16 16:30 | Emergency (ER) | payer MEDICAID ==
[2017-07-16] MEDS ORDERED: NORMAL SALINE 1000 ML 1,000 ML IV ONE (17:32)
[2017-07-16] MEDS ORDERED: ACETAMINOPHEN 325 MG TABLET PO ONE (17:33)
--- NOTE | 2017-07-16 17:35 | ER Document Report ---
ED Medical Screen (RME) - General Chief Complaint: Chest Pain Stated Complaint: SHORTNESS OF BREATH,CHEST PAIN Time Seen by Provider: 07/16/17 17:31 TRAVEL OUTSIDE OF THE [place] IN LAST 30 DAYS: No - HPI Notes: 07/16/17 17:34 Patient presents from her OB for fever or chest pain shortness of breath. She is 20 weeks and positive for the flu. - Related Data Allergies/Adverse Reactions: bacitracin [From Neosporin (itk-kcb-byvji)] Allergy (Unknown, Verified 04/14/17 14:54) metronidazole [From Flagyl] Allergy (Unknown, Verified 04/14/17 14:54) neomycin [From Neosporin (rra-get-ngqnv)] Allergy (Unknown, Verified 04/14/17 14 :54) polymyxin B [From Neosporin (wac-ill-lurgw)] Allergy (Unknown, Verified 14:54) Past Medical History - Social History Chew tobacco use (# tins/day): No Frequency of alcohol use: None Drug Abuse: None Renal/ Medical History: Denies: Hx Peritoneal Dialysis GI Medical History: Reports: Hx Gastroesophageal Reflux Disease - Immunizations Hx Diphtheria, Pertussis, Tetanus Vaccination: Yes History of Influenza Vaccine for 03/2017 - 08/2017 Season: No Physical Exam - Vital signs Vitals: Temp Pulse Resp BP Pulse Ox 99.0 F 104 H 16 126/76 H 98 07/16/17 16:56 07/16/17 16:56 07/16/17 16:56 07/16/17 16:56 07/16/17 16:56 Course - Vital Signs Vital signs: Temp Pulse Resp BP Pulse Ox 99.0 F 104 H 16 126/76 H 98 07/16/17 16:56 07/16/17 16:56 07/16/17 16:56 07/16/17 16:56 07/16/17 16:56
[2017-07-16 18:35] LABS: ABSOLUTE EOSINOPHILS # (AUTO) 0.4 10^3/uL (0.0-0.6); ABSOLUTE LYMPHOCYTES (AUTO) 1.4 10^3/uL (0.5-4.7); ABSOLUTE MONOCYTES (AUTO) 1.3 10^3/uL (0.1-1.4); ABSOLUTE NEUT (AUTO) 8.1 10^3/uL (1.7-8.2); BASOPHILS % (AUTO) 0.2 % (0-2); EOSINOPHILS % (AUTO) 3.4 % (0-6); HEMATOCRIT 32.3 % (36.0-47.0); HEMOGLOBIN 10.8 g/dL (12.0-15.5); LYMPHOCYTES % (AUTO) 12.6 % (13-45); MEAN CORPUSCULAR HEMOGLOBIN 28.9 pg (27.0-33.4); MEAN CORPUSCULAR HGB CONC 33.4 g/dL (32.0-36.0); MEAN CORPUSCULAR VOLUME 86 fl (80-97); MONOCYTES % (AUTO) 11.7 % (3-13); PLATELET COUNT 226 10^3/uL (150-450); RED BLOOD COUNT 3.74 10^6/uL (3.72-5.28); RED CELL DISTRIBUTION WIDTH 12.9 % (11.5-14.0); SEGMENTED NEUTROPHILS % (AUTO) 72.1 % (42-78); TOTAL CELLS COUNTED % (AUTO) 100 %; WHITE BLOOD COUNT 11.2 10^3/uL (4.0-10.5)
--- NOTE | 2017-07-16 18:42 | EKG REPORT ---
SEVERITY:- ABNORMAL ECG - SINUS RHYTHM LEFT ATRIAL ABNORMALITY : Confirmed by: Hema Russell MD 16-Jul-2017 18:41:58
[2017-07-16 18:55] LABS: ANION GAP 8 (5-19); BLOOD UREA NITROGEN 6 mg/dL (7-20); CALCIUM 9.5 mg/dL (8.4-10.2); CARBON DIOXIDE 24 mmol/L (22-30); CHLORIDE 102 mmol/L (98-107); GLUCOSE 103 mg/dL (75-110); POTASSIUM 4.3 mmol/L (3.6-5.0); SODIUM 134.2 mmol/L (137-145)
--- NOTE | 2017-07-16 19:07 | RADIOLOGY REPORT (SQ) ---
EXAM DESCRIPTION: CHEST SINGLE VIEW COMPLETED DATE/TIME: 07/16/2017 7:00 pm REASON FOR STUDY: cough, fever,pain COMPARISON: 01/11/2017. EXAM PARAMETERS: NUMBER OF VIEWS: One view. TECHNIQUE: Single frontal radiographic view of the chest acquired. RADIATION DOSE: NA LIMITATIONS: None. FINDINGS: LUNGS AND PLEURA: No opacities, masses or pneumothorax. No pleural effusion. MEDIASTINUM AND HILAR STRUCTURES: No masses. Contour normal. HEART AND VASCULAR STRUCTURES: Heart normal in size. Normal vasculature. BONES: No acute findings. HARDWARE: None in the chest. OTHER: No other significant finding. IMPRESSION: NO ACUTE RADIOGRAPHIC FINDING IN THE CHEST. TECHNICAL DOCUMENTATION: JOB ID: [id number] [employer]- All Rights Reserved
--- NOTE | 2017-07-16 19:25 | ER Document Report ---
ED Flu Like - General Mode of Arrival: Ambulatory Information source: Patient TRAVEL OUTSIDE OF THE [place] IN LAST 30 DAYS: No <TATI URENA - Last Filed: 07/16/17 21:10> <LILA MAYO - Last Filed: 07/17/17 05:12> - General Chief Complaint: Chest Pain Stated Complaint: SHORTNESS OF BREATH,CHEST PAIN Time Seen by Provider: 07/16/17 17:31 Notes: Patient is a 28 week 31-year-old female who presents to the emergency department today with complaints of chest heaviness. Patient states she was recently diagnosed with the flu and started on a Z-Coleman and Tamiflu. Patient states she was started on the Z-Coleman secondary to "congestion in her left lower lobe". Patient states she took Sudafed today at the request of her OB to hopefully clear up her sinus congestion which caused her to have a heart racing sensation with associated chest heaviness. Patient denies any nausea, leg swelling, abdominal cramping or vaginal bleeding. (TATI URENA) - Related Data Allergies/Adverse Reactions: bacitracin [From Neosporin (sut-cnq-diiml)] Allergy (Unknown, Verified 04/14/17 14:54) metronidazole [From Flagyl] Allergy (Unknown, Verified 04/14/17 14:54) neomycin [From Neosporin (rlm-izg-puomj)] Allergy (Unknown, Verified 04/14/17 14 :54) polymyxin B [From Neosporin (vbw-tas-srqps)] Allergy (Unknown, Verified 14:54) Past Medical History - General Information source: Patient - Social History Smoking Status: Former Smoker Cigarette use (# per day): No Chew tobacco use (# tins/day): No Frequency of alcohol use: None Drug Abuse: None Lives with: Family Family History: Reviewed & Not Pertinent Patient has suicidal ideation: No Patient has homicidal ideation: No GI Medical History: Reports: Hx Gastroesophageal Reflux Disease Surgical Hx: Negative - Immunizations Hx Diphtheria, Pertussis, Tetanus Vaccination: Yes <TATI URENA - Last Filed: 07/16/17 21:10> Review of Systems - Review of Systems Constitutional: No symptoms reported EENT: See HPI, Nose congestion Cardiovascular: See HPI, Palpitations, Heart racing Respiratory: See HPI, Cough - w/ chest heaviness Gastrointestinal: denies: Nausea Genitourinary: No symptoms reported Female Genitourinary: See HPI, . denies: Vaginal bleeding Musculoskeletal: denies: Leg swelling Skin: No symptoms reported Hematologic/Lymphatic: No symptoms reported Neurological/Psychological: No symptoms reported -: Yes All other systems reviewed and negative <TATI URENA - Last Filed: 07/16/17 21:10> Physical Exam - Vital signs Interpretation: Tachycardic - at triage <TATI URENA - Last Filed: 07/16/17 21:10> <LILA MAYO - Last Filed: 07/17/17 05:12> - Vital signs Vitals: Temp Pulse Resp BP Pulse Ox 99.0 F 104 H 16 126/76 H 98 07/16/17 16:56 07/16/17 16:56 07/16/17 16:56 07/16/17 16:56 07/16/17 16:56 - Notes Notes: Physical Exam: General: Alert, appears uncomfortable. HEENT: Normocephalic. Atraumatic. PERRL. Extraocular movements intact. Oropharynx clear. Dry mucous membranes. Neck: Supple. Non-tender. Respiratory: No respiratory distress. Clear and equal breath sounds bilaterally. Cardiovascular: Regular rate and rhythm. Abdominal: Normal Inspection. Non-tender. No distension. Normal Bowel Sounds. Female Genitourinary: Gravid Uterus Back: Non-tender. No deformity or step off. Extremities: Moves all four extremities. Upper extremities: Normal inspection. Normal ROM. Lower extremities: Normal inspection. No edema. Normal ROM. Neurological: Normal cognition. AAOx4. Normal speech. Psychological: Normal affect. Normal Mood. Skin: Warm. Dry. Normal color. (TATI URENA) Course - Laboratory Result Diagrams: 07/16/17 18:06 07/16/17 18:06 <TATI URENA - Last Filed: 07/16/17 21:10> - Laboratory Result Diagrams: 07/16/17 18:06 07/16/17 18:06 - Diagnostic Test Radiology reviewed: Reports reviewed <LILA MAYO - Last Filed: 07/17/17 05:12> - Re-evaluation Re-evalutation: Patient presented with tachycardia and intermittent chest pain. It is resolved with fluids. Patient has been taking Tamiflu, azithromycin and pseudoephedrine at home. Patient is 28 weeks . No cramping or bleeding. Good heart tones. Patient is feeling much better after fluids. No evidence for PE. Patient I do not think needs to be on antibiotics at this time although she could continue Tamiflu for influenza A that she was diagnosed with an urgent care. Patient is comfortable this plan. Recommend that she take less Sudafed and she has been taking and make sure that she remains fluid hydrated. Stable for discharge. Return if any worsening or concerning symptoms. (LIAL MAYO) - Vital Signs Vital signs: Temp Pulse Resp BP Pulse Ox 98.2 F 82 18 117/63 98 07/16/17 20:17 07/16/17 20:17 07/16/17 20:17 07/16/17 20:17 07/16/17 20:17 - Laboratory Laboratory results interpreted by me: 07/16/17 07/16/17 18:06 18:06 WBC 11.2 H Hgb 10.8 L Hct 32.3 L Lymphocytes % 12.6 L Sodium 134.2 L BUN 6 L Discharge <TATI URENA - Last Filed: 07/16/17 21:10> <LILA MAYO - Last Filed: 07/17/17 05:12> - Discharge Clinical Impression: Influenza, Tachycardia Condition: Stable Disposition: HOME, SELF-CARE Instructions: Influenza ([facility]) Additional Instructions: Please take medications as instructed by her HEAD BONE GRINDER. Return if you have any worsening or concerning symptoms. Your chest x-ray did not show any evidence for pneumonia. Scribe Attestation: 07/17/17 05:12 I personally performed the services described in the documentation, reviewed and edited the documentation which was dictated to the scribe in my presence, and it accurately records my words and actions. (LILA MAYO) Scribe Documentation - Scribe Written by Mayo:: Mayo Hernandez, 07/16/2017 [id number] acting as scribe for :: Himanshu <TATI URENA - Last Filed: 07/16/17 21:10>
[2017-07-16 20:19] VITALS: BP 117/63
== END 2017-07-16 20:19 | disposition home or self-care (01) ==
LOC: ER 16:30
DX: J11.1 Influenza due to unidentified influenza virus with other respiratory manifestations (principal); R00.0 Tachycardia, unspecified; R07.9 Chest pain, unspecified; R06.02 Shortness of breath; R09.89 Other specified symptoms and signs involving the circulatory and respiratory systems; Z87.891 Personal history of nicotine dependence
CPT/HCPCS: 93005; 99285; 96360; 36415; 85025; 80048; 71045; 93010; J3490; J7030

== ENCOUNTER 2017-10-04 02:25 | Inpatient (IN) | payer MEDICAID ==
[2017-10-04] MEDS ORDERED: RINGERS SOLUTION,LACTATED 1,000 ML IV PRN (02:49)
[2017-10-04 03:05] LABS: APPEARANCE,URINE SLIGHTLY-CLOUDY; BILIRUBIN,URINE NEGATIVE (NEGATIVE); COLOR,URINE STRAW; GLUCOSE, URINE NEGATIVE (NEGATIVE); KETONES,URINE NEGATIVE (NEGATIVE); LEUKOCYTE ESTERASE,URINE NEGATIVE (NEGATIVE); NITRITE,URINE NEGATIVE (NEGATIVE); PROTEIN,URINE NEGATIVE (NEGATIVE); URINE SPECIFIC GRAVITY 1.005; UROBILINOGEN,URINE NEGATIVE mg/dL (<2.0)
[2017-10-04 03:12] LABS: ABSOLUTE BASOPHILS # (AUTO) 0.1 10^3/uL (0.0-0.2); ABSOLUTE EOSINOPHILS # (AUTO) 0.2 10^3/uL (0.0-0.6); ABSOLUTE LYMPHOCYTES (AUTO) 2.9 10^3/uL (0.5-4.7); ABSOLUTE MONOCYTES (AUTO) 1.3 10^3/uL (0.1-1.4); BASOPHILS % (AUTO) 0.8 % (0-2); EOSINOPHILS % (AUTO) 1.4 % (0-6); HEMATOCRIT 29.9 % (36.0-47.0); HEMOGLOBIN 9.8 g/dL (12.0-15.5); LYMPHOCYTES % (AUTO) 23.4 % (13-45); MEAN CORPUSCULAR HEMOGLOBIN 25.7 pg (27.0-33.4); MEAN CORPUSCULAR HGB CONC 32.7 g/dL (32.0-36.0); MEAN CORPUSCULAR VOLUME 79 fl (80-97); MONOCYTES % (AUTO) 10.4 % (3-13); PLATELET COUNT 245 10^3/uL (150-450); RED CELL DISTRIBUTION WIDTH 14.4 % (11.5-14.0); TOTAL CELLS COUNTED % (AUTO) 100 %; WHITE BLOOD COUNT 12.5 10^3/uL (4.0-10.5)
[2017-10-04 03:19] LABS: URINE AMPHETAMINES SCREEN NEGATIVE; URINE BARBITURATES SCREEN NEGATIVE; URINE BENZODIAZEPINES SCREEN NEGATIVE; URINE COCAINE SCREEN NEGATIVE; URINE MARIJUANA (THC) SCREEN NEGATIVE; URINE METHADONE SCREEN NEGATIVE; URINE PHENCYCLIDINE SCREEN NEGATIVE
[2017-10-04] MEDS ORDERED: LIDOCAINE 1% INJ-PF (10 MG/ML) 30 ML SDV ONE (03:46)
[2017-10-04] MEDS ORDERED: OXYTOCIN/NORMAL SALINE 20 UNIT/1,000 ML RTUINJ ONE (03:46)
[2017-10-04] MEDS ORDERED: MISOPROSTOL 0.2 MG TABLET ONE (03:46)
--- NOTE | 2017-10-04 04:51 | Admission Physical ---
Datetime Report Generated by CPN: 10/04/2017 04:51 CURRENT ADMISSION Chief Complaint: Uterine Contractions; Suspected Ruptured Membranes Indication for Induction: PROM Admit Impression : Term, Intrauterine Admit Plan: Admit to Unit; Initiate Labor Induction Protocol Admit Plan- Other: 1. admit labor and delivery 2. PROM - induction of labor 3. gbs negative 4. hx of gestational hypertension - watch BPs, s/s of Preeclampsia 5. GDM - previous pergnanc - abnormal 1 hour, 3 hour wnl. ALLERGIES Medication Allergies: Yes Medication Allergies: neomycin (04/14/2017); bacitracin (04/14/2017); metronidazole (04/14/2017); polymyxin B (04/14/2017) Latex: No Latex Allergies OBSTETRICAL HISTORY EDC: 10/10/2017 00:00 : 3 Para: 1 Term: 1 : 0 SAB: 0 IAB: 0 Ectopic: 0 Livin Cesareans: 0 VBACs: 0 Multiple Births: 0 Gestational Diabetes: Yes Rh Sensitization: No Incompetent Cervix: No KEVIN: No Infertility: No ART Treatment: No Uterine Anomaly: No IUGR: No Hx Previous C/S: No Macrosomia: No Hx Loss/Stillborn: No PIH: No Hx : No Placenta Previa/Abruption: No Depression/PP Depression: No PTL/PROM: No Post Hemorrhage: No Current Procedures: Ultrasound Obstetrical History Comments: G1- 2009 5 week SAB G2 - 2016 ,GHTN, edema, baby had pyloric stenosis G3 - current. close interval , GDM SEE RECORDS Alcohol: No Marijuana : No Cocaine: No Other Illicit Drugs: No Cigarettes: Current Everyday Smoker. [id number] MEDICAL HISTORY Diabetes: Yes Diabetes Type: Gestational Diabetes Blood Transfusion: No Pulmonary Disease (Asthma, TB): No Breast Disease: No Hypertension: No Group Therapist Surgery: No Heart Disease: No Hosp/Surgery: No Autoimmune Disorder: No Anesthetic Complications: No Kidney Disease: No Abnormal Pap Smear: Yes Neuro/Epilepsy: No Psychiatric Disorders: No Other Medical Diseases: No Hepatitis/Liver Disease: No Significant Family History: No Varicosities/Phlebitis: No Trauma/Violence : No Thyroid Dysfunction: No Medical History Comments: abnormal pap smear approximately 7 years ago, all pap smears have been normal since INFECTIOUS HISTORY Gonorrhea: No Genital Herpes: No Chlamydia: No Tuberculosis: No Syphilis: No Hepatitis: No HIV/AIDS Exposure: No Rash or Viral Illness: No HPV: No Infectious History Comments: HPV, condyloma PHYSICAL EXAM General: Normal HEENT: Normal Neurologic: Normal Thyroid: Normal Heart: Normal Lungs: Normal Breast: Normal Back: Normal Abdomen: Normal Genitourinary Exam: Normal Extremities: Normal DTRs: Normal Pelvic Type: Adequate VAGINAL EXAM Dilatation: 2 Effacement: 50 Station: -2 Contraction Comments: irregular, exam per nursing staff. MEMBRANES Pooling: Positive Membranes: Ruptured FETUS A EGA: 39.1 FHR- Baseline: 135 Variability: Moderate 6-25bpm Accelerations: 15X15 Decelerations: None FHR Category: Category I Estimated Weight (gm): 3300 Presentation: Vertex PLANS FOR LABOR AND DELIVERY Labor and Delivery: None Pain Management: Epidural Feeding Preference: Breast Benefit of Breast Feed Discussed: Yes Circumcision: Yes INFORMED CONSENT Signature: Electronically signed by MD Giselle [facility] [place] on 10/04/2017 at 04:50 with User ID: [email or web address]
[2017-10-04] MEDS ORDERED: OXYTOCIN/NORMAL SALINE 1,000 ML IV PRN (05:51)
[2017-10-04] MEDS ORDERED: OXYTOCIN/NORMAL SALINE 20 UNIT/1,000 ML RTUINJ IV PRN ×3 (05:53→10:46)
--- NOTE | 2017-10-04 06:01 | L&D Progress Notes ---
PROGRESS NOTES Datetime Report Generated by CPN: 10/04/2017 06:01 PROGRESS NOTE Impression: Normal Progression of Labor Procedures: Sterile Vag Exam Plan: Continue Present Management; Antibiotic Therapy Comment: unchanged cervical exam per nursing, start on pitocin VAGINAL EXAM Dilatation: 2 Effacement: 50 Station: -2 Contractions: irregular, exam per nursing staff. MEMBRANES Pooling: Positive Membranes: Ruptured FETUS A Variability: Moderate 6-25bpm Decelerations: None FHR Category: Category I : 39.1 Estimated Weight (gm): 3300 Presentation: Vertex SIGNATURE SIGNATURE: [id number];[id number] SIGNATURE: [id number] Signature: with User ID: [email or web address]
[2017-10-04] MEDS ORDERED: MISOPROSTOL 0.2 MG TABLET PR PRN (07:56)
[2017-10-04] MEDS ORDERED: LIDOCAINE 1% INJ-PF (10 MG/ML) 30 ML SDV INJ PRN (07:56)
[2017-10-04] MEDS ORDERED: BUPIVACAINE HCL 0.25 % INJ/PF (2.5 MG/1 ML) 30 ML VIAL INFIL ONE (07:59)
[2017-10-04] MEDS ORDERED: EPHEDRINE SULFATE INJ 50 MG/1 ML AMPULE IV PRN (07:59)
[2017-10-04] MEDS ORDERED: BENZOIN/ALOE VERA/STORAX/TOLU TINCTURE 60 ML TP PRN (07:59)
[2017-10-04] MEDS ORDERED: FENTANYL/BUPIVACAINE/NS/PF 200 MCG/100 ML RTUINJ EPI PRN (07:59)
[2017-10-04] MEDS ORDERED: DIPH/PERTUSS(ACELL)/TETANUS VAC/PF 0.5 ML SYR (>=10YO) IM PRN (10:46)
[2017-10-04] MEDS ORDERED: NA PHOS,M-B/NA PHOS,DI-BA (ADULT) 133 ML ENEMA PR PRN (10:46)
[2017-10-04] MEDS ORDERED: ACETAMINOPHEN 650 MG SUPP.RECT PR PRN (10:46)
[2017-10-04] MEDS ORDERED: BENZOCAINE/MENTHOL AEROSOL SPRAY 56 ML TOP PRN (10:46)
[2017-10-04] MEDS ORDERED: DIPHENHYDRAMINE HCL 25 MG CAPSULE PO PRN (10:46)
[2017-10-04] MEDS ORDERED: MAGNESIUM HYDROXIDE SUSP 30 ML UDCUP PO PRN (10:46)
[2017-10-04] MEDS ORDERED: GLYCERIN/WITCH HAZEL LEAF 1 EACH MED..PAD TP PRN (10:46)
[2017-10-04] MEDS ORDERED: DIBUCAINE 1% OINTMENT 28 GM TP PRN (10:46)
[2017-10-04] MEDS ORDERED: PSEUDOEPHEDRINE HCL 30 MG TABLET PO PRN (10:46)
[2017-10-04] MEDS ORDERED: PROMETHAZINE HCL 25 MG TABLET PO PRN (10:46)
[2017-10-04] MEDS ORDERED: PROMETHAZINE HCL INJ 25 MG/1 ML VIAL IV PRN (10:46)
[2017-10-04] MEDS ORDERED: ACETAMINOPHEN WITH CODEINE #3 TABLET PO PRN ×2 (10:46)
[2017-10-04] MEDS ORDERED: MEASLES,MUMPS&RUBELLA VACC/PF 0.5 ML VIAL SUBCUT PRN (10:46)
[2017-10-04] MEDS ORDERED: ZOLPIDEM TARTRATE 5 MG TABLET PO PRN (10:46)
[2017-10-04] MEDS ORDERED: PROMETHAZINE HCL 25 MG SUPP.RECT PR PRN (10:46)
[2017-10-04] MEDS: IBUPROFEN 800 MG TABLET PO SCH ×2 (13:44→22:05)
--- NOTE | 2017-10-04 14:06 | Delivery Summary ---
Del Sum A-C Datetime Report Generated by CPN: 10/04/2017 14:05 DELIVERY PERSONNEL DELIVERY PERSONNEL: [id number] Delivery Doctor:: Arlyn Basurto MD Labor and Delivery Nurse:: Tamy Betancur RNrotary adjuster Nurse:: Serena Pearson RN Nursery Nurse:: Michelle Mireles RN Hairspring Assembler/[employer] F[employer]ER: Tina Sommer, ADOLESCENT COUNSELOR MATERNAL INFORMATION Delivery Anesthesia: Epidural Medications After Delivery: Pitocin Drip 20 Units/1000ml NSS Maternal Complications: None LABOR SUMMARY EDC: 10/10/2017 00:00 No. Babies in Womb: 1 Attempted: No Labor Anesthesia: Epidural LABOR INFORMATION Reason for Induction: Not Applicable Onset of Labor: 10/04/2017 08:14 Complete Dilatation: 10/04/2017 10:04 Oxytocin: Augmentation Group B Beta Strep: negative Steroids Given: None Reason Steroids Not Administered: Not Applicable MEMBRANES Membranes Rupture Method: Spontaneous Rupture of Membranes: 10/04/2017 01:30 Length of Rupture (hr): 9.05 Amniotic Fluid Color: Clear Amniotic Fluid Amount: Large Amniotic Fluid Odor: Normal STAGES OF LABOR Stage 1 hr: 1 Stage 1 min: 50 Stage 2 hr: 0 Stage 2 min: 29 Stage 3 hr: 0 Stage 3 min: 4 Total Time in Labor hr: 2 Total Time in Labor min: 23 VAGINAL DELIVERY Episiotomy: None Laceration #1: Vaginal Laceration Extension #1: Second Degree Laceration Repair: Yes CSECTION DELIVERY Primary Indication: N/A Secondary Indication: N/A CSection Incidence: N/A Labor: N/A Elective: N/A CSection Incision: N/A BABY A INFORMATION Infant Delivery Date/Time: 10/04/2017 10:33 Method of Delivery: Vaginal Born in Route : No : N/A Forceps: N/A Vacuum Extraction: N/A Shoulder Dystocia : No PRESENTATION/POSITION BABY A Presentation: Cephalic Cephalic Presentation: Vertex Vertex Position: Left Occipital Anterior Breech Presentation: N/A PLACENTA INFORMATION BABY A Placenta Delivery Time : 10/04/2017 10:37 Placenta Method of Delivery: Spontaneous Placenta Status: Delivered SCORES BABY A Heart Rate 1 min: >100 bpm Resp Effort 1 min: Good Cry Reflex Irritability 1 min: Cough or Sneeze or Pulls Away Muscle Tone 1 min: Active Motion Color 1 min: Body [place], Extremities Blue Resuscitation Effort 1 min: Tactile Stimulation SCORE 1 MIN: 9 Heart Rate 5 min: >100 bpm Resp Effort 5 min: Good Cry Reflex Irritability 5 min: Cough or Sneeze or Pulls Away Muscle Tone 5 min: Active Motion Color 5 min: Completely [place] Resuscitation Effort 5 min: N/A SCORE 5 MIN: 10 INFORMATION BABY A Gestational Age at Delivery: 39.1 Gestational Status: Full Term- 39- 40.6 Weeks Outcome : Liveborn Condition : Stable Sex: Male IDENTIFICATION BABY A Infant Verification Date/Time: 10/04/2017 10:46 ID Band Number: [id number] Mother's Name Verified: Yes RN Verifying Infant: B Lili RN/ R Bala RN WEIGHT/LENGTH BABY A Infant Birthweight (gm): 3500 Infant Weight (lb): 7 Infant Weight (oz): 11 Length (in): 21.50 Length (cm): 54.61 CORD INFORMATION BABY A No. Cord Vessels: 3 Nuchal Cord : N/A Cord Blood Taken: Yes-For Eval (Mom's Blood Type - or O+) Infant Suction: Mouth ASSESSMENT BABY A Infant Complications: None Physical Findings at Delivery: Within Normal Limits BABY B INFORMATION : N/A
[2017-10-04] MEDS ORDERED: FENTANYL/BUPIVACAINE/NS/PF 200 MCG/100 ML RTUINJ EPI ONE (17:17)
[2017-10-04] MEDS ORDERED: BUPIVACAINE HCL 0.25 % INJ/PF (2.5 MG/1 ML) 30 ML VIAL ONE (17:18)
[2017-10-04] MEDS ORDERED: FENTANYL CITRATE INJ/PF 100 MCG/2 ML AMPUL ONE (17:18)
[2017-10-04] MEDS: FERROUS SULFATE 325 MG TABLET PO SCH (17:26)
[2017-10-04] MEDS: FAMOTIDINE 20 MG TABLET PO SCH (17:27)
[2017-10-04] MEDS: DOCUSATE SODIUM 100 MG CAPSULE PO SCH (17:27)
[2017-10-04] MEDS ORDERED: CALCIUM CARBONATE 500 MG TAB.CHEW PO PRN (17:40)
[2017-10-04] MEDS ORDERED: LANSOPRAZOLE 30 MG TAB.RAP.DR PO ONE (17:45)
[2017-10-04] MEDS ORDERED: FAMOTIDINE 20 MG TABLET PO SCH (22:00)
[2017-10-05] MEDS: IBUPROFEN 800 MG TABLET PO SCH ×3 (06:26→20:36)
[2017-10-05] MEDS: LANSOPRAZOLE 30 MG TAB.RAP.DR PO SCH (06:27)
[2017-10-05 07:33] LABS: HEMATOCRIT 24.6 % (36.0-47.0); MEAN CORPUSCULAR HEMOGLOBIN 25.8 pg (27.0-33.4); MEAN CORPUSCULAR HGB CONC 32.2 g/dL (32.0-36.0); MEAN CORPUSCULAR VOLUME 80 fl (80-97); PLATELET COUNT 184 10^3/uL (150-450); RED BLOOD COUNT 3.07 10^6/uL (3.72-5.28); RED CELL DISTRIBUTION WIDTH 14.4 % (11.5-14.0)
[2017-10-05 07:37] LABS: HEMOGLOBIN 7.9 g/dL (12.0-15.5)
--- NOTE | 2017-10-05 08:28 | PDOC PROGRESS REPORT ---
Subjective-OB Progress Note for:: 10/05/17 Subjective: s/p day #1 Feeling well, denies concerns, states lochia is stable, pain well controlled, voiding without difficulty. Physical Exam (OB) Vital Signs: Temp Pulse Resp BP Pulse Ox 97.8 F 63 16 123/77 100 10/05/17 07:15 10/05/17 07:15 10/05/17 07:15 10/05/17 07:15 10/05/17 07:15 Intake & Output 10/04/17 10/05/17 10/06/17 06:59 06:59 06:59 Weight 94.5 kg - Lochia Lochia Amount: Scant < 10 ml Lochia Color: Rubra/Red - Abdomen Description: Soft, Round Hernia Present: No Fundal Description: Firm, Midline Fundal Height: u/u - u/2 Objective-Diagnostic Laboratory: 10/05/17 07:02 10/05/17 07:02 WBC 12.0 H RBC 3.07 L Hgb 7.9 L Hct 24.6 L MCV 80 MCH 25.8 L MCHC 32.2 RDW 14.4 H Plt Count 184 Assessment and Plan(PN) - Assessment and Plan (1) Acute blood loss anemia Is this a current diagnosis for this admission?: Yes Plan: ferrous sulfate increase dietary iron (2) Vaginal delivery Is this a current diagnosis for this admission?: Yes Plan: routine pp care - Time Spent with Patient Time with patient: Less than 15 minutes Critical Time spent with patient: Less than 15 minutes Medications reviewed and adjusted accordingly: Yes - Disposition Anticipated Discharge: Home
[2017-10-05] MEDS: DOCUSATE SODIUM 100 MG CAPSULE PO SCH ×2 (09:41→18:19)
[2017-10-05] MEDS: FERROUS SULFATE 325 MG TABLET PO SCH ×2 (09:41→18:20)
[2017-10-05] MEDS: CETIRIZINE 10 MG TABLET PO SCH (09:41)
[2017-10-05] MEDS: SENNOSIDES/DOCUSATE 8.6-50 MG 1 EACH TABLET PO SCH (09:42)
[2017-10-05] MEDS: PRENATAL VITAMIN W DHA CAPSULE PO SCH (09:42)
--- NOTE | 2017-10-05 13:18 | EKG REPORT ---
SEVERITY:- NORMAL ECG - SINUS RHYTHM : Confirmed by: Hema Russell MD 05-Oct-2017 13:17:38
[2017-10-05] MEDS: FAMOTIDINE 20 MG TABLET PO SCH (18:19)
[2017-10-05 18:26] LABS: HEMATOCRIT 25.5 % (36.0-47.0); HEMOGLOBIN 8.2 g/dL (12.0-15.5); MEAN CORPUSCULAR HEMOGLOBIN 25.9 pg (27.0-33.4); MEAN CORPUSCULAR HGB CONC 32.2 g/dL (32.0-36.0); MEAN CORPUSCULAR VOLUME 80 fl (80-97); PLATELET COUNT 194 10^3/uL (150-450); RED BLOOD COUNT 3.17 10^6/uL (3.72-5.28); RED CELL DISTRIBUTION WIDTH 14.4 % (11.5-14.0); WHITE BLOOD COUNT 12.2 10^3/uL (4.0-10.5)
[2017-10-05] MEDS ORDERED: FENTANYL/BUPIVACAINE/NS/PF 300 MCG/150 ML RTUINJ EPI PRN (19:05)
[2017-10-06] MEDS: IBUPROFEN 800 MG TABLET PO SCH (06:24)
[2017-10-06] MEDS: LANSOPRAZOLE 30 MG TAB.RAP.DR PO SCH (06:24)
[2017-10-06] MEDS: SENNOSIDES/DOCUSATE 8.6-50 MG 1 EACH TABLET PO SCH (09:59)
[2017-10-06] MEDS: DOCUSATE SODIUM 100 MG CAPSULE PO SCH (09:59)
[2017-10-06] MEDS: FERROUS SULFATE 325 MG TABLET PO SCH (09:59)
[2017-10-06 10:00] VITALS: BP 131/77
[2017-10-06] MEDS: CETIRIZINE 10 MG TABLET PO SCH (10:44)
[2017-10-06] MEDS: PRENATAL VITAMIN W DHA CAPSULE PO SCH (10:44)
[2017-10-06 14:02] LABS: ABSOLUTE BASOPHILS # (AUTO) 0.1 10^3/uL (0.0-0.2); ABSOLUTE EOSINOPHILS # (AUTO) 0.5 10^3/uL (0.0-0.6); ABSOLUTE LYMPHOCYTES (AUTO) 2.5 10^3/uL (0.5-4.7); ABSOLUTE MONOCYTES (AUTO) 1.1 10^3/uL (0.1-1.4); ABSOLUTE NEUT (AUTO) 7.3 10^3/uL (1.7-8.2); BASOPHILS % (AUTO) 0.8 % (0-2); EOSINOPHILS % (AUTO) 4.6 % (0-6); HEMATOCRIT 25.2 % (36.0-47.0); HEMOGLOBIN 8.2 g/dL (12.0-15.5); LYMPHOCYTES % (AUTO) 21.9 % (13-45); MEAN CORPUSCULAR HEMOGLOBIN 25.8 pg (27.0-33.4); MEAN CORPUSCULAR HGB CONC 32.5 g/dL (32.0-36.0); MEAN CORPUSCULAR VOLUME 80 fl (80-97); MONOCYTES % (AUTO) 9.5 % (3-13); PLATELET COUNT 203 10^3/uL (150-450); RED BLOOD COUNT 3.17 10^6/uL (3.72-5.28); RED CELL DISTRIBUTION WIDTH 14.7 % (11.5-14.0); SEGMENTED NEUTROPHILS % (AUTO) 63.2 % (42-78); TOTAL CELLS COUNTED % (AUTO) 100 %; WHITE BLOOD COUNT 11.6 10^3/uL (4.0-10.5)
--- NOTE | 2017-10-06 15:44 | PDOC DISCHARGE SUMMARY ---
Final Diagnosis Discharge Date: 10/06/17 - Final Diagnosis (1) Anemia complicating , third trimester Is this a current diagnosis for this admission?: Yes (2) Acute blood loss anemia Is this a current diagnosis for this admission?: Yes (3) Vaginal delivery Is this a current diagnosis for this admission?: Yes Discharge Data - Discharge Medication Prescriptions: Ibuprofen [Motrin 800 mg Tablet] 800 mg PO Q8HP PRN #60 tablet PRN Reason: Abdominal Cramping Docusate Sodium [Colace 100 mg Capsule] 100 mg PO BID #60 capsule Ferrous Sulfate [Feosol 325 mg Tablet] 325 mg PO BID #60 tablet Vit/Dha [ Multi + Dha Capsule] 1 cap PO DAILY #60 capsule Home Medications: Docusate Sodium [Colace 100 mg Capsule] 100 mg PO BID #60 capsule 10/06/17 Ferrous Sulfate [Feosol 325 mg Tablet] 325 mg PO BID #60 tablet 10/06/17 Ibuprofen [Motrin 800 mg Tablet] 800 mg PO Q8HP PRN #60 tablet 10/06/17 Vit/Dha [ Multi + Dha Capsule] 1 cap PO DAILY #60 capsule 10/06 Reason(s) for Admission: PROM Procedures: Ultrasound Intrapartum Procedure(s): Spontaneous Vaginal Delivery Complication(s): Laceration-Perineal Laceration-Degree: 2nd - Diagnosis Test Laboratory: Temp Pulse Resp BP Pulse Ox 98.0 F 75 18 131/77 H 98 10/06/17 08:58 10/06/17 08:58 10/06/17 08:58 10/06/17 08:58 10/06/17 08:58 10/04/17 10/04/17 10/05/17 02:45 02:59 07:02 RBC 3.80 3.07 L Hgb 9.8 L 7.9 L Hct 29.9 L 24.6 L Urine Opiates Screen NEGATIVE 10/05/17 17:00 RBC 3.17 L Hgb 8.2 L Hct 25.5 L Urine Opiates Screen - Discharge information/Instructions Discharge Activity: Activity As Tolerated, Balance Activity w/Rest, Pelvic Rest , Slowly Increase Activity, No tub bath, Walk Frequently Discharge Diet: Regular Disposition: HOME, SELF-CARE Follow up with: [facility] in: 1, Weeks - BP check for Hx of Gestational HTN
== END 2017-10-06 14:39 | disposition home or self-care (01) | DRG 774 ==
LOC: LC 02:25 → LR 02:50 → 2S 12:46
PROVIDERS: ADMIT Obstetrics & Gynecology; ATTEND Obstetrics & Gynecology
PROC: 10E0XZZ Delivery of Products of Conception, External Approach (ICD-10-PCS; principal; 2017-10-04)
PROC: 0HQ9XZZ Repair Perineum Skin, External Approach (ICD-10-PCS; 2017-10-04)
DX: O24.420 Gestational diabetes mellitus in childbirth, diet controlled (principal); O10.92 Unspecified pre-existing hypertension complicating childbirth; D62 Acute posthemorrhagic anemia; O98.32 Other infections with a predominantly sexual mode of transmission complicating childbirth; O99.334 Smoking (tobacco) complicating childbirth; F17.210 Nicotine dependence, cigarettes, uncomplicated; O70.0 First degree perineal laceration during delivery; O99.02 Anemia complicating childbirth; A63.0 Anogenital (venereal) warts; Z3A.39 39 weeks gestation of pregnancy; Z37.0 Single live birth
CPT/HCPCS: 36415; 80307; 81005; 85025; 85027; 86592; 86850; 86900; 86901; 93005; 93010; J2590; J3010; J3490

== ENCOUNTER 2017-10-08 11:49 | Emergency (ER) | payer MEDICAID ==
[2017-10-08] MEDS ORDERED: METOCLOPRAMIDE HCL INJ/PF 10 MG/2 ML SDV IV ONE (12:24)
[2017-10-08] MEDS ORDERED: DIPHENHYDRAMINE HCL 50 MG/ML VIAL IV ONE (12:25)
--- NOTE | 2017-10-08 12:29 | ER Document Report ---
ED Medical Screen (RME) - General Chief Complaint: Headache Stated Complaint: BLOOD PRESSURE ISSUES Time Seen by Provider: 10/08/17 12:20 Notes: RME DISCLOSURE I have seen this patient as part of a Rapid Medical Evaluation and, if applicable, placed any initially appropriate orders. The patient will be seen and fully evaluated, including a full history and physical exam, by a provider ( in Main ED or Fast Track) when a room becomes available. 32-year-old female recent vaginal delivery on 10/04/2017 here with complaints of headache that started approximately 12 hours ago in the middle of her forehead radiating to the back. States that she did have an epidural and they had difficulty with it citing that they had to "stick me twice". She has had some nausea but no vomiting numbness tingling. The headache is worse with light and sound. She has no prior history of spinal headaches. Of note, she was recently started yesterday on Procardia 30 mg daily because her blood pressure after delivery was found to be 160/110. She denies any frothy urine abdominal pain. No prior history of preeclampsia. No prior history of migraine headaches. Her FOOT DRILL OPERATOR sent her here for further evaluation. TRAVEL OUTSIDE OF THE [place] IN LAST 30 DAYS: No - Related Data Allergies/Adverse Reactions: bacitracin [From Neosporin ([id number])] Allergy (Unknown, Verified 10/04/17 05:53) metronidazole [From Flagyl] Allergy (Unknown, Verified 10/04/17 05:53) neomycin [From Neosporin (bdm-gut-bmcuz)] Allergy (Unknown, Verified 10/04/17 05 :53) polymyxin B [From Neosporin ([id number]-ijx-[id number])] Allergy (Unknown, Verified 05:53) Past Medical History - Social History Frequency of alcohol use: None Drug Abuse: None Renal/ Medical History: Denies: Hx Peritoneal Dialysis GI Medical History: Reports: Hx Gastroesophageal Reflux Disease - Immunizations Hx Diphtheria, Pertussis, Tetanus Vaccination: Yes History of Influenza Vaccine for 03/2017 - 08/2017 Season: No Physical Exam - Vital signs Vitals: Temp Pulse Resp BP Pulse Ox 98.6 F 91 16 114/75 98 10/08/17 11:55 10/08/17 11:55 10/08/17 11:55 10/08/17 11:55 10/08/17 11:55 Course - Vital Signs Vital signs: Temp Pulse Resp BP Pulse Ox 98.6 F 91 16 114/75 98 10/08/17 11:55 10/08/17 11:55 10/08/17 11:55 10/08/17 11:55 10/08/17 11:55
[2017-10-08 13:15] LABS: ABSOLUTE BASOPHILS # (AUTO) 0.1 10^3/uL (0.0-0.2); ABSOLUTE EOSINOPHILS # (AUTO) 0.4 10^3/uL (0.0-0.6); ABSOLUTE LYMPHOCYTES (AUTO) 2.2 10^3/uL (0.5-4.7); ABSOLUTE MONOCYTES (AUTO) 0.9 10^3/uL (0.1-1.4); BASOPHILS % (AUTO) 0.7 % (0-2); EOSINOPHILS % (AUTO) 2.8 % (0-6); FIBRINOGEN 459 mg/dL (209-497); HEMATOCRIT 33.8 % (36.0-47.0); INTERNATIONAL RATION (INR) 0.85; LYMPHOCYTES % (AUTO) 17.7 % (13-45); MEAN CORPUSCULAR HEMOGLOBIN 25.9 pg (27.0-33.4); MEAN CORPUSCULAR HGB CONC 32.2 g/dL (32.0-36.0); MEAN CORPUSCULAR VOLUME 81 fl (80-97); MONOCYTES % (AUTO) 6.9 % (3-13); PARTIAL THROMBOPLASTIN TIME 25.4 SEC (23.5-35.8); PLATELET COUNT 325 10^3/uL (150-450); RED CELL DISTRIBUTION WIDTH 14.8 % (11.5-14.0); SEGMENTED NEUTROPHILS % (AUTO) 71.9 % (42-78); TOTAL CELLS COUNTED % (AUTO) 100 %; WHITE BLOOD COUNT 12.5 10^3/uL (4.0-10.5)
--- NOTE | 2017-10-08 13:16 | RADIOLOGY REPORT (SQ) ---
EXAM DESCRIPTION: CT HEAD WITHOUT COMPLETED DATE/TIME: 10/08/2017 1:01 pm REASON FOR STUDY: recent epidural, now GONZALEZ; eval bleed or other COMPARISON: None. TECHNIQUE: Axial images acquired through the brain without intravenous contrast. Images reviewed wi th bone, brain and subdural windows. Images stored on PACS. All CT scanners at this facility use dose modulation, iterative reconstruction, and/or weight based d osing when appropriate to reduce radiation dose to as low as reasonably achievable (ALARA). [facility]: Dose Right [facility]: CareDose [facility]: Dose Right [facility]: Teradose 4D [facility]: [employer] RADIATION DOSE: CT Rad equipment meets quality standard of care and radiation dose reduction techniq ues were employed. CTDIvol: 53.2 mGy. DLP: 1044 mGy-cm. mGy. LIMITATIONS: None. FINDINGS: VENTRICLES: Normal size and contour. CEREBRUM: No masses. No hemorrhage. No midline shift. No evidence for acute infarction. Normal gra y/white matter differentiation. No areas of low density in the white matter. CEREBELLUM: No masses. No hemorrhage. No alteration of density. No evidence for acute infarction. EXTRAAXIAL SPACES: No fluid collections. No masses. ORBITS AND GLOBE: No intra- or extraconal masses. Normal contour of globe without masses. CALVARIUM: No fracture. PARANASAL SINUSES: Small mucosal polyp or retention cyst is identified in the left maxillary antra. SOFT TISSUES: No mass or hematoma. OTHER: No other significant finding. IMPRESSION: No significant intracranial abnormalities were identified. Other findings as noted abov e EVIDENCE OF ACUTE STROKE: NO. COMMENT: Quality ID # [id number]: Final reports with documentation of one or more dose reduction techniques (e.g., Automated exposure control, adjustment of the mA and/or kV according to patient size, use of iterative reconstruction technique) TECHNICAL DOCUMENTATION: JOB ID: [id number] [employer]- All Rights Reserved Reading location - IP/workstation name: [email or web address]
[2017-10-08 13:17] LABS: APPEARANCE,URINE SLIGHTLY-CLOUDY; BILIRUBIN,URINE NEGATIVE (NEGATIVE); COLOR,URINE YELLOW; GLUCOSE, URINE NEGATIVE (NEGATIVE); KETONES,URINE NEGATIVE (NEGATIVE); LEUKOCYTE ESTERASE,URINE LARGE (NEGATIVE); NITRITE,URINE NEGATIVE (NEGATIVE); PROTEIN,URINE NEGATIVE (NEGATIVE); UROBILINOGEN,URINE NEGATIVE mg/dL (<2.0)
[2017-10-08 13:24] LABS: HEMOGLOBIN 10.9 g/dL (12.0-15.5)
[2017-10-08] MEDS ORDERED: BUTALB/ACETAMINOPHEN/CAFFEINE 1 TAB EACH PO ONE (14:28)
--- NOTE | 2017-10-08 14:31 | ER Document Report ---
ED General - General Chief Complaint: Headache Stated Complaint: BLOOD PRESSURE ISSUES Time Seen by Provider: 10/08/17 12:20 Mode of Arrival: Ambulatory Information source: Patient Notes: 32-year-old female who had a vaginal delivery 4 days prior presents with complaints of a headache. Patient does note he took 2 times for her spinal block to be performed, notes yesterday she was seen by SITE LEAD noted to have high blood pressure was started on Procardia Patient notes headache is improved since yesterday is no longer debilitating She denies any blurry vision denies any deficits denies any swelling in extremities TRAVEL OUTSIDE OF THE [place] IN LAST 30 DAYS: No - HPI Onset: Yesterday Onset/Duration: Better Quality of pain: Achy Severity: Mild Pain Level: 1 Associated symptoms: Headache Exacerbated by: Denies Relieved by: Denies Similar symptoms previously: Yes Recently seen / treated by doctor: Yes - Related Data Allergies/Adverse Reactions: bacitracin [From Neosporin ([id number])] Allergy (Unknown, Verified 10/04/17 05:53) metronidazole [From Flagyl] Allergy (Unknown, Verified 10/04/17 05:53) neomycin [From Neosporin ([id number]-ygw-gyamv)] Allergy (Unknown, Verified 10/04/17 05 :53) polymyxin B [From Neosporin (bhs-nfl-jihte)] Allergy (Unknown, Verified 05:53) Past Medical History - Social History Smoking Status: Current Some Day Smoker Cigarette use (# per day): No Chew tobacco use (# tins/day): No Smoking Education Provided: No Frequency of alcohol use: None Drug Abuse: None Family History: Reviewed & Not Pertinent Patient has suicidal ideation: No Patient has homicidal ideation: No Renal/ Medical History: Denies: Hx Peritoneal Dialysis GI Medical History: Reports: Hx Gastroesophageal Reflux Disease - Immunizations Hx Diphtheria, Pertussis, Tetanus Vaccination: Yes Review of Systems - Review of Systems Notes: REVIEW OF SYSTEMS: CONSTITUTIONAL : Denies fever, chills, or sweats. Denies recent illness. EENT: Denies eye, ear, throat, or mouth pain or symptoms. Denies nasal or sinus congestion or discharge. Denies throat, tongue, or mouth swelling or difficulty swallowing. CARDIOVASCULAR: Denies chest pain. Denies palpitations or racing or irregular heart beat. Denies ankle edema. RESPIRATORY: Denies cough, cold, or chest congestion. Denies shortness of breath, difficulty breathing, or wheezing. GASTROINTESTINAL: Denies abdominal pain or distention. Denies nausea, vomiting , or diarrhea. Denies blood in vomitus, stools, or per rectum. Denies black, tarry stools. Denies constipation. GENITOURINARY: Denies difficulty urinating, painful urination, burning, frequency, blood in urine, or discharge. FEMALE GENITOURINARY: Denies vaginal bleeding, heavy or abnormal periods, irregular periods. Denies vaginal discharge or odor. MUSCULOSKELETAL: Denies back or neck pain or stiffness. Denies joint pain or swelling. SKIN: Denies rash, lesions or sores. HEMATOLOGIC : Denies easy bruising or bleeding. LYMPHATIC: Denies swollen, enlarged glands. NEUROLOGICAL: Admits to headache PSYCHIATRIC: Denies anxiety or stress. Denies depression, suicidal ideation, or homicidal ideation. ALL OTHER SYSTEMS REVIEWED AND NEGATIVE. PHYSICAL EXAMINATION: GENERAL: Well-appearing, well-nourished and in no acute distress. HEAD: Atraumatic, normocephalic. EYES: Pupils equal round and reactive to light, extraocular movements intact, conjunctiva are normal. ENT: Nares patent, oropharynx clear without exudates. Moist mucous membranes. NECK: Normal range of motion, supple without lymphadenopathy LUNGS: Breath sounds clear to auscultation bilaterally and equal. No wheezes rales or rhonchi. HEART: Regular rate and rhythm without murmurs ABDOMEN: Soft, nontender, nondistended abdomen. No guarding, no rebound. No masses appreciated. Female : deferred Musculoskeletal: Normal range of motion, no pitting or edema. No cyanosis. NEUROLOGICAL: Cranial nerves grossly intact. Normal speech, normal gait. Normal sensory, motor exams PSYCH: Normal mood, normal affect. SKIN: Warm, Dry, normal turgor, no rashes or lesions noted. Dictation was performed using [employer] voice recognition software Physical Exam - Vital signs Vitals: Temp Pulse Resp BP Pulse Ox 98.6 F 91 16 114/75 98 10/08/17 11:55 10/08/17 11:55 10/08/17 11:55 10/08/17 11:55 10/08/17 11:55 Course - Re-evaluation Re-evalutation: 10/08/17 14:30 Patient's presentation is quite benign, she looks well is in no distress, I have very low suspicion for a signs of eclampsia or even leaking spinal fluid, she notes her headache is improved we will treated with some Fioricet here and reevaluate 10/08/17 15:23 Patient's headache has improved significantly, she only has a prescription for Fioricet pharmacy, patient is being a very strict return precautions she states she understands We discussed post lumbar puncture headaches After performing a Medical Screening Examination, I estimate there is LOW risk for ACUTE GLAUCOMA, TEMPORAL ARTERITIS, MENINGITIS, INCRANIAL HEMORRHAGE, or ISCHEMIC STROKE thus I consider the discharge disposition reasonable. I have reevaluated this patient multiple times and no significant life threatening changes are noted. The patient and I have discussed the diagnosis and risks, and we agree with discharging home with close follow-up with the understanding that symptoms and presentations can change. We also discussed returning to the Emergency Department immediately if new or worsening symptoms occur. We have discussed the symptoms which are most concerning (e.g., changing or worsening symptoms, new numbness or weakness, vomiting, fever) that necessitate immediate return. 10/08/17 15:24 - Vital Signs Vital signs: Temp Pulse Resp BP Pulse Ox 98.6 F 91 18 122/83 94 10/08/17 11:55 10/08/17 11:55 10/08/17 14:01 10/08/17 14:01 10/08/17 14:01 - Laboratory Result Diagrams: 10/08/17 12:51 10/08/17 14:10 Laboratory results interpreted by me: 10/08/17 10/08/17 10/08/17 12:51 12:51 14:10 WBC 12.5 H Hgb 10.9 L D Hct 33.8 L MCH 25.9 L RDW 14.8 H Absolute Neutrophils 9.0 H Chloride 108 H Carbon Dioxide 21 L Creatinine 0.48 L Total Bilirubin < 0.1 L Alkaline Phosphatase 133 H Albumin 3.3 L Urine Blood LARGE H Ur Leukocyte Esterase LARGE H - Diagnostic Test Radiology reviewed: Image reviewed - CT head no contrast notes no significant abnormality, Reports reviewed Discharge - Discharge Clinical Impression: Headache Qualifiers: Headache type: unspecified Headache chronicity pattern: acute headache Intractability: not intractable Qualified Code(s): R51 - Headache Condition: Stable Disposition: HOME, SELF-CARE Instructions: Headache ([facility]) Additional Instructions: Please return immediately if there are any other concerns
[2017-10-08 15:06] LABS: ALANINE AMINOTRANSFERASE 25 U/L (9-52); ALBUMIN 3.3 g/dL (3.5-5.0); ALKALINE PHOSPHATASE 133 U/L (38-126); ANION GAP 10 (5-19); ASPARTATE AMINO TRANSFERASE 17 U/L (14-36); BLOOD UREA NITROGEN 7 mg/dL (7-20); CALCIUM 8.8 mg/dL (8.4-10.2); CARBON DIOXIDE 21 mmol/L (22-30); CHLORIDE 108 mmol/L (98-107); GLUCOSE 95 mg/dL (75-110); POTASSIUM 3.9 mmol/L (3.6-5.0); SODIUM 139.4 mmol/L (137-145); TOTAL PROTEIN 6.3 g/dL (6.3-8.2)
[2017-10-08 15:07] LABS: BILIRUBIN,TOTAL < 0.1 mg/dL (0.2-1.3)
[2017-10-08 15:38] VITALS: BP 129/88
== END 2017-10-08 15:38 | disposition home or self-care (01) ==
LOC: ER 11:49
DX: R51 Headache (principal); I10 Essential (primary) hypertension; Z79.899 Other long term (current) drug therapy; F17.200 Nicotine dependence, unspecified, uncomplicated
CPT/HCPCS: 99284; 96374; 36415; 87086; 85025; 85384; 85610; 85730; 80053; 81001; 70450; J3490; J2765

== ENCOUNTER → 2017-10-27 | Outpatient (CLI) | payer MEDICAID ==
--- NOTE | 2017-10-27 15:32 | RADIOLOGY REPORT (SQ) ---
EXAM DESCRIPTION: CHEST 2 VIEWS COMPLETED DATE/TIME: 10/27/2017 2:57 pm REASON FOR STUDY: R05 COUGH R06.02 SHORTNESS OF BREATH COMPARISON: Chest films 07/16/2017, 01/11/2017, 06/26/2016 EXAM PARAMETERS: NUMBER OF VIEWS: two views TECHNIQUE: Digital Frontal and Lateral radiographic views of the chest acquired. RADIATION DOSE: NA LIMITATIONS: none FINDINGS: LUNGS AND PLEURA: No opacities, masses or pneumothorax. No pleural effusion. MEDIASTINUM AND HILAR STRUCTURES: No masses or contour abnormalities. HEART AND VASCULAR STRUCTURES: Heart normal size. No evidence for failure. BONES: No acute findings. HARDWARE: None in the chest. OTHER: No other significant finding. IMPRESSION: NO ACUTE RADIOGRAPHIC FINDING IN THE CHEST. TECHNICAL DOCUMENTATION: JOB ID: [id number] [employer] All Rights Reserved Reading location - IP/workstation name: [email or web address]
== END ==
LOC: RAD 14:45
PROVIDERS: ATTEND Obstetrics & Gynecology
DX: R05 Cough (principal); R06.02 Shortness of breath
CPT/HCPCS: 71046

== ENCOUNTER 2017-12-15 20:30 | Emergency (ER) | payer MEDICAID ==
[2017-12-15 23:58] LABS: ABSOLUTE BASOPHILS # (AUTO) 0.1 10^3/uL (0.0-0.2); ABSOLUTE EOSINOPHILS # (AUTO) 0.3 10^3/uL (0.0-0.6); ABSOLUTE LYMPHOCYTES (AUTO) 3.8 10^3/uL (0.5-4.7); ABSOLUTE MONOCYTES (AUTO) 0.9 10^3/uL (0.1-1.4); ABSOLUTE NEUT (AUTO) 7.3 10^3/uL (1.7-8.2); BASOPHILS % (AUTO) 0.7 % (0-2); EOSINOPHILS % (AUTO) 2.5 % (0-6); HEMATOCRIT 38.4 % (36.0-47.0); HEMOGLOBIN 12.4 g/dL (12.0-15.5); LYMPHOCYTES % (AUTO) 30.4 % (13-45); MEAN CORPUSCULAR HEMOGLOBIN 26.5 pg (27.0-33.4); MEAN CORPUSCULAR HGB CONC 32.4 g/dL (32.0-36.0); MEAN CORPUSCULAR VOLUME 82 fl (80-97); MONOCYTES % (AUTO) 7.1 % (3-13); PLATELET COUNT 274 10^3/uL (150-450); RED CELL DISTRIBUTION WIDTH 18.4 % (11.5-14.0); SEGMENTED NEUTROPHILS % (AUTO) 59.3 % (42-78); TOTAL CELLS COUNTED % (AUTO) 100 %; WHITE BLOOD COUNT 12.4 10^3/uL (4.0-10.5)
--- NOTE | 2017-12-16 00:04 | ER Document Report ---
ED Extremity Problem, Lower - General Chief Complaint: Leg Pain Stated Complaint: LEG PAIN Time Seen by Provider: 12/15/17 23:13 Notes: The patient is a 32-year-old female who presents with 4-5 weeks of right calf pain intermittent tingling and heaviness. She is out 3 months and is not on any estrogen. Patient is also having mild right hip pain. She denies difficulty walking, fevers, calf swelling, numbness, severe back pain, fall or rash. TRAVEL OUTSIDE OF THE [place] IN LAST 30 DAYS: No - Related Data Allergies/Adverse Reactions: bacitracin [From Neosporin ([id number])] Allergy (Unknown, Verified 10/04/17 05:53) metronidazole [From Flagyl] Allergy (Unknown, Verified 10/04/17 05:53) neomycin [From Neosporin ([id number])] Allergy (Unknown, Verified 10/04/17 05 :53) polymyxin B [From Neosporin ([id number])] Allergy (Unknown, Verified 05:53) Past Medical History - General Information source: Patient - Social History Smoking Status: Current Every Day Smoker Family History: Reviewed & Not Pertinent Patient has suicidal ideation: No Patient has homicidal ideation: No Renal/ Medical History: Denies: Hx Peritoneal Dialysis GI Medical History: Reports: Hx Gastroesophageal Reflux Disease - Immunizations Hx Diphtheria, Pertussis, Tetanus Vaccination: Yes Review of Systems - Review of Systems Notes: REVIEW OF SYSTEMS: CONSTITUTIONAL: -fevers, -chills EENT: -eye pain, -difficulty swallowing, -nasal congestion CARDIOVASCULAR: -chest pain, -syncope. RESPIRATORY: -cough, -SOB GASTROINTESTINAL: -abdominal pain, -nausea, -vomiting, -diarrhea GENITOURINARY: -dysuria, -hematuria MUSCULOSKELETAL: +right calf pain, -back pain, -neck pain SKIN: -rash or skin lesions. HEMATOLOGIC: -easy bruising or bleeding. LYMPHATIC: -swollen, enlarged glands. NEUROLOGICAL: -altered mental status or loss of consciousness, -headache, - neurologic symptoms PSYCHIATRIC: -anxiety, -depression. ALL OTHER SYSTEMS REVIEWED AND NEGATIVE. Physical Exam - Vital signs Vitals: Temp Pulse Resp BP Pulse Ox 98.6 F 70 16 128/77 H 97 12/15/17 21:10 12/15/17 21:10 12/15/17 21:10 12/15/17 21:10 12/15/17 21:10 - Notes Notes: PHYSICAL EXAMINATION: GENERAL: Well-appearing, well-nourished and in no acute distress. HEAD: Atraumatic, normocephalic. EYES: Pupils equal round and reactive to light, extraocular movements intact, sclera anicteric, conjunctiva are normal. ENT: nares patent, oropharynx clear without exudates. Moist mucous membranes. NECK: Normal range of motion, supple without lymphadenopathy LUNGS: Breath sounds clear to auscultation bilaterally and equal. No wheezes rales or rhonchi. HEART: Regular rate and rhythm without murmurs ABDOMEN: Soft, nontender, normoactive bowel sounds. No guarding, no rebound. No masses appreciated. EXTREMITIES: No swelling of right calf. Small thrombophlebitis of right lower leg. Strong distal pulses. Normal range of motion, no pitting or edema. No cyanosis. NEUROLOGICAL: Cranial nerves grossly intact. Normal speech, normal gait. Normal sensory and motor exams. PSYCH: Normal mood, normal affect. SKIN: Warm, Dry, normal turgor, no rashes or lesions noted. Course - Re-evaluation Re-evalutation: Patient appears well. No official vascular ultrasound available at this time of the night at [facility]. Bedside ultrasound shows easily compressible right deep veins. She does have small superficial thrombophlebitis, which may be causing some of her symptoms. Blood work is unremarkable, other than slight leukocytosis. She does not have any signs of infection. Instructed her about using warm compresses, anti-inflammatories and follow with her primary care physician. She will obtain another ultrasound in 2 weeks to assess for DVT if her symptoms do not improve. - Vital Signs Vital signs: Temp Pulse Resp BP Pulse Ox 98.6 F 70 16 128/77 H 97 12/15/17 21:10 12/15/17 21:10 12/15/17 21:10 12/15/17 21:10 12/15/17 21:10 - Laboratory Result Diagrams: 12/15/17 23:35 12/15/17 23:39 Laboratory results interpreted by me: 12/15/17 12/15/17 23:35 23:39 WBC 12.4 H MCH 26.5 L RDW 18.4 H ALT 60 H Discharge - Discharge Clinical Impression: Right calf pain Superficial thrombophlebitis Qualifiers: Superficial thrombophlebitis-Involved body area: lower extremity Laterality: right Qualified Code(s): I80.01 - Phlebitis and thrombophlebitis of superficial vessels of right lower extremity Condition: Stable Disposition: HOME, SELF-CARE Additional Instructions: Your bedside ultrasound tonight did not show any evidence of a deep venous thrombosis in your right leg. If you continue to have symptoms after 2 weeks, you should have a repeat ultrasound performed. Superficial Phlebitis You have superficial phlebitis. This is an inflammation of the small veins just under the skin. The phlebitis causes redness, warmth, and tenderness of the involved area. There is no risk of pulmonary embolism (blood clots travelling to the lung) from this type of phlebitis. The more serious type of phlebitis occurs when the large deep veins become clotted. Treatment usually is elevation of the involved extremity, local moist heat several times daily, and aspirin (or an antiinflammatory medication). It will take several days -- sometimes even a couple of weeks -- for the condition to get better. If you develop wide-spread swelling or deep pain in the extremity, chest pain or shortness of breath, you should call the doctor or go to the hospital emergency room immediately. Forms: Elevated Blood Pressure Referrals: PATRICIA SOLIS MD [NO LOCAL MD] - Follow up as needed
[2017-12-16 00:20] LABS: ALANINE AMINOTRANSFERASE 60 U/L (9-52); ALBUMIN 4.7 g/dL (3.5-5.0); ALKALINE PHOSPHATASE 82 U/L (38-126); ANION GAP 13 (5-19); ASPARTATE AMINO TRANSFERASE 31 U/L (14-36); BILIRUBIN,DIRECT 0.3 mg/dL (0.0-0.4); BILIRUBIN,TOTAL 0.4 mg/dL (0.2-1.3); BLOOD UREA NITROGEN 13 mg/dL (7-20); CALCIUM 9.9 mg/dL (8.4-10.2); CARBON DIOXIDE 27 mmol/L (22-30); CHLORIDE 102 mmol/L (98-107); CREATINE KINASE 65 U/L (30-135); GLUCOSE 94 mg/dL (75-110); POTASSIUM 4.2 mmol/L (3.6-5.0); SODIUM 141.9 mmol/L (137-145); TOTAL PROTEIN 7.7 g/dL (6.3-8.2)
[2017-12-16 00:50] VITALS: BP 111/77
== END 2017-12-16 00:48 | disposition home or self-care (01) ==
LOC: ER 20:30
DX: I80.01 Phlebitis and thrombophlebitis of superficial vessels of right lower extremity (principal); M79.661 Pain in right lower leg; M25.551 Pain in right hip; F17.200 Nicotine dependence, unspecified, uncomplicated
CPT/HCPCS: 36415; 80053; 82550; 84703; 85025; 99284

== ENCOUNTER → 2018-12-30 | Outpatient (CLI) | payer BC ==
--- NOTE | 2018-12-30 16:16 | RADIOLOGY REPORT (SQ) ---
EXAM DESCRIPTION: MRI LT LOWER JOINT WITHOUT COMPLETED DATE/TIME: 12/30/2018 3:03 pm REASON FOR STUDY: S83.412A SPRAIN OF MEDIAL COLLATERAL LIGAMENT OF LEFT KNEE, INIT S83.412A SPRAIN OF MEDIAL COLLATERAL LIGAMENT OF LEFT KNEE, COMPARISON: None. TECHNIQUE: Leftknee images acquired and stored on PACS. Multiplanar images include fat sensitive se quences as T1, water sensitive sequences as FST2 or STIR, cartilage sensitive sequences as FSPD, and gradient echo sequences. LIMITATIONS: None. FINDINGS: Prepatellar soft tissue swelling is present, with edema in the subcutaneous fat. There is a bone contusion along the anterior aspect of the medial tibial plateau without a displaced fracture . Although there is edema superficial and deep to the retinaculum, the medial patellar retinaculum a ppears to be intact. JOINT AND BURSAE: No effusion. BONE CORTEX AND MARROW: Bone contusion along the anterior aspect of the medial tibial plateau without a displaced osteochondral fracture ACL: Intact. No degeneration or ganglion cyst. PCL: Intact. MCL: Intact. Trace periligamentous edema or fluid on coronal image 11 through 15. LCL: Intact. No periligamentous edema or fluid. MEDIAL MENISCUS: No tears. No abnormal signal. LATERAL MENISCUS: No tears. No abnormal signal. MEDIAL COMPARTMENT: Cartilage preserved. No osteophytes. LATERAL COMPARTMENT: Cartilage preserved. No bone bruises or reactive marrow edema. No osteophytes. PATELLA: No chondromalacia. No subchondral cysts. Medial and lateral retinacula intact. EXTENSOR MECHANISM: Intact. Quadriceps and patella tendons normal. SOFT TISSUES: Medial prepatellar soft tissue swelling from contusion. No abscess or focal fluid brandy ection. Normal flow void in popliteal artery and vein. OTHER: No other significant finding. IMPRESSION: Soft tissue and bone contusion over the anterior aspect medial tibial plateau region. No internal derangement left knee TECHNICAL DOCUMENTATION: JOB ID: [id number]- All Rights Reserved Reading location - IP/workstation name: [email or web address]
== END ==
LOC: RAD 14:06
PROVIDERS: ATTEND Orthopaedic Surgery
DX: S83.412A Sprain of medial collateral ligament of left knee, initial encounter (principal); X58.XXXA Exposure to other specified factors, initial encounter

== ENCOUNTER 2019-04-30 07:40 | Emergency (ER) | payer BC ==
[2019-04-30 08:43] LABS: APPEARANCE,URINE CLEAR; BILIRUBIN,URINE NEGATIVE (NEGATIVE); COLOR,URINE YELLOW; GLUCOSE, URINE NEGATIVE (NEGATIVE); KETONES,URINE NEGATIVE (NEGATIVE); PROTEIN,URINE NEGATIVE (NEGATIVE); URINE SPECIFIC GRAVITY 1.011; UROBILINOGEN,URINE NEGATIVE mg/dL (<2.0)
--- NOTE | 2019-04-30 08:51 | ER Document Report ---
ED General - General Chief Complaint: Nausea Stated Complaint: NAUSEA,RIGHT SIDED ABDOMINAL PAIN Time Seen by Provider: 04/30/19 08:34 Primary Care Provider: KENISHA SOLIS MD [ACTIVE STAFF] - Follow up as needed Notes: 34-year-old female presents with nausea, bloating, right upper quadrant pain. States nausea and bloating are ongoing for approximately 1 week. Patient states right upper quadrant pain started yesterday around 1230. Patient states this pain is intermittent. States nothing makes it better, nothing makes it better. States pain radiates to her right shoulder. Patient was seen for nausea and bloating by her GI doctor last Thursday and was prescribed Zofran with relief however this medicine makes her "loopy.". She is scheduled for EGD this Thursday. Has a history of GERD. Patient states she still has her gallbladder and her appendix. Patient denies fever, chills, diarrhea, vomiting, or any urinary symptoms. TRAVEL OUTSIDE OF THE [place] IN LAST 30 DAYS: No - Related Data Allergies/Adverse Reactions: bacitracin [From Neosporin ([id number])] Allergy (Unknown, Verified 04/30/19 07:49) metronidazole [From Flagyl] Allergy (Unknown, Verified 04/30/19 07:49) neomycin [From Neosporin ([id number]-[id number])] Allergy (Unknown, Verified 04/30/19 07:49) polymyxin B [From Neosporin ([id number]-[id number])] Allergy (Unknown, Verified 04/30/19 07:49) Home Medications: zofran. advil. aciphex Past Medical History - Social History Smoking Status: Current Every Day Smoker Chew tobacco use (# tins/day): No Frequency of alcohol use: Social Drug Abuse: None Family History: Reviewed & Not Pertinent Patient has suicidal ideation: No Patient has homicidal ideation: No Renal/ Medical History: Denies: Hx Peritoneal Dialysis GI Medical History: Reports: Hx Gastroesophageal Reflux Disease - Immunizations Hx Diphtheria, Pertussis, Tetanus Vaccination: Yes Review of Systems - Review of Systems Notes: Constitutional: Negative for fever. HENT: Negative for sore throat. Eyes: Negative for visual changes. Cardiovascular: Negative for chest pain. Respiratory: Negative for shortness of breath. Gastrointestinal: Positive for abdominal pain. negative for vomiting or diarrhea. Genitourinary: Negative for dysuria. Musculoskeletal: Negative for back pain. Skin: Negative for rash. Neurological: Negative for headaches, weakness or numbness. 10 point ROS negative except as marked above and in HPI. Physical Exam - Vital signs Vitals: Temp Pulse Resp BP Pulse Ox 97.5 F 62 18 134/74 H 100 04/30/19 07:45 04/30/19 07:45 04/30/19 07:45 04/30/19 07:45 04/30/19 07:45 - Notes Notes: GENERAL: Well-appearing, well-nourished and in no acute distress. HEAD: Atraumatic, normocephalic. EYES: Extraocular movements intact, sclera anicteric, conjunctiva are normal. NECK: Normal range of motion, supple without lymphadenopathy or JVD. LUNGS: Breath sounds clear to auscultation bilaterally and equal. No wheezes rales or rhonchi. HEART: Regular rate and rhythm without murmurs, rubs or gallops. ABDOMEN: Soft, tender to right upper quadrant. No guarding, no rebound. No masses appreciated. EXTREMITIES: Normal range of motion, no pitting or edema. No clubbing or cyanosis. NEUROLOGICAL: Cranial nerves II through XII grossly intact. Normal speech, normal gait. PSYCH: Normal mood, normal affect. SKIN: Warm, Dry, normal turgor, no rashes or lesions noted. Course - Re-evaluation Re-evalutation: 04/30/19 34-year-old female presents with right upper quadrant pain that started yesterday. Patient also has ongoing nausea and bloating for this was ongoing for 1 week. Right upper quadrant pain radiates to right shoulder. Abdomen soft mildly tender to right upper quadrant. Nontoxic in appearance PE is otherwise unremarkable. Vitals are acceptable without any significant tachycardia, tachypnea, or hypoxia. Concerning for gallbladder, ultrasound ordered. Lab work including CBC, CMP, lipase also ordered. She is also being worked up for nausea and bloating by GI. Patient is scheduled for EGD on Thursday. 04/30/19 09:45 US negative. Labwork WNL. Will PO challenge pt. 04/30/19 10:10 PO challenge passed. Discussed all results with pt. Pt encouraged to keep follow up with GI. Pt offered surgical referral but declines at this time. Low suspicion/risk for acute appendicitis, bowel obstruction, acute cholecystitis, acute cholangitis, perforated diverticulitis, incarcerated hernia, pancreatitis, perforated ulcer, peritonitis, sepsis, pelvic inflammatory disease, ectopic , tubo-ovarian abscess, ovarian torsion, or other sys temic emergent condition at this time. Patient is aware that her condition can change from initial presentation and she needs to monitor symptoms closely and seek medical attention if any acute changes. Return precautions given. All questions/concerns addressed prior to discharge. - Vital Signs Vital signs: Temp Pulse Resp BP Pulse Ox 97.5 F 62 18 134/74 H 100 04/30/19 07:45 04/30/19 07:45 04/30/19 07:45 04/30/19 07:45 04/30/19 07:45 - Laboratory Result Diagrams: 04/30/19 08:55 04/30/19 08:55 Discharge - Discharge Clinical Impression: RUQ abdominal pain, Nausea Condition: Stable Disposition: HOME, SELF-CARE Instructions: Abdominal Pain ([facility]), Gallbladder Disease ([facility]) Additional Instructions: You have been seen in the Emergency Department (ED) for abdominal pain. Your evaluation did not identify a clear cause of your symptoms but was generally reassuring. Please follow up with your doctor as soon as possible regarding today's emergent visit and the symptoms that are bothering you. Return to the ED if your abdominal pain worsens or fails to improve, you develop bloody vomiting, bloody diarrhea, you are unable to tolerate fluids due to vomiting, fever greater than 101, or other symptoms that concern you. Referrals: KENISHA SOLIS MD [ACTIVE STAFF] - Follow up as needed
[2019-04-30 09:13] LABS: ABSOLUTE BASOPHILS # (AUTO) 0.1 10^3/uL (0.0-0.2); ABSOLUTE EOSINOPHILS # (AUTO) 0.2 10^3/uL (0.0-0.6); ABSOLUTE LYMPHOCYTES (AUTO) 2.2 10^3/uL (0.5-4.7); ABSOLUTE MONOCYTES (AUTO) 0.5 10^3/uL (0.1-1.4); ABSOLUTE NEUT (AUTO) 4.8 10^3/uL (1.7-8.2); BASOPHILS % (AUTO) 0.8 % (0-2); EOSINOPHILS % (AUTO) 2.1 % (0-6); HEMATOCRIT 40.3 % (36.0-47.0); HEMOGLOBIN 13.6 g/dL (12.0-15.5); LYMPHOCYTES % (AUTO) 28.8 % (13-45); MEAN CORPUSCULAR HEMOGLOBIN 29.3 pg (27.0-33.4); MEAN CORPUSCULAR HGB CONC 33.8 g/dL (32.0-36.0); MEAN CORPUSCULAR VOLUME 87 fl (80-97); MONOCYTES % (AUTO) 6.7 % (3-13); PLATELET COUNT 228 10^3/uL (150-450); RED BLOOD COUNT 4.65 10^6/uL (3.72-5.28); RED CELL DISTRIBUTION WIDTH 13.7 % (11.5-14.0); SEGMENTED NEUTROPHILS % (AUTO) 61.6 % (42-78); TOTAL CELLS COUNTED % (AUTO) 100 %; WHITE BLOOD COUNT 7.8 10^3/uL (4.0-10.5)
[2019-04-30 09:34] LABS: ALBUMIN 4.3 g/dL (3.5-5.0); ALKALINE PHOSPHATASE 74 U/L (38-126); ANION GAP 8 (5-19); ASPARTATE AMINO TRANSFERASE 21 U/L (14-36); BILIRUBIN,DIRECT 0.1 mg/dL (0.0-0.4); BILIRUBIN,TOTAL 0.3 mg/dL (0.2-1.3); BLOOD UREA NITROGEN 12 mg/dL (7-20); CALCIUM 9.6 mg/dL (8.4-10.2); CARBON DIOXIDE 27 mmol/L (22-30); CHLORIDE 103 mmol/L (98-107); GLUCOSE 100 mg/dL (75-110); POTASSIUM 4.5 mmol/L (3.6-5.0); TOTAL PROTEIN 7.3 g/dL (6.3-8.2)
--- NOTE | 2019-04-30 09:34 | RADIOLOGY REPORT (SQ) ---
EXAM DESCRIPTION: U/S ABDOMEN LIMITED W/O DOP COMPLETED DATE/TIME: 04/30/2019 9:17 am REASON FOR STUDY: RUQ pain, nausea COMPARISON: Upper GI 08/02/2008 Abdominal ultrasound 05/17/2017 CT angio chest 06/26/2016 TECHNIQUE: Dynamic and static grayscale images acquired of the abdomen and recorded on PACS. Additio nal selected color Doppler and spectral images recorded. LIMITATIONS: None. FINDINGS: PANCREAS: Midline pancreas unremarkable LIVER: No masses. Echotexture normal. LIVER VASCULATURE: Normal directional flow of the main portal vein and hepatic veins. GALLBLADDER: No stones. Normal wall thickness. No pericholecystic fluid. ULTRASOUND-DETECTED RODRIGUEZ'S SIGN: Negative. INTRAHEPATIC DUCTS AND COMMON DUCT: CBD and intrahepatic ducts normal caliber. No filling defects. INFERIOR VENA CAVA: Normal flow. AORTA: No aneurysm. RIGHT KIDNEY: Normal size. Normal echogenicity. No solid or suspicious masses. No hydronephrosis. No calcifications. PERITONEAL AND RIGHT PLEURAL SPACE: No ascites or effusions. OTHER: No other significant findings. IMPRESSION: NORMAL RIGHT UPPER QUADRANT ULTRASOUND. TECHNICAL DOCUMENTATION: JOB ID: [id number]- All Rights Reserved Reading location - IP/workstation name: [email or web address]
[2019-04-30 10:23] VITALS: BP 120/71
== END 2019-04-30 10:23 | disposition home or self-care (01) ==
LOC: ER 07:40
DX: R10.11 Right upper quadrant pain (principal); R11.0 Nausea; R14.0 Abdominal distension (gaseous); M25.511 Pain in right shoulder; F17.200 Nicotine dependence, unspecified, uncomplicated
CPT/HCPCS: 36415; 76705; 80053; 81001; 81025; 83690; 85025; 99284

== ENCOUNTER → 2020-02-17 | Outpatient (CLI) | payer BC | LOC: OD 13:52 | PROVIDERS: ATTEND Orthopaedic Surgery | DX: Z11.1 Encounter for screening for respiratory tuberculosis (principal) | CPT/HCPCS: 36415; 86317; 86480; 86787 ==